=== PATIENT | female | born 1990 | race Caucasian/White ===

== ENCOUNTER 2025-01-19 20:06 | Emergency (ER) | payer MEDICAID, SELFPAY ==
[2025-01-19 20:09] VITALS: BP 128/70; PULSE 96; RESP 15; TEMP 36.9; O2SAT 99; BMI 31.2
== END 2025-01-19 20:20 | disposition left against medical advice (07) ==
LOC: ED 20:28
DX: Z53.21 Procedure and treatment not carried out due to patient leaving prior to being seen by health care provider (principal)

== ENCOUNTER 2025-08-10 07:03 | Inpatient (IN) | payer MEDICAID, SELFPAY ==
[2025-08-10] VITALS (68 sets, daily range): BP systolic 99–137; BP diastolic 53–80; PULSE 52–96; RESP 15–18; TEMP 36.1–36.6; O2SAT 81–100; BMI 37.4
--- OUTSIDE RECORDS SUMMARY | 2025-08-10 05:54 | XMS RPT_ITS | CCD ---
Author Organization [facility] Care Team Providers Care Director Security Risk Management Name Role Phone TALA MARTÍNEZHA Attending Unavailable Ramakrishna HANNA-Shannan VIEYRA Primary Care Provider SHANNAN DURBIN Attending Unavailable SHANNAN DURBIN B Primary Care Unavailable SHANNAN DURBIN Primary Care Unavailable Unavailable Primary Care Provider Unavailabl e Care Physician, No Primary Primary Care Unava ilable Zachery Lakesha Referring Unavailable Víctor [place] Attending Unavailable Zachery Lakesha Admitting Unavailable Shannan Durbin Primary Care Unavailable Provider, Ed Physician Attending Unavailab althea Durbin APRN-JARRELL, Shannan B Unavailable [phone] Ramakrishna HANNA-Luke VIEYRAla B Unavailable Generic Provider MD, No Assigned Pcp Primary Car e Provider Unavailable BINGHAM, LAKESHA Referring Unavailable ELVIS, HUE Referring Unavailable ZACHERY, LAKESHA Attending Unavailable HUE TREVINO Attending Unavailable BINGHAM, LAKESHA Referring Unavailable CLAUDETTE TREVINOFER Attending Unavailable GAYLE JOHNSON Attending Unavailable ZACHERY LAKESHA Attending Unavailable CONCEPCION YANES Attending Unavailable HUE TREVINO Attending Unavailable HUE TREVINO Attending Unavailable JESSICA VILLEGAS Referring Unavailable BINGHAM, LAKESHA Referring Unavailable ELVIS, HUE Attending Unavailable BINGHAM, LAKESHA Referring Unavailable ELVIS, HUE Attending Unavailable SELF Referring Unavailable ZACHERY, LAKESHA Attending Unavailable BINGHAM, LAKESHA Referring Unavailable ZACHERY, LAKESHA Attending Unavailable TREVA RUSSO Attending Unavailable GENERIC PROVIDER, NO ASSIGNED PCP Primary Care Unavailable SHANNAN DURBIN Primary Care Unavailable Medications Current Medications Medication Drug Class(es) Dates Sig (Normalized) Sig (Original) aspirin 81 mg delayed release oral tablet (20 sources) Platelet Aggregation Inhibitor, Nonsteroidal Anti-inflammatory Drug Start: 01-25-2025 take 1 tablet by mouth once daily aspirin, enteric coated (ECOTRIN LOW STRENGTH) 81 mg EC tablet Indications: with uncertain dates, antepartum (HCC) Take 1 tablet by mouth once daily. 90 tablet 3 01/25/2025 Active clindamycin 10 mg/ml topical solution (4 sources) Lincosamide Antibacterial Start: 03-31-2024 End: 04-30-2024 clindamycin (Cleocin T) 1 % external solution Indications: Folliculitis due to Pseudomonas aeruginosa Apply topically 2 times a day. apply to affected boils 60 mL 1 03/31/2024 04/30/2024 Active erythromycin 0.005 mg/mg ophthalmic ointment (3 sources) Macrolide, Macrolide Antimicrobial Start: 08-03-2025 0.5 cm, Left Eye, Every 6 hours scheduled, First dose (after last modification) on Sat08/03/25 at 0145 erythromycin (RO MYCIN) 5 mg/gram (0.5 %) ophthalmic ointment daily at bedtime. Active meloxicam 15 mg oral tablet (4 sources) Nonsteroidal Anti-inflammatory Drug Start: 03-31-2024 End: 03-31-2025 take 1 tablet by mouth once daily meloxicam (Mobic) 15 mg tablet Indications: Chronic low back pain without sciatica, unspecified back pain laterality , Neck pain Take 1 tablet (15 mg) by mouth once daily. 30 tablet 11 03/31/2024 03/31/2025 Active nystatin 307222 unt/ml topical cream (14 sources) Polyene Antifungal Start: 03-29-2025 nystatin (MYCOSTATIN) cream Apply to affected area two times a day. 30 g 03/29/2025 Active omeprazole 40 mg delayed release oral capsule (6 sources) Proton Pump Inhibitor Start: 09-24-2024 take 1 capsule by mouth once daily before mealtime omeprazole (PriLOSEC) [address] capsule Indications: Gastroesophageal reflux disease without esophagitis Take 1 capsule (40 mg) by mouth once daily in the morning. Take before meals. Do not crush, chew, or split. 30 capsule 09/24/2024 Active Start: 03-31-2024 End: 04-30-2024 take 1 capsule by mouth once daily before mealtime omeprazole (PriLOSEC) [address] capsule Indications: Gastroesophageal reflux disease without esophagitis Take 1 capsule (40 mg) by mouth once daily in the morning. Take before meals. Do not crush or chew. 30 capsule 03/31/2024 04/30/2024 Active End: 03-31-2024 omeprazole (PriLOSEC) [address] capsule Take 1 capsule (20 mg) by mouth. Do not crush or chew. 03/31/2024 Discontinued (Therapy completed) oxybutynin chloride 5 mg oral tablet (5 sources) Cholinergic Muscarinic Antagonist Start: 03-31-2024 End: 07-29-2024 take 1 tablet by mouth twice daily oxybutynin (Ditropan) 5 mg tablet Indications: Hyperhidrosis TAKE 1 TABLET BY MOUTH TWICE A DAY 60 tablet 3 07/22/2024 Active Urmmhkoz-Rg-Zzr-F e-FA tab (20 sources) Start: 03-02-2025 take 1 tablet by mouth once daily Rtmilgnm-Dj-Skh-Fe-F A tab Take 1 tablet by mouth once daily. With folic acid and DHA as covered by insurance 90 tablet 3 03/02/2025 Active Start: 01-25-2025 End: 03-02-2025 take 1 tablet by mouth once daily Qadutugi-Ps-Xrc-Fe-FA tab Take 1 tablet by mouth once daily. 30 tablet 11 01/25/2025 03/02/2025 Discontinued (Course of therapy completed) Start: 01-25-2025 take 1 tablet by irene once daily Umrbdjgi-Xl-Mhm-Fe-FA tab Take 1 tablet by mouth once daily. 30 tablet 11 01/25/2025 Active Completed/Discontinued Medications Medication Drug Class(es) Dates Sig (Normalized) Sig (Original) acetaminophen 325 mg oral tablet (1 source) Start: 08-03-2025 End: 08-03-2025 take 975 mg by mouth once as needed for pain 975 mg, oral, Once, On Sat08/03/25 at 0155, For 1 dose, If ordered PRN for pain, nurse is permitted to administer this medication for higher pain scores based on patient preference? Yes Etonogestrel (1 source) Progestin Start: 03-03-2015 End: 01-21-2025 ETONOGESTREL (NEXPLANON SDRM) by SUBDERMAL route continuous. 03/03/2015 01/21/2025 Discontinued (Discontinued by Patient) fluticasone propionate 0.05 mg/actuat metered dose nasal spray (10 sources) Corticosteroid Start: 01-20-2025 End: 03-02-2025 take 1 spray(s) nasal route in the morning as needed for cough fluticasone (FLONASE) 50 mcg/actuation nasal spray SPRAY 1 SPRAY INTO EACH NOSTRIL IN MORNING AND NIGHT NEEDED FOR CONGESTION,RUNNY NOSE,COUGH 01/20/2025 03/02/2025 Discontinued (Course of therapy completed) metroNIDAZOLE 500 mg oral tablet (5 sources) Nitroimidazole Antimicrobial Start: 05-25-2025 End: 06-01-2025 take 1 tablet by mouth twice daily metroNIDAZOLE (FLAGYL) 500 mg tablet Take 1 tablet by mouth two times a day for 7 days. 14 tablet 05/25/2025 06/01/2025 Start: 01-26-2025 End: 02-02-2025 take 1 tablet by mouth twice daily metroNIDAZOLE (FLAGYL) 500 mg tablet Take 1 tablet by mouth two times a day for 7 days. 14 tablet 01/26/2025 02/02/2025 Active 24 hr nicotine 0.583 mg/hr transdermal system (1 source) Cholinergic Nicotinic Agonist Start: 05-08-2017 End: 01-21-2025 apply 1 dose transdermal route every twenty-four hours nicotine (NICODERM) 14 mg/24 hr Indications: Tobacco use disorder Apply 1 Patch as directed every 24 hours. 30 Patch 1 05/08/2017 01/21/2025 Discontinued (Discontinued by Patient) ondansetron 4 mg disintegrating oral tablet (20 sources) Serotonin-3 Receptor Antagonist Start: 01-25-2025 End: 07-19-2025 take 1 tablet by mouth every eight hours as needed ondansetron orally disintegrating (ZOFRAN ODT) 4 mg disintegrating tablet Take 1 tablet by mouth every 8 hours as needed for nausea/vomiting. 30 tablet 2 04/20/2025 07/19/2025 PNV no.103/folic/om3s/f adrianna oil ( WITH DHA-FOLIC ACID ORAL) (10 sources) Start: 01-13-2025 End: 03-02-2025 PNV no.103/folic/om3s/f adrianna oil ( WITH DHA-FOLIC ACID ORAL) 01/13/2025 03/02/2025 Discontinued (Course of therapy completed) Start: 01-13-2025 PNV no.103/fol ic/om3s/fish oil ( WITH DHA-FOLIC ACID ORAL) 01/13/2025 Active tetracaine hydrochloride 5 mg/ml ophthalmic solution (2 sources) Lizzy Local Anesthetic Start: 08-03-2025 End: 08-03-2025 take 1 drop(s) into the eye(s) once 1 drop, Left Eye, Once, On Sat08/03/25 at 0120, For 1 dose, Nursing to leave at bedside for physician to administer Start: 08-03-2025 End: 08-03-2025 Starting on Sat08/03/25 at 01 17, For 1 dose, Created by cabinet override Problems Active Problems Problem Classification Problem Date Documented Date Episodic/Chronic Bacterial infection; unspecified site (2 sources) Pseudomonas (aeruginosa) (mallei) (pseudomallei) as the cause of diseases classified elsewhere; Translations: [Pseudomonas (aeruginosa) (mallei) (pseudomallei) as the cause of diseases classified elsewhere] Onset: 03-31-2024 Episodic Blindness and vision defects (2 sources) Photophobia; Translations: [Visual discomfort, left eye] Onset: 08-03-2025 08-03-2025 Episodic Esophageal disorders (5 sources) Gastroesophageal reflux disease without esophagitis; Translations: [Gastro-esophageal reflux disease without esophagitis] Onset: 03-31-2024 03-31-2024 Chronic Immunizations and screening for infectious disease (8 sources) Patient encounter status; Translations: [Encounter for screening for human papillomavirus (HPV)] Onset: 05-21-2025 01-25-2025 Episodic Inflammatory diseases of female pelvic organs (1 source) Bacterial vaginosis; Translations: [Acute vaginitis] 05-25-2025 Episodic Influenza (2 sources) Influenza; Translations: [Flu Symptoms] Onset: 01-19-2025 Other complications of (20 sources) Obesity; Translations: [Obesity complicating , unspecified trimester] Onset: 01-25-2025 01-25-2025 Chronic Other complications of (1 source) Maternal obesity complicating , childbirth and the puerperium, antepartum; Translations: [Obesity complicating , second trimester] 03-29-2025 Chronic Other complications of (1 source) Obesity complicating , unspecified trimester; Translations: [Obesity in (HCC)] Onset: 01-25-2025 Chronic Other complications of (20 sources) High risk ; Translations: [Supervision of high risk , unspecified, unspecified trimester] Onset: 07-23-2014 Resolved: 03-07-2015 03-07-2015 Episodic Other complications of (3 sources) Uterine size for dates discrepancy; Translations: [Uterine size-date discrepancy, third trimester] 06-04-2025 Episodic Other complications of (1 source) Uterine size-date discrepancy, third trimester; Translations: [Uterine size-date discrepancy, third trimester (HCC)] Onset: 06-04-2025 Episodic Other complications of (1 source) Supervision of high risk , unspecified, second trimester; Translations: [Supervision of high risk in second trimester (HCC)] Onset: 06-03-2025 Episodic Other connective tissue disease (2 sources) Pain of left hand; Translations: [Pain in left hand] 03-31-2024 Episodic Other connective tissue disease (2 sources) Pain in left hand; Translations: [Pain in left hand] Onset: 03-31-2024 Episodic Other eye disorders (1 source) Pain of left eye; Translations: [Ocular pain, left eye] 08-03-2025 Episodic Other eye disorders (1 source) Ocular pain, left eye; Translations: [Pain in left eye] Onset: 08-03-2025 Episodic Other female genital disorders (1 source) Cervical intraepithelial neoplasia grade 1; Translations: [Mild cervical dysplasia] 03-29-2025 Episodic Other female genital disorders (1 source) Vaginal discharge; Translations: [Other specified noninflammatory disorders of vagina] 05-21-2025 Episodic Other female genital disorders (1 source) Vaginal odor; Translations: [Other specified noninflammatory disorders of vagina] 05-21-2025 Episodic Other female genital disorders (2 sources) Other specified noninflammatory disorders of vagina; Translations: [Vaginal discharge] Onset: 05-21-2025 Episodic Other nervous system disorders (2 sources) Other chronic pain; Translations: [Other chronic pain] Onset: 03-31-2024 Chronic Other screening for suspected conditions (not mental disorders or infectious disease) (4 sources) Cancer cervix screening status; Translations: [Encounter for screening for malignant neoplasm of cervix] Onset: 01-26-2025 01-25-2025 Episodic Other skin disorders (1 source) Hyperhidrosis; Translations: [Generalized hyperhidrosis] 03-31-2024 Episodic Other skin disorders (1 source) Pseudomonas aeruginosa folliculitis; Translations: [Follicular disorder, unspecified] 03-31-2024 Episodic Other skin disorders (4 sources) Generalized hyperhidrosis; Translations: [Generalized hyperhidrosis] Onset: 03-31-2024 Episodic Other skin disorders (2 sources) Follicular disorder, unspecified; Translations: [Follicular disorder, unspecified] Onset: 03-31-2024 Episodic Residual codes; unclassified (2 sources) Gestation period, 11 weeks; Translations: [11 weeks gestation of ] 01-26-2025 Episodic Residual codes; unclassified (1 source) Gestation period, 13 weeks; Translations: [13 weeks gestation of ] 02-09-2025 Episodic Residual codes; unclassified (1 source) Gestation period, 16 weeks; Translations: [16 weeks gestation of ] 03-02-2025 Episodic Residual codes; unclassified (2 sources) Gestation period, 20 weeks; Translations: [20 weeks gestation of ] 03-29-2025 Episodic Residual codes; unclassified (1 source) Gestation period, 28 weeks; Translations: [28 weeks gestation of ] 05-21-2025 Episodic Residual codes; unclassified (2 sources) Gestation period, 30 weeks; Translations: [30 weeks gestation of ] 06-04-2025 Episodic Residual codes; unclassified (2 sources) Gestation period, 32 weeks; Translations: [32 weeks gestation of ] 06-21-2025 Episodic Residual codes; unclassified (1 source) Gestation period, 36 weeks; Translations: [36 weeks gestation of ] 07-20-2025 Episodic Residual codes; unclassified (2 sources) Gestation period, 38 weeks; Translations: [38 weeks gestation of ] 07-29-2025 Episodic Residual codes; unclassified (1 source) 38 weeks gestation of ; Translations: [38 weeks gestation of (HCC)] Onset: 07-29-2025 Episodic Residual codes; unclassified (1 source) 36 weeks gestation of ; Translations: [36 weeks gestation of (HCC)] Onset: 07-20-2025 Episodic Residual codes; unclassified (1 source) 32 weeks gestation of ; Translations: [32 weeks gestation of (HCC)] Onset: 06-21-2025 Episodic Residual codes; unclassified (1 source) 30 weeks gestation of ; Translations: [30 weeks gestation of (HCC)] Onset: 06-04-2025 Episodic Residual codes; unclassified (1 source) 28 weeks gestation of ; Translations: [28 weeks gestation of (HCC)] Onset: 06-03-2025 Episodic Substance-related disorders (20 sources) Cannabis abuse; Translations: [Cannabis abuse, uncomplicated] Onset: 11-11-2014 Resolved: 02-01-2025 11-20-2021 Chronic Superficial injury; contusion (5 sources) Abrasion of left cornea; Translations: [Injury of conjunctiva and corneal abrasion without foreign body, left eye, initial encounter] Onset: 08-03-2025 08-03-2025 Episodic Unclassified (1 source) Low back pain, unspecified; Translations: [Low back pain, unspecified] Onset: 03-31-2024 Unclassified (20 sources) [facility] Education - COMMON Onset: 01-25-2025 01-25-2025 Unclassified (20 sources) Education - [place] Onset: 01-25-2025 01-25-2025 Past or Other Problems Problem Classification Problem Date Documented Date Episodic/Chronic Cardiac and circulatory congenital anomalies (20 sources) Single umbilical artery; Translations: [Congenital absence and hypoplasia of umbilical artery] Onset: 06-28-2014 Resolved: 02-09-2015 11-20-2021 Chronic Hemorrhage during ; abruptio placenta; placenta previa (20 sources) Threatened miscarriage; Translations: [Threatened ] Onset: 03-21-2011 Resolved: 07-09-2011 07-09-2011 Episodic Menstrual disorders (20 sources) Irregular periods; Translations: [Irregular menstruation, unspecified] Onset: 03-12-2011 Resolved: 02-01-2025 03-12-2011 Chronic Mycoses (2 sources) Candidiasis of skin; Translations: [Candidiasis of skin and nail] Onset: 03-29-2025 03-29-2025 Episodic Other complications of (20 sources) Supervision of other high risk pregnancies, unspecified trimester; Translations: [Supervision of other high-risk ] Onset: 03-12-2011 Resolved: 11-23-2011 11-23-2011 Episodic Other complications of (20 sources) Maternal tobacco use in ; Translations: [Smoking (tobacco) complicating , unspecified trimester] Onset: 03-26-2014 Resolved: 03-07-2015 11-20-2021 Episodic Other complications of (20 sources) Vomiting of , unspecified; Translations: [Unspecified vomiting of , unspecified as to episode of care or not applicable] Onset: 03-26-2014 Resolved: 02-09-2015 11-20-2021 Episodic Other complications of (20 sources) Back pain complicating ; Translations: [Back pain complicating ] Onset: 07-29-2014 Resolved: 02-09-2015 11-20-2021 Episodic Other complications of (20 sources) Maternal tobacco use; Translations: [Smoking (tobacco) complicating , unspecified trimester] Onset: 01-25-2025 01-25-2025 Episodic Other complications of (1 source) Smoking (tobacco) complicating , unspecified trimester; Translations: [Tobacco use during , antepartum (HCC)] Onset: 01-25-2025 Episodic Other female genital disorders (20 sources) Cervical intraepithelial neoplasia grade 2; Translations: [Moderate cervical dysplasia] Onset: 06-08-2014 11-20-2021 Episodic Other female genital disorders (1 source) Mild cervical dysplasia; Translations: [ADRIANA I (cervical intraepithelial neoplasia I)] Onset: 03-29-2025 Episodic Other inflammatory condition of skin (20 sources) Pruritus of skin; Translations: [Pruritus, unspecified] Onset: 03-21-2011 Resolved: 02-09-2015 02-09-2015 Episodic Other and delivery including normal (20 sources) Normal ; Translations: [Encounter for supervision of other normal , unspecified trimester] Onset: 06-25-2014 Resolved: 07-23-2014 11-20-2021 Episodic Residual codes; unclassified (20 sources) FH: Congenital anomaly; Translations: [Family history of other congenital malformations, deformations and chromosomal abnormalities] Onset: 03-26-2014 Resolved: 02-09-2015 11-20-2021 Episodic Residual codes; unclassified (1 source) Procedure and treatment not carried out due to patient leaving prior to being seen by health care provider; Translations: [Procedure and treatment not carried out due to patient leaving prior to being seen by health care provider] Onset: 02-02-2025 Episodic Residual codes; unclassified (1 source) 20 weeks gestation of ; Translations: [20 weeks gestation of (HCC)] Onset: 03-29-2025 Episodic Residual codes; unclassified (1 source) 11 weeks gestation of ; Translations: [11 weeks gestation of ] Onset: 01-26-2025 Episodic Sexually transmitted infections (not HIV or hepatitis) (20 sources) Human papillomavirus deoxyribonucleic acid test positive, high risk on cervical specimen; Translations: [Cervical high risk human papillomavirus (HPV) DNA test positive] Onset: 02-01-2025 02-01-2025 Episodic Spondylosis; intervertebral disc disorders; other back problems (20 sources) Chronic low back pain; Translations: [Chronic low back pain without sciatica, unspecified back pain laterality] Onset: 08-09-2014 Resolved: 02-01-2025 03-31-2024 Episodic Substance-related disorders (20 sources) Marijuana user; Translations: [Drug use complicating , unspecified trimester] Onset: 01-25-2025 01-25-2025 Episodic Unclassified (1 source) Low back pain, unspecified; Translations: [Low back pain, unspecified] Onset: 03-31-2024 Viral infection (20 sources) Genital warts; Translations: [Anogenital (venereal) warts] Onset: 03-31-2013 03-31-2013 Episodic NEGATED: Highlighted row has been ruled out!Unclassified (1 source) No known active problems 03-31-2024 Results Test Name Value Interpretation Reference Range Facil ity URINE OB DIP B/Oon Glucose Ql (U) Negative Neg mg/dL [facility] Interpretation and review of laboratory results Normal [facility] Protein.monoclonal (U) [Mass/Vol] Negative Neg mg/dL [facility] URINE OB DIP B/Oon Glucose Ql (U) Negative Neg mg/dL [facility] Interpretation and review of laboratory results Normal [facility] Protein.monoclonal (U) [Mass/Vol] Negative Neg mg/dL [facility] CNPNon 07-21-2025 CNPN Telephone ([id number]) YASHIRALASHANDAN ([id number]) 1990 F Date Time Provider Department 07/21/25 HUE FLOWERS [id number] During your visit today, we recorded the following information about you: Hue Flowers RN 07/21/2025 8:36 AM Signed 3rd risk assessment form submitted 07/21/2025. 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 - Ofqwaqmn-Ak-Ecl-Fe-FA tab Take 1 tablet by mouth once daily. With folic acid and DHA as covered by insurance - aspirin, enteric coated (ECOTRIN LOW STRENGTH) 81 mg EC tablet Take 1 tablet by mouth once daily. Problem List As Of Date 07/21/2025 Noted Resolved Supervision of other high-risk [O09.8*03/12/2011 11/23/2011 Irregular menstrual cycle [N92.6] 03/12/2011 02/01/2025 Threatened , antepartum [O20.0] 03/21/2011 07/09/2011 Unspecified pruritic disorder [L29.9] 03/21/2011 02/09/2015 Genital warts [A63.0] 03/31/2013 Tobacco use in [O99.330] 03/26/2014 03/07/2015 Nausea and vomiting in [O21.9] 03/26/2014 02/09/2015 Family history of defects [Z82.79] 03/26/2014 02/09/2015 Cervical warts [A63.0] 06/03/2014 ADRIANA II (cervical intraepithelial neoplasia II) *06/08/2014 Supervision of other normal [Z34.80] 06/25/2014 07/23/2014 Single umbilical artery [Q27.0] 06/28/2014 02/09/2015 High-risk [O09.90] 07/23/2014 03/07/2015 Back pain complicating [O99.891, M54.*07/29/2014 02/09/2015 Low back pain [M54.50] 08/09/2014 02/01/2025 Marijuana abuse [F12.10] 11/11/2014 Tobacco use disorder [F17.200] 05/08/2017 02/01/2025 Tobacco use during , antepartum [O99.3*01/25/2025 Marijuana use during [O99.320, F12.90]01/25/2025 Supervision of other high risk pregnancies, uns*01/25/2025 Obesity in [O99.210] 01/25/2025 Cervical high risk HPV (human papillomavirus) t*02/01/2025 Encounter Status:Closed by HUE FLOWERS on 07/21/25 Normal [facility] ROUTINE, GROUP B ST REPTOCOCCUS BY PCRon 07-20-2025 ROUTINE, GROUP B STREPTOCOCCUS BY PCR Detected Abnormal [facility] Comment on above: Performed By: #### G BPCR ####[facility] LABCLIA [id number] [place] [address] [place] URINE OB DIP B/Oon Glucose Ql (U) Negative Neg mg/dL [facility] Interpretation and review of laboratory results Normal [facility] Protein.monoclonal (U) [Mass/Vol] Negative Neg mg/dL [facility] Examination level ultrasound on 06-21-2025 [facility] Radiology Study observation (narrative) [facility] URINE OB DIP B/Oon Glucose Ql (U) Negative Neg mg/dL [facility] Interpretation and review of laboratory results Normal [facility] Protein.monoclonal (U) [Mass/Vol] Negative Neg mg/dL [facility] CBC W Auto Differential pane l (Bld)on 06-03-2025 Basophils (Bld) [#/Vol] 0.08 10*3/uL Normal <0.11 [facility] Comment on above: Order Comment: Speci men Type: BLOOD SPECIMENOrdering Facility: [facility] Address: [address] [place] [address] Performed By: #### 5 7021-8 ####[facility] MILLTOWNCLIA [id number] [place] [address] [place] Basophils/100 WBC (Bld) 0.6 % Normal [facility] Comment on above: Order Comment: Speci men Type: BLOOD SPECIMENOrdering Facility: [facility] Address: [address] [place] [address] Performed By: #### 5 7021-8 ####[facility] [id number] [place] [address] [place] Differential cell count method Nom (Bld) Auto Normal [facility] Comment on above: Order Comment: Speci men Type: BLOOD SPECIMENOrdering Facility: [facility] Address: [address] [place] [address] Performed By: #### 5 7021-8 ####[facility]OWNCLIA [id number] [place] [address] [place] Eosinophils (Bld) [#/Vol] 0.29 10*3/uL Normal <0.46 [facility] Comment on above: Order Comment: Speci men Type: BLOOD SPECIMENOrdering Facility: [facility] Address: [address] [place] [address] Performed By: #### 5 7021-8 ####[facility] MILLTOWNCLIA [id number] [place] [address] [place] Eosinophils/100 WBC (Bld) 2.3 % Normal [facility] Comment on above: Order Comment: Speci men Type: BLOOD SPECIMENOrdering Facility: [facility] Address: [address] [place] [address] Performed By: #### 5 7021-8 ####[facility] DOMINGACLAWSONJOYNOREEN [id number] [place] [address] [place] Erythrocyte distribution width (RBC) [Ratio] 12.7 % Normal 11.5-15.0 [facility] Comment on above: Order Comment: Speci men Type: BLOOD SPECIMENOrdering Facility: [facility] Address: [address] [place] [address] Performed By: #### 5 7021-8 ####[facility] [id number] [place] [address] [place] Hematocrit (Bld) [Volume fraction] 31.4 % Low 36.0-46.0 [facility] Comment on above: Order Comment: Speci men Type: BLOOD SPECIMENOrdering Facility: [facility] Address: [address] [place] [address] Performed By: #### 5 7021-8 ####[facility] INSTITUTEJOYNOREEN [id number] [place] [address] [place] Hemoglobin (Bld) [Mass/Vol] 11.2 g/dL Low 11.5-15.5 [facility] Comment on above: Order Comment: Speci men Type: BLOOD SPECIMENOrdering Facility: [facility] Address: [address] [place] [address] Performed By: #### 5 7021-8 ####[facility] IN[facility]UTENCLIA [id number] [place] [address] [place] Immature granulocytes (Bld) [#/Vol] 0.06 10*3/uL Normal <0.10 [facility] Comment on above: Order Comment: Speci men Type: BLOOD SPECIMENOrdering Facility: [facility] Address: [address] [place] [address] Performed By: #### 5 7021-8 ####[facility] [id number] [place] [address] [place] Immature granulocytes/100 WBC (Bld) 0.5 % Normal [facility] Comment on above: Order Comment: Speci men Type: BLOOD SPECIMENOrdering Facility: [facility] Address: [address] [place] [address] Performed By: #### 5 7021-8 ####[facility] [id number] [place] [address] [place] Lymphocytes (Bld) [#/Vol] 2.55 10*3/uL Normal 1.00-4.00 [facility] Comment on above: Order Comment: Speci men Type: BLOOD SPECIMENOrdering Facility: [facility] Address: [address] [place] [address] Performed By: #### 5 7021-8 ####[facility] [id number] [place] [address] [place] Lymphocytes/100 WBC (Bld) 20.0 % Normal [facility] Comment on above: Order Comment: Speci men Type: BLOOD SPECIMENOrdering Facility: [facility] Address: [address] [place] [address] Performed By: #### 5 7021-8 ####[facility] [id number] [place] [address] [place] MCH (RBC) [Entitic mass] 31.5 pg Normal 26.0-34.0 [facility] Comment on above: Order Comment: Speci men Type: BLOOD SPECIMENOrdering Facility: [facility] Address: [address] [place] [address] Performed By: #### 5 7021-8 ####[facility]STITUTENCL[facility] [id number] [place] [address] [place] MCHC (RBC) [Mass/Vol] 35.7 g/dL Normal 30.5-36.0 [facility] Comment on above: Order Comment: Speci men Type: BLOOD SPECIMENOrdering Facility: [facility] Address: [address] [place] [address] Performed By: #### 5 7021-8 ####[facility] [id number] [place] [address] [place] MCV (RBC) [Entitic vol] 88.2 fL Normal 80.0-100.0 [facility] Comment on above: Order Comment: Speci men Type: BLOOD SPECIMENOrdering Facility: [facility] Address: [address] [place] [address] Performed By: #### 5 7021-8 ####[facility] [id number] [place] [address] [place] Monocytes (Bld) [#/Vol] 0.64 10*3/uL Normal <0.87 [facility] Comment on above: Order Comment: Speci men Type: BLOOD SPECIMENOrdering Facility: [facility] Address: [address] [place] [address] Performed By: #### 5 7021-8 ####[facility]IT[facility] [id number] [place] [address] [place] Monocytes/100 WBC (Bld) 5.0 % Normal [facility] Comment on above: Order Comment: Speci men Type: BLOOD SPECIMENOrdering Facility: [facility] Address: [address] [place] [address] Performed By: #### 5 7021-8 ####[facility] [id number] [place] [address] [place] Neutrophils (Bld) [#/Vol] 9.15 10*3/uL High 1.45-7.50 [facility] Comment on above: Order Comment: Speci men Type: BLOOD SPECIMENOrdering Facility: [facility] Address: [address] [place] [address] Performed By: #### 5 7021-8 ####[facility] [id number] [place] [address] [place] Neutrophils/100 WBC (Bld) 71.6 % Normal [facility] Comment on above: Order Comment: Speci men Type: BLOOD SPECIMENOrdering Facility: [facility] Address: [address] [place] [address] Performed By: #### 5 7021-8 ####[facility] INSTITUTESOSA [id number] [place] [address] [place] Nucleated RBC (Bld) [#/Vol] 10*3/uL Normal <0.01 [facility] Comment on above: Order Comment: Speci men Type: BLOOD SPECIMENOrdering Facility: [facility] Address: [address] [place] [address] Performed By: #### 5 7021-8 ####[facility]ES[facility] [id number] [place] [address] [place] Nucleated RBC/100 WBC (Bld) [Ratio] 0.0 /100 WBC Normal [facility] Comment on above: Order Comment: Speci men Type: BLOOD SPECIMENOrdering Facility: [facility] Address: [address] [place] [address] Performed By: #### 5 7021-8 ####[facility] INSTITUTENCLI [id number] [place] [address] [place] Platelet mean volume (Bld) [Entitic vol] 8.9 fL Low 9.0-12.7 [facility] Comment on above: Order Comment: Speci men Type: BLOOD SPECIMENOrdering Facility: [facility] Address: [address] [place] [address] Performed By: #### 5 7021-8 ####[facility] INSTITUTENCTOSHIAA [id number] [place] [address] [place] Platelets (Bld) [#/Vol] 331 10*3/uL Normal 150-400 [facility] Comment on above: Order Comment: Speci men Type: BLOOD SPECIMENOrdering Facility: [facility] Address: [address] [place] [address] Performed By: #### 5 7021-8 ####[facility]STITUTENCLIA [id number] [place] [address] [place] RBC (Bld) [#/Vol] 3.56 10*6/uL Low 3.90-5.20 [facility] Comment on above: Order Comment: Speci men Type: BLOOD SPECIMENOrdering Facility: [facility] Address: [address] [place] [address] Performed By: #### 5 7021-8 ####[facility]ENCL[facility] [id number] [place] [address] [place] WBC (Bld) [#/Vol] 12.77 10*3/uL High 3.70-11.00 [facility] Comment on above: Order Comment: Speci men Type: BLOOD SPECIMENOrdering Facility: [facility] Address: [address] [place] [address] Performed By: #### 5 7021-8 ####[facility]UT[facility]CL[facility] [id number] [place] [address] [place] GESTATIONAL GLUCOSE SCREEN, 1-HOUR, 50 GRAM, NON-FASTINGon 06-03-2025 Glucose [Mass/Vol] 92 mg/dL Normal 74-134 [facility] Comment on above: Order Comment: Ramona lopez Type: BLOOD SPECIMENOrdering Facility: [facility] Address: [address] [place] [address] Result Comment: [facility] Congress of Obstetricians and Gynecologists (Arminda/Madeline) guidelines state a gestational diabetes mellitus positive screen is made, in women not previously diagnosed with overt diabetes, when the 1 hr plasma glucose level is equal to or above 140 mg/dL. [facility] [employer] [facility] [place] recommends a 135 mg/dL cutoff. Performed By: #### G LTGST ####[facility] [id number] [place] [address] [place] Reagin and Treponema pallidu m IgG and IgM [Interp]on 06-03-2025 T. pallidum IgG+IgM IA Ql (S) Non-Reactive Normal Nonreactive [facility] Comment on above: Order Comment: Ramona lopez Type: BLOOD SPECIMENOrdering Facility: [facility] Address: [address] [place] [address] Performed By: #### 7 3752-8 ####[facility] [id number] [place] [address] [place] Reagin+T pallidum IgG+IgM Se rPl-Impon 06-03-2025 Reagin and Treponema pallidum IgG and IgM [Interp] Cannot exclude recent Treponemal infection if specimen collected within 7-10 days after appearance of suspect lesions or 2-3 weeks after an exposure. Clinical correlation is required. Normal [facility] Comment on above: Order Comment: Ramona lopez Type: BLOOD SPECIMENOrdering Facility: [facility] Address: [address] [place] [address] Performed By: #### 7 3752-8 ####[facility] LABIA [id number] [place] [id number] [place] CNPDee 05-24-2025 CNPN Telephone ([id number]) ELAINE AC ([id number]) 1990 F IPA Date Time Provider Department 05/24/25 HUE FLOWERS [id number] During your visit today, we recorded the following information about you: Hue Flowers RN 05/24/2025 9:48 AM Signed 2nd risk assessment form submitted 05/24/2025. 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 - nystatin (MYCOSTATIN) cream Apply to affected area two times a day. - Xfprluat-Qb-Chx-Fe-FA tab Take 1 tablet by mouth once daily. With folic acid and DHA as covered by insurance - aspirin, enteric coated (ECOTRIN LOW STRENGTH) 81 mg EC tablet Take 1 tablet by mouth once daily. Problem List As Of Date 05/24/2025 Noted Resolved Supervision of other high-risk [O09.8*03/12/2011 11/23/2011 Irregular menstrual cycle [N92.6] 03/12/2011 02/01/2025 Threatened , antepartum [O20.0] 03/21/2011 07/09/2011 Unspecified pruritic disorder [L29.9] 03/21/2011 02/09/2015 Genital warts [A63.0] 03/31/2013 Tobacco use in [O99.330] 03/26/2014 03/07/2015 Nausea and vomiting in [O21.9] 03/26/2014 02/09/2015 Family history of defects [Z82.79] 03/26/2014 02/09/2015 Cervical warts [A63.0] 06/03/2014 ADRIANA II (cervical intraepithelial neoplasia II) *06/08/2014 Supervision of other normal [Z34.80] 06/25/2014 07/23/2014 Single umbilical artery [Q27.0] 06/28/2014 02/09/2015 High-risk [O09.90] 07/23/2014 03/07/2015 Back pain complicating [O99.891, M54.*07/29/2014 02/09/2015 Low back pain [M54.50] 08/09/2014 02/01/2025 Marijuana abuse [F12.10] 11/11/2014 Tobacco use disorder [F17.200] 05/08/2017 02/01/2025 Tobacco use during , antepartum [O99.3*01/25/2025 Marijuana use during [O99.320, F12.90]01/25/2025 Supervision of other high risk pregnancies, uns*01/25/2025 Obesity in [O99.210] 01/25/2025 Cervical high risk HPV (human papillomavirus) t*02/01/2025 Encounter Status:Closed by HUE FLOWERS on 05/24/25 Normal [facility] BACTERIAL VAGINOSIS NAATon 0 05-21-2025 Lactobacillus crispatus+gasseri+je nsenii + Gardnerella vaginalis + Atopobium vaginae rRNA MITUL+probe Ql (Vag fld) Detected Abnormal Not detected [facility] Comment on above: Order Comment: Speci men Type: SWABOrdering Facility: [facility] Address: [address] [place] [address] Performed By: #### C VTV, BVAMP ####[facility] LABCLIA [id number] [address] [place] ASHLEY/TRICHOMONAS NAATon 0 05-21-2025 C. glabrata RNA MITUL+probe Ql (Vag fld) Not detected Normal Not detected [facility] Comment on above: Order Comment: Speci men Type: SWABOrdering Facility: [facility] Address: [address], [place] [address] Performed By: #### C VTV, BVAMP ####[facility] LABCLIA [id number] [address] [place] Ashley sp DNA MITUL+probe Ql (Vag fld) Not detected Normal Not detected [facility] Comment on above: Order Comment: Speci men Type: SWABOrdering Facility: [facility] Address: [address] [place] [address] Result Comment: The Ashley species group target includes C. albicans, C. tropicalis, C. parapsilosis, and C. dubliniensis. Performed By: #### C VTV, BVAMP ####[facility] LABCLIA [id number] [address] T. vaginalis DNA MITUL+probe Ql (Unsp spec) Not detected Normal Not detected [facility] Comment on above: Order Comment: Speci men Type: SWABOrdering Facility: [facility] Address: [address] [place] [address] Performed By: #### C VTV, BVAMP ####[facility] LABCLIA [id number] [address] [place] Familia 03-30-2025 [facility][id number][facility] ELAINE AC ([id number]) 1990 F Date Time Provider Department 03/30/25 HUE FLOWERS [id number] During your visit today, we recorded the following information about you: Hue Flowers RN 03/30/2025 9:46 AM Addendum Opened in error Allergies As of Date: 03/30/2025 (No Known Allergies) Date Reviewed: 03/29/2025 Reviewed by: Hue Trevino MD - Fully Assessed 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 - Imsgmtkf-Qt-Pgf-Fe-FA tab Take 1 tablet by mouth once daily. With folic acid and DHA as covered by insurance - aspirin, enteric coated (ECOTRIN LOW STRENGTH) 81 mg EC tablet Take 1 tablet by mouth once daily. - ondansetron orally disintegrating (ZOFRAN ODT) 4 mg disintegrating tablet Take 1 tablet by mouth every 8 hours as needed for nausea/vomiting. Problem List As Of Date 03/30/2025 Noted Resolved Supervision of other high-risk [O09.8*03/12/2011 11/23/2011 Irregular menstrual cycle [N92.6] 03/12/2011 02/01/2025 Threatened , antepartum [O20.0] 03/21/2011 07/09/2011 Unspecified pruritic disorder [L29.9] 03/21/2011 02/09/2015 Genital warts [A63.0] 03/31/2013 Tobacco use in [O99.330] 03/26/2014 03/07/2015 Nausea and vomiting in [O21.9] 03/26/2014 02/09/2015 Family history of defects [Z82.79] 03/26/2014 02/09/2015 Cervical warts [A63.0] 06/03/2014 ADRIANA II (cervical intraepithelial neoplasia II) *06/08/2014 Supervision of other normal [Z34.80] 06/25/2014 07/23/2014 Single umbilical artery [Q27.0] 06/28/2014 02/09/2015 High-risk [O09.90] 07/23/2014 03/07/2015 Back pain complicating [O99.891, M54.*07/29/2014 02/09/2015 Low back pain [M54.50] 08/09/2014 02/01/2025 Marijuana abuse [F12.10] 11/11/2014 Tobacco use disorder [F17.200] 05/08/2017 02/01/2025 Tobacco use during , antepartum [O99.3*01/25/2025 Marijuana use during [O99.320, F12.90]01/25/2025 Supervision of other high risk pregnancies, uns*01/25/2025 Obesity in [O99.210] 01/25/2025 Cervical high risk HPV (human papillomavirus) t*02/01/2025 Encounter Status:Closed by HUE FLOWERS on 03/30/25 Normal [facility] Examination level ultrasound on 03-29-2025 Indication Detailed anatomic survey Maternal obesity, BMI >30 Impression The patient is referred for a detailed anatomic survey. - Single, live, intrauterine . - biometry is consistent with the established gestational age. - No malformations were visualized on a complete detailed anatomic survey. - The amniotic fluid volume is normal amount. - The placenta is anterior, fundal. - The Transabdominal cervical length measures 37.8 mm with no evidence of funneling or other dynamic changes. - Not all structural malformations can be detected by ultrasound examination. Recommendations Additional follow-up as clinically indicated. Maternal Assessment Height 163 cm Height (ft) 5 ft Height (in) 4 in Physical Exam Initial weight (lb) 182 lb Initial BMI 31.23 kg/m Maternal assessment other: 3 Para 2 REMOTE READ Method Transabdominal ultrasound examination. View: Suboptimal view: limited by position Rose . Number of fetuses: 1 Dating GA by prior assessment 20 w + 4 d LUCIA by prior assessment: 08/12/2025 Ultrasound examination on: 03/29/2025 GA by U/S based upon: AC, BPD, Femur, HC GA by U/S 20 w + 5 d LUCIA by U/S: 08/11/2025 Assigned: based on stated LUCIA, selected on 03/29/2025 Assigned GA 20 w + 4 d Assigned LUCIA: 08/12/2025 General Evaluation Cardiac activity present. FHR 143 bpm. movements: present. Presentation: transverse head right Placenta: Placental site: anterior, fundal Umbilical cord: Cord vessels: 3 vessel cord Amniotic fluid: Amount of AF: normal amount. MVP 5.6 cm Growth Overview Exam date GA BPD (mm) HC (mm) AC (mm) FL (mm) HL (mm) EFW (g) 03/29/2025 20w 4d 46.9 33% 181.4 49% 163 70% 34 68% 34.6 88% 390 66% Biometry Standard BPD 46.9 mm 20w 1d 33% Hadlock OFD 65.5 mm 20w 5d 81% Nicolaides HC 181.4 mm 20w 4d 49% Ambreen Cerebellum tr 21.0 mm 20w 0d 46% Hill Nuchal fold 5.2 mm AC 163.0 mm 21w 3d 70% Hadlock Femur 34.0 mm 20w 6d 68% Ambreen Humerus 34.6 mm 21w 6d 88% Ambreen EFW 390 g 20w 6d 66% Hadlock EFW (lb) 0 lb EFW (oz) 14 oz EFW by: Hadlock (HC-AC-FL) [employer] Manager 7.0 mm CM 5.5 mm 63% Nicolaides Extremities / Bony Struc FL / HC 0.19 52% Hadlock Other Structures FHR 143 bpm Anatomy Cranium: normal Lateral ventricles: normal Choroid plexus: normal Midline falx: normal Cavum septi pellucidi: normal Cerebellum: normal Cisterna magna: normal Head / Neck Vermis: normal Neck: normal Nuchal fold: normal Lips: normal Profile: normal Nose: normal Face Maxilla: normal Mandible: normal Orbits: normal Lens: normal 4-chamber view: normal RVOT view: normal LVOT view: normal 3-vessel view: normal 4-lqdoqc-jskmjpi view: normal Heart / Thorax Situs: situs solitus (normal) Aortic arch view: normal SVC: normal IVC: normal Cardiac axis: normal Rt lung: normal Lt lung: normal Diaphragm: normal Cord insertion: normal Stomach: normal Kidneys: normal Bladder: normal Genitals: normal Abdomen Abdom. wall: normal Cervical spine: normal Thoracic spine: normal Lumbar spine: normal Sacral spine: normal Arms: normal Legs: normal Rt upper arm: normal Rt forearm: normal Rt hand: normal Rt fingers: normal Lt upper arm: normal Lt forearm: normal Lt hand: normal Lt fingers: normal Rt upper leg: normal Rt lower leg: normal Rt foot: normal Lt upper leg: normal Lt lower leg: normal Lt foot: normal sex: female Wants to know sex: yes Maternal Structures Uterus / Cervix Uterus: Visualized Cervix: Visualized Approach: Transabdominal Cervical length 37.8 mm Other: Patient declined transvaginal ultrasound for cervical length. Ovaries / Tubes / Adnexa Rt ovary: Visualized Lt ovary: Visualized Performed By: Luz Watson RDMS, RVT Read By: Nina Conte M.D. MATERNAL MEDICINE [facility] Radiology Study observation (narrative) [facility] Familia 03-25-2025 CNPN Telephone (OBGYWM) ELAINE AC ([id number]) 1990 F IPA Date Time Provider Department 03/25/25 LAKESHA BINGHAM During your visit today, we recorded the following information about you: Digna Villalobos RN 03/25/2025 8:57 AM Signed Written order received from [employer] for breast pump. Placed in ALFONSO inbox for signature. DONNA Jluio Lindsey, RN 04/09/2025 2:19 PM Signed Order signed and faxed. Luz Chun RN Allergies As of Date: 03/25/2025 (No Known Allergies) Date Reviewed: 02/09/2025 Reviewed by: Hue Trevino MD - Fully Assessed Reason for Visit: Breast pump [Other] Prescriptions as of 04/09/2025 - nystatin (MYCOSTATIN) cream Apply to affected area two times a day. - Lqsozble-Ke-Uea-Fe-FA tab Take 1 tablet by mouth once daily. With folic acid and DHA as covered by insurance - aspirin, enteric coated (ECOTRIN LOW STRENGTH) 81 mg EC tablet Take 1 tablet by mouth once daily. - ondansetron orally disintegrating (ZOFRAN ODT) 4 mg disintegrating tablet Take 1 tablet by mouth every 8 hours as needed for nausea/vomiting. Problem List As Of Date 03/25/2025 Noted Resolved Supervision of other high-risk [O09.8*03/12/2011 11/23/2011 Irregular menstrual cycle [N92.6] 03/12/2011 02/01/2025 Threatened , antepartum [O20.0] 03/21/2011 07/09/2011 Unspecified pruritic disorder [L29.9] 03/21/2011 02/09/2015 Genital warts [A63.0] 03/31/2013 Tobacco use in [O99.330] 03/26/2014 03/07/2015 Nausea and vomiting in [O21.9] 03/26/2014 02/09/2015 Family history of defects [Z82.79] 03/26/2014 02/09/2015 Cervical warts [A63.0] 06/03/2014 ADRIANA II (cervical intraepithelial neoplasia II) *06/08/2014 Supervision of other normal [Z34.80] 06/25/2014 07/23/2014 Single umbilical artery [Q27.0] 06/28/2014 02/09/2015 High-risk [O09.90] 07/23/2014 03/07/2015 Back pain complicating [O99.891, M54.*07/29/2014 02/09/2015 Low back pain [M54.50] 08/09/2014 02/01/2025 Marijuana abuse [F12.10] 11/11/2014 Tobacco use disorder [F17.200] 05/08/2017 02/01/2025 Tobacco use during , antepartum [O99.3*01/25/2025 Marijuana use during [O99.320, F12.90]01/25/2025 Supervision of other high risk pregnancies, uns*01/25/2025 Obesity in [O99.210] 01/25/2025 Cervical high risk HPV (human papillomavirus) t*02/01/2025 Encounter Status:Closed by LUZ CHUN on 04/09/25 [facility] CNOVon 02-09-2025 CNOV Office Visit (OBGYWM ) ELAINE AC ([id number]) 1990 F Date Time Provider Department 02/09/25 1:40 PM HUE TREVINO During your visit today, we recorded the following information about you: Blood pressure Weight 110/60 83.9 kg Hue Trevino MD 02/09/2025 2:46 PM Signed Heeler offered: Patient declinesLeonardo Henry is a 34 year old who presents today for a colposcopy. The patient's last pap smear was Positive HPV from January 2025. Patient has a history of abnormal pap: Yes. The patient has had prior treatment: none. test: 13 weeks FHR 145 UNIVERSAL PROTOCOL / SAFETY CHECKLIST Procedure to be Performed: Colposcopy with possible biopsies Sign In: A Moment of CARE was completed. Appropriate PPE (Personal Protective Equipment) worn by all providers involved with the procedure. Special equipment not required. Patient/Surrogate Stated/Verified: Patient name, Date of , Relevant allergies, and The intended procedure Time Out: Relevant labs, photos, and/or imaging studies have been reviewed. Intended patient and procedure match the source document(s) (e.g. consent, HANDP, associated studies [imaging, pathology]) match the intended patient and procedure. Consent obtained and matches the intended procedure. Yes. Correct side/site is not applicable. Medications required for this procedure are not applicable. Fire risk assessed and is not applicable. Implants: are not applicable. Sign Out: Specimens are all correctly labeled and sent. All instruments, equipment, possible retained foreign bodies are accounted for. Yes. The post-procedure plan of care has been communicated to the patient or surrogate. PROCEDURE: EXTERNAL GENITALIA: Normal in appearance without lesions VAGINA: Normal in appearance without lesions CERVIX: Speculum placed in vagina and excellent visualization of cervix achieved. Cervix swabbed x 3 with 3% acetic acid solution. Cervix grossly normal. Squamocolumnar junction visualized. acetowhite changes noted 10 o'clock. BIOPSY: Done at 10:00 ECC: not done HEMOSTASIS: Obtained with silver nitrate Procedure Summary: Patient tolerated procedure well and colposcopy was adequate. ASSESSMENT: moderate dysplasia PLAN: Specimens labeled and sent to Pathology. Will notify patient of results in 1-2 weeks. Post-procedure instructions reviewed and written material given to the patient. MD Clarence Banda Reanna, MA 02/09/2025 2:11 PM Signed YOUR RECOVERY It may take a few weeks for your cervix to heal. While your cervix heals, you may have: - Vaginal bleeding (less than a normal menstrual period) - Mild cramping - A brown-black vaginal discharge (similar to coffee grounds) which is a result of the paste used to help stop bleeding from the procedure Do NOT put anything in the vagina for 1 week after your colposcopy if your doctor does a biopsy of your cervix. This includes sex, tampons, and douches. If you have any discomfort, you may take an over the counter pain medication (motrin, advil, ibuprofen, tylenol, etc). If this does not relieve your discomfort, contact your doctor's office for a prescription strength pain medication. It is okay to wear a sanitary pad until the discharge and spotting stops. RISKS Although problems seldom occur with colposcopy, there can be some complications. You may feel faint during and shortly after the procedure as well as have some bleeding and vaginal discharge after the procedure. There is also a risk of infection after the procedure. These complications are rare and can be easily treated. You should contact you doctor is you have any of the following: - Heavy bleeding (more than your normal period) - Bleeding with clots - Severe abdominal pain - Fever (more than 100.4F) - Foul smelling vaginal discharge RESULTS If a biopsy was taken, we will have the results of your biopsy in 1-2 weeks. If you do not hear the results of your biopsy after 2 weeks, please contact your physicians office for the results. Depending on the biopsy results, your doctor will determine your follow up plan which may include further testing or treatments. STAYING HEALTHY After the procedure, you will need to see your doctor for follow up visits during the year. At these visits your doctor will check the health of your cervix with a pap smear. After three normal pap smears, your doctor will allow you to return to having exams once a year. If you have another abnormal pap smear, you may need closer follow up for longer or you may need additional treatment. By making a few lifestyle changes after the procedure, you can help protect the health of your cervix: - Have regular pelvic exams and pap smears as ordered by your doctor. - Stop smoking as smoking increases your risk of developing a cancer (more content not included)... Normal [facility] Pathology biopsy report Brodie (Tiss)on 02-09-2025 AP DISCLAIMER Normal [facility] Comment on above: Order Comment: Speci men Type: TISSUE SPECIMENOrdering Facility: [facility] Address: [address] [place] [address] Result Comment: Lilly boateng Developed Test (LDT) Disclaimer: Performance characteristics of immunohistochemical, immunofluorescent, and chromogenic in-situ hybridization tests have been determined by the performing laboratory within [facility] Pathology and Laboratory Medicine Department ([facility], [facility], [facility], [facility], [facility], [facility], or [facility]) in a manner consistent with CLIA requirements. One or more of these tests may not have been cleared or approved by the FDA. RT-PLM is regulated under CLIA as qualified to perform high-complexity testing. These tests are used for clinical purposes. These should not be regarded as investigational or for research. Positive and negative controls stain appropriately. Performed By: #### 6 6121-5 ####[facility] LABCLIA [id number] [place] [address] [place] CASE REPORT Normal [facility] Comment on above: Order Comment: Speci men Type: TISSUE SPECIMENOrdering Facility: [facility] Address: [address] [place] [address] Result Comment: Surg [facility] Pathology Report Case: [id number] Authorizing Provider: Hue Trevino MD Collected: 02/09/2025 03:01 PM Ordering Location: OB/Gynecology Received: 02/09/2025 04:26 PM Pathologist: Jeanine Azevedo MD Specimen: Cervix, Biopsy, 10 Performed By: #### 6 6121-5 ####[facility] LABCLIA [id number] [place] [address] [place] CLINICAL HISTORY Positive Normal [facility] Comment on above: Order Comment: Speci men Type: TISSUE SPECIMENOrdering Facility: [facility] Address: [address] [place] [address] Performed By: #### 6 6121-5 ####[facility] LABCLIA [id number] [address] STATES [facility] FINAL DIAGNOSIS Normal [facility] Comment on above: Order Comment: Speci men Type: TISSUE SPECIMENOrdering Facility: [facility] Address: [address] [place] [address] Result Comment: Cerv ix, 10:00, biopsy: Focal low-grade squamous intraepithelial lesion (ADRIANA-1). at 1632 EDT Performed By: #### 6 6121-5 ####[facility] LABCLIA [id number] [address] STATES OF [facility] FINAL PERFORMING LAB Normal [facility] Comment on above: Order Comment: Speci men Type: TISSUE SPECIMENOrdering Facility: [facility] Address: [address] [place] [address] Result Comment: Diag nostic interpretation performed at: [facility], [address] [place] [address] CLIA# [id number] [employer] Drawer In: Navneet Beltran MD Performed By: #### 6 6121-5 ####[facility] LABCLIA [id number] [address] [place] GROSS DESCRIPTION Normal [facility] Comment on above: Order Comment: Speci men Type: TISSUE SPECIMENOrdering Facility: [facility] Address: [address] [place] [address] Result Comment: A. C ervix, Biopsy Received in formalin is one piece of gloria-white, soft tissue measuring 0.5 x 0.3 x 0.3 cm. Totally submitted in one cassette. Gross examination performed at [facility], [address] [place] [address] FFS 02/09/2025 11:18 PM Performed By: #### 6 6121-5 ####[facility] LABCLIA [id number] [place] [address] [place] CBC W Auto Differential pane l (Bld)on 01-26-2025 Basophils (Bld) [#/Vol] 10*3/uL Normal <0.11 [facility] Comment on above: Order Comment: Speci men Type: BLOOD SPECIMENOrdering Facility: [facility] Address: [address] [place] [address] Performed By: #### 5 7021-8 ####[facility] [id number] [place] [address] [place] Basophils/100 WBC (Bld) 0.2 % Normal [facility] Comment on above: Order Comment: Speci men Type: BLOOD SPECIMENOrdering Facility: [facility] Address: [address] [place] [address] Performed By: #### 5 7021-8 ####[facility] [id number] [place] [address] [place] Differential cell count method Nom (Bld) Auto Normal [facility] Comment on above: Order Comment: Speci men Type: BLOOD SPECIMENOrdering Facility: [facility] Address: [address] [place] [address] Performed By: #### 5 7021-8 ####[facility] [id number] [place] [address] [place] Eosinophils (Bld) [#/Vol] 0.23 10*3/uL Normal <0.46 [facility] Comment on above: Order Comment: Speci men Type: BLOOD SPECIMENOrdering Facility: [facility] Address: [address] [place] [address] Performed By: #### 5 7021-8 ####[facility] [id number] [place] [address] [place] Eosinophils/100 WBC (Bld) 2.4 % Normal [facility] Comment on above: Order Comment: Speci men Type: BLOOD SPECIMENOrdering Facility: [facility] Address: [address] [place] [address] Performed By: #### 5 7021-8 ####[facility] DOMINGATulioNCTOSHIAA [id number] [place] [address] [place] Erythrocyte distribution width (RBC) [Ratio] 12.0 % Normal 11.5-15.0 [facility] Comment on above: Order Comment: Speci men Type: BLOOD SPECIMENOrdering Facility: [facility] Address: [address] [place] [address] Performed By: #### 5 7021-8 ####[facility]STITUTEJOYA [id number] [place] [address] [place] Hematocrit (Bld) [Volume fraction] 36.9 % Normal 36.0-46.0 [facility] Comment on above: Order Comment: Speci men Type: BLOOD SPECIMENOrdering Facility: [facility] Address: [address] [place] [address] Performed By: #### 5 7021-8 ####[facility] [id number] [place] [address] [place] Hemoglobin (Bld) [Mass/Vol] 13.2 g/dL Normal 11.5-15.5 [facility] Comment on above: Order Comment: Speci men Type: BLOOD SPECIMENOrdering Facility: [facility] Address: [address] [place] [address] Performed By: #### 5 7021-8 ####[facility] DOMINGACLAWSONNCLIA [id number] [place] [address] [place] Immature granulocytes (Bld) [#/Vol] 10*3/uL Normal <0.10 [facility] Comment on above: Order Comment: Speci men Type: BLOOD SPECIMENOrdering Facility: [facility] Address: [address] [place] [address] Performed By: #### 5 7021-8 ####[facility] [id number] [place] [address] [place] Immature granulocytes/100 WBC (Bld) 0.2 % Normal [facility] Comment on above: Order Comment: Speci men Type: BLOOD SPECIMENOrdering Facility: [facility] Address: [address] [place] [address] Performed By: #### 5 7021-8 ####[facility] INSTITUTEJOYMart [id number] [place] [address] [place] Lymphocytes (Bld) [#/Vol] 3.30 10*3/uL Normal 1.00-4.00 [facility] Comment on above: Order Comment: Speci men Type: BLOOD SPECIMENOrdering Facility: [facility] Address: [address] [place] [address] Performed By: #### 5 7021-8 ####[facility] [id number] [place] [address] [place] Lymphocytes/100 WBC (Bld) 34.1 % Normal [facility] Comment on above: Order Comment: Speci men Type: BLOOD SPECIMENOrdering Facility: [facility] Address: [address] [place] [address] Performed By: #### 5 7021-8 ####[facility]OSPITALNOREEN [id number] [place] [address] [place] MCH (RBC) [Entitic mass] 30.2 pg Normal 26.0-34.0 [facility] Comment on above: Order Comment: Speci men Type: BLOOD SPECIMENOrdering Facility: [facility] Address: [address] [place] [address] Performed By: #### 5 7021-8 ####[facility] INSTITUTENCLIA [id number] [place] [address] [place] MCHC (RBC) [Mass/Vol] 35.8 g/dL Normal 30.5-36.0 [facility] Comment on above: Order Comment: Speci men Type: BLOOD SPECIMENOrdering Facility: [facility] Address: [address] [place] [address] Performed By: #### 5 7021-8 ####[facility]UTENCINTERM[facility] [id number] [place] [address] [place] MCV (RBC) [Entitic vol] 84.4 fL Normal 80.0-100.0 [facility] Comment on above: Order Comment: Speci men Type: BLOOD SPECIMENOrdering Facility: [facility] Address: [address] [place] [address] Performed By: #### 5 7021-8 ####[facility]UTENCINTERM[facility] [id number] [place] [address] [place] Monocytes (Bld) [#/Vol] 0.42 10*3/uL Normal <0.87 [facility] Comment on above: Order Comment: Speci men Type: BLOOD SPECIMENOrdering Facility: [facility] Address: [address] [place] [address] Performed By: #### 5 7021-8 ####[facility] INSTITUTENCA [id number] [place] [address] [place] Monocytes/100 WBC (Bld) 4.3 % Normal [facility] Comment on above: Order Comment: Speci men Type: BLOOD SPECIMENOrdering Facility: [facility] Address: [address] [place] [address] Performed By: #### 5 7021-8 ####[facility]ENC[facility] [id number] [place] [address] [place] Neutrophils (Bld) [#/Vol] 5.70 10*3/uL Normal 1.45-7.50 [facility] Comment on above: Order Comment: Speci men Type: BLOOD SPECIMENOrdering Facility: [facility] Address: [address] [place] [address] Performed By: #### 5 7021-8 ####[facility] DOMINGAWJOYLIA [id number] [address] STATES [facility] Neutrophils/100 WBC (Bld) 58.8 % Normal [facility] Comment on above: Order Comment: Speci men Type: BLOOD SPECIMENOrdering Facility: [facility] Address: [address] [place] [address] Performed By: #### 5 7021-8 ####[facility] INSTITUTENCLIA [id number] [place] [address] [place] Nucleated RBC (Bld) [#/Vol] 10*3/uL Normal <0.01 [facility] Comment on above: Order Comment: Speci men Type: BLOOD SPECIMENOrdering Facility: [facility] Address: [address] [place] [address] Performed By: #### 5 7021-8 ####[facility] INSTITUTENCLIA [id number] [place] [address] [place] Nucleated RBC/100 WBC (Bld) [Ratio] 0.0 /100 WBC Normal [facility] Comment on above: Order Comment: Speci men Type: BLOOD SPECIMENOrdering Facility: [facility] Address: [address] [place] [address] Performed By: #### 5 7021-8 ####[facility] [id number] [place] [address] [place] Platelet mean volume (Bld) [Entitic vol] 9.1 fL Normal 9.0-12.7 [facility] Comment on above: Order Comment: Speci men Type: BLOOD SPECIMENOrdering Facility: [facility] Address: [address] [place] [address] Performed By: #### 5 7021-8 ####[facility] [id number] [place] [address] [place] Platelets (Bld) [#/Vol] 280 10*3/uL Normal 150-400 [facility] Comment on above: Order Comment: Speci men Type: BLOOD SPECIMENOrdering Facility: [facility] Address: [address] [place] [address] Performed By: #### 5 7021-8 ####[facility] INSTITUTENCLIA [id number] [place] [address] [place] RBC (Bld) [#/Vol] 4.37 10*6/uL Normal 3.90-5.20 [facility] Comment on above: Order Comment: Speci men Type: BLOOD SPECIMENOrdering Facility: [facility] Address: [address] [place] [address] Performed By: #### 5 7021-8 ####[facility]STITUTENCA [id number] [place] [address] [place] WBC (Bld) [#/Vol] 9.69 10*3/uL Normal 3.70-11.00 [facility] Comment on above: Order Comment: Speci men Type: BLOOD SPECIMENOrdering Facility: [facility] Address: [address] [place] [address] Performed By: #### 5 7021-8 ####[facility] INSTITUTENCLIA [id number] [place] [address] [place] Familia 01-26-2025 CNPN Telephone ([facility] ELAINE AC ([id number]) 1990 F Date Time Provider Department 01/26/25 LAKESHA BINGHAM [facility] During your visit today, we recorded the following information about you: Adama Hearn RN 01/26/2025 10:25 AM Signed 1st risk assessment form submitted 01/26/25 Adama Hearn RN Allergies As of Date: 01/26/2025 (No Known Allergies) Date Reviewed: 01/25/2025 Reviewed by: Jerardo Nettles MA - Fully Assessed Reason for Visit: PRAF [4193] Prescriptions as of 01/26/2025 - fluticasone (FLONASE) 50 mcg/actuation nasal spray SPRAY 1 SPRAY INTO EACH NOSTRIL IN MORNING AND NIGHT NEEDED FOR CONGESTION,RUNNY NOSE,COUGH - PNV no.103/folic/om3s/fis h oil ( WITH DHA-FOLIC ACID ORAL) - aspirin, enteric coated (ECOTRIN LOW STRENGTH) 81 mg EC tablet Take 1 tablet by mouth once daily. - ondansetron orally disintegrating (ZOFRAN ODT) 4 mg disintegrating tablet Take 1 tablet by mouth every 8 hours as needed for nausea/vomiting. - Ghwerkeu-Lk-Ezc-Fe-FA tab Take 1 tablet by mouth once daily. Problem List As Of Date 01/26/2025 Noted Resolved Supervision of other high-risk [O09.8*03/12/2011 11/23/2011 Irregular menstrual cycle [N92.6] 03/12/2011 Threatened , antepartum [O20.0] 03/21/2011 07/09/2011 Unspecified pruritic disorder [L29.9] 03/21/2011 02/09/2015 Genital warts [A63.0] 03/31/2013 Tobacco use in [O99.330] 03/26/2014 03/07/2015 Nausea and vomiting in [O21.9] 03/26/2014 02/09/2015 Family history of defects [Z82.79] 03/26/2014 02/09/2015 Cervical warts [A63.0] 06/03/2014 ADRIANA II (cervical intraepithelial neoplasia II) *06/08/2014 Supervision of other normal [Z34.80] 06/25/2014 07/23/2014 Single umbilical artery [Q27.0] 06/28/2014 02/09/2015 High-risk [O09.90] 07/23/2014 03/07/2015 Back pain complicating [O99.891, M54.*07/29/2014 02/09/2015 Low back pain [M54.50] 08/09/2014 Marijuana abuse [F12.10] 11/11/2014 Tobacco use disorder [F17.200] 05/08/2017 Tobacco use during , antepartum [O99.3*01/25/2025 Marijuana use during [O99.320, F12.90]01/25/2025 Supervision of other high risk pregnancies, uns*01/25/2025 Obesity in [O99.210] 01/25/2025 Encounter Status:Closed by ADAMA HEARN on 01/26/25 Normal [facility] Examination level ultrasound on 01-26-2025 Indication First trimester anatomic survey. Nicotine use Impression The patient is referred for a first trimester anatomy scan including nuchal translucency measurement as clinically indicated. - Single, live, intrauterine . - [place] rump length measurement is consistent with the established gestational age. - No malformations visualized on incomplete first trimester anatomic assessment. - The nuchal translucency measurement is 1.1 mm. - Not all structural malformations can be detected by ultrasound examination. Recommendations - A standard anatomic survey at 16 weeks can be offered and a detailed exam at 20 weeks is recommended for increased risk. Maternal Assessment Height 163 cm Height (ft) 5 ft Height (in) 4 in Physical Exam Initial weight (lb) 182 lb Initial BMI 31.23 kg/m Method Transabdominal ultrasound examination, 3D ultrasound examination. View: Suboptimal view: limited by early gestational age. Suboptimal view: limited by maternal body habitus. Suboptimal view: limited by position Rose . Number of fetuses: 1 Dating GA by prior assessment 11 w + 2 d LUCIA by prior assessment: 08/15/2025 Ultrasound examination on: 01/26/2025 GA by U/S based upon: CRL GA by U/S 11 w + 5 d LUCIA by U/S: 08/12/2025 Assigned: based on ultrasound (CRL), selected on 01/26/2025 Assigned GA 11 w + 5 d Assigned LUCIA: 08/12/2025 General Evaluation Cardiac activity present Placenta: anterior Cord vessels: 3 vessel cord, suboptimal Amniotic fluid: normal amount Biometry Standard FHR 157 bpm CRL 50.4 mm 11w 5d 33% Hadlock NT 1.10 mm First Trimester Anatomy Calvarium: normal Falx cerebri: normal Choroid plexus: normal Profile: normal Nasal bone: normal Retronasal triangle: normal Maxilla: suboptimal Mandible: suboptimal Nuchal translucency: Unremarkable Situs: normal Cardiac position: suboptimal Cardiac axis: suboptimal 4-chamber view: suboptimal 4-chamber view with color: suboptimal 5-kzkjkm-dckvpyg view: suboptimal Abdominal cord insertion: normal Stomach: normal Kidneys: suboptimal Bladder: normal Color doppler of perivesical umbilical arteries: suboptimal Vertebral alignment: suboptimal, normal Arms: normal Hands: normal Legs: normal Feet: normal Maternal Structures Uterus / Cervix Uterus: Visualized Uterus length 120 mm Uterus width 81 mm Uterus height 75 mm Uterus Vol 383.4 cm Ovaries / Tubes / Adnexa Rt ovary: Not visualized Lt ovary: Not visualized Performed By: Brielle Burnett RDMS Read By: Nina Conte M.D. MATERNAL MEDICINE [facility] Radiology Study observation (narrative) [facility] HBV surface Ag Ser Qlon - HBV surface Ag Ql (S) Negative Normal Negative [facility] Comment on above: Order Comment: Speci men Type: BLOOD SPECIMENOrdering Facility: [facility] Address: [address] [place] [address] Performed By: #### 5 195-3, 65825-6, 23694-6 ####[facility] LABIA [id number] [address] OF [facility] HCV Ab Ser Qlon 01-26-2025 HCV Ab Ql (S) Negative Normal Negative [facility] Comment on above: Order Comment: Speci men Type: BLOOD SPECIMENOrdering Facility: [facility] Address: [address] [place] [address] Result Comment: The result suggests no evidence of active infection with Hepatitis C virus. Should recent infection be suspected, repeat testing may be considered 4-6 weeks after this draw. Performed By: #### 1 6128-1 ####[facility] LABCLIA [id number] [address] [place] HIV 1+2 Ab IA Qlon 5 HIV 1 and 2 Ab IA.rapid Nom (S/P/Bld) Normal [facility] Comment on above: Order Comment: Speci men Type: BLOOD SPECIMENOrdering Facility: [facility] Address: [address] [place] [address] Result Comment: Test not indicated. Performed By: #### 5 195-3, 60580-0, 78641-4 ####[facility] LABCLIA [id number] [address] OF [facility] HIV 1+2 Ab+HIV1 p24 Ag IA Ql Non-Reactive Normal Nonreactive [facility] Comment on above: Order Comment: Speci men Type: BLOOD SPECIMENOrdering Facility: [facility] Address: [address] [place] [address] Performed By: #### 5 195-3, 86899-3, 61412-3 ####[facility] [id number] [address] [place] HIV immunoassay testing algorithm interpretation (S/P/Bld) [Interp] Normal [facility] Comment on above: Order Comment: Speci men Type: BLOOD SPECIMENOrdering Facility: [facility] Address: [address] [place] [address] Result Comment: No e vidence of HIV-1 or HIV-2 infection. Should recent infection be suspected, repeat testing may be considered 2-3 weeks after this draw. [place] Rev. Code 3701.243(E): This information has been disclosed to you from confidential records protected from disclosure by state law. ???You shall make no further disclosure of this information without the specific, written, and informed release of the individual to whom it pertains or as otherwise permitted by state law. A general authorization for the release of medical or other information is not sufficient for the purpose of the release of HIV test results or diagnoses. Performed By: #### 5 195-3, 83473-4, 14515-5 ####[facility] LABCLIA [id number] [place] [address] [place] HbA1c (Bld)on 01-26-2025 Average glucose Estimated from glycated hemoglobin (Bld) [Mass/Vol] 91 mg/dL Normal [facility] Comment on above: Order Comment: Ramona lopez Type: BLOOD SPECIMENOrdering Facility: [facility] Address: [address] [place] [address] Result Comment: eAG: (Estimated average glucose) is a calculated value from HgbA1c and is customer contact representative of the average blood glucose level in the last 2-3 month period. Performed By: #### 5 5454-3 ####[facility] LABCLIA [id number] [address] [place] HbA1c (Bld) [Mass fraction] 4.8 % Normal 4.3-5.6 [facility] Comment on above: Order Comment: Ramona lopez Type: BLOOD SPECIMENOrdering Facility: [facility] Address: [address] [place] [address] Result Comment: Amer ican Diabetes Association guidelines indicate that patients with HgbA1c in the range 5.7-6.4% are at increased risk for development of diabetes, and intervention by lifestyle modification may be beneficial. HgbA1c greater or equal to 6.5% is considered diagnostic of diabetes. Performed By: #### 5 5454-3 ####[facility] LABCLIA [id number] [place] [address] [place] [id number] PLUSon 01-26-2025 Cell-free DNA./Cell-free DNA.total Dosage of chromosome-specific cfDNA (cfDNA) [Molar fraction] 15% Normal [facility] Comment on above: Order Comment: Speci men Type: BLOOD SPECIMENOrdering Facility: [facility] Address: [address] [place] [address] Performed By: #### M AT21 ####[facility] LABCLIA [id number] [place] [address] Chr 13+18+21+X+Y aneuploidy Dosage of chromosome-specific cfDNA Ql (cfDNA) Negative Normal [facility] Comment on above: Order Comment: Speci men Type: BLOOD SPECIMENOrdering Facility: [facility] Address: [address] [place] [address] Performed By: #### M AT21 ####[facility] LABCLIA [id number] [place] [address] Chr 21 trisomy Dosage of chromosome-specific cfDNA Ql (cfDNA) Negative Normal [facility] Comment on above: Order Comment: Speci men Type: BLOOD SPECIMENOrdering Facility: [facility] Address: [address] [place] [address] Performed By: #### M AT21 ####[facility]We [facility] LABCLIA [id number] [place] [address] Chr X and Y aneuploidy risk Sequencing Ql (cfDNA) [Interp] Not detected Normal [facility] Comment on above: Order Comment: Speci men Type: BLOOD SPECIMENOrdering Facility: [facility] Address: [address] [place] [address] Result Comment: Not Detected Not Detected Performed By: #### M AT21 ####[facility] LABCLIA [id number] [place] [address] Citation Brodie (Reference lab test) Comment Normal [facility] Comment on above: Order Comment: Speci men Type: BLOOD SPECIMENOrdering Facility: [facility] Address: [address] [place] [address] Result Comment: 1. P nighat HERNANDEZ, et al. Joyce Med. 2012;14(3):296-305. 2. Nikki LOVE et al. Prenat Diag. 2013;33(6):591-597. 3. Dewayne C, et al. Clin Chem. 2015 Apr;61(4):608-616. 4. Lawrence HERNANDEZ, et al. Joyce Med. 2011;13(11):913-920. 5. ACOG/SMFM Practice Bulletin No. 226, Aug 2020. Performed By: #### M AT21 ####[facility] LABCLIA [id number] [place] [address] Gestational age Estimated from conception date Rose Normal [facility] Comment on above: Order Comment: Speci men Type: BLOOD SPECIMENOrdering Facility: [facility] Address: [address] [place] [address] Performed By: #### M AT21 ####[employer] LABCLIA [id number] [place] [address] GESTATIONALAGE AGE > OR = 9W Yes Normal [facility] Comment on above: Order Comment: Speci men Type: BLOOD SPECIMENOrdering Facility: [facility] Address: [address] [place] [address] Performed By: #### M AT21 ####[facility] LABCLIA [id number] [place] [address] Laboratory comment Brodie (Report) Comment Normal [facility] Comment on above: Order Comment: Speci men Type: BLOOD SPECIMENOrdering Facility: [facility] Address: [address] [place] [address] Result Comment: The MaterniT(R) 21 PLUS laboratory-developed test (LDT) analyzes circulating cell-free DNA from a maternal blood sample. This test is used for screening purposes and not diagnostic. Clinical correlation is recommended. Validation data on twin pregnancies is limited and the ability of this test to detect aneuploidy in higher multiple gestations has not yet been validated. Performed By: #### M AT21 ####[facility] LABCLIA [id number] [place] [address] chief executive or managing director name Nom (Provider) Comment Normal [facility] Comment on above: Order Comment: Speci men Type: BLOOD SPECIMENOrdering Facility: [facility] Address: [address] [place] [address] Result Comment: This specimen showed an expected representation of chromosome 21, 18 and 13 material. Clinical correlation is suggested. Comment Tate Monet MD, PhD, Director, [employer] Performed By: #### M AT21 ####[facility] LABCLIA [id number] [place] [address] LIMITATIONS OF THE TEST Comment Normal [facility] Comment on above: Order Comment: Speci men Type: BLOOD SPECIMENOrdering Facility: [facility] Address: [address], [place] [address] Result Comment: Alexys alfonso the results of these tests are highly reliable, discordant results, including inaccurate sex prediction, may occur due to placental, maternal, or mosaicism or neoplasm; vanishing twin; prior maternal organ transplant; or other causes. These tests are screening tests and not diagnostic; they do not replace the accuracy and precision of diagnosis with CVS or amniocentesis. A patient with a positive test result should be referred for genetic counseling and offered invasive diagnosis for confirmation of test results.[5] The results of this testing, including the benefits and limitations, should be discussed with a qualified healthcare provider. management decisions, including termination of the , should not be based on the results of these tests alone. The healthcare provider is responsible for the use of this information in the management of their patient. Sex chromosomal aneuploidies are not reportable for known multiple gestations. A negative result does not ensure an unaffected nor does it exclude the possibility of other chromosomal abnormalities or defects which are not a part of these tests. An uninformative result may be reported, the causes of which may include, but are not limited to, insufficient sequencing coverage, noise or artifacts in the region, amplification or sequencing bias, or insufficient fraction. These tests are not intended to identify pregnancies at risk for neural tube defects or ventral wall defects. Testing for whole chromosome abnormalities (including sex chromosomes) and for subchromosomal abnormalities could lead to the potential discovery of both and maternal genomic abnormalities that could have major, minor, or no, clinical significance. Evaluating the significance of a positive or a non-reportable result may involve both invasive testing and additional studies on the mother. Such investigations may lead to a diagnosis of maternal chromosomal or subchromosomal abnormalities, which on occasion may be associated with benign or malignant maternal neoplasms. These tests may not accurately identify triploidy, balanced rearrangements, or the precise location of subchromosomal duplications or deletions; these may be detected by diagnosis with CVS or amniocentesis. The ability to report results may be impacted by maternal BMI, maternal weight, maternal systemic lupus erythematosus (SLE) and/or by certain pharmaceutical agents such as low molecular weight heparin (for example: Lovenox(R), Xaparin(R), Clexane(R) and Fragmin(R)). Performed By: #### M AT21 ####[employer] LABCLIA [id number] [place] [address] Monosomy X risk Dosage of chromosome-specific cfDNA Ql (Plasma cell-free+WBC DNA) [Interp] Not detected Normal [facility] Comment on above: Order Comment: Speci jessica Type: BLOOD SPECIMENOrdering Facility: [facility] Address: [address] [place] [address] Performed By: #### M AT21 ####[email or web address] LABCLIA [id number] [place] [address] NEGATIVE PREDICTIVE VALUE Note Normal [facility] Comment on above: Order Comment: Ramona jessica Type: BLOOD SPECIMENOrdering Facility: [facility] Address: [address] [place] [address] Result Comment: The Negative Predictive Value (NPV) for trisomy 21, 18, and 13 is greater than 99%. The NPV for SCA and ESS cannot be calculated as SCA and ESS are only reported when an abnormality is detected. Performed By: #### M AT21 ####[employer] LABCLIA [id number] [place] [address] PERFORMANCE CHARACTERISTICS Note Normal [facility] Comment on above: Order Comment: Ramona lopez Type: BLOOD SPECIMENOrdering Facility: [facility] Address: [address] [place] [address] Result Comment: ! Sex ! Accuracy: 99.4% ! ! ! ! Region (associated syndrome) ! Est. Sens# ! Est. Spec ! ! ! ! Trisomy 21 (Down Syndrome) ! 99.1% ! 99.9% ! ! ! ! Trisomy 18 (Helm Syndrome) ! >99.9% ! 99.6% ! ! ! ! Trisomy 13 (Patau Syndrome) ! 91.7% ! 99.7% ! ! ! ! Sex Chromosome Aneuploidies## ! 96.2% ! 99.7% ! ! ! * As reported in ISCA database nstd37 [https://www.ncbi.nlm.nih.gov/dbvar/studies/nstd37/ ] # Estimated Sensitivity. Sensitivity estimated across the observed size distribution of each syndrome [per ISCA database nstd37] and across the range of fractions observed in routine clinical NIPT. Actual sensitivity can also be influenced by other factors such as the size of the event, total sequence counts, amplification bias, or sequence bias. ## Rose gestation only. Performed By: #### M AT21 ####[facility] [id number] [place] [address] POSITIVE PREDICTIVE VALUE N/A Normal [facility] Comment on above: Order Comment: Speci men Type: BLOOD SPECIMENOrdering Facility: [facility] Address: [address] [place] [address] Performed By: #### M AT21 ####[facility] LABCLIA [id number] [place] [id number] Reference Lab Test Method Comment Normal [facility] Comment on above: Order Comment: Speci men Type: BLOOD SPECIMENOrdering Facility: [facility] Address: [address] [place] [address] Result Comment: See Notes Circulating cell-free DNA was purified from the plasma component of maternal blood. The extracted DNA was then converted into a genomic DNA library for aneuploidy analysis of chromosomes 21, 18, and 13 via next generation sequencing.[1] Optional findings based on the test order include sex chromosome aneuploidy (SCA)[2], and enhanced sequencing series (ESS)[3], which will only be reported on as an additional finding when an abnormality is detected. SCA testing includes information on X and Y representation, while ESS testing includes deletions in selected regions (22q, 15q, 11q, 8q, 5p, 4p, 1p) and trisomy of chromosomes 16 and 22. Performed By: #### M AT21 ####[facility] LABCLIA [id number] [place] [id number] Service comment (Unsp spec) [Interp] Comment Normal [facility] Comment on above: Order Comment: Speci men Type: BLOOD SPECIMENOrdering Facility: [facility] Address: [address] [place] [address] Result Comment: See Notes [employer]. is a subsidiary of [employer], using the brand [employer]. This test was developed and its performance characteristics determined by [employer]. It has not been cleared or approved by the Food and Drug Administration. This laboratory is certified under the Clinical Laboratory Improvement Amendments (CLIA) as qualified to perform high complexity clinical laboratory testing and accredited by the [employer] (CAP). If there is future clinical need for adding MaterniT GENOME testing, this specimen will be available until term. [facility] samples will not be retained beyond 60 days. [facility] patients will have to send a new sample for re-sequencing ([facility] Test Code: 706811). Performed By: #### M AT21 ####[facility] LABCLIA [id number] [place] [address] Sex Dosage of chromosome-specific cfDNA Nom (cfDNA) Comment Normal [facility] Comment on above: Order Comment: Speci men Type: BLOOD SPECIMENOrdering Facility: [facility] Address: [address] [place] [address] Result Comment: Cons istent with Female Performed By: #### M AT21 ####[facility] LABCLIA [id number] [place] [address] Test performance information Brodie (Unsp spec) Comment Normal [facility] Comment on above: Order Comment: Speci men Type: BLOOD SPECIMENOrdering Facility: [facility] Address: [address] [place] [address] Result Comment: The performance characteristics of the MaterniT(R) 21 PLUS laboratory-developed test (LDT) have been determined in a clinical validation study with women at increased risk for chromosomal aneuploidy.[1-4] Performed By: #### M AT21 ####[facility] LABCLIA [id number] [place] [address] Trisomy 13 risk Dosage of chromosome-specific cfDNA Ql (cfDNA) [Interp] Negative Normal [facility] Comment on above: Order Comment: Speci men Type: BLOOD SPECIMENOrdering Facility: [facility] Address: [address] [place] [address] Performed By: #### M AT21 ####[facility] LABCLIA [id number] [place] [address] Trisomy 18 risk Dosage of chromosome-specific cfDNA Ql (Plasma cell-free+WBC DNA) [Interp] Negative Normal [facility] Comment on above: Order Comment: Speci men Type: BLOOD SPECIMENOrdering Facility: [facility] Address: [address] [place] [address] Performed By: #### M AT21 ####[facility] LABCLIA [id number] [place] [address] RUBELLA IGG ANTIBODYon 01-26 RUBELLA IGG AB, QUAL Positive Normal Positive [facility] Comment on above: Order Comment: Speci men Type: BLOOD SPECIMENOrdering Facility: [facility] Address: [address] [place] [address] Result Comment: The result suggests recent or past exposure to Rubella virus or history of Rubella vaccination. Positive result may also be seen due to presence of passively-transferred antibodies. Please correlate with patient's history. Performed By: #### R UBIGG ####[facility] LABCLIA [id number] [place] [address] [place] Reagin and Treponema pallidu m IgG and IgM [Interp]on 01-26-2025 T. pallidum IgG+IgM IA Ql (S) Non-Reactive Normal Nonreactive [facility] Comment on above: Order Comment: Speci [facility] Type: BLOOD SPECIMENOrdering Facility: [facility] Address: [address] [place] [address] Performed By: #### 5 195-3, 06339-7, 39664-2 ####[facility] LABCLIA [id number] [place] [address] [place] Reagin+T pallidum IgG+IgM Se rPl-Impon 01-26-2025 Reagin and Treponema pallidum IgG and IgM [Interp] Cannot exclude recent Treponemal infection if specimen collected within 7-10 days after appearance of suspect lesions or 2-3 weeks after an exposure. Clinical correlation is required. Normal [facility] Comment on above: Order Comment: Speci [facility] Type: BLOOD SPECIMENOrdering Facility: [facility] Address: [address] [place] [address] Performed By: #### 5 195-3, 13400-1, 27251-5 ####[facility] LABCLIA [id number] [place] [id number] [place] TYPE + SCREEN PRENATALon ABO O Normal [facility] Comment on above: Order Comment: Speci men Type: BLOOD SPECIMENOrdering Facility: [facility] Address: [address] [place] [address] Performed By: #### T SPN ####[facility] B[facility] BANKCLIA [id number] [place] [address] [place] Rh Nom (Bld) Positive Normal [facility] Comment on above: Order Comment: Speci men Type: BLOOD SPECIMENOrdering Facility: [facility] Address: [address] [place] [address] Performed By: #### T SPN ####[facility] BLOOD BANKIA [id number] [address] STATES OF [facility] TYPE AND SCREEN EXPIRATION 01/29/2025 23:59 Normal [facility] Comment on above: Order Comment: Speci men Type: BLOOD SPECIMENOrdering Facility: [facility] Address: [address] [place] [address] Performed By: #### T SPN ####[facility] BLOOD BANKCLIA [id number] [place] [address] [place] BACTERIAL VAGINOSIS NAATon 0 01-25-2025 Lactobacillus crispatus+gasseri+je nsenii + Gardnerella vaginalis + Atopobium vaginae rRNA MITUL+probe Ql (Vag fld) Detected Abnormal Not detected [facility] Comment on above: Order Comment: Speci men Type: SWABOrdering Facility: [facility] Address: [address] [place] [address] Performed By: #### B VAMP, CVTV ####[facility] LABCLIA [id number] [place] [address] [place] Bacteria Ur Culton 5 Bacteria identified Cx Nom (U) ORGANISM ID: 1 <10,000 CFU/ml Normal urogenital kajal Normal [facility] Comment on above: Performed By: #### 6 30-4 ####[facility] LABIA [id number] [place] [address] [place] C. trachomatis+N. gonorrhoea e DNA MITUL+probe Ql (Unsp spec)on 01-25-2025 C. trachomatis rRNA MITUL+probe Ql (Unsp spec) Not detected Normal Not detected [facility] Comment on above: Order Comment: Speci men Type: SWABOrdering Facility: [facility] Address: [address] [place] [address] Performed By: #### 3 6902-5 ####[facility] LABIA [id number] [address] N. gonorrhoeae rRNA MITUL+probe Ql (Unsp spec) Not detected Normal Not detected [facility] Comment on above: Order Comment: Speci men Type: SWABOrdering Facility: [facility] Address: [address] [place] [address] Performed By: #### 3 6902-5 ####[facility] [id number] [place] [address] [place] ASHLYE/TRICHOMONAS NAATon 0 01-25-2025 C. glabrata RNA MITUL+probe Ql (Vag fld) Not detected Normal Not detected [facility] Comment on above: Order Comment: Speci men Type: SWABOrdering Facility: [facility] Address: [address] [place] [address] Performed By: #### B VAMP, CVTV ####[facility] [id number] [address] [place] Ashley sp DNA MITUL+probe Ql (Vag fld) Not detected Normal Not detected [facility] Comment on above: Order Comment: Speci men Type: SWABOrdering Facility: [facility] Address: [address] [place] [address] Result Comment: The Ashley species group target includes C. albicans, C. tropicalis, C. parapsilosis, and C. dubliniensis. Performed By: #### B VAMP, CVTV ####[facility] LABCLIA [id number] [place] [address] [place] T. vaginalis DNA MITUL+probe Ql (Unsp spec) Not detected Normal Not detected [facility] Comment on above: Order Comment: Speci men Type: SWABOrdering Facility: [facility] Address: [address] [place] [address] Performed By: #### B VAMP, CVTV ####[facility] LABCLIA [id number] [place] [address] [place] HIGH RISK HUMAN PAPILLOMA GENET (HPV), PCR FOR DETECTION AND GENOTYPINGon 01-25-2025 HPV 16 Ag Ql (Unsp spec) Not detected Normal Not detected [facility] Comment on above: Order Comment: Speci men Type: FLUID SPECIMENOrdering Facility: [facility] Address: [address] [place] [address] Performed By: #### H PVHRT ####[facility] LABIA [id number] [place] [address] [place] HPV 18 Ag Ql (Unsp spec) Not detected Normal Not detected [facility] Comment on above: Order Comment: Speci men Type: FLUID SPECIMENOrdering Facility: [facility] Address: [address] [place] [address] Performed By: #### H PVHRT ####[facility] LABIA [id number] [place] [address] [place] HPV 31+33+35+39+45+51+52 +56+58+59+66+68 DNA MITUL+probe Ql (Cvx) Detected Abnormal Not detected [facility] Comment on above: Order Comment: Speci men Type: FLUID SPECIMENOrdering Facility: [facility] Address: [address] [place] [address] Result Comment: High Risk HPV Other Type includes HPV types 31, 33, 35, 39, 45, 51, 52, 56, 58, 59, 66 and 68. Performed By: #### H PVHRT ####[facility] LABCLIA [id number] [address] [place] [address] [place] PAP TESTon 01-25-2025 ADEQUACY Normal [facility] Comment on above: Order Comment: Speci men Type: FLUID SPECIMENOrdering Facility: [facility] Address: [address] [place] [address] Result Comment: Sati sfactory for interpretation. Transformation zone present Performed By: #### L [id number] ####[facility] LABCLIA [id number] [place] [address] [place] CASE REPORT Normal [facility] Comment on above: Order Comment: Speci men Type: FLUID SPECIMENOrdering Facility: [facility] Address: [address] [place] [address] Result Comment: Gyne cologic Cytology Report Case: [id number] Authorizing Provider: Lakesha Bingham APRN.CNM Collected: 01/25/2025 11:42 AM Ordering Location: OB/Gynecology Received: 01/25/2025 04:52 PM First Screen: Lakesha Rush, CT, ASCP Rescreen: Gayle Pathak CT, ASCP Specimen: Pap Test, ThinPrep, Cervix Performed By: #### L [id number] ####[facility] LABCLIA [id number] [address] [place] [address] [place] CLINICAL HISTORY, CYTOLOGY, RUBBER TURNER Routine Exam Normal [facility] Comment on above: Order Comment: Speci men Type: FLUID SPECIMENOrdering Facility: [facility] Address: [address] [place] [address] Result Comment: Preg nant (Indicate Weeks) 11 weeks Performed By: #### L [id number] ####[facility] LABCLIA [id number] [address] [place] [address] [place] CYTOLOGY PAP OTHER INTERPRETATION Predominance of coccobacilli consistent with shift in vaginal kajal. Normal [facility] Comment on above: Order Comment: Speci men Type: FLUID SPECIMENOrdering Facility: [facility] Address: [address] [place], [place] [id number] Performed By: #### L [id number] ####[facility] LABCLIA [id number] [facility] [address] [place] [address] [place] FINAL PERFORMING LAB Normal [facility] Comment on above: Order Comment: Speci men Type: FLUID SPECIMENOrdering Facility: [facility] Address: [address] [place], [place] [id number] Result Comment: Tech nical component, fractionation plant supervisor screening performed at [facility], [address] [place] [address] [place] [address] CLIA# [id number] Diagnostic interpretation performed at [facility], [address] [place] [address] [place] [address] CLIA# [id number] [employer] Drawer In: Navneet Beltran M.D. Performed By: #### L [id number] ####[facility] LABCLIA [id number] [address] [place] [address] [place] INTERPRETATION, CYTOLOGY, RUBBER TURNER Normal [facility] Comment on above: Order Comment: Speci men Type: FLUID SPECIMENOrdering Facility: [facility] Address: [address] [place], [place] [id number] Result Comment: Nega tive for intraepithelial lesion or malignancy. at 1353 EDT Performed By: #### L [id number] ####[facility] LABCLIA [id number] [address] [place] [address] [place] LMP 11/08/2024 Normal [facility] Comment on above: Order Comment: Speci men Type: FLUID SPECIMENOrdering Facility: [facility] Address: [address] [place] [address] Performed By: #### L [id number] ####[facility] LABCLIA [id number] [facility]USSal[facility] [address] [place] [address] [facility] PAP DISCLAIMER COMMENT The Pap Smear is a screening test for cervical cancer. False negative results occur with all screening tests, emphasizing the need for rescreening at recommended intervals, and clinical correlation. Normal [facility] Comment on above: Order Comment: Speci men Type: FLUID SPECIMENOrdering Facility: [facility] Address: [address] [facility] [place] [address] Performed By: #### L [id number] ####[facility] LABCLIA [id number] [place] [id number] [facility] CNPNon 01-20-2025 CNPN Telephone (OBGYWM) ELAINE AC ([id number]) 1990 F Date Time Provider Department 01/20/25 LAKESHA BINGHAM During your visit today, we recorded the following information about you: Angeline Her, RN 01/20/2025 1:10 PM Signed I called patient due to nurse intake questions for new OB visit scheduled January 21. Patient states that she was seen in urgent care today for flulike symptoms of cough and congestion. States she was told that it was probably too early to test for the flu but it was probable that she had it. I did reschedule patient for February 02. She states that she has been seen at the care center and was given a due date of August 11. That would make her 11 weeks now. She is worried about the baby because of her illness. I offered her a sooner appointment with another provider and she declined. She did want to see Lakesha Bingham. Patient wondering if you would order an ultrasound for her prior to her new OB appointment or if you wanted any thing else done. Please advise Lakesha Bingham APRN.CNM 01/20/2025 1:34 PM Signed I am happy to see her for an appointment in office for viability and can see her next week. Lakesha Bingham APRN.CNM Digna Villalobos RN 01/21/2025 10:40 AM Signed Appt rescheduled to 01/25/25 per ALFONSO and Pt advised to arrive at 11am and to wear a mask. States she tested positive on 01/20/25. Digna Villalobos RN Allergies As of Date: 01/20/2025 (No Known Allergies) Date Reviewed: 05/12/2017 Reviewed by: Toño Richards CNP - Fully Assessed Reason for Visit: Care [86] Problem List As Of Date 01/20/2025 Noted Resolved Supervision of other high-risk [O09.8*03/12/2011 11/23/2011 Irregular menstrual cycle [N92.6] 03/12/2011 Threatened , antepartum [O20.0] 03/21/2011 07/09/2011 Unspecified pruritic disorder [L29.9] 03/21/2011 02/09/2015 Genital warts [A63.0] 03/31/2013 Tobacco use in [O99.330] 03/26/2014 03/07/2015 Nausea and vomiting in [O21.9] 03/26/2014 02/09/2015 Family history of defects [Z82.79] 03/26/2014 02/09/2015 Cervical warts [A63.0] 06/03/2014 ADRIANA II (cervical intraepithelial neoplasia II) *06/08/2014 Supervision of other normal [Z34.80] 06/25/2014 07/23/2014 Single umbilical artery [Q27.0] 06/28/2014 02/09/2015 High-risk [O09.90] 07/23/2014 03/07/2015 Back pain complicating [O99.891, M54.*07/29/2014 02/09/2015 Low back pain [M54.50] 08/09/2014 Marijuana abuse [F12.10] 11/11/2014 Tobacco use disorder [F17.200] 05/08/2017 Medications Discontinued During This Encounter Prescriptions - ETONOGESTREL (NEXPLANON SDRM) (Discontinued) by SUBDERMAL route continuous. - nicotine (NICODERM) 14 mg/24 hr (Discontinued) Apply 1 Patch as directed every 24 hours. Encounter Status:Closed by DIGNA VILLALOBOS on 01/21/25 Normal [facility] Influenza virus A and B and SARS-CoV-2 (COVID-19) identified MITUL+probe Nom (Resp)on 01-19-2025 FLUAV RNA MITUL+probe Ql (Resp) Not detected Normal Not Detected [facility] Comment on above: Order Comment: This assay is an FDA-cleared, in vitro diagnostic nucleic acid amplification test for the qualitative detection and differentiation of SARS CoV-2/ Influenza A/B from nasopharyngeal specimens collected from individuals with signs and symptoms of respiratory tract infections, and has been validated for use at [facility]. Negative results do not preclude COVID-19/ Influenza A/B infections and should not be used as the sole basis for diagnosis, treatment, or other management decisions. Testing for SARS CoV-2 is recommended only for patients who meet current clinical and/or epidemiological criteria defined by federal, state, or local public health directives. Performed By: #### 9 5423-0 #### HARDIK DAVE ([id number]) [facility] ([facility]) [address] [place] [address] FLUBV RNA MITUL+probe Ql (Resp) Not detected Normal Not Detected [facility] Comment on above: Order Comment: This assay is an FDA-cleared, in vitro diagnostic nucleic acid amplification test for the qualitative detection and differentiation of SARS CoV-2/ Influenza A/B from nasopharyngeal specimens collected from individuals with signs and symptoms of respiratory tract infections, and has been validated for use at [facility]. Negative results do not preclude COVID-19/ Influenza A/B infections and should not be used as the sole basis for diagnosis, treatment, or other management decisions. Testing for SARS CoV-2 is recommended only for patients who meet current clinical and/or epidemiological criteria defined by federal, state, or local public health directives. Performed By: #### 9 5423-0 #### HARDIK DAVE ([id number]) [facility] ([facility]) [address] [place] [address] SARS-CoV-2 (COVID-19) RNA MITUL+probe Ql (Resp) Not detected Normal Not Detected [facility] Comment on above: Order Comment: This assay is an FDA-cleared, in vitro diagnostic nucleic acid amplification test for the qualitative detection and differentiation of SARS CoV-2/ Influenza A/B from nasopharyngeal specimens collected from individuals with signs and symptoms of respiratory tract infections, and has been validated for use at [facility]. Negative results do not preclude COVID-19/ Influenza A/B infections and should not be used as the sole basis for diagnosis, treatment, or other management decisions. Testing for SARS CoV-2 is recommended only for patients who meet current clinical and/or epidemiological criteria defined by federal, state, or local public health directives. Performed By: #### 9 5423-0 #### HARDIK DAVE ([id number]) [facility] ([facility]) [address] [place] [address] Respiratory syncytial virus RNAon 01-19-2025 RSV RNA MITUL+probe Ql (Resp) Not detected Normal Not Detected [facility] Comment on above: Order Comment: This assay is an FDA-cleared, in vitro diagnostic nucleic acid amplification test for the detection of RSV from nasopharyngeal specimens, and has been validated for use at [facility]. Negative results do not preclude RSV infections, and should not be used as the sole basis for diagnosis, treatment, or other management decisions. If Influenza A/B and RSV PCR results are negative, testing for Parainfluenza virus, Adenovirus and Metapneumovirus is routinely performed for pediatric oncology and intensive care inpatients at [facility], and is available on other patients by placing an add-on request. Performed By: #### 9 2131-2 #### HARDIK DAVE ([id number]) [facility] ([facility]) [address] [place] [address] Urinalysis complete W Reflex Culture panel (U)on 01-19-2025 Appearance (U) Turbid Normal Clear [facility] Comment on above: Performed By: #### 5 8077-9 #### HARDIK DAVE ([id number]) [facility] ([facility]) [address] [place] [address] Bilirubin (U) [Mass/Vol] Negative Normal NEGATIVE [facility] Comment on above: Performed By: #### 5 8077-9 #### HARDIK DAVE ([id number]) [facility] ([facility]) [address] [place] [address] Color (U) Light-Yellow Normal Light-Yellow, Yellow, Dark-Yellow [facility] Comment on above: Performed By: #### 5 8077-9 #### HARDIK DAVE ([id number]) [facility] ([facility]) [address] [place] [address] 58696 Glucose Auto test strip (U) [Mass/Vol] Normal Normal Normal [facility] Comment on above: Performed By: #### 5 8077-9 #### HARDIK DAVE ([id number]) [facility] ([facility]) [address] [place], [place] [address] Ketones (U) [Mass/Vol] Negative Normal NEGATIVE [facility] Comment on above: Performed By: #### 5 8077-9 #### HARDIK DAVE ([id number]) [facility] ([facility]) [address] [place], [place] [address] Leukocyte esterase Auto test strip Ql (U) Negative Normal NEGATIVE [facility] Comment on above: Performed By: #### 5 8077-9 #### HARDIK DAVE ([id number]) [facility] ([facility]) [address] [place], [place] [address] Nitrite Auto test strip Ql (U) Negative Normal NEGATIVE [facility] Comment on above: Performed By: #### 5 8077-9 #### HARDIK DAVE ([id number]) [facility] ([facility]) [address] [place], [place] [address] pH (U) 6.5 [pH] Normal 5.0, 5.5, 6.0, 6.5, 7.0, 7.5, 8.0 [facility] Comment on above: Performed By: #### 5 8077-9 #### HARDIK DAVE ([id number]) [facility] ([facility]) [address] [place] [address] 57349 Protein (U) [Mass/Vol] Negative Normal NEGATIVE, 10 (TRACE), 20 (TRACE) [facility] Comment on above: Performed By: #### 5 8077-9 #### HARDIK DAVE ([id number]) [facility] ([facility]) [address] [place] [address] 84799 RBC (U) [#/Vol] Negative Normal NEGATIVE [facility] Comment on above: Performed By: #### 5 8077-9 #### HARDIK DAVE ([id number]) [facility] ([facility]) [address] [place] [address] 49962 Specific gravity (U) [Rel density] 1.021 Normal 1.005-1.035 [facility] Comment on above: Performed By: #### 5 8077-9 #### HARDIK DAVE ([id number]) [facility] ([facility]) [address] [place] [address] 11422 Urobilinogen (U) [Mass/Vol] Normal Normal Normal [facility] Comment on above: Performed By: #### 5 8077-9 #### HARDIK DAVE ([id number]) [facility] ([facility]) [address] [place], [place] [address] CBC W Auto Differential pane l (Bld)on 04-04-2024 Basophils (Bld) [#/Vol] 0.07 x10*3/uL Normal 0.00-0.10 [facility] Comment on above: Performed By: #### 5 7021-8 #### HARDIK DAVE ([id number]) [facility] ([facility]) [address] [place] [address] 59220 Basophils/100 WBC (Bld) 0.8 % Normal 0.0-2.0 [facility] Comment on above: Performed By: #### 5 7021-8 #### HARDIK DAVE ([id number]) [facility] ([facility]) [address] [place] [address]109 Eosinophils (Bld) [#/Vol] 0.28 x10*3/uL Normal 0.00-0.70 [facility] Comment on above: Performed By: #### 5 7021-8 #### HARDIK DAVE ([id number]) [facility] ([facility]) [address] [place] [address] 12823 Eosinophils/100 WBC (Bld) 3.3 % Normal 0.0-6.0 [facility] Comment on above: Performed By: #### 5 7021-8 #### HARDIK DAVE ([id number]) [facility] ([facility]) [address] [place] [address] 64503 Erythrocyte distribution width (RBC) [Ratio] 12.2 % Normal 11.5-14.5 [facility] Comment on above: Performed By: #### 5 7021-8 #### HARDIK DAVE ([id number]) [facility] ([facility]) [address] [place] [address] 74128 Hematocrit (Bld) [Volume fraction] 40.7 % Normal 36.0-46.0 [facility] Comment on above: Performed By: #### 5 7021-8 #### HARDIK DAVE ([id number]) [facility] ([facility]) [address] [place] [address] 98949 Hemoglobin (Bld) [Mass/Vol] 13.8 g/dL Normal 12.0-16.0 [facility] Comment on above: Performed By: #### 5 7021-8 #### HARDIK DAVE ([id number]) [facility] ([facility]) [address] [place] [address] 06203 Immature granulocytes (Bld) [#/Vol] 0.02 x10*3/uL Normal 0.00-0.70 [facility] Comment on above: Performed By: #### 5 7021-8 #### HARDIK DAVE ([id number]) [facility] ([facility]) [address] [place] [address] 79029 Immature granulocytes/100 WBC (Bld) 0.2 % Normal 0.0-0.9 [facility] Comment on above: Result Comment: Alice ture Granulocyte Count (IG) includes promyelocytes, myelocytes and metamyelocytes but does not include bands. Percent differential counts (%) should be interpreted in the context of the absolute cell counts (cells/UL). Performed By: #### 5 7021-8 #### HARDIK DAVE ([id number]) [facility] ([facility]) [address] [place] [address] 04671 Lymphocytes (Bld) [#/Vol] 2.35 x10*3/uL Normal 1.20-4.80 [facility] Comment on above: Performed By: #### 5 7021-8 #### HARDIK DAVE ([id number]) [facility] ([facility]) [address] [place] [address] 07613 Lymphocytes/100 WBC (Bld) 27.5 % Normal 13.0-44.0 [facility] Comment on above: Performed By: #### 5 7021-8 #### HARDIK DAVE ([id number]) [facility] ([facility]) [address] [place] [address] 10565 MCH (RBC) [Entitic mass] 30.1 pg Normal 26.0-34.0 [facility] Comment on above: Performed By: #### 5 7021-8 #### HARDIK DAVE ([id number]) [facility] ([facility]) [address] [place] [address] 37802 MCHC (RBC) [Mass/Vol] 33.9 g/dL Normal 32.0-36.0 [facility] Comment on above: Performed By: #### 5 7021-8 #### HARDIK DAVE ([id number]) [facility] ([facility]) [address] [place] [address] 42511 MCV (RBC) [Entitic vol] 89 fL Normal 80-100 [facility] Comment on above: Performed By: #### 5 7021-8 #### HARDIK DAVE ([id number]) [facility] ([facility]) [address] [place] [address] 23718 Monocytes (Bld) [#/Vol] 0.49 x10*3/uL Normal 0.10-1.00 [facility] Comment on above: Performed By: #### 5 7021-8 #### HARDIK DAVE ([id number]) [facility] ([facility]) [address] [place] [address] 04400 Monocytes/100 WBC (Bld) 5.7 % Normal 2.0-10.0 [facility] Comment on above: Performed By: #### 7021-8 #### HARDIK DAVE ([id number]) [facility] ([facility]) [address] [place] [address] 32354 Neutrophils (Bld) [#/Vol] 5.33 x10*3/uL Normal 1.20-7.70 [facility] Comment on above: Result Comment: Perc ent differential counts (%) should be interpreted in the context of the absolute cell counts (cells/uL). Performed By: #### 5 7021-8 #### HARDIK DAVE ([id number]) [facility] ([facility]) [address] [place] [address] 34916 Neutrophils/100 WBC (Bld) 62.5 % Normal 40.0-80.0 [facility] Comment on above: Performed By: #### 5 7021-8 #### HARDIK DAVE ([id number]) [facility] ([facility]) [address] [place] [address] 45339 Nucleated RBC/100 WBC (Bld) [Ratio] 0.0 /100 WBCs Normal 0.0-0.0 [facility] Comment on above: Performed By: #### 5 7021-8 #### HARDIK DAVE ([id number]) [facility] ([facility]) [address] [place] [address] 96989 Platelets (Bld) [#/Vol] 368 x10*3/uL Normal 150-450 [facility] Comment on above: Performed By: #### 5 7021-8 #### HARDIK DAVE ([id number]) [facility] ([facility]) [address] [place] [address] 83478 RBC (Bld) [#/Vol] 4.58 x10*6/uL Normal 4.00-5.20 [facility] Comment on above: Performed By: #### 5 7021-8 #### HARDIK DAVE ([id number]) [facility] ([facility]) [address] [place] [address] 12179 WBC (Bld) [#/Vol] 8.5 x10*3/uL Normal 4.4-11.3 [facility] Comment on above: Performed By: #### 5 7021-8 #### HARDIK DAVE ([id number]) [facility] ([facility]) [address] [place] [address] 28803 Comprehensive metabolic 2000 panelon 04-04-2024 Albumin BCP dye [Mass/Vol] 4.2 g/dL Normal 3.4-5.0 [facility] Comment on above: Performed By: #### 2 4323-8 #### HARDIK DAVE ([id number]) [facility] ([facility]) [address] [place] [address] 40360 ALP [Catalytic activity/Vol] 71 U/L Normal 33-110 [facility] Comment on above: Performed By: #### 2 4323-8 #### HARDIK DAVE ([id number]) [facility] ([facility]) [address] [place] [address] 19624 ALT With P-5'-P [Catalytic activity/Vol] 12 U/L Normal 7-45 [facility] Comment on above: Result Comment: Jeri ents treated with Sulfasalazine may generate falsely decreased results for ALT. Performed By: #### 2 4323-8 #### HARDIK DAVE ([id number]) [facility] ([facility]) [address] [place] [address] 63499 Anion gap [Moles/Vol] 10 mmol/L Normal 10-20 [facility] Comment on above: Performed By: #### 2 4323-8 #### HARDIK DAVE ([id number]) [facility] ([facility]) [address] [place] [address] 97939 AST With P-5'-P [Catalytic activity/Vol] 14 U/L Normal 9-39 [facility] Comment on above: Performed By: #### 2 4323-8 #### HARDIK DAVE ([id number]) [facility] ([facility]) [address] [place] [address] 92105 Bilirubin [Mass/Vol] 0.4 mg/dL Normal 0.0-1.2 [facility] Comment on above: Performed By: #### 2 4323-8 #### HARDIK DAVE (09110) [facility] ([facility]) [address] [place] [address] Calcium [Mass/Vol] 10.7 mg/dL High 8.6-10.3 [facility] Comment on above: Performed By: #### 2 4323-8 #### HARDIK DAVE ([id number]) [facility] ([facility]) [facility] [place] [address] Chloride [Moles/Vol] 108 mmol/L High 98-107 [facility] Comment on above: Performed By: #### 2 4323-8 #### HARDIK DAVE ([id number]) [facility] ([facility]) [address] [place] [address] 24299 CO2 [Moles/Vol] 23 mmol/L Normal 21-32 [facility] Comment on above: Performed By: #### 2 4323-8 #### HARDIK DAVE (09053) [facility] ([facility]) [address] [place] [address] 60510 Creatinine [Mass/Vol] 0.87 mg/dL Normal 0.50-1.05 [facility] Comment on above: Performed By: #### 2 4323-8 #### HARDIK DAVE ([id number]) [facility] ([facility]) [address] [place] [address] 27177 GFR/1.73 sq M.predicted MDRD (S/P/Bld) [Vol rate/Area] mL/min/{1.73_m2} Normal >60 [facility] Comment on above: Result Comment: Calc ulations of estimated GFR are performed using the 2020 CKD-EPI Study Refit equation without the race variable for the IDMS-Traceable creatinine methods. https://jasn.asnjournals.org/content//ASN.9359161 988 Performed By: #### 2 4323-8 #### HARDIK DAVE ([id number]) [facility] ([facility]) [address] [place] [address] 08866 Glucose [Mass/Vol] 95 mg/dL Normal 74-99 [facility] Comment on above: Performed By: #### 2 4323-8 #### HARDIK DAVE ([id number]) [facility] ([facility]) [address] [place] [address] Potassium [Moles/Vol] 4.6 mmol/L Normal 3.5-5.3 [facility] Comment on above: Performed By: #### 2 4323-8 #### HARDIK DAVE ([id number]) [facility] ([facility]) [address] [place] [address] 15333 Protein [Mass/Vol] 6.5 g/dL Normal 6.4-8.2 [facility] Comment on above: Performed By: #### 2 4323-8 #### HARDIK DAVE ([id number]) [facility] ([facility]) [address] [place] [address] 65459 Sodium [Moles/Vol] 136 mmol/L Normal 136-145 [facility] Comment on above: Performed By: #### 2 4323-8 #### HARDIK DAVE ([id number]) [facility] ([facility]) [facility] [place] [address] Urea nitrogen [Mass/Vol] 12 mg/dL Normal 6-23 [facility] Comment on above: Performed By: #### 2 4323-8 #### HARDIK DAVE ([id number]) [facility] ([facility]) [facility] [place] [address] Lipid 1996 panelon 4 Cholesterol [Mass/Vol] 168 mg/dL Normal 0-199 [facility] Comment on above: Result Comment: Age Desirable Borderline High High 0-19 Y 0 - 169 170 - 199 >/= 200 20-24 Y 0 - 189 190 - 224 >/= 225 >24 Y 0 - 199 200 - 239 >/= 240 All ranges are based on fasting samples. Specific therapeutic targets will vary based on patient-specific cardiac risk. Pediatric guidelines reference:Pediatrics 2011, 128(S5).Adult guidelines reference: NCEP ATPIII Guidelines,KEREN 2001, 258:2486-97 Venipuncture immediately after or during the administration of Metamizole may lead to falsely low results. Testing should be performed immediately prior to Metamizole dosing. Performed By: #### 2 4331-1 #### HARDIK DAVE ([id number]) [facility] ([facility]) [address] [place] [address] 05203 Cholesterol in HDL [Mass/Vol] 50.0 mg/dL Normal [facility] Comment on above: Result Comment: Age Very Low Low Normal High 0-19 Y < 35 < 40 40-45 ---- 20-24 Y ---- < 40 >45 ---- >24 Y ---- < 40 40-60 >60 Performed By: #### 2 4331-1 #### HARDIK DAVE ([id number]) [facility] ([facility]) [address] [place] [address] 88702 Cholesterol in LDL [Mass/Vol] 103 mg/dL High <=99 [facility] Comment on above: Result Comment: Near Borderline AGE Desirable Optimal High High Very High 0-19 Y 0 - 109 --- 110-129 >/= 130 ---- 20-24 Y 0 - 119 --- 120-159 >/= 160 ---- >24 Y 0 - 99 100-129 130-159 160-189 >/=190 Performed By: #### 2 4331-1 #### HARDIK DAVE ([id number]) [facility] ([facility]) [address] [place] [address]64 Cholesterol in VLDL [Mass/Vol] 15 mg/dL Normal 0-40 [facility] Comment on above: Performed By: #### 2 4331-1 #### HARDIK DAVE ([id number]) [facility] ([facility]) [address] [place] [address] 16853 CHOLESTEROL/HDL RATIO 3.4 Normal [facility] Comment on above: Result Comment: Ref Values Desirable < 3.4 High Risk > 5.0 Performed By: #### 2 4331-1 #### HARDIK DAVE ([id number]) [facility] ([facility]) [address] [place] [address] 08716 NON HDL CHOLESTEROL 118 mg/dL Normal 0-149 [facility] Comment on above: Result Comment: Age Desirable Borderline High High Very High 0-19 Y 0 - 119 120 - 144 >/= 145 >/= 160 20-24 Y 0 - 149 150 - 189 >/= 190 ---- >24 Y 30 mg/dL above LDL Cholesterol goal Performed By: #### 2 4331-1 #### HARDIK DAVE ([id number]) [facility] ([facility]) [address] [place] [address] 66371 Triglyceride [Mass/Vol] 74 mg/dL Normal 0-149 [facility] Comment on above: Result Comment: Age Desirable Borderline High High Very High 0 D-90 D 19 - 174 ---- ---- ---- 91 D- 9 Y 0 - 74 75 - 99 >/= 100 ---- 10-19 Y 0 - 89 90 - 129 >/= 130 ---- 20-24 Y 0 - 114 115 - 149 >/= 150 ---- >24 Y 0 - 149 150 - 199 200- 499 >/= 500 Venipuncture immediately after or during the administration of Metamizole may lead to falsely low results. Testing should be performed immediately prior to Metamizole dosing. Performed By: #### 2 4331-1 #### HARDIK DAVE ([id number]) [facility] ([facility]) [address] [place], [place] [id number] TSH WITH REFLEX TO FREE T4 I F ABNORMALon 04-04-2024 TSH Qn 1.58 m[IU]/L Normal 0.44-3.98 [facility] Comment on above: Order Comment: TSH t esting is performed using different testing methodology at [facility] than at other [facility]. Direct result comparisons should only be made within the same method. Performed By: #### T HYDS #### HARDIK DAVE ([id number]) [facility] ([facility]) [address] [place] [address] 81149 BLOOD CELL PROFILE CBCS+on 0 12-04-2019 Hematocrit (Bld) [Volume fraction] 38.3 % Normal 36.0-46.0 [facility] Comment on above: Performed By: #### C WO #### [facility] [address] [place] [address] Hemoglobin (Bld) [Mass/Vol] 13.4 g/dL Normal 12.0-16.0 [facility] Comment on above: Performed By: #### C WO #### [facility] [address] [place] [address] MCH (RBC) [Entitic mass] 34.9 GM/DL Normal 31.0-37.0 [facility] Comment on above: Performed By: #### C WO #### [facility] [address] [place] [address]1406 MCV (RBC) [Entitic vol] 88.9 fL Normal 80.0-100.0 [facility] Comment on above: Performed By: #### C WO #### [address] [address] MEAN CELL HEMOGLOBIN 31.0 PG Normal 26.0-34.0 [facility] Comment on above: Performed By: #### C WO #### [address] [address] Platelet mean volume (Bld) [Entitic vol] 7.4 UM3 Normal 7.4-10.4 [facility] Comment on above: Performed By: #### C WO #### [address] [address] Platelets (Bld) [#/Vol] 329 TH/MM3 Normal 140-440 [facility] Comment on above: Performed By: #### C WO #### [address] [address] RBC (Bld) [#/Vol] 4.31 MIL/MM3 Normal 4.00-5.20 [facility] Comment on above: Performed By: #### C WO #### [facility] [address] [place] [address] RED CELL DISTRIBUTION WID 13.0 UNITS Normal 11.5-14.5 [facility] Comment on above: Performed By: #### C WO #### [address] [address] WBC (Bld) [#/Vol] 10.1 TH/MM3 Normal 4.5-11.0 [facility] Comment on above: Performed By: #### C WO #### [facility] [address] [place] [address] COMPREHENSIVE METABOLIC PANE Kirk 12-04-2019 Albumin [Mass/Vol] 4.4 g/dL Normal 3.2-4.8 [facility] Comment on above: Performed By: #### B 12, MOP #### [facility] [address] [place] [address] Albumin/Globulin [Mass ratio] 2.0 {ratio} Normal 0.9-2.0 [facility] Comment on above: Performed By: #### B 12, MOP #### [facility] [address] [place] [address] ALP [Catalytic activity/Vol] 81 U/L Normal 40-121 [facility] Comment on above: Performed By: #### B 12, MOP #### [facility] [address] [place] [address] ALT/SGPT 18 IU/L Normal 9-48 [facility] Comment on above: Performed By: #### B 12, MOP #### [facility] [address] [place] [address] Anion gap [Moles/Vol] 9.4 mmol/L Normal 8-22 [facility] Comment on above: Performed By: #### B 12, MOP #### [facility] [address] [place] [address] AST/SGOT 18 IU/L Normal < 37 [facility] Comment on above: Performed By: #### B 12, MOP #### [facility] [address] [place] [address]63 Bilirubin [Mass/Vol] 0.3 mg/dL Normal 0.2-1.2 [facility] Comment on above: Performed By: #### B 12, MOP #### [facility] [address] [place] [address]90 Calcium [Mass/Vol] 10.0 mg/dL Normal 8.7-10.4 [facility] Comment on above: Performed By: #### B 12, MOP #### [facility] [address] [place] [address] Chloride [Moles/Vol] 107 mmol/L Normal 99-109 [facility] Comment on above: Performed By: #### B 12, MOP #### [facility] [address] [place] [address] CO2 [Moles/Vol] 27 mmol/L Normal 20-31 [facility] Comment on above: Performed By: #### B 12, MOP #### [facility] [address] [place] [address] Creatinine [Mass/Vol] 0.9 mg/dL Normal 0.5-1.1 [facility] Comment on above: Performed By: #### B 12, MOP #### [facility] [address] [place] [address] GFR/1.73 sq M predicted among non-blacks MDRD (S/P/Bld) [Vol rate/Area] mL/min/{1.73_m2} Normal [facility] Comment on above: Result Comment: TO ESTIMATE GFR FOR AMERICANS MULTIPLY THE RESULT BY 1.21. GFR LESS THAN 60 mL/min/1.73m2: SUGGESTIVE OF CHRONIC KIDNEY DISEASE. GFR LESS THAN 15 mL/min/1.73m2: SUGGESTIVE OF END STAGE RENAL DISEASE. Performed By: #### B 12, MOP #### [facility] [address] [place] [address] Globulin (S) [Mass/Vol] 2.2 G/dL Normal [facility] Comment on above: Performed By: #### B 12, MOP #### [facility] [address] [place] [address] Glucose [Mass/Vol] 83 mg/dL Normal 74-106 [facility] Comment on above: Result Comment: NOTE IF THIS IS A FASTING SPECIMEN THE FOLLOWING RANGES APPLY: NORMAL 70 TO 99 mg/dL PREDIABETIC 100 TO 125 mg/dL DIABETIC >= 126 mg/dL Performed By: #### B 12, MOP #### [address] [address] Osmolality [Osmolality] 278 mOSM/kg Normal 275-305 [facility] Comment on above: Performed By: #### B 12, MOP #### [address] [address] Potassium [Moles/Vol] 4.2 mmol/L Normal 3.6-5.1 [facility] Comment on above: Performed By: #### B 12, MOP #### [address] [address] Protein [Mass/Vol] 6.6 g/dL Normal 5.7-8.2 [facility] Comment on above: Performed By: #### B 12, MOP #### [address] [address] SGOT/SGPT RATIO 1.0 Normal 0-2 [facility] Comment on above: Performed By: #### B 12, MOP #### [address] [address] Sodium [Moles/Vol] 140 mmol/L Normal 132-146 [facility] Comment on above: Performed By: #### B 12, MOP #### [address] [address] Urea nitrogen [Mass/Vol] 10 mg/dL Normal 9-23 [facility] Comment on above: Performed By: #### B 12, MOP #### [address] [address] Urea nitrogen/Creatinine [Mass ratio] 11.1 mg/mg Normal 6-20 [facility] Comment on above: Performed By: #### B 12, MOP #### [address] [address] THYROID STIMULATING HORMOon 12-04-2019 TSH Qn 3.3 uIU/mL Normal 0.4-5.4 [facility] Comment on above: Performed By: #### T #### [facility] [address] [place] [address] VITAMIN B12on 12-04-2019 Cobalamin (Vitamin B12) [Mass/Vol] 597.0 pg/mL Normal >300 [facility] Comment on above: Result Comment: >300 pg/mL = NORMAL RESULT DEFICIENCY UNLIKELY 200-300 pg/mL = BORDERLINE RESULT DEFICIENCY IS POSSIBLE <200 pg/mL = LOW CONSISTENT WITH DEFICIENCY Performed By: #### B 12, MOP #### [facility] [address] [place] [address] XRAY Cervical Spine 2-3Views [id number] 12-04-2019 XRAY Cervical Spine 2-3Views [id number] EXAM: XRAY Cervical Spine 2-3Views [id number] [facility] Department of Radiology ELAINE AC VISIT: [id number] : 1990 SEX: F DEPT NO: [id number] PATIENT LOCATION: RAD EXAM: XRAY Cervical Spine 2-3Views [id number] 12/04/2019 15:44:00 SIGNS AND SYMPTOMS: PERTINENT SYMPTOMS: NECK PAIN Requesting Provider: SE MORENO - COMPARISON: None available in PACS. FINDINGS: FRACTURE: None. ALIGNMENT: Reversal of cervical lordosis centered at C5.. DISC: Minimal multilevel degenerative endplate spurring. Disc spaces appear preserved.. POSTERIOR ELEMENTS: Unremarkable. SOFT TISSUES: Unremarkable. IMPRESSION: 1. Reversal cervical lordosis and levoscoliosis centered at C5 may be positional or secondary to muscle spasm. 2. Minimal multilevel degenerative endplate spurring. 3. No acute skeletal abnormality. Performed By: Calos Campo 12/04/2019 15:44:00 Signed By: DEJAN DALTON MD 12/04/2019 15:47:00 Normal [facility] Vital Signs Date Time Vital Sign Value Performing Clinician Facility 08-03-2025 13:39-0400 Body mass index (BMI) [Ratio] 37.42 kg/m2 Hue Trevino MD Work Phone: [facility] 08-03-2025 13:39-0400 Body weight 98.88 kg Hue Trevino MD Work Phone: [facility] 08-03-2025 13:39-0400 Diastolic blood pressure 68 mm[Hg] Hue Trevino MD Work Phone: [facility] 08-03-2025 13:39-0400 Systolic blood pressure 116 mm[Hg] Hue Trevino MD Work Phone: [facility] 08-03-2025 01:57-0400 Diastolic blood pressure 80 mm[Hg] Treva Russo MD Work Phone: [facility] 08-03-2025 01:57-0400 Heart rate 70 /min Treva Russo MD Work Phone: [facility] 08-03-2025 01:57-0400 Respiratory rate 18 /min Treva Russo MD Work Phone: [facility] 08-03-2025 01:57-0400 SaO2% (BldA) [Mass fraction] 98 % Treva Russo MD Work Phone: [facility] 08-03-2025 01:57-0400 Systolic blood pressure 129 mm[Hg] Treva Russo MD Work Phone: [facility] 08-03-2025 01:10-0400 Body height 162.6 cm Treva Russo MD Work Phone: [facility] 08-03-2025 01:10-0400 Body mass index (BMI) [Ratio] 37.25 kg/m2 Treva Russo MD Work Phone: [facility] 08-03-2025 01:10-0400 Body temperature 97.39 [degF] Treva Russo MD Work Phone: [facility] 08-03-2025 01:10-0400 Body weight 98.43 kg Treva Russo MD Work Phone: [facility] 07-29-2025 11:07-0400 Body mass index (BMI) [Ratio] 37.25 kg/m2 Gayle Johnson PLANER OPERATOR / GRADER.DIRECTOR INTERNAL COMMUNICATIONS Work Phone: [facility] 07-29-2025 11:07-0400 Body weight 98.43 kg Gayle Haglen PLANER OPERATOR / GRADER.DIRECTOR INTERNAL COMMUNICATIONS Work Phone: [facility] 07-29-2025 11:07-0400 Diastolic blood pressure 78 mm[Hg] Gayle Haury PLANER OPERATOR / GRADER.DIRECTOR INTERNAL COMMUNICATIONS Work Phone: [facility] 07-29-2025 11:07-0400 Systolic blood pressure 120 mm[Hg] Gayle Haury PLANER OPERATOR / GRADER.DIRECTOR INTERNAL COMMUNICATIONS Work Phone: [facility] 07-20-2025 15:00-0400 Body mass index (BMI) [Ratio] 36.25 kg/m2 Hue Trevino MD Work Phone: [facility] 07-20-2025 15:00-0400 Body weight 95.8 kg Hue Trevino MD Work Phone: [facility] 07-20-2025 15:00-0400 Diastolic blood pressure 64 mm[Hg] Hue Trevino MD Work Phone: [facility] 07-20-2025 15:00-0400 Systolic blood pressure 110 mm[Hg] Hue Trevino MD Work Phone: [facility] 06-21-2025 11:16-0400 Body mass index (BMI) [Ratio] 35.87 kg/m2 Hue Trevino MD Work Phone: [facility] 06-21-2025 11:16-0400 Body weight 94.8 kg Hue Trevino MD Work Phone: [facility] 06-21-2025 11:16-0400 Diastolic blood pressure 62 mm[Hg] Hue Trevino MD Work Phone: [facility] 06-21-2025 11:16-0400 Systolic blood pressure 100 mm[Hg] Hue Trevino MD Work Phone: [facility] 06-04-2025 10:55-0400 Body mass index (BMI) [Ratio] 35.12 kg/m2 Lakesha Bingham PLANER OPERATOR / GRADER.CNM Work Phone: [facility] 06-04-2025 10:55-0400 Body weight 92.81 kg Lakesha Bingham PLANER OPERATOR / GRADER.CNM Work Phone: [facility] 06-04-2025 10:55-0400 Diastolic blood pressure 78 mm[Hg] Lakesha Bingham PLANER OPERATOR / GRADER.CNM Work Phone: [facility] 06-04-2025 10:55-0400 Systolic blood pressure 116 mm[Hg] Lakesha Bingham PLANER OPERATOR / GRADER.CNM Work Phone: [facility] 05-21-2025 10:38-0400 Body mass index (BMI) [Ratio] 34.6 kg/m2 Hue Trevino MD Work Phone: [facility] 05-21-2025 10:38-0400 Body weight 91.44 kg Hue Trevino MD Work Phone: [facility] 05-21-2025 10:38-0400 Diastolic blood pressure 76 mm[Hg] Hue Trevino MD Work Phone: [facility] 05-21-2025 10:38-0400 Systolic blood pressure 110 mm[Hg] Hue Trevino MD Work Phone: [facility] 03-29-2025 11:39-0400 Body mass index (BMI) [Ratio] 32.27 kg/m2 Hue Trevino MD Work Phone: [facility] 03-29-2025 11:39-0400 Body weight 85.28 kg Hue Trevino MD Work Phone: [facility] 03-29-2025 11:39-0400 Diastolic blood pressure 68 mm[Hg] Hue Trevino MD Work Phone: [facility] 03-29-2025 11:39-0400 Systolic blood pressure 114 mm[Hg] Hue Trevino MD Work Phone: [facility] 03-02-2025 10:33-0400 Body mass index (BMI) [Ratio] 32.61 kg/m2 Lakesha Bingham PLANER OPERATOR / GRADER.CNM Work Phone: [facility] 03-02-2025 10:33-0400 Body weight 86.18 kg Lakesha Bingham PLANER OPERATOR / GRADER.CNM Work Phone: [facility] 03-02-2025 10:33-0400 Diastolic blood pressure 62 mm[Hg] Lakesha Bingham PLANER OPERATOR / GRADER.CNM Work Phone: [facility] 03-02-2025 10:33-0400 Systolic blood pressure 110 mm[Hg] Lakesha Bingham PLANER OPERATOR / GRADER.CNM Work Phone: [facility] 02-09-2025 14:13-0400 Body mass index (BMI) [Ratio] 31.76 kg/m2 Hue Trevino MD Work Phone: [facility] 02-09-2025 14:13-0400 Body weight 83.92 kg Hue Trevino MD Work Phone: [facility] 02-09-2025 14:13-0400 Diastolic blood pressure 60 mm[Hg] Hue Trevino MD Work Phone: [facility] 02-09-2025 14:13-0400 Systolic blood pressure 110 mm[Hg] Hue Trevino MD Work Phone: [facility] 01-26-2025 15:26-0500 Body mass index (BMI) [Ratio] 30.9 kg/m2 Lakesha Bingham PLANER OPERATOR / GRADER.CNM Work Phone: [facility] 01-26-2025 15:26-0500 Body weight 81.65 kg Lakesha Bingham PLANER OPERATOR / GRADER.CNM Work Phone: [facility] 01-26-2025 15:26-0500 Diastolic blood pressure 62 mm[Hg] Lakesha Bingham PLANER OPERATOR / GRADER.CNM Work Phone: [facility] 01-26-2025 15:26-0500 Systolic blood pressure 110 mm[Hg] Lakesha Bingham PLANER OPERATOR / GRADER.CNM Work Phone: [facility] 01-25-2025 11:01-0500 Body height 162.6 cm Lakesha Bingham PLANER OPERATOR / GRADER.CNM Work Phone: [facility] 01-25-2025 11:01-0500 Body mass index (BMI) [Ratio] 31.24 kg/m2 Lakesha Bingham PLANER OPERATOR / GRADER.CNM Work Phone: [facility] 01-25-2025 11:01-0500 Body weight 82.56 kg Lakesha Bingham PLANER OPERATOR / GRADER.CNM Work Phone: [facility] 01-25-2025 11:01-0500 Diastolic blood pressure 64 mm[Hg] Lakesha Bingham PLANER OPERATOR / GRADER.CNM Work Phone: [facility] 01-25-2025 11:01-0500 Systolic blood pressure 116 mm[Hg] Lakesha Bingham PLANER OPERATOR / GRADER.CNM Work Phone: [facility] 03-31-2024 09:50-0400 Body height 161.5 cm Shannan Ramakrishna PLANER OPERATOR / GRADER-DIRECTOR INTERNAL COMMUNICATIONS Work Phone: [facility] 03-31-2024 09:50-0400 Body mass index (BMI) [Ratio] 32.45 kg/m2 Shannan Durbin PLANER OPERATOR / GRADER-DIRECTOR INTERNAL COMMUNICATIONS Work Phone: [facility] 03-31-2024 09:50-0400 Body weight 84.64 kg Shannan Durbin PLANER OPERATOR / GRADER-DIRECTOR INTERNAL COMMUNICATIONS Work Phone: [facility] 03-31-2024 09:50-0400 Diastolic blood pressure 77 mm[Hg] Shannan Durbin PLANER OPERATOR / GRADER-DIRECTOR INTERNAL COMMUNICATIONS Work Phone: [facility] 03-31-2024 09:50-0400 Heart rate 67 /min Shannan Durbin PLANER OPERATOR / GRADER-DIRECTOR INTERNAL COMMUNICATIONS Work Phone: [facility] 03-31-2024 09:50-0400 Systolic blood pressure 120 mm[Hg] Shannan Durbin PLANER OPERATOR / GRADER-DIRECTOR INTERNAL COMMUNICATIONS Work Phone: [facility] Encounters Encounter Date Encounter Type Care Provider Facility Start: 08-12-2025 ambulatory No Primary Car e Physician Facility:[facility] Start: 08-03-2025 End: 08-03-2025 Office outpatient visit 15 minutes Hue Trevino MD Work Phone: OB/Gynecology Comment on above: Supervision of other high risk pregnancies, unspecified trimester (HCC) (Primary Dx); 38 weeks gestation of (HCC); Obesity in (HCC) Start: 08-03-2025 End: 08-03-2025 ambulatory HUE TREVINO Facility:[facility] Start: 08-03-2025 End: 08-03-2025 Patient encounter procedure Concepcion Yanes OD Work Phone: Ophthalmology Comment on above: Abrasion of left cor nusrat, initial encounter (Primary Dx); Pain in left eye; Photophobia, left eye Start: 08-03-2025 End: 08-03-2025 ambulatory CONCEPCION YANES Facility:[facility] Start: 08-03-2025 End: 08-03-2025 Emergency department patient visit Treva Russo MD Work Phone: [facility] Comment on above: Left corneal abrasio n, initial encounter (Primary Dx) Start: 07-29-2025 End: 07-29-2025 ambulatory GAYLE JOHNSON Facility:[facility] Start: 07-29-2025 End: 07-29-2025 Patient encounter procedure Gayle Johnson PLANER OPERATOR / GRADER.DIRECTOR INTERNAL COMMUNICATIONS Work Phone: OB/Gynecology Comment on above: Supervision of other high risk pregnancies, unspecified trimester (HCC) (Primary Dx); 38 weeks gestation of (HCC); Obesity in (HCC) Start: 07-21-2025 End: 07-21-2025 Telephone encounter Hue Flowers RN [facility] Comment on above: Gear Keeper - O ther (PRAF) Start: 07-20-2025 End: 07-20-2025 ambulatory HUE TREVINO Facility:[facility] Start: 07-20-2025 End: 07-20-2025 Office outpatient visit 15 minutes Hue Trevino MD Work Phone: OB/Gynecology Comment on above: 36 weeks gestation o f (HCC) (Primary Dx); Obesity in (HCC) Start: 06-21-2025 End: 06-21-2025 Patient encounter procedure Whi Tech 1 [employer] [facility] Maternal Medicine Comment on above: Encounter for ultras ound to check growth (HCC) (Primary Dx); Uterine size-date discrepancy, third trimester (HCC); 32 weeks gestation of (HCC) Start: 06-21-2025 End: 06-21-2025 Office outpatient visit 15 minutes Hue Trevino MD Work Phone: OB/Gynecology Comment on above: 32 weeks gestation o f (HCC) (Primary Dx); Supervision of other high risk pregnancies, unspecified trimester (HCC); Obesity in (HCC); Tobacco use during , antepartum (HCC) Start: 06-21-2025 End: 06-21-2025 ambulatory LAKESHA BINGHAM Facility:[facility] Start: 06-04-2025 End: 06-04-2025 Patient encounter procedure Lakesha Bingham PLANER OPERATOR / GRADER.CNM Work Phone: OB/Gynecology Comment on above: Supervision of other high risk pregnancies, unspecified trimester (HCC) (Primary Dx); 30 weeks gestation of (HCC); Obesity in (HCC); Tobacco use during , antepartum (HCC); Marijuana use during (HCC); Uterine size-date discrepancy, third trimester (HCC) Start: 06-04-2025 End: 06-04-2025 ambulatory LAKESHA BINGHAM Facility:[facility] Start: 06-03-2025 End: 06-03-2025 ambulatory HUE TREVINO Facility:[facility] Start: 05-25-2025 End: 07-25-2025 Follow-up encounter Hue Trevino MD Work Phone: OB/Gynecology Start: 05-24-2025 End: 05-24-2025 Telephone encounter Hue Flowers RN Maternal [facility] ine Comment on above: Gear Keeper - O ther (PRAF) Start: 05-21-2025 End: 05-21-2025 ambulatory HUE TREVINO Facility:[facility] Start: 05-21-2025 End: 05-21-2025 Office outpatient visit 15 minutes Hue Trevino MD Work Phone: OB/Gynecology Comment on above: 28 weeks gestation o f (HCC) (Primary Dx); Supervision of high risk in second trimester (HCC); Obesity in (HCC); Tobacco use during , antepartum (HCC); Marijuana use during (HCC); Screening for diabetes mellitus; Need for vaccination; Vaginal discharge; Vaginal odor Start: 04-18-2025 End: 04-20-2025 Refill Lakesha Bingham APRN.CNM Work Phone: OB/Gynecology Comment on above: Refill Request Start: 03-30-2025 End: 03-30-2025 Telephone encounter Hue Flowers RN [facility]aternal [facility] Comment on above: Gear Keeper - O ther (error) Start: 03-29-2025 End: 03-29-2025 Office outpatient visit 15 minutes Hue Trevino MD Work Phone: OB/Gynecology Comment on above: Supervision of high risk in second trimester (HCC) (Primary Dx); Obesity in (HCC); Tobacco use during , antepartum (HCC); Marijuana use during (HCC); 20 weeks gestation of (HCC); ADRIANA I (cervical intraepithelial neoplasia I); Yeast dermatitis Start: 03-29-2025 End: 03-29-2025 Patient encounter procedure Whi Tech 1 [employer] [facility]aternal Medicine Comment on above: Encounter for anatomic survey (HCC) (Primary Dx); Obesity affecting in second trimester, unspecified obesity type (HCC); 20 weeks gestation of (HCC) Start: 03-29-2025 End: 03-29-2025 ambulatory HUE TREVINO Facility:[facility] Start: 03-25-2025 End: 04-09-2025 Telephone encounter Lakesha Bingham APRN.CNM Work Phone: OB/Gynecology Comment on above: Breast pump Start: 03-02-2025 End: 03-02-2025 ambulatory LAKESHA BINGHAM Facility:[facility] Start: 03-02-2025 End: 03-02-2025 Patient encounter procedure Lakesha Bingham APRN.CNM Work Phone: OB/Gynecology Comment on above: Supervision of high risk in second trimester (HCC) (Primary Dx); 16 weeks gestation of (HCC); Obesity in (HCC); Marijuana use during (HCC); Tobacco use during , antepartum (HCC); ADRIANA II (cervical intraepithelial neoplasia II) Start: 02-16-2025 End: 02-16-2025 Refill Lakesha Bingham APRN.CNM Work Phone: OB/Gynecology Comment on above: Refill Request Start: 02-11-2025 End: 04-13-2025 Follow-up encounter Jessica Villegas MD Work Phone: OB/Gynecology Start: 02-09-2025 End: 02-09-2025 E-mail encounter from caregiver Hue Trevino MD Work Phone: OB/Gynecology Start: 02-09-2025 End: 02-09-2025 ambulatory Hue Trevino MD Work Phone: OB/Gynecology Comment on above: HPV Start: 02-09-2025 End: 02-09-2025 Patient encounter procedure Hue Trevino MD Work Phone: OB/Gynecology Comment on above: Cervical high risk h uman papillomavirus (HPV) DNA test positive (Primary Dx); Supervision of other high risk pregnancies, unspecified trimester; 13 weeks gestation of Start: 01-27-2025 End: 01-27-2025 ambulatory Lakesha Bingham APRN.CNM Work Phone: OB/Gynecology Comment on above: [id number] test Start: 01-26-2025 End: 01-26-2025 ambulatory LAKESHA ZACHERY Facility:[facility] Start: 01-26-2025 End: 01-26-2025 Patient encounter procedure Whi Tech 2 [employer] [facility] [facility]aternal [facility] Comment on above: Encounter for antena gloria screening for malformation using ultrasound (Primary Dx); 11 weeks gestation of ; Encounter for (NT) nuchal translucency scan with uncer tain dates, antepartum (Primary Dx); Supervision of other high risk pregnancies, unspecified trimester; 11 weeks gestation of ; Marijuana use during ; Tobacco use during , antepartum; Obesity in Start: 01-26-2025 End: 01-26-2025 [facility] L[facility]HA [facility] Facility:[facility] Start: 01-26-2025 End: 01-27-2025 Follow-up encounter Lakesha Bingham APRN.CNM Work Phone: OB/Gynecology Start: 01-26-2025 End: 01-26-2025 Telephone encounter Lakesha Bingham APRN.CNM Work Phone: Obstetrics/Gynecology Comment on above: PRAF Start: 01-25-2025 End: 01-25-2025 Patient encounter procedure Lakesha Bingham APRN.CNM Work Phone: OB/Gynecology Comment on above: with uncer tain dates, antepartum (Primary Dx); Screening for cervical cancer; Screening for human papillomavirus (HPV); Tobacco use during , antepartum; Marijuana use during ; Supervision of other high risk pregnancies, unspecified trimester; ADRIANA II (cervical intraepithelial neoplasia II); Obesity in Start: 01-25-2025 End: 01-25-2025 ambulatory LAKESHA ZACHERY Facility:[facility] Start: 01-20-2025 End: 01-21-2025 Telephone encounter Lakesha Bingham WILLIAM Work Phone: OB/Gynecology Comment on above: Care Start: 01-19-2025 End: 01-19-2025 Emergency department patient visit Shannan Durbin Facility:[facility] Start: 01-19-2025 End: 01-19-2025 Emergency department patient visit [facility] Start: 04-04-2024 End: 04-05-2024 ambulatory [facility] Start: 04-04-2024 End: 04-04-2024 Subsequent hospital visit by physician Gurmeet X-Ray 1 [facility] Comment on above: Neck pain Chronic low back pau n without sciatica, unspecified back pain laterality Hand pain, left Start: 03-31-2024 End: 03-31-2024 ambulatory [facility] Start: 03-31-2024 End: 03-31-2024 Office outpatient new 60 minutes Shannan Rodriguezman PLANER OPERATOR / GRADER-DIRECTOR INTERNAL COMMUNICATIONS Work Phone: [facility] Comment on above: Chronic low back pau n without sciatica, unspecified back pain laterality (Primary Dx); Neck pain; Hyperhidrosis; Folliculitis due to Pseudomonas aeruginosa; Gastroesophageal reflux disease without esophagitis; Hand pain, left Start: 09-19-2021 ambulatory [facility] Ambulatory Procedures Date Procedure Procedure Detail Performing Clinician Start: 08-03-2025 Urnls dip stick/tabl et rgnt non-auto w/o micrscp Hue Trevino MD Work Phone: Start: 07-29-2025 Urnls dip stick/tabl et rgnt non-auto w/o micrscp Debbie Gomez MD Work Phone: Start: 07-20-2025 Urnls dip stick/tabl et rgnt non-auto w/o micrscp Hue Trevino MD Work Phone: Start: 06-21-2025 Us preg uterus after 1st trimest 1/1st gestation Lakesha Bingham APRN.CNM Work Phone: Start: 06-04-2025 Urnls dip stick/tabl et rgnt non-auto w/o micrscp Lakesha Bingham APRN.CNM Work Phone: Start: 03-29-2025 Us preg uterus after 1st trimest /1st gestation Lakesha Bingham APRN.CNM Work Phone: Start: 01-26-2025 Antibody screen LAKESHA BINGHAM Comment on above: Order Comment: Speci men Type: BLOOD SPECIMENOrdering Facility: [facility] Address: [address] [place] [address] Performed By: #### T SPN ####CC MAIN BLOOD BANKCLIA [id number] [address] OF [facility] Start: 01-26-2025 Us preg uterus after 1st trimest / gestation Lakesha Bingham APRN.CNM Work Phone: Start: 01-25-2025 Microscopic observat ion [Identifier] in Cervix by Cyto stain Treva Russo MD Work Phone: Start: 04-04-2024 CBC W Auto Different ial panel - Blood SHANNAN DURBIN Start: 04-04-2024 Comprehensive metabo lic 2000 panel - Serum or Plasma SHANNAN DURBIN Start: 04-04-2024 Lipid panel SHANNAN LAMA Start: 04-04-2024 TSH WITH REFLEX TO F REE T4 IF ABNORMAL SHANNAN DURBIN Start: 04-04-2024 Lipid 1996 panel - S eldon or Plasma Gurmeet 1 Plan of Treatment Date Care Activity Detail Author Start: 2066 RSV Vaccine (1 - 1-dose 75+ series) RSV Vaccine (1 - 1-dose 75+ series) [facility] Start: 2041 Zoster Vaccines (1 of 2) Zoster Vaccines (1 of 2) [facility] Start: 05-21-2035 DTaP/Tdap/Td Vaccines (9 - Td or Tdap) DTaP/Tdap/Td Vaccines (9 - Td or Tdap) [facility] Start: 05-21-2035 Urine microalbumin profile DTaP,Tdap,Td Vaccine (9 - Td or Tdap) [facility] Start: 04-04-2029 Lipid panel Lipid Panel [facility] Start: 01-26-2028 Screening for malignant neoplasm of cervix [facility] Start: 01-25-2026 Screening for malignant neoplasm of cervix Cervical Cancer Screening [facility] Start: 08-11-2025 End: 08-11-2025 Patient encounter procedure 08/11/2025 2:20 PM EDT Routine Office Visit OB/Gynecology [address] [place] [address] Carolyn Olivera MD [address] [place] [address] Ob OB/Gynecology Comment on above: Ob Start: 08-10-2025 End: 08-10-2025 Patient encounter procedure 08/10/2025 9:30 AM EDT Office Visit [facility] [address] [place] [address] Concepcion Yanes, OD [address] [place] [address] [facility] [address] [address] [facility] Comment on above: [facility] Start: 08-03-2025 End: 08-03-2025 Patient encounter procedure 08/03/2025 1:40 PM EDT Routine Office Visit OB/Gynecology [address] [place] [address] Hue Trevino MD [address] [place] [address] OB OB/Gynecology Comment on above: OB Start: 07-29-2025 End: 07-29-2025 Patient encounter procedure 07/29/2025 11:30 AM EDT Routine Office Visit OB/Gynecology [address] [place] [address] Debbie Gomez MD [address] [place] [address] OB OB/Gynecology Comment on above: OB Start: 07-26-2025 COVID-19 Vaccine ( season) COVID-19 Vaccine () [facility] Start: 07-26-2025 Influenza vaccination [facility] Start: 07-05-2025 End: 07-05-2025 Patient encounter procedure 07/05/2025 1:30 PM EDT Routine Office Visit OB/Gynecology [address] [place] [address] Hue Trevino MD [address] [place] [address] OB OB/Gynecology Comment on above: OB Start: 06-21-2025 End: 06-21-2025 Patient encounter procedure OB/Gynecology Comment on above: Growth/OB Growth Start: 06-04-2025 End: 06-04-2025 Patient encounter procedure 06/04/2025 11:00 AM EDT Routine Office Visit OB/Gynecology [address] [place] [address] Lakesha Bingham APRN.CN [address] [place] [address] OB OB/Gynecology Comment on above: OB Start: 05-25-2025 End: 05-25-2025 ambulatory 05/25/2025 11:30 AM EDT Results Only [facility] [address] [place] [address] [facility] Start: 05-21-2025 End: 08-20-2025 ANEMIA REFLEX PANEL ANEMIA REFLEX PANEL Lab Routine 28 weeks gestation of (HCC) Supervision of high risk in second trimester (HCC) Obesity in (HCC) Expected: 05/21/2025, Expires: 08/20/2025 [facility] Comment on above: Expected: 05/21/2025, Expires: Start: 05-21-2025 End: 05-21-2026 GESTATIONAL GLUCOSE SCREEN, 1-HOUR, 50 GRAM, NON-FASTING GESTATIONAL GLUCOSE SCREEN, 1-HOUR, 50 GRAM, NON-FASTING Lab Routine 28 weeks gestation of (HCC) Supervision of high risk in second trimester (HCC) Obesity in ([facility]) Screening for diabetes mellitus Expected: 05/21/2025, Expires: 05/21/2026 [facility] Work Phone: Comment on above: Expected: 05/21/2025, Expires: Start: 05-21-2025 End: 05-21-2026 SYPHILIS TREPONEMAL W/REFLEX SYPHILIS TREPONEMAL W/REFLEX Lab Routine 28 weeks gestation of ([facility]) Supervision of high risk in second trimester (HCC) Obesity in ([facility]) Expected: 05/21/2025, Expires: 05/21/2026 [facility] Comment on above: Expected: 05/21/2025, Expires: Start: 04-26-2025 End: 04-26-2025 Patient encounter procedure 04/26/2025 9:00 AM EDT Routine Office Visit OB/Gynecology [address] [place] [address] Debbie Gomez MD [address] [place] [address] OB OB/Gynecology Comment on above: OB Start: 03-29-2025 End: 03-29-2025 Patient encounter procedure [facility] Comment on above: Anatomy Anatomy/OB Start: 03-02-2025 End: 03-02-2025 Patient encounter procedure 03/02/2025 10:30 AM EDT Routine Office Visit OB/Gynecology [address] [place] [address] Lakesha Bingham APRN.CN [address] [place] [address] 1st OB - LMP Unknown (around October) OB/Gynecology Comment on above: 1st OB - LMP Unknown (around October) Start: 01-26-2025 End: 01-26-2025 Patient encounter procedure 01/26/2025 2:30 PM EST Routine Office Visit [facility] [address] [place] [address] [facility] Comment on above: Nuchal Start: 01-26-2025 End: 04-27-2025 Chromosome 21 trisomy [Presence] in Blood or Tissue by Cytogenetics [facility] Work Phone: Comment on above: Expected: 01/26/2025, Expires: Start: 01-26-2025 End: 01-26-2025 Patient encounter procedure 01/26/2025 11:15 AM EST Routine Office Visit OB/Gynecology [address], [place] [id number] Lakesha Bingham APRN.CN [address] [place] [place] [address] Nuchal @ 2:30, urvashi Bingham, coming in at 2:30 OB/Gynecology Comment on above: Nuchal @ 2:30, urvashi Bingham, coming in a t 2:30 Start: 01-25-2025 End: 04-26-2025 ANEMIA REFLEX PANEL ANEMIA REFLEX PANEL Lab Routine with uncertain dates, antepartum Expected: 01/25/2025, Expires: 04/26/2025 [facility] Comment on above: Expected: 01/25/2025, Expires: Start: 01-25-2025 End: 04-26-2025 Hemoglobin A1c in Blood HEMOGLOBIN A1C Lab Routine with uncertain dates, antepartum Expected: 01/25/2025, Expires: 04/26/2025 [facility] Comment on above: Expected: 01/25/2025, Expires: Start: 01-25-2025 End: 04-26-2025 Hepatitis B virus surface Ag [Presence] in Serum HEPATITIS B SURFACE ANTIGEN Lab Routine with uncertain dates, antepartum Expected: 01/25/2025, Expires: 04/26/2025 [facility] Comment on above: Expected: 01/25/2025, Expires: Start: 01-25-2025 End: 04-26-2025 Hepatitis C virus Ab [Presence] in Serum HEPATITIS C ANTIBODY IA WITH CONFIRMATION Lab Routine with uncertain dates, antepartum Expected: 01/25/2025, Expires: 04/26/2025 [facility] Comment on above: Expected: 01/25/2025, Expires: Start: 01-25-2025 End: 04-26-2025 HIV 1+2 Ab [Presence] in Serum or Plasma by Immunoassay HIV 1/2 COMBO WITH REFLEX TO DIFFERENTIATION Lab Routine with uncertain dates, antepartum Expected: 01/25/2025, Expires: 04/26/2025 [facility] Comment on above: Expected: 01/25/2025, Expires: Start: 01-25-2025 End: 01-25-2026 OBSTETRIC ULTRASOUND WHI OBSTETRIC ULTRASOUND WHI Anc Imaging Routine with uncertain dates, antepartum Expected: 01/25/2025, Expires: 01/25/2026 [facility] Comment on above: Expected: 01/25/2025, Expires: Start: 01-25-2025 End: 04-26-2025 RUBELLA IGG ANTIBODY RUBELLA IGG ANTIBODY Lab Routine with uncertain dates, antepartum Expected: 01/25/2025, Expires: 04/26/2025 [facility] Comment on above: Expected: 01/25/2025, Expires: Start: 01-25-2025 End: 04-26-2025 SYPHILIS TREPONEMAL W/REFLEX SYPHILIS TREPONEMAL W/REFLEX Lab Routine with uncertain dates, antepartum Expected: 01/25/2025, Expires: 04/26/2025 [facility] Comment on above: Expected: 01/25/2025, Expires: Start: 01-25-2025 End: 04-26-2025 TYPE + SCREEN TYPE + SCREEN Blood Bank Routine with uncertain dates, antepartum Expected: 01/25/2025, Expires: 04/26/2025 [facility] Comment on above: Expected: 01/25/2025, Expires: Start: 01-25-2025 End: 01-25-2025 Patient encounter procedure 01/25/2025 1:15 PM EST Initial Office Visit OB/Gynecology [address] [place] [address] Lakesha Bingham APRN.CNM [address] [place] [address] 1st OB - LMP Unknown (around October) OB/Gynecology Comment on above: 1st OB - LMP Unknown (around October) Start: 08-20-2024 Urine microalbumin profile DTaP,Tdap,Td Vaccine (8 - Td or Tdap) [facility] Start: 07-26-2024 Covid-19 Vaccine ( season) Covid-19 Vaccine ( season) [facility] Start: 07-26-2024 Influenza vaccination [facility] Start: 07-01-2024 End: 07-01-2024 Patient encounter procedure 07/01/2024 10:30 AM EDT Office Visit [facility] [address] [place] [id number] Shannan Durbin, PLANER OPERATOR / GRADER-DIRECTOR INTERNAL COMMUNICATIONS [address] [facility] [place] [address] [facility] Start: 04-15-2024 End: 04-15-2024 ambulatory 04/15/2024 11:15 AM EDT Evaluation [facility] [address] [place] [address] Antoine Calvo, PT [address] [facility] [place] [address] [facility] Start: 03-31-2024 End: 03-31-2025 CBC W Auto Differential panel - Blood CBC and Auto Differential Lab Routine Hyperhidrosis Gastroesophageal reflux disease without esophagitis Expected: 03/31/2024 (Approximate), Expires: 03/31/2025 [facility] Work Phone: Comment on above: Expected: 03/31/2024 (Approximate), Expi res: 03/31/2025 Start: 03-31-2024 End: 03-31-2025 Comprehensive metabolic 2000 panel - Serum or Plasma Comprehensive Metabolic Panel Lab Routine Gastroesophageal reflux disease without esophagitis Expected: 03/31/2024 (Approximate), Expires: 03/31/2025 [facility] Work Phone: Comment on above: Expected: 03/31/2024 (Approximate), Expi res: 03/31/2025 Start: 03-31-2024 End: 03-31-2025 Lipid 1996 panel - Serum or Plasma Lipid Panel Lab Routine Hyperhidrosis Expected: 03/31/2024 (Approximate), Expires: 03/31/2025 [facility] Work Phone: Comment on above: Expected: 03/31/2024 (Approximate), Expi res: 03/31/2025 Start: 03-31-2024 End: 03-31-2025 TSH with reflex to Free T4 if abnormal TSH with reflex to Free T4 if abnormal Lab Routine Hyperhidrosis Gastroesophageal reflux disease without esophagitis Expected: 03/31/2024 (Approximate), Expires: 03/31/2025 [facility] Work Phone: Comment on above: Expected: 03/31/2024 (Approximate), Expi res: 03/31/2025 Start: 03-31-2024 End: 03-31-2025 XR Cervical spine 2 or 3 Views XR cervical spine 2-3 views Imaging Routine Neck pain Expected: 03/31/2024, Expires: 03/31/2025 [facility] Work Phone: Comment on above: Expected: 03/31/2024, Expires: Start: 03-31-2024 End: 03-31-2025 XR Hand Views XR hand left 1-2 views Imaging Routine Hand pain, left Expected: 03/31/2024, Expires: 03/31/2025 [facility] Work Phone: Comment on above: Expected: 03/31/2024, Expires: 5 Start: 03-31-2024 End: 03-31-2025 XR Lumbar spine 2 or 3 Views XR lumbar spine 2-3 views Imaging Routine Chronic low back pain without sciatica, unspecified back pain laterality Expected: 03/31/2024, Expires: 03/31/2025 [facility] Service Area Work Phone: Comment on above: Expected: 03/31/2024, Expires: 5 Start: 07-26-2023 COVID-19 Vaccine () COVID-19 Vaccine ( season) [facility] Start: 02-23-2020 Screening for malignant neoplasm of cervix Cervical Cancer Screening [facility] Start: 02-22-2018 Screening for malignant neoplasm of cervix Cervical Cancer Screening [facility] Start: 2013 DTaP/Tdap/Td Vaccines (1 - Tdap) DTaP/Tdap/Td Vaccines (1 - Tdap) [facility] Start: 2012 Screening for malignant neoplasm of cervix [facility] Start: 2010 Hepatitis B Vaccine (1 of 3 - 19+ 3-dose series) Hepatitis B Vaccine (1 of 3 - 19+ 3-dose series) [facility] Start: 2010 Hepatitis B Vaccines (1 of 3 - 19+ 3-dose series) Hepatitis B Vaccines (1 of 3 - 19+ 3-dose series) [facility] Start: 2010 Pneumococcal vaccination Pneumococcal Vaccine (1 of 2 - PCV) [facility] Start: 2010 Pneumococcal Vaccine: Pediatrics and At-Risk Adult Patients (1 of 2 - PCV) Pneumococcal Vaccine: Pediatrics and At-Risk Adult Patients (1 of 2 - PCV) [facility] Start: 2009 Anxiety Screening Anxiety Screening [facility] Start: 2009 Depression Screening Depression Screening [facility] Start: 2009 Hepatitis C screening Hepatitis C Screening [facility] Start: 09-09-2009 HPV Vaccine (2 - Risk 3-dose series) HPV Vaccine (2 - Risk 3-dose series) [facility] Start: 09-09-2009 HPV Vaccines (2 - 3-dose series) HPV Vaccines (2 - 3-dose series) [facility] Start: 2004 Varicella vaccination Varicella Vaccines (1 of 2 - 13+ 2-dose series) [facility] Start: 1997 Pneumococcal Vaccine: Pediatrics (0 to 5 Years) and At-Risk Patients (6 to 64 Years) (1 of 2 - PCV) Pneumococcal Vaccine: Pediatrics (0 to 5 Years) and At-Risk Patients (6 to 64 Years) (1 of 2 - PCV) [facility] Start: 1992 MMR Vaccines (1 of 1 - Standard series) MMR Vaccines (1 of 1 - Standard series) [facility] Start: 1991 HIV screening HIV Screening [facility] Start: 1991 Lipid panel Lipid Panel [facility] Start: 1991 Yearly Adult Physical Yearly Adult Physical [facility] Bacteria identified in Urine by Culture BACTERIAL CULTURE, URINE Microbiology Routine with uncertain dates, antepartum 01/25/2025 11:42 AM EST [facility] BACTERIAL VAGINOSIS NAAT BACTERIAL VAGINOSIS NAAT Lab Routine with uncertain dates, antepartum 01/25/2025 11:42 AM EST [facility] BACTERIAL VAGINOSIS NAAT BACTERIAL VAGINOSIS NAAT Lab Routine Vaginal discharge Vaginal odor 05/21/2025 11:14 AM EDT [facility] ASHLEY/TRICHOMONAS NAAT ASHLEY/TRICHOMONAS NAAT Lab Routine with uncertain dates, antepartum 01/25/2025 11:42 AM EST [facility] ASHLEY/TRICHOMONAS NAAT ASHLEY/TRICHOMONAS NAAT Lab Routine Vaginal discharge Vaginal odor 05/21/2025 11:14 AM EDT [facility] Chlamydia trachomatis+Neisseria gonorrhoeae DNA [Presence] in Unspecified specimen by MITUL with probe detection GONORRHEA/CHLAMYDIA NAAT Lab Routine with uncertain dates, antepartum 01/25/2025 11:42 AM EST [facility] COLPOSCOPY COLPOSCOPY Proce dures Routine Cervical high risk human papillomavirus (HPV) DNA test positive Ordered: 02/09/2025 [facility] Work Phone: Comment on above: Ordered: 02/09/2025 End: 05-19-2026 OBSTETRIC ULTRASOUND WHI OBSTETRIC ULTRASOUND WHI Anc Imaging Routine Supervision of other high risk pregnancies, unspecified trimester (HCC) 30 weeks gestation of (HCC) Uterine size-date discrepancy, third trimester (HCC) Once per month for 3 Occurrences starting 06/04/2025 until 05/19/2026 [facility] Work Phone: Comment on above: Once per month for 3 Occurrences startin g 06/04/2025 until 05/19/2026 PAP TEST PAP TEST Lab Rou eleuterio with uncertain dates, antepartum Screening for cervical cancer Screening for human papillomavirus (HPV) 01/25/2025 11:42 AM EST [facility] POC STEEL POST INSTALLER 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 POC STEEL POST INSTALLER SUPERVISOR ULTRASO UND Anc Imaging Routine with uncertain dates, antepartum Ordered: 01/25/2025 [facility] Work Phone: Comment on above: Ordered: 01/25/2025 ROUTINE, GROUP B STREPTOCOCCUS BY PCR ROUTINE, GROUP B STREPTOCOCCUS BY PCR Microbiology Routine 36 weeks gestation of (HCC) 07/20/2025 3:22 PM EDT [facility] Work Phone: Tissue Pathology biopsy report SURGICAL PATHOLOGY Lab Routine Cervical high risk human papillomavirus (HPV) DNA test positive 02/09/2025 3:01 PM EDT [facility] URINE OB DIP B/O URINE OB DIP B/ O Lab Routine 32 weeks gestation of ([facility]) Supervision of other high risk pregnancies, unspecified trimester (HCC) Obesity in (HCC) Tobacco use during , antepartum ([facility]) Ordered: 06/21/2025 [facility] Work Phone: Comment on above: Ordered: 06/21/2025 End: 04-04-2024 XR Cervical spine 2 or 3 Views [facility] Service Area Work Phone: Comment on above: Once for 1 Occurrences starting 04/04/20 until 04/04/2024 End: 04-04-2024 XR Hand Views [facility] Service Area Work Phone: Comment on above: Once for 1 Occurrences starting 04/04/20 until 04/04/2024 End: 04-04-2024 XR Lumbar spine 2 or 3 Views [facility] Service Area Work Phone: Comment on above: Once for 1 Occurrences starting 04/04/20 24 until 04/04/2024 Immunizations Immunization Date Immunization Notes Care Provider Arielle conte 05-21-2025 tetanus toxoid, redu gabriela diphtheria toxoid, and acellular pertussis vaccine, adsorbed Hue Trevino MD Work Phone: [facility] 11-23-2014 influenza, seasonal, injectable, preservative free [facility] 11-23-2014 influenza virus vacc ine, unspecified formulation Lakesha Bingham PLANER OPERATOR / GRADER.CNM Work Phone: [facility] 08-20-2014 tetanus toxoid, redu gabriela diphtheria toxoid, and acellular pertussis vaccine, adsorbed Lakesha Bingham PLANER OPERATOR / GRADER.CNM Work Phone: [facility] 09-12-2011 influenza virus vacc ine, unspecified formulation Lakesha Bingham PLANER OPERATOR / GRADER.CNM Work Phone: [facility] 08-12-2009 human papilloma viru s vaccine, quadrivalent [facility] 08-12-2009 meningococcal polysaccharide (groups A, C, Y and W-135) diphtheria toxoid conjugate vaccine (MCV4P) [facility] 08-12-2009 tetanus toxoid, redu gabriela diphtheria toxoid, and acellular pertussis vaccine, adsorbed [facility] 08-12-2009 HPV, unspecified formulation Treva Russo MD Work Phone: [facility] Work Phone: 08-03-1997 measles, mumps and rubella virus vaccine [facility] 07-28-1997 diphtheria, tetanus toxoids and acellular pertussis vaccine Lakesha Zachery HANNA.CNM Work Phone: [facility] 07-28-1997 trivalent poliovirus vaccine, live, oral Lakesha Bingham APRN.CNM Work Phone: [facility] 07-29-1995 diphtheria, tetanus toxoids and acellular pertussis vaccine Lakeshaheather Bingham APRN.CNM Work Phone: [facility] 10-08-1993 trivalent poliovirus vaccine, live, oral Lakesha Bingham PLANER OPERATOR / GRADER.CNM Work Phone: [facility] 09-28-1993 haemophilus influenz ae type b vaccine, HbOC conjugate Lakesha Bingham PLANER OPERATOR / GRADER.CNM Work Phone: [facility] 09-28-1993 measles, mumps and rubella virus vaccine Lakesha Bingham PLANER OPERATOR / GRADER.CNM Work Phone: [facility] 09-28-1993 tuberculin skin test ; purified protein derivative solution, intradermal Lakesha Zachery PINTON.CNM Work Phone: [facility] 05-04-1993 diphtheria and tetan us toxoids, adsorbed for pediatric use Lakesha Zachery PLANER OPERATOR / GRADER.CNM Work Phone: [facility] 06-24-1992 diphtheria, tetanus toxoids and pertussis vaccine Lakesha Bingham PLANER OPERATOR / GRADER.CNM Work Phone: [facility] 06-24-1992 haemophilus influenz ae type b vaccine, HbOC conjugate Lakesha Bingham PLANER OPERATOR / GRADER.CNM Work Phone: [facility] 06-24-1992 trivalent poliovirus vaccine, live, oral Lakesha Bingham PLANER OPERATOR / GRADER.CNM Work Phone: [facility] 03-29-1992 diphtheria, tetanus toxoids and pertussis vaccine Lakesha Bingham PLANER OPERATOR / GRADER.CNM Work Phone: [facility] Work Phone: 03-29-1992 haemophilus influenz ae type b vaccine, HbOC conjugate Lakesha Bingham PLANER OPERATOR / GRADER.CNM Work Phone: [facility] 03-29-1992 trivalent poliovirus vaccine, live, oral Lakesha Bingham PLANER OPERATOR / GRADER.CNM Work Phone: [facility] Payers Date Payer Category Payer Self-pay 2022 Medicaid [employer] [id number] 2020 Medicaid [id number] 2020 Medicaid (Managed Care) [employer] [id number] 2020 Unknown [facility] [id number] 2020-Present [address] [place] [address] [id number] 2020 Unknown [id number] 1991 Unknown [id number] 1991 Unknown [id number] 1991 Unknown [id number] 1991 Unknown [id number] 1991 Unknown [id number] Unknown [id number] Unknown [id number] Social History Date Type Detail Facility Start: 03-31-2024 End: 01-25-2025 Tobacco smoking status NHIS Smokes tobacco daily [facility] Work Phone: Start: 11-25-2007 History of tobacco use Cigarette Smo ker [facility] Work Phone: Start: 03-31-2024 End: 01-25-2025 Cigarettes smoked current (pack per day) - Reported 1 [facility] Work Phone: Start: 03-31-2024 End: 01-25-2025 Tobacco use and exposure Smokeless tobacco non-user [facility] Work Phone: Start: 03-31-2024 Alcoholic beverage intake Current drinker of alcohol (finding) [facility] Work Phone: Start: 1990 Sex assigned at Not on file [facility] Work Phone: Start: 03-31-2024 End: 01-25-2025 Gender identity Not on file [facility] Start: 03-21-2024 End: 04-04-2024 Exposure to SARS-CoV-2 (event) Not sure [facility] Start: 01-20-2025 Alcoholic beverage intake Current non-drinker of alcohol (finding) [facility] Start: 01-25-2025 End: 08-03-2025 Alcoholic beverage intake Ex-drinker (finding) [facility] The thought of jimena dorsey myself has occurred to me Never [facility] Start: 10-26-2012 End: 03-25-2024 National Score (1-100), lower number is lower risk 95 [facility] Start: 01-25-2025 [facility] Start: 11-18-2024 [facility] Medical Equipment Procedure Code Equipment Code Equipment Origin al Text Equipment Identifier Dates Start: 08-03-2025 End: 08-03-2025 Goals Date Patient Goal Desired Activity /State Personal health goal Functional Status Date Assessment Result Facility 08-03-2025 [place] - suicide severity rating scale screener - recent [C-SSRS] [facility] Work Phone: 07-01-2015 Are you deaf, or do you have serious difficulty hearing No 07/01/2015 2:31 PM EDT [place] No [facility] 07-01-2015 Are you blind, or do you have serious difficulty seeing, even when wearing glasses No 07/01/2015 2:31 PM EDT [facility] 07-01-2015 Do you have serious difficulty walking or climbing stairs No 07/01/2015 2:31 PM EDT [facility] 07-01-2015 Do you have difficul ty dressing or bathing No 07/01/2015 2:31 PM EDT [facility] 07-01-2015 Because of a physica l, mental, or emotional condition, do you have difficulty doing errands alone such as visiting a physician's office or shopping No 07/01/2015 2:31 PM EDT [facility] Mental Status Date Assessment Result Facility 07-01-2015 Because of a physica l, mental, or emotional condition, do you have serious difficulty concentrating, remembering, or making decisions No 07/01/2015 2:31 PM EDT [facility] Clinical Notes 03-31-2024 to 08-03-2025 Quick Notes - Hue Trevino MD - 08/03/2025 2:08 PM EDTPrenatal Quick Notes - Hue Trevino MD - 08/03/2025 2:08 PM EDTPatient Concepcion Gates OD - 08/03/2025 10:06 AM EDT Note Date & Type Note Facility 08-03-2025 Progress note Formatting of t his note might be different from the original. S: Elaine Ac is a 34 year old female who presents at 08/12/2025, by Ultrasound for a routine visit. Denies headache, visual changes, chest pain, shortness of breath, vaginal bleeding, leakage of fluid, or dysuria. Feeling well, no complaints. Good movement, No contractions O: See flow sheet Gen: No apparent distress Abd: Gravid, nontender Corneal abrasion from cat last night. ASSESSMENT/PLAN: 1. Supervision of other high risk pregnancies, unspecified trimester (HCC) - ICD9: V23.89, ICD10: O09.899 (primary diagnosis) - URINE OB DIP B/O 2. 38 weeks gestation of (HCC) - ICD9: V22.2, ICD10: Z3A.38 - URINE OB DIP B/O 3. Obesity in (HCC) - ICD9: 649.10, ICD10: O99.210 - URINE OB DIP B/O Hue Trevino MD [facility] 08-03-2025 Miscellaneous Notes S: Elaine Ac is a 34 year old female who presents at 08/12/2025, by Ultrasound for a routine visit. Denies headache, visual changes, chest pain, shortness of breath, vaginal bleeding, leakage of fluid, or dysuria. Feeling well, no complaints. Good movement, No contractions O: See flow sheet Gen: No apparent distress Abd: Gravid, nontender Corneal abrasion from cat last night. ASSESSMENT/PLAN: 1. Supervision of other high risk pregnancies, unspecified trimester (HCC) - ICD9: V23.89, ICD10: O09.899 (primary diagnosis) - URINE OB DIP B/O 2. 38 weeks gestation of (HCC) - ICD9: V22.2, ICD10: Z3A.38 - URINE OB DIP B/O 3. Obesity in ([facility]) - ICD9: 649.10, ICD10: O99.210 - URINE OB DIP B/O Hue Trevino MD documented in this encounter [facility] 08-03-2025 Instructions Nazario Dong LPN - 08/03/2025 1:33 PM EDT SEQUENTIAL SCREENINGS The [facility] offers sequential screenings for women who are interested in screenings for chromosomal abnormalities and certain defects during a . The sequential screen combines ultrasound and blood tests to determine the risk of chromosomal abnormalities, including Down's Syndrome (Trisomy 21) and Trisomy 18, as well as open neural tube defects including spina bifida. Ultrasound examination is performed between 11 weeks and 13 weeks gestational age. Blood tests are drawn after the ultrasound and again later in the between 15 and 21 weeks gestational age. Please let your physician know if you are interested in this testing. It will require an appointment with our pyrotechnician. This is not an ultrasound performed by a physician in our office during a routine visit. SIGNS AND SYMPTOMS OF LABOR 1. Contractions every 10 minutes or more often 2. Clear, pink, or brownish fluid (water) leaking from vagina 3. Feeling that baby is pushing down, pressure 4. Low, dull backache 5. Cramps that feel like a period 6. Cramps with or without diarrhea If you notice any of the above symptoms, contact our office at [phone] and ask to speak with a nurse. After hours, you can call doctors registry at [phone] OR call [facility] at [phone] and ask to have the doctor nurse's companion paged. If you consider this an emergency, dial -1-3 or go to your nearest emergency department. NEED HELP? Are you dealing with a violent or abusive relationship? Are you a victim of rape or sexual assult? Call [facility] ([place]) 24 hour Crisis Hotline: 350.176.9263 or 798-989-1191. MANUAL Your Guide to a Healthy manual is now on-line. Visit [email or web address] to download your free copy documented in this encounter [facility] 08-03-2025 Note HNO ID: [id number] Author: CONCEPCION YANES OD Service: ? Author Type: Multimedia Programmer Type: Progress Notes Filed: 08/03/2025 10:09 Note Text: ASSESSMENT/PLAN: 1. Abrasion of left cornea, initial encounter - ICD9: 918.1, ICD10: S05.02XA (primary diagnosis) 2. Pain in left eye - ICD9: 379.91, ICD10: H57.12 3. Photophobia, left eye - ICD9: 368.13, ICD10: H53.142 Continue with Erythromycin ointment 3-4 times per day in left eye x 1 week. Over the counter Tylenol as needed for pain management. Recommend over the counter artificial tears 2-3x a day, or more as needed for dry/ tired eyes. Good brands of tears are Systane, Refresh, Soothe, Blink, or Thereatears. Avoid drops for red eyes. Preservative free tears are best when using more than four times per day. Recommend taking breaks from computer/phone every 20-30 minutes, and to remember to blink when using electronics. Recommend pressure patching 1-2 days for comfort. Recommend dark environment 1-2 days for comfort. Return to clinic with changes to vision, otherwise follow up 1 week with red eye check. Concepcion Yanes, LIS August 03, 2025 10:07 AM [facility] 08-03-2025 History of Presen t illness Narrative ASSESSMENT/PLAN: 1. Abrasion of left cornea, initial encounter - ICD9: 918.1, ICD10: S05.02XA (primary diagnosis) 2. Pain in left eye - ICD9: 379.91, ICD10: H57.12 3. Photophobia, left eye - ICD9: 368.13, ICD10: H53.142 Continue with Erythromycin ointment 3-4 times per day in left eye x 1 week. Over the counter Tylenol as needed for pain management. Recommend over the counter artificial tears 2-3x a day, or more as needed for dry/ tired eyes. Good brands of tears are Systane, Refresh, Soothe, Blink, or Thereatears. Avoid drops for red eyes. Preservative free tears are best when using more than four times per day. Recommend taking breaks from computer/phone every 20-30 minutes, and to remember to blink when using electronics. Recommend pressure patching 1-2 days for comfort. Recommend dark environment 1-2 days for comfort. Return to clinic with changes to vision, otherwise follow up 1 week with red eye check. Concepcion Yanes OD August 03, 2025 10:07 AM documented in this encounter [facility] 08-03-2025 Instructions Concepcion Yanes, OD - 08/03/2025 9:50 AM EDT Continue with Erythromycin ointment 3-4 times per day in left eye. Over the counter Tylenol/ Ibuprofen as needed for pain management. Recommend over the counter artificial tears 2-3x a day, or more as needed for dry/ tired eyes. Good brands of tears are Systane, Refresh, Soothe, Blink, or Thereatears. Avoid drops for red eyes. Preservative free tears are best when using more than four times per day. Recommend taking breaks from computer/phone every 20-30 minutes, and to remember to blink when using electronics. Recommend pressure patching 1-2 days for comfort. Recommend dark environment 1-2 days for comfort. documented in this encounter [facility] 08-03-2025 Hospital Discharg e instructions Treva Russo MD - 08/03/2025 1:51 AM EDT Recommend following up with ophthalmology at 8:30 in the morning. You have been given contact information for Dr. Mchugh. 1/2 cm erythromycin ointment application to the left eye 4 times per day. Tylenol as needed for pain. The following attachments cannot be sent through Care Everywhere.Corneal Abrasion ED (German)documented in this encounter [facility] Work Phone: 08-03-2025 Physician Emergency department Note Images from the original note were not included. 34-year-old female presents with a chief complaint of left eye pain following being scratched in the left eye by her kitten. Occurred just prior to arrival. Has severe pain in the left eye with photophobia. Review of Systems Physical Exam Vitals and nursing note reviewed. Constitutional: Appearance: She is not ill-appearing or toxic-appearing. HENT: Head: Normocephalic and atraumatic. Right Ear: Tympanic membrane normal. Left Ear: Tympanic membrane normal. Nose: Nose normal. Mouth/Throat: Mouth: Mucous membranes are moist. Pharynx: No oropharyngeal exudate or posterior oropharyngeal erythema. Eyes: Extraocular Movements: Extraocular movements intact. Conjunctiva/sclera: Conjunctivae normal. Pupils: Pupils are equal, round, and reactive to light. Comments: Fairly large left linear corneal abrasion. Cardiovascular: Rate and Rhythm: Normal rate and regular rhythm. Pulmonary: Effort: Pulmonary effort is normal. No respiratory distress. Breath sounds: Normal breath sounds. No wheezing, rhonchi or rales. Abdominal: General: There is no distension. Palpations: Abdomen is soft. There is no mass. Tenderness: There is no abdominal tenderness. There is no guarding. Musculoskeletal: General: No deformity. Normal range of motion. Cervical back: Neck supple. No tenderness. Skin: General: Skin is warm and dry. Neurological: General: No focal deficit present. Mental Status: She is alert and oriented to person, place, and time. Psychiatric: Mood and Affect: Mood normal. Labs Reviewed - No data to display No orders to display Procedures Medical Decision Making 34-year-old female presents with a chief complaint of left eye pain following being scratched in the left eye by her kitten. Occurred just prior to arrival. Has severe pain in the left eye with photophobia. Eye was evaluated following tetracaine application and fluorescein stain. Large linear just off to the center right of the left eye demonstrates significant fluorescein uptake. I have ordered ordered 0.5 cm erythromycin ophthalmologic ointment 4 times per day. Will recommend following up with ophthalmology Dr. Mchugh tomorrow morning. Diagnoses as of 08/03/25150 Left corneal abrasion, initial encounter Treva Russo MD 08/03/25150 [facility] Work Phone: 08-03-2025 Emergency department Note Images from the original note were not included. 34-year-old female presents with a chief complaint of left eye pain following being scratched in the left eye by her kitten. Occurred just prior to arrival. Has severe pain in the left eye with photophobia. Review of Systems Physical Exam Vitals and nursing note reviewed. Constitutional: Appearance: She is not ill-appearing or toxic-appearing. HENT: Head: Normocephalic and atraumatic. Right Ear: Tympanic membrane normal. Left Ear: Tympanic membrane normal. Nose: Nose normal. Mouth/Throat: Mouth: Mucous membranes are moist. Pharynx: No oropharyngeal exudate or posterior oropharyngeal erythema. Eyes: Extraocular Movements: Extraocular movements intact. Conjunctiva/sclera: Conjunctivae normal. Pupils: Pupils are equal, round, and reactive to light. Comments: Fairly large left linear corneal abrasion. Cardiovascular: Rate and Rhythm: Normal rate and regular rhythm. Pulmonary: Effort: Pulmonary effort is normal. No respiratory distress. Breath sounds: Normal breath sounds. No wheezing, rhonchi or rales. Abdominal: General: There is no distension. Palpations: Abdomen is soft. There is no mass. Tenderness: There is no abdominal tenderness. There is no guarding. Musculoskeletal: General: No deformity. Normal range of motion. Cervical back: Neck supple. No tenderness. Skin: General: Skin is warm and dry. Neurological: General: No focal deficit present. Mental Status: She is alert and oriented to person, place, and time. Psychiatric: Mood and Affect: Mood normal. Labs Reviewed - No data to display No orders to display Procedures Medical Decision Making 34-year-old female presents with a chief complaint of left eye pain following being scratched in the left eye by her kitten. Occurred just prior to arrival. Has severe pain in the left eye with photophobia. Eye was evaluated following tetracaine application and fluorescein stain. Large linear just off to the center right of the left eye demonstrates significant fluorescein uptake. I have ordered ordered 0.5 cm erythromycin ophthalmologic ointment 4 times per day. Will recommend following up with ophthalmology Dr. Mchugh tomorrow morning. Diagnoses as of 08/03/25150 Left corneal abrasion, initial encounter Treva Russo MD 08/03/25150 documented in this encounter [facility] Work Phone: 07-29-2025 Progress note Formatting of t his note might be different from the original. EH - S: Elaine is a 34 year old female who presents at 38w0d for a routine visit. Feeling movement. Denies headache, visual changes, chest pain, shortness of breath, vaginal bleeding, leakage of fluid, or dysuria. some back pain and vaginal pressure. No regular ctxs. O: See flow sheet Gen: No apparent distress Abd: Gravid, nontender, S=D ext- 1+ edema ASSESSMENT/PLAN: 1. Supervision of other high risk pregnancies, unspecified trimester ([facility]) - ICD9: V23.89, ICD10: O09.899 (primary diagnosis) - URINE OB DIP B/O 2. 38 weeks gestation of ([facility]) - ICD9: V22.2, ICD10: Z3A.38 - URINE OB DIP B/O 3. Obesity in ([facility]) - ICD9: 649.10, ICD10: O99.210 - URINE OB DIP B/O d/w her labor precautions f/u in 1 week or prn kick counts Jessica Villegas MD T [facility] 07-29-2025 Miscellaneous Notes EH - S: Elaine is a 34 year old female who presents at 38w0d for a routine visit. Feeling movement. Denies headache, visual changes, chest pain, shortness of breath, vaginal bleeding, leakage of fluid, or dysuria. some back pain and vaginal pressure. No regular ctxs. O: See flow sheet Gen: No apparent distress Abd: Gravid, nontender, S=D ext- 1+ edema ASSESSMENT/PLAN: 1. Supervision of other high risk pregnancies, unspecified trimester ([facility]) - ICD9: V23.89, ICD10: O09.899 (primary diagnosis) - URINE OB DIP B/O 2. 38 weeks gestation of ([facility]) - ICD9: V22.2, ICD10: Z3A.38 - URINE OB DIP B/O 3. Obesity in ([facility]) - ICD9: 649.10, ICD10: O99.210 - URINE OB DIP B/O d/w her labor precautions f/u in 1 week or prn kick counts Jessica Villegas MD documented in this encounter [facility] 07-29-2025 Instructions Arabella Benedict MA - 07/29/2025 11:02 AM EDT SEQUENTIAL SCREENINGS The [facility] offers sequential screenings for women who are interested in screenings for chromosomal abnormalities and certain defects during a . The sequential screen combines ultrasound and blood tests to determine the risk of chromosomal abnormalities, including Down's Syndrome (Trisomy 21) and Trisomy 18, as well as open neural tube defects including spina bifida. Ultrasound examination is performed between 11 weeks and 13 weeks gestational age. Blood tests are drawn after the ultrasound and again later in the between 15 and 21 weeks gestational age. Please let your physician know if you are interested in this testing. It will require an appointment with our pyrotechnician. This is not an ultrasound performed by a physician in our office during a routine visit. SIGNS AND SYMPTOMS OF LABOR 1. Contractions every 10 minutes or more often 2. Clear, pink, or brownish fluid (water) leaking from vagina 3. Feeling that baby is pushing down, pressure 4. Low, dull backache 5. Cramps that feel like a period 6. Cramps with or without diarrhea If you notice any of the above symptoms, contact our office at [phone] and ask to speak with a nurse. After hours, you can call doctors registry at [phone] OR call [facility] at [phone] and ask to have the doctor nurse's companion paged. If you consider this an emergency, dial 9--1 or go to your nearest emergency department. NEED HELP? Are you dealing with a violent or abusive relationship? Are you a victim of rape or sexual assult? Call [facility] ([place]) 24 hour Crisis Hotline: 775.807.3198 or 413-621-4738. MANUAL Your Guide to a Healthy manual is now on-line. Visit [email or web address] to download your free copy documented in this encounter [facility] 07-21-2025 Telephone encounter Note 3rd risk assessment form submitted 07/21/2025. Hue Flowers RN [facility] 07-21-2025 Miscellaneous Notes 3rd risk assessment form submitted 07/21/2025. Hue Flowers RN documented in this encounter [facility] 07-20-2025 Progress note Formatting of t his note might be different from the original. S: Elaine Ac is a 34 year old female who presents at 08/12/2025, by Ultrasound for a routine visit. Denies headache, visual changes, chest pain, shortness of breath, vaginal bleeding, leakage of fluid, or dysuria. Feeling well, no complaints. Good movement, No contractions O: See flow sheet Gen: No apparent distress Abd: Gravid, nontender VTX on US GBS collected plan reviewed ASSESSMENT/PLAN: 1. 36 weeks gestation of ([facility]) - ICD9: V22.2, ICD10: Z3A.36 (primary diagnosis) - URINE OB DIP B/O - ROUTINE, GROUP B STREPTOCOCCUS BY PCR 2. Obesity in ([facility]) - ICD9: 649.10, ICD10: O99.210 Prepregnancy BMI 31 - URINE OB DIP B/O Hue Trevino MD [facility] 07-20-2025 Miscellaneous Notes S: Elaine Ac is a 34 year old female who presents at 08/12/2025, by Ultrasound for a routine visit. Denies headache, visual changes, chest pain, shortness of breath, vaginal bleeding, leakage of fluid, or dysuria. Feeling well, no complaints. Good movement, No contractions O: See flow sheet Gen: No apparent distress Abd: Gravid, nontender VTX on US GBS collected plan reviewed ASSESSMENT/PLAN: 1. 36 weeks gestation of ([facility]) - ICD9: V22.2, ICD10: Z3A.36 (primary diagnosis) - URINE OB DIP B/O - ROUTINE, GROUP B STREPTOCOCCUS BY PCR 2. Obesity in ([facility]) - ICD9: 649.10, ICD10: O99.210 Prepregnancy BMI 31 - URINE OB DIP B/O Hue Trevino MD documented in this encounter [facility] 07-20-2025 Instructions Aminata Zamarripa LPN - 07/20/2025 2:53 PM EDT SEQUENTIAL SCREENINGS The [facility] offers sequential screenings for women who are interested in screenings for chromosomal abnormalities and certain defects during a . The sequential screen combines ultrasound and blood tests to determine the risk of chromosomal abnormalities, including Down's Syndrome (Trisomy 21) and Trisomy 18, as well as open neural tube defects including spina bifida. Ultrasound examination is performed between 11 weeks and 13 weeks gestational age. Blood tests are drawn after the ultrasound and again later in the between 15 and 21 weeks gestational age. Please let your physician know if you are interested in this testing. It will require an appointment with our pyrotechnician. This is not an ultrasound performed by a physician in our office during a routine visit. SIGNS AND SYMPTOMS OF LABOR 1. Contractions every 10 minutes or more often 2. Clear, pink, or brownish fluid (water) leaking from vagina 3. Feeling that baby is pushing down, pressure 4. Low, dull backache 5. Cramps that feel like a period 6. Cramps with or without diarrhea If you notice any of the above symptoms, contact our office at [phone] and ask to speak with a nurse. After hours, you can call doctors registry at [phone] OR call [facility] at [phone] and ask to have the doctor nurse's companion paged. If you consider this an emergency, dial [phone]- or go to your nearest emergency department. NEED HELP? Are you dealing with a violent or abusive relationship? Are you a victim of rape or sexual assult? Call [facility] ([place]) 24 hour Crisis Hotline: 298.630.3843 or 163-563-2317. MANUAL Your Guide to a Healthy manual is now on-line. Visit [email or web address] to download your free copy documented in this encounter [facility] 06-21-2025 Note Indication Evaluation of growth Maternal obesity, BMI >30, Discrepancy between uterine size and clinical dates Impression - Single, live, intrauterine . - presentation is cephalic. - The biometry is consistent with the assigned gestational dating. - The EFW is 2246 g, at the 74%. AC is at the 89%. - The amniotic fluid volume is normal amount with an MVP of 6.4 cm and an CHALINO of 14.5 cm. - The placenta is anterior, fundal. - No malformations visualized on a limited survey as detailed below. Recommendations Additional follow-up as clinically indicated. Maternal Assessment Height 163 cm Height (ft) 5 ft Height (in) 4 in Physical Exam Initial weight (lb) 182 lb Initial BMI 31.23 kg/m Maternal assessment other: 3 Para 2 REMOTE READ Method Transabdominal ultrasound examination. View: Suboptimal view: limited by position Rose . Number of fetuses: 1 Dating GA by prior assessment 32 w + 4 d LUCIA by prior assessment: 08/12/2025 Ultrasound examination on: 06/21/2025 GA by U/S based upon: AC, BPD, Femur, HC GA by U/S 32 w + 4 d LUCIA by U/S: 08/12/2025 Assigned: based on stated LUCIA, selected on 06/21/2025 Assigned GA 32 w + 4 d Assigned LUCIA: 08/12/2025 General Evaluation Cardiac activity present. FHR 125 bpm. movements: present. Presentation: cephalic Placenta: Placental site: anterior, fundal Umbilical cord: Cord vessels: 3 vessel cord Amniotic fluid: Amount of AF: normal amount. MVP 6.4 cm. CHALINO 14.5 cm. Q1 6.4 cm, Q2 4.5 cm, Q3 1.4 cm, Q4 2.2 cm Growth Overview Exam date GA BPD (mm) HC (mm) AC (mm) FL (mm) HL (mm) EFW (g) 03/29/2025 20w 4d 46.9 33% 181.4 49% 163 70% 34 68% 34.6 88% 390 66% 06/21/2025 32w 4d 77.6 9% 298.2 41% 302 89% 64.4 82% 2246 74% Biometry Standard BPD 77.6 mm 31w 1d 9% Hadlock OFD 108.6 mm 32w 4d 58% Nicolaides HC 298.2 mm 32w 1d 41% Ambreen AC 302.0 mm 34w 1d 89% Hadlock Femur 64.4 mm 33w 0d 82% Ambreen EFW 2,246 g 33w 3d 74% Hadlock EFW (lb) 4 lb EFW (oz) 15 oz EFW by: Hadlock (HC-AC-FL) [employer] Manager 7.4 mm Extremities / Bony Struc FL / HC 0.22 Other Structures FHR 125 bpm Anatomy Lateral ventricles: normal Cavum septi pellucidi: normal Cerebellum: suboptimally visualized Cisterna magna: suboptimally visualized 4-chamber view: suboptimally visualized RVOT view: normal LVOT view: suboptimally visualized 3-vessel view: normal Heart / Thorax Situs: situs solitus (normal) Diaphragm: normal Stomach: normal Kidneys: normal Bladder: normal sex: female Wants to know sex: yes Performed By: Luz Watson RDMS, RVT Read By: Nina Conte M.D. [facility] 06-21-2025 Progress note Formatting of t his note might be different from the original. S: Elaine Ac is a 34 year old female who presents at 08/12/2025, by Ultrasound for a routine visit. Denies headache, visual changes, chest pain, shortness of breath, vaginal bleeding, leakage of fluid, or dysuria. Feeling well, no complaints. Good movement, No contractions O: See flow sheet Gen: No apparent distress Abd: Gravid, nontender Growth US after appointment today ASSESSMENT/PLAN: 1. 32 weeks gestation of (HCC) - ICD9: V22.2, ICD10: Z3A.32 (primary diagnosis) - URINE OB DIP B/O 2. Supervision of other high risk pregnancies, unspecified trimester (HCC) - ICD9: V23.89, ICD10: O09.899 - URINE OB DIP B/O 3. Obesity in (HCC) - ICD9: 649.10, ICD10: O99.210 Prepregnancy BMI 31 - URINE OB DIP B/O 4. Tobacco use during , antepartum (HCC) - ICD9: 649.03, ICD10: O99.330 Cessation recommended - URINE OB DIP B/O Hue Trevino MD [facility] 06-21-2025 Miscellaneous Notes S: Elaine Ac is a 34 year old female who presents at 08/12/2025, by Ultrasound for a routine visit. Denies headache, visual changes, chest pain, shortness of breath, vaginal bleeding, leakage of fluid, or dysuria. Feeling well, no complaints. Good movement, No contractions O: See flow sheet Gen: No apparent distress Abd: Gravid, nontender Growth US after appointment today ASSESSMENT/PLAN: 1. 32 weeks gestation of (HCC) - ICD9: V22.2, ICD10: Z3A.32 (primary diagnosis) - URINE OB DIP B/O 2. Supervision of other high risk pregnancies, unspecified trimester ([facility]) - ICD9: V23.89, ICD10: O09.899 - URINE OB DIP B/O 3. Obesity in (HCC) - ICD9: 649.10, ICD10: O99.210 Prepregnancy BMI 31 - URINE OB DIP B/O 4. Tobacco use during , antepartum (HCC) - ICD9: 649.03, ICD10: O99.330 Cessation recommended - URINE OB DIP B/O Hue Trevino MD documented in this encounter [facility] 06-21-2025 Instructions Arabella Benedict MA - 06/21/2025 11:16 AM EDT SEQUENTIAL SCREENINGS The [facility] offers sequential screenings for women who are interested in screenings for chromosomal abnormalities and certain defects during a . The sequential screen combines ultrasound and blood tests to determine the risk of chromosomal abnormalities, including Down's Syndrome (Trisomy 21) and Trisomy 18, as well as open neural tube defects including spina bifida. Ultrasound examination is performed between 11 weeks and 13 weeks gestational age. Blood tests are drawn after the ultrasound and again later in the between 15 and 21 weeks gestational age. Please let your physician know if you are interested in this testing. It will require an appointment with our pyrotechnician. This is not an ultrasound performed by a physician in our office during a routine visit. SIGNS AND SYMPTOMS OF LABOR 1. Contractions every 10 minutes or more often 2. Clear, pink, or brownish fluid (water) leaking from vagina 3. Feeling that baby is pushing down, pressure 4. Low, dull backache 5. Cramps that feel like a period 6. Cramps with or without diarrhea If you notice any of the above symptoms, contact our office at [phone] and ask to speak with a nurse. After hours, you can call doctors registry at [phone] OR call [facility] at [phone] and ask to have the doctor nurse's companion paged. If you consider this an emergency, dial 8-2-0 or go to your nearest emergency department. NEED HELP? Are you dealing with a violent or abusive relationship? Are you a victim of rape or sexual assult? Call [facility] ([place]) 24 hour Crisis Hotline: 521.859.9983 or 403-408-0726. MANUAL Your Guide to a Healthy manual is now on-line. Visit [email or web address] to download your free copy documented in this encounter [facility] 06-04-2025 Progress note Formatting of t his note might be different from the original. ALFONSO-S: Elaine Ac is a 34 year old female who presents at 30w1d with LUCIA:08/12/2025, by Ultrasound for a routine visit. Denies headache, visual changes, chest pain, shortness of breath, vaginal bleeding, leakage of fluid, or dysuria. Feeling well, no complaints. O: See flow sheet Gen: No apparent distress Abd: Gravid, nontender ASSESSMENT/PLAN: 1. Supervision of other high risk pregnancies, unspecified trimester -Continue PNV and ASA 2. 30 weeks gestation of 3. Obesity in -Pregravid BMI 31 4. Tobacco use during , antepartum -Reviewed risks and advised cessation 5. Marijuana use during -Reviewed risks and advised cessation 6. Size date discrepancy -S>D, growth US ordered PTL precautions reviewed and when to call RTO in 2 weeks Lakesha Bingham APRN.CNM [facility] 06-04-2025 Miscellaneous Notes ALFONSO-S: Elaine Ac is a 34 year old female who presents at 30w1d with LUCIA:08/12/2025, by Ultrasound for a routine visit. Denies headache, visual changes, chest pain, shortness of breath, vaginal bleeding, leakage of fluid, or dysuria. Feeling well, no complaints. O: See flow sheet Gen: No apparent distress Abd: Gravid, nontender ASSESSMENT/PLAN: 1. Supervision of other high risk pregnancies, unspecified trimester -Continue PNV and ASA 2. 30 weeks gestation of 3. Obesity in -Pregravid BMI 31 4. Tobacco use during , antepartum -Reviewed risks and advised cessation 5. Marijuana use during -Reviewed risks and advised cessation 6. Size date discrepancy -S>D, growth US ordered PTL precautions reviewed and when to call RTO in 2 weeks Lakesha Bingham APRN.CNM documented in this encounter [facility] 06-04-2025 Instructions Aminata Zamarripa LPN - 06/04/2025 10:51 AM EDT SEQUENTIAL SCREENINGS The [facility] offers sequential screenings for women who are interested in screenings for chromosomal abnormalities and certain defects during a . The sequential screen combines ultrasound and blood tests to determine the risk of chromosomal abnormalities, including Down's Syndrome (Trisomy 21) and Trisomy 18, as well as open neural tube defects including spina bifida. Ultrasound examination is performed between 11 weeks and 13 weeks gestational age. Blood tests are drawn after the ultrasound and again later in the between 15 and 21 weeks gestational age. Please let your physician know if you are interested in this testing. It will require an appointment with our pyrotechnician. This is not an ultrasound performed by a physician in our office during a routine visit. SIGNS AND SYMPTOMS OF LABOR 1. Contractions every 10 minutes or more often 2. Clear, pink, or brownish fluid (water) leaking from vagina 3. Feeling that baby is pushing down, pressure 4. Low, dull backache 5. Cramps that feel like a period 6. Cramps with or without diarrhea If you notice any of the above symptoms, contact our office at [phone] and ask to speak with a nurse. After hours, you can call [facility] at [phone] OR call [facility] at [phone] and ask to have the doctor nurse's companion paged. If you consider this an emergency, dial 2-9-6 or go to your nearest emergency department. NEED HELP? Are you dealing with a violent or abusive relationship? Are you a victim of rape or sexual assult? Call [facility] ([place]) 24 hour Crisis Hotline: 278.617.6018 or 900-743-6031. MANUAL Your Guide to a Healthy manual is now on-line. Visit [email or web address] to download your free copy documented in this encounter [facility] 05-24-2025 Telephone encounter Note 2nd risk assessment form submitted 05/24/2025. Hue Flowers RN [facility] 05-24-2025 Miscellaneous Notes 2nd risk assessment form submitted 05/24/2025. Hue Flowers RN documented in this encounter [facility] 05-21-2025 Progress note Formatting of t his note might be different from the original. S: Elaine Ac is a 34 year old female who presents at 08/12/2025, by Ultrasound for a routine visit. Denies headache, visual changes, chest pain, shortness of breath, vaginal bleeding, leakage of fluid, or dysuria. Feeling well, no complaints. Good movement, No contractions O: See flow sheet Gen: No apparent distress Abd: Gravid, nontender Orders placed for 28 weeks labs. Encouraged to do ALLA Vaginal discharge some odor no itching. Round ligament pain. Not helped by belt. Encouraged to try KT tape Declined LARC want tubal signed title 19 TDAP today Considering water . Encouraged to meet with CNM to discuss ASSESSMENT/PLAN: 1. 28 weeks gestation of ([facility]) - ICD9: V22.2, ICD10: Z3A.28 (primary diagnosis) - GESTATIONAL GLUCOSE SCREEN, 1-HOUR, 50 GRAM, NON-FASTING - SYPHILIS TREPONEMAL W/REFLEX - ANEMIA REFLEX PANEL 2. Supervision of high risk in second trimester ([facility]) - ICD9: V23.9, ICD10: O09.92 - GESTATIONAL GLUCOSE SCREEN, 1-HOUR, 50 GRAM, NON-FASTING - SYPHILIS TREPONEMAL W/REFLEX - ANEMIA REFLEX PANEL 3. Obesity in ([facility]) - ICD9: 649.10, ICD10: O99.210 Pre 31 - GESTATIONAL GLUCOSE SCREEN, 1-HOUR, 50 GRAM, NON-FASTING - SYPHILIS TREPONEMAL W/REFLEX - ANEMIA REFLEX PANEL 4. Tobacco use during , antepartum ([facility]) - ICD9: 649.03, ICD10: O99.330 5. Marijuana use during ([facility]) - ICD9: 648.40, 305.20, ICD10: O99.320, F12.90 6. Screening for diabetes mellitus - ICD9: V77.1, ICD10: Z13.1 - GESTATIONAL GLUCOSE SCREEN, 1-HOUR, 50 GRAM, NON-FASTING 7. Need for vaccination - ICD9: V05.9, ICD10: Z23 TDAP today 8. Vaginal discharge - ICD9: 623.5, ICD10: N89.8 - BACTERIAL VAGINOSIS NAAT - ASHLEY/TRICHOMONAS NAAT 9. Vaginal odor - ICD9: 625.8, ICD10: N89.8 - BACTERIAL VAGINOSIS NAAT - ASHLEY/TRICHOMONAS NAAT Hue Trevino MD [facility] 05-21-2025 Miscellaneous Notes S: Elaine Ac is a 34 year old female who presents at 08/12/2025, by Ultrasound for a routine visit. Denies headache, visual changes, chest pain, shortness of breath, vaginal bleeding, leakage of fluid, or dysuria. Feeling well, no complaints. Good movement, No contractions O: See flow sheet Gen: No apparent distress Abd: Gravid, nontender Orders placed for 28 weeks labs. Encouraged to do ALLA Vaginal discharge some odor no itching. Round ligament pain. Not helped by belt. Encouraged to try KT tape Declined LARC want tubal signed title 19 TDAP today Considering water . Encouraged to meet with CNM to discuss ASSESSMENT/PLAN: 1. 28 weeks gestation of ([facility]) - ICD9: V22.2, ICD10: Z3A.28 (primary diagnosis) - GESTATIONAL GLUCOSE SCREEN, 1-HOUR, 50 GRAM, NON-FASTING - SYPHILIS TREPONEMAL W/REFLEX - ANEMIA REFLEX PANEL 2. Supervision of high risk in second trimester ([facility]) - ICD9: V23.9, ICD10: O09.92 - GESTATIONAL GLUCOSE SCREEN, 1-HOUR, 50 GRAM, NON-FASTING - SYPHILIS TREPONEMAL W/REFLEX - ANEMIA REFLEX PANEL 3. Obesity in ([facility]) - ICD9: 649.10, ICD10: O99.210 Pre 31 - GESTATIONAL GLUCOSE SCREEN, 1-HOUR, 50 GRAM, NON-FASTING - SYPHILIS TREPONEMAL W/REFLEX - ANEMIA REFLEX PANEL 4. Tobacco use during , antepartum ([facility]) - ICD9: 649.03, ICD10: O99.330 5. Marijuana use during ([facility]) - ICD9: 648.40, 305.20, ICD10: O99.320, F12.90 6. Screening for diabetes mellitus - ICD9: V77.1, ICD10: Z13.1 - GESTATIONAL GLUCOSE SCREEN, 1-HOUR, 50 GRAM, NON-FASTING 7. Need for vaccination - ICD9: V05.9, ICD10: Z23 TDAP today 8. Vaginal discharge - ICD9: 623.5, ICD10: N89.8 - BACTERIAL VAGINOSIS NAAT - ASHLEY/TRICHOMONAS NAAT 9. Vaginal odor - ICD9: 625.8, ICD10: N89.8 - BACTERIAL VAGINOSIS NAAT - ASHLEY/TRICHOMONAS NAAT Hue Trevino MD documented in this encounter [facility] 05-21-2025 Note HNO ID: [id number] Author: ARABELLA BENEDICT MA Service: ? Author Type: Qm Consultant Type: Progress Notes Filed: 05/21/2025 11:40 Note Text: Patient identified by name and date of . Elaine Ac presents today for a vaccination of Tdap. Patient denies an allergy to latex: yes Patient denies a severe (life-threatening) allergy to a previous dose of Tdap, DTP, DTaP, DT or Td vaccine. Yes Patient denies history of epilepsy or neurological problems: Yes Patient is afebrile and denies being moderately or severely ill: Yes Patient denies history of Guillain-Stafford Syndrome (a severe paralytic illness): Yes Tdap Adacel injection was given without incident. See immunizations for details of immunizations administered today. VIS sheet provided: Yes Provider Hue Trevino MD was present in office at time of injection. Arabella Benedict MA [facility] 05-21-2025 History of Presen t illness Narrative Patient identified by name and date of . Elaine Ac presents today for a vaccination of Tdap. Patient denies an allergy to latex: yes Patient denies a severe (life-threatening) allergy to a previous dose of Tdap, DTP, DTaP, DT or Td vaccine. Yes Patient denies history of epilepsy or neurological problems: Yes Patient is afebrile and denies being moderately or severely ill: Yes Patient denies history of Guillain-Stafford Syndrome (a severe paralytic illness): Yes Tdap Adacel injection was given without incident. See immunizations for details of immunizations administered today. VIS sheet provided: Yes Provider Hue Trevino MD was present in office at time of injection. Arabella Benedict MA documented in this encounter [facility] 05-21-2025 Instructions Arabella Benedict MA - 05/21/2025 10:37 AM EDT SEQUENTIAL SCREENINGS The [facility] offers sequential screenings for women who are interested in screenings for chromosomal abnormalities and certain defects during a . The sequential screen combines ultrasound and blood tests to determine the risk of chromosomal abnormalities, including Down's Syndrome (Trisomy 21) and Trisomy 18, as well as open neural tube defects including spina bifida. Ultrasound examination is performed between 11 weeks and 13 weeks gestational age. Blood tests are drawn after the ultrasound and again later in the between 15 and 21 weeks gestational age. Please let your physician know if you are interested in this testing. It will require an appointment with our pyrotechnician. This is not an ultrasound performed by a physician in our office during a routine visit. SIGNS AND SYMPTOMS OF LABOR 1. Contractions every 10 minutes or more often 2. Clear, pink, or brownish fluid (water) leaking from vagina 3. Feeling that baby is pushing down, pressure 4. Low, dull backache 5. Cramps that feel like a period 6. Cramps with or without diarrhea If you notice any of the above symptoms, contact our office at [phone] and ask to speak with a nurse. After hours, you can call doctors registry at [phone] OR call [facility] at [phone] and ask to have the doctor nurse's companion paged. If you consider this an emergency, dial 9--1 or go to your nearest emergency department. NEED HELP? Are you dealing with a violent or abusive relationship? Are you a victim of rape or sexual assult? Call [facility] ([place]) 24 hour Crisis Hotline: 865.569.8758 or 618-950-6800. MANUAL Your Guide to a Healthy manual is now on-line. Visit [email or web address] [email or web address] to download your free copy documented in this encounter [facility] 04-20-2025 Telephone encounter Note 23w5d Patient sent refill request via [employer]. Requested Prescriptions Pending Prescriptions Disp Refills ondansetron orally disintegrating (ZOFRAN ODT) 4 mg disintegrating tablet 30 tablet 2 Sig: Take 1 tablet by mouth every 8 hours as needed for nausea/vomiting. Recent Office Visits - This Specialty 02/09/2025 Cervical high risk human papillomavirus (HPV) DNA test positive OB/Gynecology Hue Trevino MD Next visit in this department: 04/26/2025 Hue Yousif RN [facility] 04-20-2025 Miscellaneous Notes 23w5d Patient sent refill request via [employer]. Requested Prescriptions Pending Prescriptions Disp Refills ondansetron orally disintegrating (ZOFRAN ODT) 4 mg disintegrating tablet 30 tablet 2 Sig: Take 1 tablet by mouth every 8 hours as needed for nausea/vomiting. Recent Office Visits - This Specialty 02/09/2025 Cervical high risk human papillomavirus (HPV) DNA test positive OB/Gynecology Hue Trevino MD Next visit in this department: 04/26/2025 Hue Yousif RN documented in this encounter [facility] 04-09-2025 Telephone encounter Note Order signed and faxed. Luz Chun RN [facility] 04-09-2025 Miscellaneous Notes Order signed and faxed. Luz Chun RN Written order received from [employer] for breast pump. Placed in ALFONSO inbox for signature. Digna Villalobos RN documented in this encounter [facility] 03-30-2025 Telephone encounter Note Opened in error [facility] 03-30-2025 Miscellaneous Notes Opened in error documented in this encounter [facility] 03-29-2025 Progress note Formatting of t his note might be different from the original. S: Elaine Ac is a 34 year old female who presents at 08/12/2025, by Ultrasound for a routine visit. Denies headache, visual changes, chest pain, shortness of breath, vaginal bleeding, leakage of fluid, or dysuria. Feeling well, no complaints. O: See flow sheet Gen: No apparent distress Anatomy completed today. Rash on her lower back. Not painful but itchy. Consistent with yeast ASSESSMENT/PLAN: 1. Supervision of high risk in second trimester ([facility]) - ICD9: V23.9, ICD10: O09.92 (primary diagnosis) 2. Obesity in ([facility]) - ICD9: 649.10, ICD10: O99.210 No testing needed. Pre BMI 31 3. Tobacco use during , antepartum ([facility]) - ICD9: 649.03, ICD10: O99.330 4. Marijuana use during ([facility]) - ICD9: 648.40, 305.20, ICD10: O99.320, F12.90 Encouraged cessation 5. 20 weeks gestation of ([facility]) - ICD9: V22.2, ICD10: Z3A.20 6. ADRIANA I (cervical intraepithelial neoplasia I) - ICD9: 622.11, ICD10: N87.0 7. Yeast dermatitis - ICD9: 112.3, ICD10: B37.2 Nystatin cream Hue Trevino MD [facility] 03-29-2025 Miscellaneous Notes S: Elaine Ac is a 34 year old female who presents at 08/12/2025, by Ultrasound for a routine visit. Denies headache, visual changes, chest pain, shortness of breath, vaginal bleeding, leakage of fluid, or dysuria. Feeling well, no complaints. O: See flow sheet Gen: No apparent distress Anatomy completed today. Rash on her lower back. Not painful but itchy. Consistent with yeast ASSESSMENT/PLAN: 1. Supervision of high risk in second trimester ([facility]) - ICD9: V23.9, ICD10: O09.92 (primary diagnosis) 2. Obesity in ([facility]) - ICD9: 649.10, ICD10: O99.210 No testing needed. Pre BMI 31 3. Tobacco use during , antepartum ([facility]) - ICD9: 649.03, ICD10: O99.330 4. Marijuana use during ([facility]) - ICD9: 648.40, 305.20, ICD10: O99.320, F12.90 Encouraged cessation 5. 20 weeks gestation of ([facility]) - ICD9: V22.2, ICD10: Z3A.20 6. ADRIANA I (cervical intraepithelial neoplasia I) - ICD9: 622.11, ICD10: N87.0 7. Yeast dermatitis - ICD9: 112.3, ICD10: B37.2 Nystatin cream Hue Trevino MD documented in this encounter [facility] 03-29-2025 Instructions Matilde Arguello MA - 03/29/2025 11:20 AM EDT SEQUENTIAL SCREENINGS The [facility] offers sequential screenings for women who are interested in screenings for chromosomal abnormalities and certain defects during a . The sequential screen combines ultrasound and blood tests to determine the risk of chromosomal abnormalities, including Down's Syndrome (Trisomy 21) and Trisomy 18, as well as open neural tube defects including spina bifida. Ultrasound examination is performed between 11 weeks and 13 weeks gestational age. Blood tests are drawn after the ultrasound and again later in the between 15 and 21 weeks gestational age. Please let your physician know if you are interested in this testing. It will require an appointment with our pyrotechnician. This is not an ultrasound performed by a physician in our office during a routine visit. SIGNS AND SYMPTOMS OF LABOR 1. Contractions every 10 minutes or more often 2. Clear, pink, or brownish fluid (water) leaking from vagina 3. Feeling that baby is pushing down, pressure 4. Low, dull backache 5. Cramps that feel like a period 6. Cramps with or without diarrhea If you notice any of the above symptoms, contact our office at [phone] and ask to speak with a nurse. After hours, you can call doctors registry at [phone] OR call [facility] at [phone] and ask to have the doctor nurse's companion paged. If you consider this an emergency, dial 4-3-8 or go to your nearest emergency department. NEED HELP? Are you dealing with a violent or abusive relationship? Are you a victim of rape or sexual assult? Call [facility] ([place]) 24 hour Crisis Hotline: 613.518.8737 or 427-927-7668. MANUAL Your Guide to a Healthy manual is now on-line. Visit [email or web address] to download your free copy documented in this encounter [facility] 03-25-2025 Telephone encounter Note Written order received from [employer] for breast pump. Placed in ALFONSO inbox for signature. Digna Villalobos RN [facility] 03-02-2025 Note HNO ID: [id number] Author: LAKESHA BINGHAM APRN.CNM Service: ? Author Type: Bottoming Room Supervisor Type: Progress Notes Filed: 03/02/2025 11:01 Note Text: ALFONSO-S: Elaine Ac is a 34 year old female who presents at 16w5d with LUCIA:08/12/2025, by Ultrasound for a routine visit. Denies headache, visual changes, chest pain, shortness of breath, vaginal bleeding, leakage of fluid, or dysuria. Continues to smoking 1 PPD. Smoking marijuana a couple times a day. O: See flow sheet Gen: No apparent distress Abd: Gravid, nontender ASSESSMENT/PLAN: 1. Supervision of high risk in second trimester -Not taking PNV reviewed importance, will send new prescription. Stated pharmacy will not cover as is OTC. Discussed care center as well for free PNV. -Reviewed labs, NIPT negative 2. 16 weeks gestation of 3. Obesity in -Pregravide BMI 31, no testing 4. Marijuana use during -Advised cessation and reviewed risk to baby 5. Tobacco use during , antepartum -Advised cessation and reviewed risk to baby 6. ADRIANA II (cervical intraepithelial neoplasia II) -Colposcopy completed on 02/09, ADRIANA 1, repeat pap smear in one year PTL precautions reviewed and when to call RTO in 4 weeks Lakesha Bingham APRN.[facility] 03-02-2025 History of Presen t illness Narrative ALFONSO-S: Elaine Ac is a 34 year old female who presents at 16w5d with LUCIA:08/12/2025, by Ultrasound for a routine visit. Denies headache, visual changes, chest pain, shortness of breath, vaginal bleeding, leakage of fluid, or dysuria. Continues to smoking 1 PPD. Smoking marijuana a couple times a day. O: See flow sheet Gen: No apparent distress Abd: Gravid, nontender ASSESSMENT/PLAN: 1. Supervision of high risk in second trimester -Not taking PNV reviewed importance, will send new prescription. Stated pharmacy will not cover as is OTC. Discussed care center as well for free PNV. -Reviewed labs, NIPT negative 2. 16 weeks gestation of 3. Obesity in -Pregravide BMI 31, no testing 4. Marijuana use during -Advised cessation and reviewed risk to baby 5. Tobacco use during , antepartum -Advised cessation and reviewed risk to baby 6. ADRAINA II (cervical intraepithelial neoplasia II) -Colposcopy completed on 02/09, ADRIANA 1, repeat pap smear in one year PTL precautions reviewed and when to call RTO in 4 weeks Lakesha Bingham APRN.CNM documented in this encounter [facility] 02-09-2025 Instructions Coby Lima MA - 02/09/2025 2:11 PM EDT YOUR RECOVERY It may take a few weeks for your cervix to heal. While your cervix heals, you may have: - Vaginal bleeding (less than a normal menstrual period) - Mild cramping - A brown-black vaginal discharge (similar to coffee grounds) which is a result of the paste used to help stop bleeding from the procedure Do NOT put anything in the vagina for 1 week after your colposcopy if your doctor does a biopsy of your cervix. This includes sex, tampons, and douches. If you have any discomfort, you may take an over the counter pain medication (motrin, advil, ibuprofen, tylenol, etc). If this does not relieve your discomfort, contact your doctor's office for a prescription strength pain medication. It is okay to wear a sanitary pad until the discharge and spotting stops. RISKS Although problems seldom occur with colposcopy, there can be some complications. You may feel faint during and shortly after the procedure as well as have some bleeding and vaginal discharge after the procedure. There is also a risk of infection after the procedure. These complications are rare and can be easily treated. You should contact you doctor is you have any of the following: - Heavy bleeding (more than your normal period) - Bleeding with clots - Severe abdominal pain - Fever (more than 100.4F) - Foul smelling vaginal discharge RESULTS If a biopsy was taken, we will have the results of your biopsy in 1-2 weeks. If you do not hear the results of your biopsy after 2 weeks, please contact your physicians office for the results. Depending on the biopsy results, your doctor will determine your follow up plan which may include further testing or treatments. STAYING HEALTHY After the procedure, you will need to see your doctor for follow up visits during the year. At these visits your doctor will check the health of your cervix with a pap smear. After three normal pap smears, your doctor will allow you to return to having exams once a year. If you have another abnormal pap smear, you may need closer follow up for longer or you may need additional treatment. By making a few lifestyle changes after the procedure, you can help protect the health of your cervix: - Have regular pelvic exams and pap smears as ordered by your doctor. - Stop smoking as smoking increases your risk of developing a cancer of the cervix - If you have more than one sexual partner, limit your number of partners and use condoms to reduce your risks of STDs. If you have any additional questions, please contact your doctor's office. documented in this encounter [facility] 02-09-2025 Note HNO ID: [id number] Author: HUE TREVINO MD Service: ? Author Type: Physician Type: Progress Notes Filed: 02/09/2025 14:46 Note Text: Heeler offered: Patient declines. Elaine is a 34 year old who presents today for a colposcopy. The patient's last pap smear was Positive HPV from January 2025. Patient has a history of abnormal pap: Yes. The patient has had prior treatment: none. test: 13 weeks R 145 UNIVERSAL PROTOCOL / SAFETY CHECKLIST Procedure to be Performed: Colposcopy with possible biopsies Sign In: A Moment of CARE was completed. Appropriate PPE (Personal Protective Equipment) worn by all providers involved with the procedure. Special equipment not required. Patient/Surrogate Stated/Verified: Patient name, Date of , Relevant allergies, and The intended procedure Time Out: Relevant labs, photos, and/or imaging studies have been reviewed. Intended patient and procedure match the source document(s) (e.g. consent, HANDP, associated studies [imaging, pathology]) match the intended patient and procedure. Consent obtained and matches the intended procedure. Yes. Correct side/site is not applicable. Medications required for this procedure are not applicable. Fire risk assessed and is not applicable. Implants: are not applicable. Sign Out: Specimens are all correctly labeled and sent. All instruments, equipment, possible retained foreign bodies are accounted for. Yes. The post-procedure plan of care has been communicated to the patient or surrogate. PROCEDURE: EXTERNAL GENITALIA: Normal in appearance without lesions VAGINA: Normal in appearance without lesions CERVIX: Speculum placed in vagina and excellent visualization of cervix achieved. Cervix swabbed x 3 with 3% acetic acid solution. Cervix grossly normal. Squamocolumnar junction visualized. acetowhite changes noted 10 o'clock. BIOPSY: Done at 10:00 ECC: not done HEMOSTASIS: Obtained with silver nitrate Procedure Summary: Patient tolerated procedure well and colposcopy was adequate. ASSESSMENT: moderate dysplasia PLAN: Specimens labeled and sent to Pathology. Will notify patient of results in 1-2 weeks. Post-procedure instructions reviewed and written material given to the patient. Hue Trevino MD [facility] 02-09-2025 History of Presen t illness Narrative Heeler offered: Patient declines. Elaine is a 34 year old who presents today for a colposcopy. The patient's last pap smear was Positive HPV from January 2025. Patient has a history of abnormal pap: Yes. The patient has had prior treatment: none. test: 13 weeks FHR 145 UNIVERSAL PROTOCOL / SAFETY CHECKLIST Procedure to be Performed: Colposcopy with possible biopsies Sign In: A Moment of CARE was completed. Appropriate PPE (Personal Protective Equipment) worn by all providers involved with the procedure. Special equipment not required. Patient/Surrogate Stated/Verified: Patient name, Date of , Relevant allergies, and The intended procedure Time Out: Relevant labs, photos, and/or imaging studies have been reviewed. Intended patient and procedure match the source document(s) (e.g. consent, H&P, associated studies [imaging, pathology]) match the intended patient and procedure. Consent obtained and matches the intended procedure. Yes. Correct side/site is not applicable. Medications required for this procedure are not applicable. Fire risk assessed and is not applicable. Implants: are not applicable. Sign Out: Specimens are all correctly labeled and sent. All instruments, equipment, possible retained foreign bodies are accounted for. Yes. The post-procedure plan of care has been communicated to the patient or surrogate. PROCEDURE: EXTERNAL GENITALIA: Normal in appearance without lesions VAGINA: Normal in appearance without lesions CERVIX: Speculum placed in vagina and excellent visualization of cervix achieved. Cervix swabbed x 3 with 3% acetic acid solution. Cervix grossly normal. Squamocolumnar junction visualized. acetowhite changes noted 10 o'clock. BIOPSY: Done at 10:00 ECC: not done HEMOSTASIS: Obtained with silver nitrate Procedure Summary: Patient tolerated procedure well and colposcopy was adequate. ASSESSMENT: moderate dysplasia PLAN: Specimens labeled and sent to Pathology. Will notify patient of results in 1-2 weeks. Post-procedure instructions reviewed and written material given to the patient. Hue Trevino MD documented in this encounter [facility] 02-09-2025 Telephone encounter Note 13w5d Pt calling stating when we called her to scheduled colposcopy she was half asleep and she does not quite understand what this appt is for. Explained HRHPV+ and Colposcopy. [employer] message sent to Pt. Digna Villalobos RN [facility] 02-09-2025 Miscellaneous Notes 13w5d Pt calling stating when we called her to scheduled colposcopy she was half asleep and she does not quite understand what this appt is for. Explained HRHPV+ and Colposcopy. Mychart message sent to Pt. Digna Villalobos RN documented in this encounter [facility] 01-26-2025 Progress note Formatting of t his note might be different from the original. ALFONSO-Today seen for first trimester anatomy. LUCIA: 08/12/25, dating updated. Labs today, desires NIPT. Lakesha Bingham APRN.CNM [facility] 01-26-2025 Miscellaneous Notes ALFONSO-Today seen for first trimester anatomy. LUCIA: 08/12/25, dating updated. Labs today, desires NIPT. Lakesha Bingham APRN.CNM documented in this encounter [facility] 01-26-2025 Instructions Jerardo Nettles MA - 01/26/2025 3:23 PM EST SEQUENTIAL SCREENINGS The [facility] offers sequential screenings for women who are interested in screenings for chromosomal abnormalities and certain defects during a . The sequential screen combines ultrasound and blood tests to determine the risk of chromosomal abnormalities, including Down's Syndrome (Trisomy 21) and Trisomy 18, as well as open neural tube defects including spina bifida. Ultrasound examination is performed between 11 weeks and 13 weeks gestational age. Blood tests are drawn after the ultrasound and again later in the between 15 and 21 weeks gestational age. Please let your physician know if you are interested in this testing. It will require an appointment with our pyrotechnician. This is not an ultrasound performed by a physician in our office during a routine visit. SIGNS AND SYMPTOMS OF LABOR 1. Contractions every 10 minutes or more often 2. Clear, pink, or brownish fluid (water) leaking from vagina 3. Feeling that baby is pushing down, pressure 4. Low, dull backache 5. Cramps that feel like a period 6. Cramps with or without diarrhea If you notice any of the above symptoms, contact our office at [phone] and ask to speak with a nurse. After hours, you can call doctors registry at [phone] OR call [facility] at [phone] and ask to have the doctor nurse's companion paged. If you consider this an emergency, dial 4-1-7 or go to your nearest emergency department. NEED HELP? Are you dealing with a violent or abusive relationship? Are you a victim of rape or sexual assult? Call [facility] ([place]) 24 hour Crisis Hotline: 868.360.7760 or 544-952-5780. MANUAL Your Guide to a Healthy manual is now on-line. Visit [email or web address] [email or web address] to download your free copy documented in this encounter [facility] 01-26-2025 Miscellaneous Notes 1st risk assessment form submitted 01/26/25 Adama Hearn RN documented in this encounter [facility] 01-26-2025 Telephone encounter Note 1st risk assessment form submitted 01/26/25 Adama Hearn RN [facility] 01-25-2025 Progress note Formatting of t his note might be different from the original. ALFONSO-ANUPAMB, see progress note. PN labs ordered. Desires NIPT and carrier screening, will get drawn at next visit, handouts given. To start ASA at 12 wk. 1st trimester US ordered. Lakesha Bingham APRN.CNM [facility] 01-25-2025 Miscellaneous Notes ALFONSO-ANUPAMB, see progress note. PN labs ordered. Desires NIPT and carrier screening, will get drawn at next visit, handouts given. To start ASA at 12 wk. 1st trimester US ordered. Lakesha Bingham APRN.CNM documented in this encounter [facility] 01-25-2025 Instructions Lakesha Bingham APRN.CNM - 01/25/2025 10:29 AM EST Please select the following link to access the [facility] Your Guide to a Healthy . [email or web address] de Ondansetron (Zofran ) June 25, 2020 This sheet talks about exposure to ondansetron in a and while . This information should not take the place of medical care and advice from your healthcare provider. What is ondansetron? Ondansetron is a medication used to treat nausea and vomiting that may be caused by surgery, chemotherapy, or radiation therapy. Ondansetron has also been prescribed during to help with symptoms of nausea and vomiting in (NVP). NVP is also referred to as morning sickness . Ondansetron is taken by mouth, infused into a vein (by IV) or given by injection into a muscle (IM). Ondansetron is sold under the brand name Zofran . What can I do to help control my nausea and vomiting? [employer] has a helpful fact sheet on nausea in with recommendations. You can review it here: https://[employer]api.org/fact-s heets/jkohyv-llpybyzw-bbrvohglf -nvp/pdf/. Also, eating small meals often, drinking plenty of clear fluids, and avoiding triggers (such as odors, heat, and spicy or high fat foods) can help. Talk to your healthcare provider about which NVP treatments are right for you. I take ondansetron. Can it make it harder for me to become ? There are no studies that have looked to see if ondansetron could make it harder for a person to get . Studies in animals did not find that ondansetron would affect the ability to get . Does taking ondansetron increase the chance for miscarriage? Miscarriage can occur in any . One study did not find that miscarriage happened more often for those who reported that they used ondansetron in the first trimester of . Does taking ondansetron increase the chance of defects? Every starts out with a 3-5% chance of having a defect. This is called the background risk. Most studies have found no increased chance for defects among thousands of people who used ondansetron in the first trimester of . A few studies reported a very small (less than 1%) increase in the chance for a cleft palate (an opening in the roof of the mouth that may be repaired with surgery) or a heart defect. Because of other factors that could affect the pregnancies exposed to ondansetron, it is not known if ondansetron actually increases the chance of defects. Could taking ondansetron cause other complications? Studies did not find a higher chance of loss, delivery (delivery before 37 weeks of ), or low weight when ondansetron was used during . At higher doses, there have been reports that ondansetron use might cause a heart rhythm problem (called QT interval prolongation) in the person taking ondansetron. In severe cases, this could become an abnormal heart rhythm known as Torsades de Pointes. If you are taking ondansetron, you can talk to your healthcare provider about how to watch for changes in your heart rhythm. Does taking ondansetron in cause long-term problems in behavior or learning for the baby? One study looked at 78 infants who were exposed to ondansetron at any time during . The infants were looked at between 7 days to 2 months of age and did not show any signs of unusual behaviors. A single follow-up survey for about 25 of these children was sent in by the parents. The children were between 1 to 5 years old. The survey asked about behavior. The surveys did not report behavior differences in these children compared to children who were not exposed ondansetron during . There are no other studies looking at the use of ondansetron in and long-term effects for the baby. Can I breastfeed while taking ondansetron? There have been no studies in humans looking at the use of ondansetron during . Studies in animals suggest that ondansetron enters breast milk, but the effects of ondansetron on a infant are not known. If ondansetron use is necessary, it is not usually a reason to stop . A different drug may be considered, especially while a or . Be sure to talk to your healthcare provider about all your questions. I take ondansetron. Can it make it harder for me to get my partner or increase the chance of defects? There are no human studies looking at male use of ondansetron. Animal studies have not shown any effect on male fertility. In general, exposures that fathers and sperm donor have are unlikely to increase risks to a . For more information, please see the [employer] fact sheet Paternal Exposures at https://mothertobaby.org/fact-s heets/xzjqoodk-gmuifajfw-kwlbnw ncy/pdf/. documented in this encounter [facility] 01-25-2025 Note HNO ID: [id number] Author: JERARDO NETTLES MA Service: ? Author Type: [employer] Type: Progress Notes Filed: 01/25/2025 13:29 Note Text: OB point of care ultrasound was performed. See imaging tab for details. Jerardo Nettles MA [facility] 01-25-2025 History of Presen t illness Narrative OB point of care ultrasound was performed. See imaging tab for details. Jerardo Nettles MA Images from the original note were not included. *Patient was seen at care center in [place] about 2 to 3 weeks ago and was told she was around 9 weeks . Patient smokes 1 pack/day. States she is trying to quit. Discussed risks of smoking during . *Patient states she is using marijuana during . Lately not as much because of the nausea that she is experiencing. *Patient considering genetic carrier screening and aneuploidy screening. Contact information for integrated genetics and. Labs given to patient to check on insurance coverage. INITIAL OB ASSESSMENT HPI: Elaine is a 34 year old White here to establish Obstetrical Care. Patient's last menstrual period was 11/08/2024 (approximate). from OB Dating Form. was unplanned but accepted-very excited # 1 - Date: 10/13/11, Sex: Female, Weight: 2.58 kg (5 lb 11 oz), GA: 39w0d, Type: VAGINAL , Apgar1: 9, Apgar5: 9, Living: Living, Comments: Spontaneous labor, augmented with Pitocin # 2 - Date: 11/21/14, Sex: Male, Weight: 2.863 kg (6 lb 5 oz), GA: 40w5d, Type: Vaginal, Spontaneous, Apgar1: 8, Apgar5: 9, Living: Living, Comments: Spontaneous labor, 1st degree vaginal laceration, EBL 250cc # 3 - Date: None, Sex: None, Weight: None, GA: None, Type: None, Apgar1: None, Apgar5: None, Living: None, Comments: None Complaints: (!) Rash or viral illness; Severe nausea/vomiting (diagnosed with influenza 01/20/2025-) Uncertain LMP but regular cycles every month. Unplanned but not using anything for control. Was trying for over 5 years to get and did not think she could get . This father is different than her other two children. Last baby was 10 years ago. Increased nausea, emesis only times one. Difficulty eating or drinking. Keeping down PNV. Previous history: Prior : No History of 4th degree laceration: No History of shoulder dystocia: No History of Hypertensive disorders including pre-eclampsia or gestational hypertension: No History of gestational diabetes: No Patient's Risk Screening for delivery: Have you had a prior rose between 20w and 36w6d? No How many pregnancies have you had before? 2 Did you have a previous baby with a GBS Infection? No Please select all that apply for any prior : N/A MEDICAL/PSYCHOSOCIAL HISTORY: History of hemorrhage or bleeding concerns: No Thyroid Disease: No History of chronic hypertension: No History of pre-existing diabetes: No ABO/RH(D) Date Value Ref Range Status 03/26/2014 O POS Final BMI 31.24 kg/(m^2) Last Pap: 03/11/2015 History of abnormal pap: No Prior treatment for cervical dysplasia: none. Last HPV: 05/17/2014 History of STDs:genital warts Partner History of STDs: None Did you have a partner with Herpes? No Tobacco use: Yes E-Cigarette/Vaping Use: No Caffeine use: No Drug use: No Alcohol use: No Multivitamin with Folic acid: Yes Would refuse blood transfusion if medically necessary: No Social Needs: How often does this describe you? I don't have enough money to pay my bills: Sometimes Within the past 12 months, have you worried that your food would run out before you had money to buy more? Sometimes In the past 12 months, has lack of reliable transportation kept you from going to medical appointments or work, or from getting things needed for daily living? Never In the past 12 months, have you had any concerns about having a place to live, or about the condition or quality of your housing? Never Would you like more information on any of the following (please check all that apply)? Bottoming Room Supervisor care Social History: Do you have any history of depression, anxiety, PTSD, or other mood problems? No Do you have a history of abuse or trauma that may impact your experience? No Are you currently employed? No Depression/Anxiety Screening: denies symptoms of depression. OB Depression and Anxiety Screening- This Encounter (since 01/24/2025) Over the past 2 weeks have you felt down, depressed, or hopeless? Negative Over the past two weeks, have you felt little interest or pleasure in doing things? Positive - Further Testing Indicated believes due to nausea I have been able to laugh and see the funny side of things. As much as I always could I have looked forward with enjoyment to things. Rather less than I used to I have blamed myself unnecessarily when things went wrong. No, never I have been anxious or worried for no good reason. No, not at all I have felt scared or panicky for no good reason. No, not at all Things have been getting on top of me. No, most of the time I have coped quite well I have been so unhappy that I have had difficulty sleeping. Not at all I have felt sad or miserable. No, not at all I have been so unhappy that I have been crying. No, never The thought of harming myself has occurred to me. Never [place] Depression Scale Total 2 Feeling nervous, anxious or on edge 0-Not at all Not being able to stop or control worrying 0-Not al all Anxiety Pre-Screening Total (If >/= 3 additional questions will be reviewed) 0 Genetic Screening: Partner present: Yes Patient verbalized knowledge of partner family health history: Yes Do you or your partner have any personal or family history of defects not previously discussed: No Do you have history of a complicated by anomaly, genetic condition, or demise: No Preeclampsia Risk Screening: Screening for prevention of preeclampsia: High risk factors: None Moderate risk ractors: Obesity (body mass index greater than 30) OB Risk Screening: Completed, no positive findings documented. Marital Status:engaged Partner: Name: Shaheen Zhu Age: 39 Occupation: [employer] Gender: Male PAST MEDICAL HISTORY Diagnosis Date Tobacco use disorder 05/08/2017 PAST SURGICAL HISTORY Procedure Laterality Date NEXPLANON INSERTION 03/03/2015 removed Current Outpatient Medications Medication Sig Dispense Refill fluticasone (FLONASE) 50 mcg/actuation nasal spray SPRAY 1 SPRAY INTO EACH NOSTRIL IN MORNING AND NIGHT NEEDED FOR CONGESTION,RUNNY NOSE,COUGH PNV no.103/folic/om3s/fish oil ( WITH DHA-FOLIC ACID ORAL) No current facility-administered medications for this visit. Allergies As of Date: 01/25/2025 (No Known Allergies) Fully Assessed 01/25/2025 Does patient have penicillin allergy: No REVIEW OF SYSTEMS: GENERAL: Negative for: Fever or Chills HEENT: Negative for: Headache, Impaired Vision, Ringing in Ears, Nosebleeds NECK: Negative for: Swelling, Pain, Stiffness RESPIRATORY: Negative for: Cough, Shortness of breath, Wheezing GASTROINTESTINAL: Negative for: Heartburn, Constipation, Diarrhea, Blood in stool, Vomiting MUSCULOSKELETAL: Negative for: Muscle or joint pain, stiffness, Joint swelling NEUROLOGIC/PSYCHIATRIC: Negative for: Weakness, Paralysis, Numbness, Tingling, Tremor, Anxiety, Depression, Memory loss SKIN: Negative for: Rash, Itching GENITOURINARY: Negative for: vaginal itching, vaginal discharge, hematuria or dysuria SENSITIVE EXAM: The sensitive examination was discussed with the Patient or Patient's Authorized Manager Commercial. As applicable, any other physician, advance practice provider, medical student, or other health professional student that will be observing or involved in the sensitive examination for educational or training purposes was discussed with the Patient or Authorized Manager Commercial. The Patient or Authorized Manager Commercial has agreed to proceed with the sensitive examination. (Sensitive examination includes inspection and/or palpation of the breasts, pelvis, prostate and anorectal regions). PHYSICAL EXAM: BP 116/64 Ht 5' 4 (1.63m) Wt 182 lb (82.6kg) LMP 11/08/2024 BMI 31.22 kg/(m^2). GENERAL: pleasant in no apparent distress DERMATOLOGY: Normal, without lesions, non-icteric, and non-hirsute NECK: Supple, full range of motion, no adenopathy, and thyroid normal CHEST: Normal inspiratory effort BREAST: soft, non-tender, symmetric, no dominant mass, normal nipple-areolar complex, no lymphadenopathy, and no nipple discharge ABDOMEN: soft, non-tender, and no masses NEURO: alert and oriented x3,exam grossly non-focal PELVIS: External genitalia normal without lesions. Perineal body intact. No vaginal or cervical lesions. Cervix closed. Uterus 12 week size. No adnexal masses or tenderness. Clinical Pelvimetry: Pelvimetry clinically assessed as adequate Limited OB ultrasound exam: single intrauterine . Unable to assess CRL due to size. SBIRT Elaine Ac was given the 4P's screening tool. Elaine answered as follows: OB Opioid Screening - Last Recorded (since 04/30/2024) Did any of your parents have a problem with alcohol or other drug use? Yes mother-drug use Does your partner have a problem with alcohol or other drug use? Yes recovering ETOH In the past, have you had difficulties in your life because of alcohol or other drugs, including prescription medications? No In the past month have you drunk any alcohol or used other drugs? No Are you taking medication for pain during the either prescribed or not? Yes marijuana Based on the screen and further questions, she is considered at moderate risk due to: Continued low level of use. Patient offered brief intervention and motivational interviewing. In discussing this issue my medical advice was that Elaine Ac abstain. Her readiness to change(0 lowest - 10 highest) was 5. We discussed her motivation to change based upon this response. Patient agreed that she would: abstain. In total, 5 minutes of personal time was spent administering and interpreting the screen, plus performing a brief intervention. Lakesha Bingham APRN.MACK ASSESSMENT: 34 year old at 11w1d wks gestational age PLAN: 1) Patient oriented to practice. Patient given new OB orientation folder. Discussed nutrition, folic acid supplementation, dietary guidelines, exercise, smoking, alcohol, caffeine, and drug use. Discussed gestational weight gain guidelines. Discussed routine OB labs including STD/HIV. Discussed how to access Your guide to a health and the Lithographic Camera Operator. Discussed hemoglobin electrophoresis. Patient: Accepts 2) Screening: Hemoglobin A1C: ordered Baby Aspirin: The patient has been counseled about the potential benefits of low dose aspirin in and our recommendation that this be offered to all patients, regardless of whether they meet the high risk criteria specified above. She Accepts Aneuploidy Screening: Discussed aneuploidy screening, nuchal translucency/first trimester early anatomy ultrasound and NIPT. The risks/benefits and limitations of NIPT/aneuploidy screening were reviewed including the potential for false negative and false positive results. The availability of genetic counseling was reviewed. Information on aneuploidy screening was provided. The patient chooses to proceed with First trimester early anatomy ultrasound (12-13w6d) and NIPT (10 weeks) Myriad Carrier Screening: Discussed myriad carrier screening. We discussed the availability of professional-society guided carrier screening and reviewed the conditions screened and limitations of screening. The availability of genetic counseling was reviewed. Information on carrier screening was provided. The patient Accepts 3) Patient offered option of Virtual Visits. Patient prefers in person visits. 4) Obesity (BMI >30), will order early glucose screen or Hemoglobin A1C. Follow up in 4 weeks or sooner prstevan Bingham APRN.CNM documented in this encounter [facility] 01-25-2025 Note HNO ID: [id number] Author: LAKESHA BINGHAM APRN.CNM Service: ? Author Type: Bottoming Room Supervisor Type: Progress Notes Filed: 01/25/2025 13:29 Note Text: *Patient was seen at care center in [place] about 2 to 3 weeks ago and was told she was around 9 weeks . Patient smokes 1 pack/day. States she is trying to quit. Discussed risks of smoking during . *Patient states she is using marijuana during . Lately not as much because of the nausea that she is experiencing. *Patient considering genetic carrier screening and aneuploidy screening. Contact information for integrated genetics and. Labs given to patient to check on insurance coverage. INITIAL OB ASSESSMENT HPI: Elaine is a 34 year old White here to establish Obstetrical Care. Patient's last menstrual period was 11/08/2024 (approximate). from OB Dating Form. was unplanned but accepted-very excited # 1 - Date: 10/13/11, Sex: Female, Weight: 2.58 kg (5 lb 11 oz), GA: 39w0d, Type: VAGINAL , Apgar1: 9, Apgar5: 9, Living: Living, Comments: Spontaneous labor, augmented with Pitocin # 2 - Date: 11/21/14, Sex: Male, Weight: 2.863 kg (6 lb 5 oz), GA: 40w5d, Type: Vaginal, Spontaneous, Apgar1: 8, Apgar5: 9, Living: Living, Comments: Spontaneous labor, 1st degree vaginal laceration, EBL 250cc # 3 - Date: None, Sex: None, Weight: None, GA: None, Type: None, Apgar1: None, Apgar5: None, Living: None, Comments: None Complaints: (!) Rash or viral illness; Severe nausea/vomiting (diagnosed with influenza 01/20/2025-) Uncertain LMP but regular cycles every month. Unplanned but not using anything for control. Was trying for over 5 years to get and did not think she could get . This father is different than her other two children. Last baby was 10 years ago. Increased nausea, emesis only times one. Difficulty eating or drinking. Keeping down PNV. Previous history: Prior : No History of 4th degree laceration: No History of shoulder dystocia: No History of Hypertensive disorders including pre-eclampsia or gestational hypertension: No History of gestational diabetes: No Patient's Risk Screening for delivery: Have you had a prior rose between 20w and 36w6d? No How many pregnancies have you had before? 2 Did you have a previous baby with a GBS Infection? No Please select all that apply for any prior : N/A MEDICAL/PSYCHOSOCIAL HISTORY: History of hemorrhage or bleeding concerns: No Thyroid Disease: No History of chronic hypertension: No History of pre-existing diabetes: No ABO/RH(D) Date Value Ref Range Status 03/26/2014 O POS Final BMI 31.24 kg/(m2) Last Pap: 03/11/2015 History of abnormal pap: No Prior treatment for cervical dysplasia: none. Last HPV: 05/17/2014 History of STDs:genital warts Partner History of STDs: None Did you have a partner with Herpes? No Tobacco use: Yes E-Cigarette/Vaping Use: No Caffeine use: No Drug use: No Alcohol use: No Multivitamin with Folic acid: Yes Would refuse blood transfusion if medically necessary: No Social Needs: How often does this describe you? I don't have enough money to pay my bills: Sometimes Within the past 12 months, have you worried that your food would run out before you had money to buy more? Sometimes In the past 12 months, has lack of reliable transportation kept you from going to medical appointments or work, or from getting things needed for daily living? Never In the past 12 months, have you had any concerns about having a place to live, or about the condition or quality of your housing? Never Would you like more information on any of the following (please check all that apply)? Bottoming Room Supervisor care Social History: Do you have any history of depression, anxiety, PTSD, or other mood problems? No Do you have a history of abuse or trauma that may impact your experience? No Are you currently employed? No Depression/Anxiety Screening: denies symptoms of depression. OB Depression and Anxiety Screening- This Encounter (since 01/24/2025) Over the past 2 weeks have you felt down, depressed, or hopeless? Negative Over the past two weeks, have you felt little interest or pleasure in doing things?? Positive - Further Testing Indicated believes due to nausea I have been able to laugh and see the funny side of things. As much as I always could I have looked forward with enjoyment to things. Rather less than I used to I have blamed myself unnecessarily when things went wrong. No, never I have been anxious or worried for no good reason. No, not at all I have felt scared or panicky for no good reason. No, not at all Things have been getting on top of me. No, most of the time I have coped quite well I have been so unhappy that I have had difficulty sleeping. Not at all I have felt sad or miserabl (more content not included)... [facility] 01-21-2025 Telephone encounter Note Appt rescheduled to 01/25/25 per ALFONSO and Pt advised to arrive at 11am and to wear a mask. States she tested positive on 01/20/25. Digna Villalobos, RN [facility] 01-21-2025 Miscellaneous Notes Appt rescheduled to 01/25/25 per ALFONSO and Pt advised to arrive at 11am and to wear a mask. States she tested positive on 01/20/25. Digna Villalobos, RN I am happy to see her for an appointment in office for viability and can see her next week. Lakesha Bingham APRN.CNM I called patient due to nurse intake questions for new OB visit scheduled January 21. Patient states that she was seen in urgent care today for flulike symptoms of cough and congestion. States she was told that it was probably too early to test for the flu but it was probable that she had it. I did reschedule patient for February 02. She states that she has been seen at the care center and was given a due date of August 11. That would make her 11 weeks now. She is worried about the baby because of her illness. I offered her a sooner appointment with another provider and she declined. She did want to see Lakesha Bingham. Patient wondering if you would order an ultrasound for her prior to her new OB appointment or if you wanted any thing else done. Please advise documented in this encounter [facility] 01-20-2025 Telephone encounter Note I am happy to see her for an appointment in office for viability and can see her next week. Lakesha Bingham APRN.CNM [facility] Work Phone: 01-20-2025 Telephone encounter Note I called patient due to nurse intake questions for new OB visit scheduled January 21. Patient states that she was seen in urgent care today for flulike symptoms of cough and congestion. States she was told that it was probably too early to test for the flu but it was probable that she had it. I did reschedule patient for February 02. She states that she has been seen at the care center and was given a due date of August 11. That would make her 11 weeks now. She is worried about the baby because of her illness. I offered her a sooner appointment with another provider and she declined. She did want to see Lakesha Bingham. Patient wondering if you would order an ultrasound for her prior to her new OB appointment or if you wanted any thing else done. Please advise [facility] 03-31-2024 History of Presen t illness Narrative Subjective Patient ID: Elaine Ac is a 33 y.o. female who presents for Establish Care, Hand Pain, Back Pain, boils (Located in the vaginal area), and Neck Pain (Causes migraines). HPI Here to establish care, she has not been to a doctor in about 5 years. Hasn't seen OB since she had her kids but that was the last doctor she saw. Reports regular periods, no contraceptive use at the moment Back/neck pain. Back pain is lower in nature, denies n/t in lower extremities, denies losing her bowels or bladder. The back pain is localized and does not radiate. Full ROM of the neck, she reports the pain comes and goes and when it does it usually accompanies a headache. Denies any injury. Nothing makes it better, she is a stomach sleeper and that causes worsening neck pain. Overuse makes her back hurt, has tried pain medication but its been a few years. Has tried chiropractor in the past. -discussed physical therapy for the back and neck pain, as well as baseline xrays and trying an anti-inflammatory medication Left hand pain, sharp pain that goes up into the hand towards the wrist. Xrays, mobic for inflammation. GERD: had an episode of acid reflux where she felt like something was stuck in her throat. Taking OTC prilosec and the symptoms improved. Recommend trying 40mg omeprazole daily on an empty stomach, if no improvement consider EGD and GI referral. Folliculitis: patient with persistent folliculitis, especially on thighs and groin area. Noticing it is worse with excessive sweating. Cleocin gel ordered. Hyperhydrosis: noticing excessive sweating daily, it is extremely bothersome to her. Oxybutynin 5m,g ordered. She will need to be seen in 3 months for follow up as she is beginning new medications. Review of Systems Constitutional: Negative for chills, fatigue and fever. HENT: Negative for congestion, sinus pressure, sinus pain and sore throat. Eyes: Negative for pain, redness and itching. Respiratory: Negative for cough and shortness of breath. Cardiovascular: Negative for chest pain, palpitations and leg swelling. Gastrointestinal: Negative for abdominal pain, constipation, diarrhea, nausea and vomiting. Endocrine: Negative for cold intolerance and heat intolerance. Genitourinary: Negative for difficulty urinating, flank pain and hematuria. Musculoskeletal: Positive for back pain, neck pain and neck stiffness. Negative for gait problem. Skin: Negative for color change. Neurological: Negative for dizziness, weakness, numbness and headaches. Psychiatric/Behavioral: Negative for hallucinations and suicidal ideas. Objective BP 120/77 (Patient Position: Sitting) Pulse 67 Ht 1.615 m (5' 3.58) Wt 84.6 kg (186 lb 9.6 oz) BMI 32.45 kg/m Physical Exam Vitals and nursing note reviewed. Constitutional: Appearance: Normal appearance. HENT: Right Ear: Tympanic membrane normal. Nose: Nose normal. Eyes: Extraocular Movements: Extraocular movements intact. Pupils: Pupils are equal, round, and reactive to light. Cardiovascular: Rate and Rhythm: Normal rate and regular rhythm. Pulmonary: Effort: Pulmonary effort is normal. Breath sounds: Normal breath sounds. Abdominal: General: Abdomen is flat. Bowel sounds are normal. Palpations: Abdomen is soft. Musculoskeletal: Cervical back: Normal range of motion. Muscular tenderness present. Lumbar back: Scoliosis present. Skin: General: Skin is warm and dry. Capillary Refill: Capillary refill takes less than 2 seconds. Neurological: Mental Status: She is alert and oriented to person, place, and time. Psychiatric: Mood and Affect: Mood normal. Behavior: Behavior normal. Assessment/Plan Problem List Items Addressed This Visit None Visit Diagnoses Codes Chronic low back pain without sciatica, unspecified back pain laterality - Primary M54.50, G89.29 Xrays, mobic, PT referral Relevant Medications meloxicam (Mobic) 15 mg tablet Other Relevant Orders XR lumbar spine 2-3 views Referral to Physical Therapy Neck pain M54.2 Xray, mobic, PT referral Relevant Medications meloxicam (Mobic) 15 mg tablet Other Relevant Orders XR cervical spine 2-3 views Referral to Physical Therapy Hyperhidrosis R61 Lab work ordered, oxybutynin 5mg started Relevant Medications oxybutynin (Ditropan) 5 mg tablet Other Relevant Orders Lipid Panel TSH with reflex to Free T4 if abnormal CBC and Auto Differential Folliculitis due to Pseudomonas aeruginosa L73.9, B96.5 encouraged frequent cleansning with soap and water, cleocin for persistent abscesses Relevant Medications clindamycin (Cleocin T) 1 % external solution Gastroesophageal reflux disease without esophagitis K21.9 2 weeks of omeprazole, pt to call the office after two weeks for an update Relevant Medications omeprazole (PriLOSEC) [address] capsule Other Relevant Orders Comprehensive Metabolic Panel TSH with reflex to Free T4 if abnormal CBC and Auto Differential Hand pain, left M79.642 xray Relevant Orders XR hand left 1-2 views documented in this encounter [facility] Work Phone: 03-31-[address] - 03/31/2024 9:50 AM EDT -take omeprazole 40 mg once a day in the AM by itself, no food or drink with it. Eat and drink 30-60 min after you take the medication. Do this for 2 weeks then let the office know how your acid reflux is. -Take Mobic for pain once a day every day -Bio Oil order on amaz[employer] apply twice a day to burn area for 1-2 months -Cleocin gel twice a day only apply to boils, do not apply close to genitals documented in this encounter [facility] Work Phone: Evaluation note Diagnosis Chronic low back pain without sciatica, unspecified back pain laterality- Primary Neck pain Cervicalgia Hyperhidrosis Generalized hyperhidrosis Folliculitis due to Pseudomonas aeruginosa Gastroesophageal reflux disease without esophagitis Esophageal reflux Hand pain, left Pain in soft tissues of limb documented in this encounter [facility] Work Phone: Evaluation note* Diagnosis Neck pain Cervicalgia documented in this encounter [facility] Work Phone: Evaluation note* Diagnosis Chronic low back pain without sciatica, unspecified back pain laterality documented in this encounter [facility] Work Phone: Eveuhation note* Diagnosis Hand pain, left Pain in soft tissues of limb documented in this encounter [facility] Work Phone: Evlraation note* Diagnosis with uncertain dates, antepartum- Primary state, incidental Screening for cervical cancer Screening for malignant neoplasm of the cervix Screening for human papillomavirus (HPV) Special screening examination for human papillomavirus (HPV) Tobacco use during , antepartum Marijuana use during Supervision of other high risk pregnancies, unspecified trimester ADRIANA II (cervical intraepithelial neoplasia II) Moderate dysplasia of cervix Obesity in Obesity complicating , childbirth, or the puerperium, unspecified as to episode of care or not applicable documented in this encounter [facility] note* Diagnosis Encounter for screening for malformation using ultrasound- Primary 11 weeks gestation of state, incidental Encounter for (NT) nuchal translucency scan Other specified screening [facility] Diagnosis with uncertain dates, antepartum- Primary state, incidental Supervision of other high risk pregnancies, unspecified trimester 11 weeks gestation of state, incidental Marijuana use during Tobacco use during , antepartum Obesity in Obesity complicating , childbirth, or the puerperium, unspecified as to episode of care or not applicable documented in this encounter [facility] note* Diagnosis Cervical high risk human papillomavirus (HPV) DNA test positive- Primary Supervision of other high risk pregnancies, unspecified trimester 13 weeks gestation of state, incidental [facility] Diagnosis Supervision of high risk in second trimester (HCC)- Primary Unspecified high-risk 16 weeks gestation of (HCC) state, incidental Obesity in (HCC) Obesity complicating , childbirth, or the puerperium, unspecified as to episode of care or not applicable Marijuana use during (HCC) Tobacco use during , antepartum (HCC) ADRIANA II (cervical intraepithelial neoplasia II) Moderate dysplasia of cervix documented in this encounter [facility] note* Diagnosis Encounter for anatomic survey (HCC)- Primary Encounter for anatomic survey Obesity affecting in second trimester, unspecified obesity type ([facility]) 20 weeks gestation of ([facility]) state, incidental [facility] Diagnosis Supervision of high risk in second trimester ([facility])- Primary Unspecified high-risk Obesity in ([facility]) Obesity complicating , childbirth, or the puerperium, unspecified as to episode of care or not applicable Tobacco use during , antepartum ([facility]) Marijuana use during ([facility]) 20 weeks gestation of ([facility]) state, incidental ADRIANA I (cervical intraepithelial neoplasia I) Mild dysplasia of cervix Yeast dermatitis Candidiasis of skin and nails [facility] Diagnosis ADRIANA II (cervical intraepithelial neoplasia II)- Primary Moderate dysplasia of cervix [facility] Diagnosis 28 weeks gestation of ([facility])- Primary state, incidental Supervision of high risk in second trimester ([facility]) Unspecified high-risk Obesity in ([facility]) Obesity complicating , childbirth, or the puerperium, unspecified as to episode of care or not applicable Tobacco use during , antepartum ([facility]) Marijuana use during ([facility]) Screening for diabetes mellitus Need for vaccination Need for prophylactic vaccination and inoculation against unspecified single disease Vaginal discharge Leukorrhea, not specified as infective Vaginal odor Unspecified symptom associated with female genital organs documented in this encounter [facility] note* Diagnosis Supervision of other high risk pregnancies, unspecified trimester ([facility])- Primary 30 weeks gestation of ([facility]) state, incidental Obesity in ([facility]) Obesity complicating , childbirth, or the puerperium, unspecified as to episode of care or not applicable Tobacco use during , antepartum ([facility]) Marijuana use during ([facility]) Uterine size-date discrepancy, third trimester ([facility]) [facility] Diagnosis 32 weeks gestation of ([facility])- Primary state, incidental Supervision of other high risk pregnancies, unspecified trimester ([facility]) Obesity in ([facility]) Obesity complicating , childbirth, or the puerperium, unspecified as to episode of care or not applicable Tobacco use during , antepartum ([facility]) documented in this encounter [facility] note* Diagnosis Encounter for ultrasound to check growth ([facility])- Primary Encounter for routine screening for malformation using ultrasonics Uterine size-date discrepancy, third trimester (HCC) 32 weeks gestation of (HCC) state, incidental [facility] Diagnosis 36 weeks gestation of (HCC)- Primary state, incidental Obesity in (HCC) Obesity complicating , childbirth, or the puerperium, unspecified as to episode of care or not applicable documented in this encounter [facility] note* Diagnosis BV (bacterial vaginosis)- Primary Vaginitis and vulvovaginitis, unspecified documented in this encounter [facility] note* Diagnosis Supervision of other high risk pregnancies, unspecified trimester (HCC)- Primary 38 weeks gestation of (HCC) state, incidental Obesity in ([facility]) Obesity complicating , childbirth, or the puerperium, unspecified as to episode of care or not applicable documented in this encounter [facility] note* Diagnosis Left corneal abrasion, initial encounter- Primary documented in this encounter [facility] Work Phone: Evaluation note* Diagnosis Abrasion of left cornea, initial encounter- Primary Pain in left eye Pain in or around eye Photophobia, left eye Visual discomfort documented in this encounter [facility] note* Diagnosis Supervision of other high risk pregnancies, unspecified trimester (HCC)- Primary 38 weeks gestation of ([facility]) state, incidental Obesity in (HCC) Obesity complicating , childbirth, or the puerperium, unspecified as to episode of care or not applicable documented in this encounter [facility] for referral (narrative)* Consultation (Routine) - Authorized Specialty Diagnoses / Procedures Referred By Elisabet blair Referred To Contact Primary Care Procedures Follow Up In Primary Care - Established Shannan Durbin, [address] [facility] [place] [address] Referral ID Status Reason Start Date Expiration Date V isits Requested Visits Authorized [id number] Authorized 03/31/2024 03/31/2025 1 1 * Consultation (Routine) - Pending Review Specialty Diagnoses / Procedures Referred By Contac t Referred To Contact Physical Therapy Diagnoses Chronic low back pain without sciatica, unspecified back pain laterality Neck pain Shannan Durbin APRN-DIRECTOR INTERNAL COMMUNICATIONS [address] [facility] [place] [address] Referral ID Status Reason Start Date Expiration Date Visits Requested Visits Authorized [id number] Pending Review Specialty Services Required 03/31/2024 03/31/2025 1 1 * Imaging (Routine) - Authorized Specialty Diagnoses / Procedures Referred By Contac t Referred To Contact Radiology Diagnoses Hand pain, left Procedures XR hand left 1-2 views Shannan Durbin APRN-DIRECTOR INTERNAL COMMUNICATIONS [address] [facility] [place] [address] Referral ID Status Reason Start Date Expiration Date Visits Requested Visits Authorized [id number] Authorized Perform Procedure 03/31/2024 03/31/2025 1 1 * Imaging (Routine) - Authorized Specialty Diagnoses / Procedures Referred By Contac t Referred To Contact Radiology Diagnoses Neck pain Procedures XR cervical spine 2-3 views Shannan Durbin APRN-JARRELL [address] [place] [address] Referral ID Status Reason Start Date Expiration Date Visits Requested Visits Authorized [id number] Authorized Perform Procedure 03/31/2024 03/31/2025 1 1 Electronically signed by Shannan Durbin PLANER OPERATOR / GRADER-DIRECTOR INTERNAL COMMUNICATIONS at 03/31/2024 10:27 AM EDT * Imaging (Routine) - Authorized Specialty Diagnoses / Procedures Referred By Contac t Referred To Contact Radiology Diagnoses Chronic low back pain without sciatica, unspecified back pain laterality Procedures XR lumbar spine 2-3 views Shannan Durbin PLANER OPERATOR / GRADER-DIRECTOR INTERNAL COMMUNICATIONS [address] [place] [address] Referral ID Status Reason Start Date Expiration Date Visits Requested Visits Authorized [id number] Authorized Perform Procedure 03/31/2024 03/31/2025 1 1 [facility] Work Phone: Summary Purpose Family History No Family History Records FoundNo Family History Records FoundNo Family History Records FoundNo Family History Records FoundNo Family History Records FoundNo Family History Records FoundNo Family History Records Found Advance Directives No Advanced Directives Records FoundNo Advanced Directives Records FoundNo Advanced Directives Records FoundNo Advanced Directives Records FoundNo Advanced Directives Records FoundNo Advanced Directives Records FoundNo Advanced Directives Records Found Reason for Referral Specialty Diagnoses / Procedures Referred By Contac t Referred To Contact Radiology Diagnoses Neck pain Procedures XR cervical spine 2-3 views Shannan Durbin APRN-DIRECTOR INTERNAL COMMUNICATIONS [address] [facility] Physician [place] [id number] Referral ID Status Reason Start Date Expiration Date Visits Requested Visits Authorized [id number] Authorized Perform Procedure 03/31/2024 03/31/2025 1 1 Specialty Diagnoses / Procedures Referred By Contac t Referred To Contact Radiology Diagnoses Chronic low back pain without sciatica, unspecified back pain laterality Procedures XR lumbar spine 2-3 views Shannan Durbin APRNDIRECTOR INTERNAL COMMUNICATIONS [address] [facility] [place] [address] Referral ID Status Reason Start Date Expiration Date Visits Requested Visits Authorized [id number] Authorized Perform Procedure 03/31/2024 03/31/2025 1 1 Specialty Diagnoses / Procedures Referred By Contac t Referred To Contact Radiology Diagnoses Hand pain, left Procedures XR hand left 1-2 views [facility] [address] [facility] [place] [address] Referral ID Status Reason Start Date Expiration Date Visits Requested Visits Authorized [id number] Authorized Perform Procedure 03/31/2024 03/31/2025 1 1 Additional Source Comments INFORMATION SOURCE (unrecogn ized section and content) DATE CREATED AUTHOR 12/17/2019 [facility] DATE CREATED AUTHOR AUTHOR'S ORGANIZ ATION 09/20/2021 [facility] DATE CREATED AUTHOR AUTHOR'S ORGANIZ ATION 04/01/2024 [facility] DATE CREATED AUTHOR AUTHOR'S ORGANIZ ATION 04/10/2024 [facility] DATE CREATED AUTHOR AUTHOR'S ORGANIZ ATION 07/11/2025 [facility] DATE CREATED AUTHOR AUTHOR'S ORGANIZ ATION 08/05/2025 [facility] DATE CREATED AUTHOR AUTHOR'S ORGANIZ ATION 08/09/2025 [facility] Reason for Visit (unrecogniz ed section and content) Reason Comments Establish Care Hand Pain Back Pain boils Located in the vagin al area Neck Pain Causes migraines Specialty Diagnoses / Procedures Referred By Contac t Referred To Contact Radiology Diagnoses Neck pain Procedures XR cervical spine 2-3 views Shannan Durbin PLANER OPERATOR / GRADER-DIRECTOR INTERNAL COMMUNICATIONS [address] [facility] [place] [address] Referral ID Status Reason Start Date Expiration Date Visits Requested Visits Authorized [id number] Authorized Perform Procedure 03/31/2024 03/31/2025 1 1 Specialty Diagnoses / Procedures Referred By Contac t Referred To Contact Radiology Diagnoses Chronic low back pain without sciatica, unspecified back pain laterality Procedures XR lumbar spine 2-3 views Shannan Durbin PLANER OPERATOR / GRADER-DIRECTOR INTERNAL COMMUNICATIONS [address] [facility] [place] [address] Referral ID Status Reason Start Date Expiration Date Visits Requested Visits Authorized [id number] Authorized Perform Procedure 03/31/2024 03/31/2025 1 1 Specialty Diagnoses / Procedures Referred By Contac t Referred To Contact Radiology Diagnoses Hand pain, left Procedures XR hand left 1-2 views Shannan Durbin PLANER OPERATOR / GRADER-DIRECTOR INTERNAL COMMUNICATIONS [address] [facility] [place] [address] Referral ID Status Reason Start Date Expiration Date Visits Requested Visits Authorized [id number] Authorized Perform Procedure 03/31/2024 03/31/2025 1 1 Reason Comments Care Reason Comments Initial OB Visit Reason Comments PRAF Reason Comments US Specialty Diagnoses / Procedures Referred By Contac t Referred To Contact [facility] Diagnoses with uncertain dates, antepartum Procedures OBSTETRIC ULTRASOUND WHI US PREG UTERUS AFTER 1ST TRIMEST 1/ GESTATION Lakesha Bingham APRN.CNMariella [address] [place] [address] Phone: tel: fax:[phone] [address] Referral ID Status Reason Start Date Expiration Date V isits Requested Visits Authorized [id number] Closed Auto-Generate d Referral 01/25/2025 01/25/2026 1 1 Reason Onset Date Comments Care 01/26/2025 Reason Comments Colposcopy Specialty Diagnoses / Procedures Referred By Contac t Referred To Contact [facility] Diagnoses Cervical high risk HPV (human papillomavirus) test positive Procedures COLPOSCOPY COLPOSCOPY CERVIX BX CERVIX & ENDOCRV CURRLOBITOGE Jessica Villegas MD [address] [place] [address] Phone: tel: fax:[phone] [address] Referral ID Status Reason Start Date Expiration Date V isits Requested Visits Authorized [id number] Closed Auto-Generate d Referral 02/01/2025 02/01/2026 1 1 Reason Onset Date Comments Refill Request 02/16/2025 Specialty Diagnoses / Procedures Referred By Contac t Referred To Contact [facility] Diagnoses with uncertain dates, antepartum (HCC) Procedures OBSTETRIC ULTRASOUND WHI US PREG UTERUS AFTER 1ST TRIMEST / GESTATION Lakesha Bingham APRN.MACK [address] [place] [address] Phone: tel: fax:[phone] [address] Referral ID Status Reason Start Date Expiration Date V isits Requested Visits Authorized [id number] Closed Auto-Generate d Referral 01/25/2025 01/25/2026 1 1 Reason Onset Date Comments Care 03/29/2025 Reason Comments Gear Keeper - Other error Reason Comments Breast pump Reason Onset Date Comments Refill Request 04/18/2025 Reason Onset Date Comments Care 05/21/2025 Reason Comments Gear Keeper - Other PRAF Reason Onset Date Comments Care 06/04/2025 Reason Onset Date Comments Care 06/21/2025 Specialty Diagnoses / Procedures Referred By Contac t Referred To Contact [facility] Diagnoses Supervision of other high risk pregnancies, unspecified trimester (HCC) 30 weeks gestation of (HCC) Uterine size-date discrepancy, third trimester (HCC) Procedures OBSTETRIC ULTRASOUND WHI US PREG UTERUS AFTER 1ST TRIMEST GESTATION Lakesha Bingham APRN.MACK [address] [place] [address] Phone: tel: fax: [facility] [address] [place] [phone] Referral ID Status Reason Start Date Expiration Date V isits Requested Visits Authorized [id number] Closed Auto-Generate d Referral 06/04/2025 06/04/2026 3 1 Reason Onset Date Comments Care 07/20/2025 Reason Onset Date Comments Care 07/29/2025 Reason Comments Eye Problem 0 she says her ki tten came up to her face and swatted at her eye lashes striking her in the eye. Says she can not open her left eye to assess for injury. Kitten not up to date on immunizations. Pt is 38 wks. Reason Comments Corneal Abrasion Evaluation Left Eye Reason Onset Date Comments Care 08/03/2025 Care Teams (unrecognized sec tion and content) Director Security Risk Management Relationship Specialty Start Date End Date Shannan Durbin APRN-DIRECTOR INTERNAL COMMUNICATIONS [address] [facility] [place] [address] PCP - General Family Medicine 03/31/24 Director Security Risk Management Relationship Specialty Start Date End Date Shannan Durbin PLANER OPERATOR / GRADER-DIRECTOR INTERNAL COMMUNICATIONS [address] [facility] [place] [address] PCP - General Family Medicine 03/31/24 Director Security Risk Management Relationship Specialty Start Date End Date Shannan Durbin APRN-CNP [address] [facility] [address] [place] [address] PCP - [facility] PCP 12/26/24 Shannan Durbin APRN-CNP [address] [facility] [address] [place] [address] PCP - [facility] Medicaid PCP 05/25/25 Generic Provider, No [place] [address] PCP - General Cardiovascular Technician 08/03/25 Source Comments (unrecognize d section and content) In the event this informatio n is protected by the Federal Confidentiality of Alcohol and Drug Abuse Patient Records regulations: The Federal rules restrict any use of the information to criminally investigate or prosecute any alcohol or drug abuse patient.[facility] the event this information is protected by the Federal Confidentiality of Alcohol and Drug Abuse Patient Records regulations: The Federal rules restrict any use of the information to criminally investigate or prosecute any alcohol or drug abuse patient.[facility] the event this information is protected by the Federal Confidentiality of Alcohol and Drug Abuse Patient Records regulations: The Federal rules restrict any use of the information to criminally investigate or prosecute any alcohol or drug abuse patient.[facility] the event this information is protected by the Federal Confidentiality of Alcohol and Drug Abuse Patient Records regulations: The Federal rules restrict any use of the information to criminally investigate or prosecute any alcohol or drug abuse patient.[facility] HospitalIn the event this information is protected by the Federal Confidentiality of Alcohol and Drug Abuse Patient Records regulations: The Federal rules restrict any use of the information to criminally investigate or prosecute any alcohol or drug abuse patient.[facility]In the event this information is protected by the Federal Confidentiality of Alcohol and Drug Abuse Patient Records regulations: The Federal rules restrict any use of the information to criminally investigate or prosecute any alcohol or drug abuse patient.[facility]In the event this information is protected by the Federal Confidentiality of Alcohol and Drug Abuse Patient Records regulations: The Federal rules restrict any use of the information to criminally investigate or prosecute any alcohol or drug abuse patient.[facility]In the event this information is protected by the Federal Confidentiality of Alcohol and Drug Abuse Patient Records regulations: The Federal rules restrict any use of the information to criminally investigate or prosecute any alcohol or drug abuse patient.[facility]In the event this information is protected by the Federal Confidentiality of Alcohol and Drug Abuse Patient Records regulations: The Federal rules restrict any use of the information to criminally investigate or prosecute any alcohol or drug abuse patient.[facility]In the event this information is protected by the Federal Confidentiality of Alcohol and Drug Abuse Patient Records regulations: The Federal rules restrict any use of the information to criminally investigate or prosecute any alcohol or drug abuse patient.[facility] HospitalIn the event this information is protected by the Federal Confidentiality of Alcohol and Drug Abuse Patient Records regulations: The Federal rules restrict any use of the information to criminally investigate or prosecute any alcohol or drug abuse patient.[facility] HospitalIn the event this information is protected by the Federal Confidentiality of Alcohol and Drug Abuse Patient Records regulations: The Federal rules restrict any use of the information to criminally investigate or prosecute any alcohol or drug abuse patient.[facility] HospitalIn the event this information is protected by the Federal Confidentiality of Alcohol and Drug Abuse Patient Records regulations: The Federal rules restrict any use of the information to criminally investigate or prosecute any alcohol or drug abuse patient.[facility]In the event this information is protected by the Federal Confidentiality of Alcohol and Drug Abuse Patient Records regulations: The Federal rules restrict any use of the information to criminally investigate or prosecute any alcohol or drug abuse patient.[facility] HospitalIn the event this information is protected by the Federal Confidentiality of Alcohol and Drug Abuse Patient Records regulations: The Federal rules restrict any use of the information to criminally investigate or prosecute any alcohol or drug abuse patient.[facility] HospitalIn the event this information is protected by the Federal Confidentiality of Alcohol and Drug Abuse Patient Records regulations: The Federal rules restrict any use of the information to criminally investigate or prosecute any alcohol or drug abuse patient.[facility] HospitalIn the event this information is protected by the Federal Confidentiality of Alcohol and Drug Abuse Patient Records regulations: The Federal rules restrict any use of the information to criminally investigate or prosecute any alcohol or drug abuse patient.[facility] HospitalIn the event this information is protected by the Federal Confidentiality of Alcohol and Drug Abuse Patient Records regulations: The Federal rules restrict any use of the information to criminally investigate or prosecute any alcohol or drug abuse patient.[facility] HospitalIn the event this information is protected by the Federal Confidentiality of Alcohol and Drug Abuse Patient Records regulations: The Federal rules restrict any use of the information to criminally investigate or prosecute any alcohol or drug abuse patient.[facility] HospitalIn the event this information is protected by the Federal Confidentiality of Alcohol and Drug Abuse Patient Records regulations: The Federal rules restrict any use of the information to criminally investigate or prosecute any alcohol or drug abuse patient.[facility] HospitalIn the event this information is protected by the Federal Confidentiality of Alcohol and Drug Abuse Patient Records regulations: The Federal rules restrict any use of the information to criminally investigate or prosecute any alcohol or drug abuse patient.[facility] HospitalIn the event this information is protected by the Federal Confidentiality of Alcohol and Drug Abuse Patient Records regulations: The Federal rules restrict any use of the information to criminally investigate or prosecute any alcohol or drug abuse patient.[facility] HospitalIn the event this information is protected by the Federal Confidentiality of Alcohol and Drug Abuse Patient Records regulations: The Federal rules restrict any use of the information to criminally investigate or prosecute any alcohol or drug abuse patient.[facility] HospitalIn the event this information is protected by the Federal Confidentiality of Alcohol and Drug Abuse Patient Records regulations: The Federal rules restrict any use of the information to criminally investigate or prosecute any alcohol or drug abuse patient.[facility] HospitalIn the event this information is protected by the Federal Confidentiality of Alcohol and Drug Abuse Patient Records regulations: The Federal rules restrict any use of the information to criminally investigate or prosecute any alcohol or drug abuse patient.[facility] HospitalIn the event this information is protected by the Federal Confidentiality of Alcohol and Drug Abuse Patient Records regulations: The Federal rules restrict any use of the information to criminally investigate or prosecute any alcohol or drug abuse patient.[facility] HospitalIn the event this information is protected by the Federal Confidentiality of Alcohol and Drug Abuse Patient Records regulations: The Federal rules restrict any use of the information to criminally investigate or prosecute any alcohol or drug abuse patient.[facility] Scheduled Active and Recently Administ ered Medications (unrecognized section and content) Medication Order 08/01/2025 08/02/2025 08/03/2025 acetaminophen (Tylenol) tablet 975 mg (COMPLETED) 975 mg, oral, Once, On Sat08/03/25 at 0155, For 1 dose, If ordered PRN for pain, nurse is permitted to administer this medication for higher pain scores based on patient preference? Yes 0158 (Given - Provid er: Lyndsay Johnson RN) erythromycin (Romycin) 5 mg/gram (0.5 %) ophthalmic ointment 0.5 cm 0.5 cm, Left Eye, Every 6 hours scheduled, First dose (after last modification) on Sat08/03/25 at 0145 0158 (Given - Provid er: Lyndsay Johnson RN)0600 (Due)1200 (Due)1800 (Due) fluorescein 1 mg ophthalmic strip 1 strip (COMPLETED) 1 strip, Left Eye, Once, On Sat08/03/25 at 0120, For 1 dose 0122 (Given - Provid er: Lyndsay Johnson RN - Comment: administered by Dr Russo) tetracaine (PF) 0.5 % ophthalmic solution 1 drop (COMPLETED) 1 drop, Left Eye, Once, On Sat08/03/25 at 0120, For 1 dose, Nursing to leave at bedside for physician to administer 0123 (Given - Provid er: Lyndsay Johnson RN - Comment: Administered by Dr Russo) FOR RECORDS PERTAINING TO PATIENTS WHO ARE OR HAVE BEEN ENROLLED IN A CHEMICAL DEPENDENCY/SUBSTANCEABUSE PROGRAM, SOME INFORMATION MAY BE OMITTED. This clinical summary was aggregated from multiple sources. Caution should be exercised in using it in the provision of clinical care. This summary normalizes information from multiple sources, and as a consequence, information in this document may materially change the coding, format and clinical context of patient data. In addition, data may be omitted in some cases. CLINICAL DECISIONS SHOULD BE BASED ON THE PRIMARY CLINICAL RECORDS. [employer] provides no warranty or guarantee of the accuracy or completeness of information in this document.
[2025-08-10 06:48] LABS: ROM Internal Control Test YES-OK TO RESULT pt. (Internal QC)
[2025-08-10 06:49] LABS: ROM Patient Test POSITIVE (Negative); Record Kit Lot#, ROM+ K3358
--- OUTSIDE RECORDS SUMMARY | 2025-08-10 07:21 | XMS RPT_ITS | CCD ---
Author Organization [facility] Care Team Providers Care Weighter Name Role Phone TALA MARTÍNEZHA Attending Unavailable [...] Unavailab althea Durbin APRN-JARRELL, Shannan B Unavailable [phone] Ramakrishna HANNA-Luke VIEYRAla B Unavailable Generic Provider [...] 30 tablet 11 03/31/2024 03/31/2025 Active nystatin 266478 unt/ml topical cream (14 sources) Polyene Antifungal [...] A DAY 60 tablet 3 07/22/2024 Active Ydqovazf-Yw-Hnc-F e-FA tab (20 sources) Start: 03-02-2025 take 1 tablet by mouth once daily Pqxwzzij-Tn-Emw-Fe-F A tab Take 1 tablet by mouth once daily. With folic acid and DHA as covered by insurance 90 tablet 3 03/02/2025 Active Start: 01-25-2025 End: 03-02-2025 take 1 tablet by mouth once daily Hilkbgrp-Gc-Eqp-Fe-FA tab Take 1 tablet by mouth once daily. 30 tablet 11 01/25/2025 03/02/2025 Discontinued (Course of therapy completed) Start: 01-25-2025 take 1 tablet by irene once daily Ivvdvfnp-Ph-Cid-Fe-FA tab Take 1 tablet by mouth once [...] B/Oon Glucose Ql (U) Negative Neg mg/dL [facility] Interpretation and review of laboratory results Normal [facility] Protein.monoclonal (U) [Mass/Vol] Negative Neg mg/dL [facility] URINE OB DIP B/Oon Glucose Ql (U) Negative Neg mg/dL [facility] Interpretation and review of laboratory results Normal [facility] Protein.monoclonal (U) [Mass/Vol] Negative Neg mg/dL [facility] CNPNon 07-21-2025 CNPN Telephone ([id number]) YASHIRALASHANDAN ([id number]) 1990 F Date Time Provider Department 07/21/25 HUE FLOWERS [id number] During your visit today, we recorded the following information about you: Hue Flowers RN 07/21/2025 8:36 AM Signed 3rd risk assessment form submitted 07/21/2025. 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 - Mqpvyjsb-Ul-Tpw-Fe-FA tab Take 1 tablet by mouth once [...] Status:Closed by HUE FLOWERS on 07/21/25 Normal [facility] ROUTINE, GROUP B ST REPTOCOCCUS BY PCRon 07-20-2025 ROUTINE, GROUP B STREPTOCOCCUS BY PCR Detected Abnormal [facility] Comment on above: Performed By: #### G BPCR ####[facility] LABCLIA [id number] [place] [address] [place] URINE OB DIP B/Oon Glucose Ql (U) Negative Neg mg/dL [facility] Interpretation and review of laboratory results Normal [facility] Protein.monoclonal (U) [Mass/Vol] Negative Neg mg/dL [facility] Examination level ultrasound on 06-21-2025 [facility] Radiology Study observation (narrative) [facility] URINE OB DIP B/Oon Glucose Ql (U) Negative Neg mg/dL [facility] Interpretation and review of laboratory results Normal [facility] Protein.monoclonal (U) [Mass/Vol] Negative Neg mg/dL [facility] CBC W Auto Differential pane l (Bld)on 06-03-2025 Basophils (Bld) [#/Vol] 0.08 10*3/uL Normal <0.11 [facility] Comment on above: Order Comment: Speci men Type: BLOOD SPECIMENOrdering Facility: [facility] Address: [address] [place] [address] Performed By: #### 5 7021-8 ####[facility] MILLTOWNCLIA [id number] [place] [address] [place] Basophils/100 WBC (Bld) 0.6 % Normal [facility] Comment on above: Order Comment: Speci men Type: BLOOD SPECIMENOrdering Facility: [facility] Address: [address] [place] [address] Performed By: #### 5 7021-8 ####[facility] PARKWAYWNCLIA [id number] [place] [address] [place] Differential cell count method Nom (Bld) Auto Normal [facility] Comment on above: Order Comment: Speci men Type: BLOOD SPECIMENOrdering Facility: [facility] Address: [address] [place] [address] Performed By: #### 5 7021-8 ####[facility] MILLTOWNCLIA [id number] [place] [address] [place] Eosinophils (Bld) [#/Vol] 0.29 10*3/uL Normal <0.46 [facility] Comment on above: Order Comment: Speci men Type: BLOOD SPECIMENOrdering Facility: [facility] Address: [address] [place] [address] Performed By: #### 5 7021-8 ####[facility] MILLTOWNCLIA [id number] [place] [address] [place] Eosinophils/100 WBC (Bld) 2.3 % Normal [facility] Comment on above: Order Comment: Speci men Type: BLOOD SPECIMENOrdering Facility: [facility] Address: [address] [place] [address] Performed By: #### 5 7021-8 ####[facility] DOMINGAMINBURNJOYNOREEN [id number] [place] [address] [place] Erythrocyte distribution width (RBC) [Ratio] 12.7 % Normal 11.5-15.0 [facility] Comment on above: Order Comment: Speci men Type: BLOOD SPECIMENOrdering Facility: [facility] Address: [address] [place] [address] Performed By: #### 5 7021-8 ####[facility] HOSPITALJOYMart [id number] [place] [address] [place] Hematocrit (Bld) [Volume fraction] 31.4 % Low 36.0-46.0 [facility] Comment on above: Order Comment: Speci men Type: BLOOD SPECIMENOrdering Facility: [facility] Address: [address] [place] [address] Performed By: #### 5 7021-8 ####[facility] HOSPITALJOYNOREEN [id number] [place] [address] [place] Hemoglobin (Bld) [Mass/Vol] 11.2 g/dL Low 11.5-15.5 [facility] Comment on above: Order Comment: Speci men Type: BLOOD SPECIMENOrdering Facility: [facility] Address: [address] [place] [address] Performed By: #### 5 7021-8 ####[facility] H[facility]PITALNCLIA [id number] [place] [address] [place] Immature granulocytes (Bld) [#/Vol] 0.06 10*3/uL Normal <0.10 [facility] Comment on above: Order Comment: Speci men Type: BLOOD SPECIMENOrdering Facility: [facility] Address: [address] [place] [address] Performed By: #### 5 7021-8 ####[facility] [id number] [place] [address] [place] Immature granulocytes/100 WBC (Bld) 0.5 % Normal [facility] Comment on above: Order Comment: Speci men Type: BLOOD SPECIMENOrdering Facility: [facility] Address: [address] [place] [address] Performed By: #### 5 7021-8 ####[facility] [id number] [place] [address] [place] Lymphocytes (Bld) [#/Vol] 2.55 10*3/uL Normal 1.00-4.00 [facility] Comment on above: Order Comment: Speci men Type: BLOOD SPECIMENOrdering Facility: [facility] Address: [address] [place] [address] Performed By: #### 5 7021-8 ####[facility] [id number] [place] [address] [place] Lymphocytes/100 WBC (Bld) 20.0 % Normal [facility] Comment on above: Order Comment: Speci men Type: BLOOD SPECIMENOrdering Facility: [facility] Address: [address] [place] [address] Performed By: #### 5 7021-8 ####[facility] [id number] [place] [address] [place] MCH (RBC) [Entitic mass] 31.5 pg Normal 26.0-34.0 [facility] Comment on above: Order Comment: Speci men Type: BLOOD SPECIMENOrdering Facility: [facility] Address: [address] [place] [address] Performed By: #### 5 7021-8 ####[facility]ITALNCLIA [id number] [place] [address] [place] MCHC (RBC) [Mass/Vol] 35.7 g/dL Normal 30.5-36.0 [facility] Comment on above: Order Comment: Speci men Type: BLOOD SPECIMENOrdering Facility: [facility] Address: [address] [place] [address] Performed By: #### 5 7021-8 ####[facility] [id number] [place] [address] [place] MCV (RBC) [Entitic vol] 88.2 fL Normal 80.0-100.0 [facility] Comment on above: Order Comment: Speci men Type: BLOOD SPECIMENOrdering Facility: [facility] Address: [address] [place] [address] Performed By: #### 5 7021-8 ####[facility] [id number] [place] [address] [place] Monocytes (Bld) [#/Vol] 0.64 10*3/uL Normal <0.87 [facility] Comment on above: Order Comment: Speci men Type: BLOOD SPECIMENOrdering Facility: [facility] Address: [address] [place] [address] Performed By: #### 5 7021-8 ####[facility]OSPITALLIA [id number] [place] [address] [place] Monocytes/100 WBC (Bld) 5.0 % Normal [facility] Comment on above: Order Comment: Speci men Type: BLOOD SPECIMENOrdering Facility: [facility] Address: [address] [place] [address] Performed By: #### 5 7021-8 ####[facility]ITALA [id number] [place] [address] [place] Neutrophils (Bld) [#/Vol] 9.15 10*3/uL High 1.45-7.50 [facility] Comment on above: Order Comment: Speci men Type: BLOOD SPECIMENOrdering Facility: [facility] Address: [address] [place] [address] Performed By: #### 5 7021-8 ####[facility]ITALLIA [id number] [place] [address] [place] Neutrophils/100 WBC (Bld) 71.6 % Normal [facility] Comment on above: Order Comment: Speci men Type: BLOOD SPECIMENOrdering Facility: [facility] Address: [address] [place] [address] Performed By: #### 5 7021-8 ####[facility]PITALSOSA [id number] [place] [address] [place] Nucleated RBC (Bld) [#/Vol] 10*3/uL Normal <0.01 [facility] Comment on above: Order Comment: Speci men Type: BLOOD SPECIMENOrdering Facility: [facility] Address: [address] [place] [address] Performed By: #### 5 7021-8 ####[facility]ALSOSA [id number] [place] [address] [place] Nucleated RBC/100 WBC (Bld) [Ratio] 0.0 /100 WBC Normal [facility] Comment on above: Order Comment: Speci men Type: BLOOD SPECIMENOrdering Facility: [facility] Address: [address] [place] [address] Performed By: #### 5 7021-8 ####[facility] HOSPITALNCLI [id number] [place] [address] [place] Platelet mean volume (Bld) [Entitic vol] 8.9 fL Low 9.0-12.7 [facility] Comment on above: Order Comment: Speci men Type: BLOOD SPECIMENOrdering Facility: [facility] Address: [address] [place] [address] Performed By: #### 5 7021-8 ####[facility] HOSPITALNCTOSHIAA [id number] [place] [address] [place] Platelets (Bld) [#/Vol] 331 10*3/uL Normal 150-400 [facility] Comment on above: Order Comment: Speci men Type: BLOOD SPECIMENOrdering Facility: [facility] Address: [address] [place] [address] Performed By: #### 5 7021-8 ####[facility]ITALNCLIA [id number] [place] [address] [place] RBC (Bld) [#/Vol] 3.56 10*6/uL Low 3.90-5.20 [facility] Comment on above: Order Comment: Speci men Type: BLOOD SPECIMENOrdering Facility: [facility] Address: [address] [place] [address] Performed By: #### 5 7021-8 ####[facility]ITALNCLIA [id number] [place] [address] [place] WBC (Bld) [#/Vol] 12.77 10*3/uL High 3.70-11.00 [facility] Comment on above: Order Comment: Speci men Type: BLOOD SPECIMENOrdering Facility: [facility] Address: [address] [place] [address] Performed By: #### 5 7021-8 ####[facility]ITALNCLIA [id number] [place] [address] [place] GESTATIONAL GLUCOSE SCREEN, 1-HOUR, 50 GRAM, NON-FASTINGon 06-03-2025 Glucose [Mass/Vol] 92 mg/dL Normal 74-134 [facility] Comment on above: Order Comment: Ramona lopez Type: BLOOD SPECIMENOrdering Facility: [facility] Address: [address] [place] [address] Result Comment: [facility] Congress of Obstetricians and Gynecologists (Arminda/Madeline) guidelines state a gestational diabetes mellitus positive screen is made, in women not previously diagnosed with overt diabetes, when the 1 hr plasma glucose level is equal to or above 140 mg/dL. The [facility] [employer] [facility] [place] recommends a 135 mg/dL cutoff. Performed By: #### G LTGST ####[facility] [id number] [place] [address] [place] Reagin and Treponema pallidu m IgG and IgM [Interp]on 06-03-2025 T. pallidum IgG+IgM IA Ql (S) Non-Reactive Normal Nonreactive [facility] Comment on above: Order Comment: Ramona lopez Type: BLOOD SPECIMENOrdering Facility: [facility] Address: [address] [place] [address] Performed By: #### 7 3752-8 ####[facility]ITAL[facility] [id number] [place] [address] [place] Reagin+T pallidum IgG+IgM Se rPl-Impon 06-03-2025 Reagin and Treponema pallidum IgG and IgM [Interp] Cannot exclude recent Treponemal infection if specimen collected within 7-10 days after appearance of suspect lesions or 2-3 weeks after an exposure. Clinical correlation is required. Normal [facility] Comment on above: Order Comment: Ramona lopez Type: BLOOD SPECIMENOrdering Facility: [facility] Address: [address] [place] [address] Performed By: #### 7 3752-8 ####[facility] LABIA [id number] [place] [id number] [place] CNPDee 05-24-2025 CNPN Telephone ([id number]) ELAINE AC ([id number]) 1990 F IPA Date Time Provider Department 05/24/25 HUE FLOWERS [id number] During your visit today, we recorded the following information about you: Hue Flowers RN 05/24/2025 9:48 AM Signed 2nd risk assessment form submitted 05/24/2025. 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 - nystatin (MYCOSTATIN) cream Apply to affected area two times a day. - Fyvhvrmb-Ek-Oln-Fe-FA tab Take 1 tablet by mouth once [...] Status:Closed by HUE FLOWERS on 05/24/25 Normal [facility] BACTERIAL VAGINOSIS NAATon 0 05-21-2025 Lactobacillus crispatus+gasseri+je nsenii + Gardnerella vaginalis + Atopobium vaginae rRNA MITUL+probe Ql (Vag fld) Detected Abnormal Not detected [facility] Comment on above: Order Comment: Speci men Type: SWABOrdering Facility: [facility] Address: [address] [place] [address] Performed By: #### C VTV, BVAMP ####[facility] LABCLIA [id number] [address] [place] ASHLEY/TRICHOMONAS NAATon 0 05-21-2025 C. glabrata RNA MITUL+probe Ql (Vag fld) Not detected Normal Not detected [facility] Comment on above: Order Comment: Speci men Type: SWABOrdering Facility: [facility] Address: [address], [place] [address] Performed By: #### C VTV, BVAMP ####[facility] LABCLIA [id number] [address] [place] Ashley sp DNA MITUL+probe Ql (Vag fld) Not detected Normal Not detected [facility] Comment on above: Order Comment: Speci men Type: SWABOrdering Facility: [facility] Address: [address] [place] [address] Result Comment: The Ashley species group target includes C. albicans, C. tropicalis, C. parapsilosis, and C. dubliniensis. Performed By: #### C VTV, BVAMP ####[facility] LABCLIA [id number] [address] T. vaginalis DNA MITUL+probe Ql (Unsp spec) Not detected Normal Not detected [facility] Comment on above: Order Comment: Speci men Type: SWABOrdering Facility: [facility] Address: [address] [place] [address] Performed By: #### C VTV, BVAMP ####[facility] LABCLIA [id number] [address] [place] Familia 03-30-2025 [facility][id number][facility] ELAINE AC ([id number]) 1990 F Date Time Provider Department 03/30/25 HUE FLOWERS [id number] During your visit today, we recorded the following information about you: Hue Flowers RN 03/30/2025 9:46 AM Addendum Opened in error Allergies As of Date: 03/30/2025 (No Known Allergies) Date Reviewed: 03/29/2025 Reviewed by: Hue Trevino MD - Fully Assessed 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 - Hhaotjka-Ff-Rlz-Fe-FA tab Take 1 tablet by mouth once [...] Status:Closed by HUE FLOWERS on 03/30/25 Normal [facility] Examination level ultrasound on 03-29-2025 Indication Detailed [...] 14 oz EFW by: Hadlock (HC-AC-FL) [employer] 7.0 mm CM 5.5 mm 63% Nicolaides [...] normal LVOT view: normal 3-vessel view: normal 0-qyqwzk-topakcs view: normal Heart / Thorax Situs: situs [...] Read By: Nina Conte M.D. MATERNAL MEDICINE [facility] Radiology Study observation (narrative) [facility] Familia 03-25-2025 CNPN Telephone (OBGYWM) ELAINE AC ([id number]) 1990 F IPA Date Time Provider Department 03/25/25 LAKESHA BINGHAM During your visit today, we recorded the following information about you: Digna Villalobos RN 03/25/2025 8:57 AM Signed Written order received from [employer] for breast pump. Placed in ALFONSO inbox for signature. DONNA Julio Lindsey, RN 04/09/2025 2:19 PM Signed Order signed and faxed. Luz Chun RN Allergies As of Date: 03/25/2025 (No Known Allergies) Date Reviewed: 02/09/2025 Reviewed by: Hue Trevino MD - Fully Assessed Reason for Visit: Breast pump [Other] Prescriptions as of 04/09/2025 - nystatin (MYCOSTATIN) cream Apply to affected area two times a day. - Dhcbenuj-Oe-Kjs-Fe-FA tab Take 1 tablet by mouth once [...] Encounter Status:Closed by LUZ CHUN on 04/09/25 [facility] CNOVon 02-09-2025 CNOV Office Visit (OBGYWM ) ELAINE AC ([id number]) 1990 F Date Time Provider Department 02/09/25 1:40 PM HUE TREVINO During your visit today, we recorded the following information about you: Blood pressure Weight 110/60 83.9 kg Hue Trevino MD 02/09/2025 2:46 PM Signed Promotions Executive offered: Patient declinesLeonardo Henry is a 34 [...] a cancer (more content not included)... Normal [facility] Pathology biopsy report Brodie (Tiss)on 02-09-2025 AP DISCLAIMER Normal [facility] Comment on above: Order Comment: Speci men Type: TISSUE SPECIMENOrdering Facility: [facility] Address: [address] [place] [address] Result Comment: Lilly boateng Developed Test (LDT) Disclaimer: Performance characteristics of immunohistochemical, immunofluorescent, and chromogenic in-situ hybridization tests have been determined by the performing laboratory within [facility]'s [facility] Pathology and Laboratory Medicine Department ([facility], [facility], [facility], [facility], [facility], [facility], or [facility]) in a manner consistent with CLIA requirements. One or more of these tests may not have been cleared or approved by the FDA. [facility] is regulated under CLIA as qualified to perform high-complexity testing. These tests are used for clinical purposes. These should not be regarded as investigational or for research. Positive and negative controls stain appropriately. Performed By: #### 6 6121-5 ####[facility] LABCLIA [id number] [place] [address] [place] CASE REPORT Normal [facility] Comment on above: Order Comment: Speci men Type: TISSUE SPECIMENOrdering Facility: [facility] Address: [address] [place] [address] Result Comment: Surg [facility] Pathology Report Case: [id number] Authorizing Provider: Hue Trevino MD Collected: 02/09/2025 03:01 PM Ordering Location: OB/Gynecology Received: 02/09/2025 04:26 PM Pathologist: Jeanine Azevedo MD Specimen: Cervix, Biopsy, 10 Performed By: #### 6 6121-5 ####[facility] LABCLIA [id number] [place] [address] [place] CLINICAL HISTORY Positive Normal [facility] Comment on above: Order Comment: Speci men Type: TISSUE SPECIMENOrdering Facility: [facility] Address: [address] [place] [address] Performed By: #### 6 6121-5 ####[facility] LABCLIA [id number] [address] STATES [facility] FINAL DIAGNOSIS Normal [facility] Comment on above: Order Comment: Speci men Type: TISSUE SPECIMENOrdering Facility: [facility] Address: [address] [place] [address] Result Comment: Cerv ix, 10:00, biopsy: Focal low-grade squamous intraepithelial lesion (ADRIANA-1). at 1632 EDT Performed By: #### 6 6121-5 ####[facility] LABCLIA [id number] [address] STATES OF [facility] FINAL PERFORMING LAB Normal [facility] Comment on above: Order Comment: Speci men Type: TISSUE SPECIMENOrdering Facility: [facility] Address: [address] [place] [address] Result Comment: Diag nostic interpretation performed at: [facility], [address] [place] [address] CLIA# [id number] Imaging Administrator: Navneet Beltran MD Performed By: #### 6 6121-5 ####[facility] LABCLIA [id number] [address] [place] GROSS DESCRIPTION Normal [facility] Comment on above: Order Comment: Speci men Type: TISSUE SPECIMENOrdering Facility: [facility] Address: [address] [place] [address] Result Comment: A. C ervix, Biopsy Received in formalin is one piece of gloria-white, soft tissue measuring 0.5 x 0.3 x 0.3 cm. Totally submitted in one cassette. Gross examination performed at [facility], [address] [place] [address] FFS 02/09/2025 11:18 PM Performed By: #### 6 6121-5 ####[facility] LABCLIA [id number] [place] [address] [place] CBC W Auto Differential pane l (Bld)on 01-26-2025 Basophils (Bld) [#/Vol] 10*3/uL Normal <0.11 [facility] Comment on above: Order Comment: Speci men Type: BLOOD SPECIMENOrdering Facility: [facility] Address: [address] [place] [address] Performed By: #### 5 7021-8 ####[facility] [id number] [place] [address] [place] Basophils/100 WBC (Bld) 0.2 % Normal [facility] Comment on above: Order Comment: Speci men Type: BLOOD SPECIMENOrdering Facility: [facility] Address: [address] [place] [address] Performed By: #### 5 7021-8 ####[facility] [id number] [place] [address] [place] Differential cell count method Nom (Bld) Auto Normal [facility] Comment on above: Order Comment: Speci men Type: BLOOD SPECIMENOrdering Facility: [facility] Address: [address] [place] [address] Performed By: #### 5 7021-8 ####[facility] [id number] [place] [address] [place] Eosinophils (Bld) [#/Vol] 0.23 10*3/uL Normal <0.46 [facility] Comment on above: Order Comment: Speci men Type: BLOOD SPECIMENOrdering Facility: [facility] Address: [address] [place] [address] Performed By: #### 5 7021-8 ####[facility] [id number] [place] [address] [place] Eosinophils/100 WBC (Bld) 2.4 % Normal [facility] Comment on above: Order Comment: Speci men Type: BLOOD SPECIMENOrdering Facility: [facility] Address: [address] [place] [address] Performed By: #### 5 7021-8 ####[facility] DOMINGATulioNCTOSHIAA [id number] [place] [address] [place] Erythrocyte distribution width (RBC) [Ratio] 12.0 % Normal 11.5-15.0 [facility] Comment on above: Order Comment: Speci men Type: BLOOD SPECIMENOrdering Facility: [facility] Address: [address] [place] [address] Performed By: #### 5 7021-8 ####[facility]OSPITALJOYA [id number] [place] [address] [place] Hematocrit (Bld) [Volume fraction] 36.9 % Normal 36.0-46.0 [facility] Comment on above: Order Comment: Speci men Type: BLOOD SPECIMENOrdering Facility: [facility] Address: [address] [place] [address] Performed By: #### 5 7021-8 ####[facility] [id number] [place] [address] [place] Hemoglobin (Bld) [Mass/Vol] 13.2 g/dL Normal 11.5-15.5 [facility] Comment on above: Order Comment: Speci men Type: BLOOD SPECIMENOrdering Facility: [facility] Address: [address] [place] [address] Performed By: #### 5 7021-8 ####[facility] DOMINGAMINBURNNCLIA [id number] [place] [address] [place] Immature granulocytes (Bld) [#/Vol] 10*3/uL Normal <0.10 [facility] Comment on above: Order Comment: Speci men Type: BLOOD SPECIMENOrdering Facility: [facility] Address: [address] [place] [address] Performed By: #### 5 7021-8 ####[facility]PITALLIA [id number] [place] [address] [place] Immature granulocytes/100 WBC (Bld) 0.2 % Normal [facility] Comment on above: Order Comment: Speci men Type: BLOOD SPECIMENOrdering Facility: [facility] Address: [address] [place] [address] Performed By: #### 5 7021-8 ####[facility] HOSPITALJOYMart [id number] [place] [address] [place] Lymphocytes (Bld) [#/Vol] 3.30 10*3/uL Normal 1.00-4.00 [facility] Comment on above: Order Comment: Speci men Type: BLOOD SPECIMENOrdering Facility: [facility] Address: [address] [place] [address] Performed By: #### 5 7021-8 ####[facility] [id number] [place] [address] [place] Lymphocytes/100 WBC (Bld) 34.1 % Normal [facility] Comment on above: Order Comment: Speci men Type: BLOOD SPECIMENOrdering Facility: [facility] Address: [address] [place] [address] Performed By: #### 5 7021-8 ####[facility] HOSPITALNOREEN [id number] [place] [address] [place] MCH (RBC) [Entitic mass] 30.2 pg Normal 26.0-34.0 [facility] Comment on above: Order Comment: Speci men Type: BLOOD SPECIMENOrdering Facility: [facility] Address: [address] [place] [address] Performed By: #### 5 7021-8 ####[facility] HOSPITALNCLIA [id number] [place] [address] [place] MCHC (RBC) [Mass/Vol] 35.8 g/dL Normal 30.5-36.0 [facility] Comment on above: Order Comment: Speci men Type: BLOOD SPECIMENOrdering Facility: [facility] Address: [address] [place] [address] Performed By: #### 5 7021-8 ####[facility]ITALNC[facility] [id number] [place] [address] [place] MCV (RBC) [Entitic vol] 84.4 fL Normal 80.0-100.0 [facility] Comment on above: Order Comment: Speci men Type: BLOOD SPECIMENOrdering Facility: [facility] Address: [address] [place] [address] Performed By: #### 5 7021-8 ####[facility]ITALNC[facility] [id number] [place] [address] [place] Monocytes (Bld) [#/Vol] 0.42 10*3/uL Normal <0.87 [facility] Comment on above: Order Comment: Speci men Type: BLOOD SPECIMENOrdering Facility: [facility] Address: [address] [place] [address] Performed By: #### 5 7021-8 ####[facility] HOSPITALNCA [id number] [place] [address] [place] Monocytes/100 WBC (Bld) 4.3 % Normal [facility] Comment on above: Order Comment: Speci men Type: BLOOD SPECIMENOrdering Facility: [facility] Address: [address] [place] [address] Performed By: #### 5 7021-8 ####[facility]ITALNC[facility] [id number] [place] [address] [place] Neutrophils (Bld) [#/Vol] 5.70 10*3/uL Normal 1.45-7.50 [facility] Comment on above: Order Comment: Speci men Type: BLOOD SPECIMENOrdering Facility: [facility] Address: [address] [place] [address] Performed By: #### 5 7021-8 ####[facility] DOMINGAWJOYLIA [id number] [address] STATES [facility] Neutrophils/100 WBC (Bld) 58.8 % Normal [facility] Comment on above: Order Comment: Speci men Type: BLOOD SPECIMENOrdering Facility: [facility] Address: [address] [place] [address] Performed By: #### 5 7021-8 ####[facility] HOSPITALNCLIA [id number] [place] [address] [place] Nucleated RBC (Bld) [#/Vol] 10*3/uL Normal <0.01 [facility] Comment on above: Order Comment: Speci men Type: BLOOD SPECIMENOrdering Facility: [facility] Address: [address] [place] [address] Performed By: #### 5 7021-8 ####[facility]PITALNCLIA [id number] [place] [address] [place] Nucleated RBC/100 WBC (Bld) [Ratio] 0.0 /100 WBC Normal [facility] Comment on above: Order Comment: Speci men Type: BLOOD SPECIMENOrdering Facility: [facility] Address: [address] [place] [address] Performed By: #### 5 7021-8 ####[facility]PITALLIA [id number] [place] [address] [place] Platelet mean volume (Bld) [Entitic vol] 9.1 fL Normal 9.0-12.7 [facility] Comment on above: Order Comment: Speci men Type: BLOOD SPECIMENOrdering Facility: [facility] Address: [address] [place] [address] Performed By: #### 5 7021-8 ####[facility]PITALLIA [id number] [place] [address] [place] Platelets (Bld) [#/Vol] 280 10*3/uL Normal 150-400 [facility] Comment on above: Order Comment: Speci men Type: BLOOD SPECIMENOrdering Facility: [facility] Address: [address] [place] [address] Performed By: #### 5 7021-8 ####[facility]OSPITALNCLIA [id number] [place] [address] [place] RBC (Bld) [#/Vol] 4.37 10*6/uL Normal 3.90-5.20 [facility] Comment on above: Order Comment: Speci men Type: BLOOD SPECIMENOrdering Facility: [facility] Address: [address] [place] [address] Performed By: #### 5 7021-8 ####[facility] HOSPITALNCA [id number] [place] [address] [place] WBC (Bld) [#/Vol] 9.69 10*3/uL Normal 3.70-11.00 [facility] Comment on above: Order Comment: Speci men Type: BLOOD SPECIMENOrdering Facility: [facility] Address: [address] [place] [address] Performed By: #### 5 7021-8 ####[facility] HOSPITALNCLIA [id number] [place] [address] [place] Familia 01-26-2025 CNPN Telephone ([facility]) ELAINE AC ([id number]) 1990 F Date Time Provider Department 01/26/25 LAKESHA BINGHAM [facility] During your visit today, we recorded the [...] 8 hours as needed for nausea/vomiting. - Xznvqqum-Er-Sqs-Fe-FA tab Take 1 tablet by mouth once [...] Status:Closed by ADAMA HEARN on 01/26/25 Normal [facility] Examination level ultrasound on 01-26-2025 Indication First trimester anatomic survey. Nicotine use Impression The patient is referred for a first trimester anatomy scan including nuchal translucency measurement as clinically indicated. - Single, live, intrauterine . - Cyr rump length measurement is consistent with the [...] view: suboptimal 4-chamber view with color: suboptimal 2-zbtmru-ojwqtms view: suboptimal Abdominal cord insertion: normal Stomach: [...] Read By: Nina Conte M.D. MATERNAL MEDICINE [facility] Radiology Study observation (narrative) [facility] HBV surface Ag Ser Qlon - HBV surface Ag Ql (S) Negative Normal Negative [facility] Comment on above: Order Comment: Speci men Type: BLOOD SPECIMENOrdering Facility: [facility] Address: [address] [place] [address] Performed By: #### 5 195-3, 45375-6, 64169-5 ####[facility] LABIA [id number] [address] OF [facility] HCV Ab Ser Qlon 01-26-2025 HCV Ab Ql (S) Negative Normal Negative [facility] Comment on above: Order Comment: Speci men Type: BLOOD SPECIMENOrdering Facility: [facility] Address: [address] [place] [address] Result Comment: The result suggests no evidence of active infection with Hepatitis C virus. Should recent infection be suspected, repeat testing may be considered 4-6 weeks after this draw. Performed By: #### 1 6128-1 ####[facility] LABCLIA [id number] [address] [place] HIV 1+2 Ab IA Qlon 5 HIV 1 and 2 Ab IA.rapid Nom (S/P/Bld) Normal [facility] Comment on above: Order Comment: Speci men Type: BLOOD SPECIMENOrdering Facility: [facility] Address: [address] [place] [address] Result Comment: Test not indicated. Performed By: #### 5 195-3, 08081-4, 13954-4 ####[facility] LABCLIA [id number] [address] OF [facility] HIV 1+2 Ab+HIV1 p24 Ag IA Ql Non-Reactive Normal Nonreactive [facility] Comment on above: Order Comment: Speci men Type: BLOOD SPECIMENOrdering Facility: [facility] Address: [address] [place] [address] Performed By: #### 5 195-3, 21452-0, 57021-1 ####[facility] [id number] [address] [place] HIV immunoassay testing algorithm interpretation (S/P/Bld) [Interp] Normal [facility] Comment on above: Order Comment: Speci men Type: BLOOD SPECIMENOrdering Facility: [facility] Address: [address] [place] [address] Result Comment: No e vidence of HIV-1 or HIV-2 infection. Should recent infection be suspected, repeat testing may be considered 2-3 weeks after this draw. [place] Rev. Code 3701.243(E): This information has been [...] or diagnoses. Performed By: #### 5 195-3, 88540-0, 35222-1 ####[facility] LABCLIA [id number] [place] [address] [place] HbA1c (Bld)on 01-26-2025 Average glucose Estimated from glycated hemoglobin (Bld) [Mass/Vol] 91 mg/dL Normal [facility] Comment on above: Order Comment: Ramona lopez Type: BLOOD SPECIMENOrdering Facility: [facility] Address: [address] [place] [address] Result Comment: eAG: (Estimated average glucose) is a calculated value from HgbA1c and is compliance representative of the average blood glucose level in the last 2-3 month period. Performed By: #### 5 5454-3 ####[facility] LABCLIA [id number] [address] [place] HbA1c (Bld) [Mass fraction] 4.8 % Normal 4.3-5.6 [facility] Comment on above: Order Comment: Ramona lopez Type: BLOOD SPECIMENOrdering Facility: [facility] Address: [address] [place] [address] Result Comment: Amer ican Diabetes Association guidelines indicate that patients with HgbA1c in the range 5.7-6.4% are at increased risk for development of diabetes, and intervention by lifestyle modification may be beneficial. HgbA1c greater or equal to 6.5% is considered diagnostic of diabetes. Performed By: #### 5 5454-3 ####[facility] LABCLIA [id number] [place] [address] [place] ILROIBTR50 PLUSon 01-26-2025 Cell-free DNA./Cell-free DNA.total Dosage of chromosome-specific cfDNA (cfDNA) [Molar fraction] 15% Normal [facility] Comment on above: Order Comment: Speci men Type: BLOOD SPECIMENOrdering Facility: [facility] Address: [address] [place] [address] Performed By: #### M AT21 ####[facility] LABCLIA [id number] [facility] [address] Chr 13+18+21+X+Y aneuploidy Dosage of chromosome-specific cfDNA Ql (cfDNA) Negative Normal [facility] Comment on above: Order Comment: Speci men Type: BLOOD SPECIMENOrdering Facility: [facility] Address: [address] [place] [address] Performed By: #### M AT21 ####[facility] LABCLIA [id number] [place] [address] Chr 21 trisomy Dosage of chromosome-specific cfDNA Ql (cfDNA) Negative Normal [facility] Comment on above: Order Comment: Speci men Type: BLOOD SPECIMENOrdering Facility: [facility] Address: [address] [place] [address] Performed By: #### M AT21 ####[facility] LABCLIA [id number] [place] [address] Chr X and Y aneuploidy risk Sequencing Ql (cfDNA) [Interp] Not detected Normal [facility] Comment on above: Order Comment: Speci men Type: BLOOD SPECIMENOrdering Facility: [facility] Address: [address] [place] [address] Result Comment: Not Detected Not Detected Performed By: #### M AT21 ####[facility] LABCLIA [id number] [place] [address] Citation Brodie (Reference lab test) Comment Normal [facility] Comment on above: Order Comment: Speci men Type: BLOOD SPECIMENOrdering Facility: [facility] Address: [address] [place] [address] Result Comment: 1. P nighat HERNANDEZ, et al. Joyce Med. 2012;14(3):296-305. 2. Nikki LOVE et al. Prenat Diag. 2013;33(6):591-597. 3. Dewayne C, et al. Clin Chem. 2015 Apr;61(4):608-616. 4. Lawrence HERNANDEZ, et al. Joyce Med. 2011;13(11):913-920. 5. ACOG/SMFM Practice Bulletin No. 226, Aug 2020. Performed By: #### M AT21 ####[facility] LABCLIA [id number] [place] [address] Gestational age Estimated from conception date Rose Normal [facility] Comment on above: Order Comment: Speci men Type: BLOOD SPECIMENOrdering Facility: [facility] Address: [address] [place] [address] Performed By: #### M AT21 ####[facility] LABCLIA [id number] [place] [address] GESTATIONALAGE AGE > OR = 9W Yes Normal [facility] Comment on above: Order Comment: Speci men Type: BLOOD SPECIMENOrdering Facility: [facility] Address: [address] [place] [address] Performed By: #### M AT21 ####[facility] LABCLIA [id number] [place] [address] Laboratory comment Brodie (Report) Comment Normal [facility] Comment on above: Order Comment: Speci men Type: BLOOD SPECIMENOrdering Facility: [facility] Address: [address] [place] [address] Result Comment: The MaterniT(R) 21 PLUS laboratory-developed test (LDT) analyzes circulating cell-free DNA from a maternal blood sample. This test is used for screening purposes and not diagnostic. Clinical correlation is recommended. Validation data on twin pregnancies is limited and the ability of this test to detect aneuploidy in higher multiple gestations has not yet been validated. Performed By: #### M AT21 ####[facility] LABCLIA [id number] [place] [address] resident hall director name Nom (Provider) Comment Normal [facility] Comment on above: Order Comment: Speci men Type: BLOOD SPECIMENOrdering Facility: [facility] Address: [address] [place] [address] Result Comment: This specimen showed an expected representation of chromosome 21, 18 and 13 material. Clinical correlation is suggested. Comment Tate Monet MD, PhD, Director, [employer] Performed By: #### M AT21 ####[facility] LABCLIA [id number] [place] [address] LIMITATIONS OF THE TEST Comment Normal [facility] Comment on above: Order Comment: Speci men Type: BLOOD SPECIMENOrdering Facility: [facility] Address: [address], [place] [address] Result Comment: Alexys alfonso the results of [...] and Fragmin(R)). Performed By: #### M AT21 ####[facility] LABCLIA [id number] [place] [address] Monosomy X risk Dosage of chromosome-specific cfDNA Ql (Plasma cell-free+WBC DNA) [Interp] Not detected Normal [facility] Comment on above: Order Comment: Speci jessica Type: BLOOD SPECIMENOrdering Facility: [facility] Address: [address] [place] [address] Performed By: #### M AT21 ####[facility] LABCLIA [id number] [place] [address] NEGATIVE PREDICTIVE VALUE Note Normal [facility] Comment on above: Order Comment: Ramona jessica Type: BLOOD SPECIMENOrdering Facility: [facility] Address: [address] [place] [address] Result Comment: The Negative Predictive Value (NPV) for trisomy 21, 18, and 13 is greater than 99%. The NPV for SCA and ESS cannot be calculated as SCA and ESS are only reported when an abnormality is detected. Performed By: #### M AT21 ####[facility] LABCLIA [id number] [place] [address] PERFORMANCE CHARACTERISTICS Note Normal [facility] Comment on above: Order Comment: Ramona lopez Type: BLOOD SPECIMENOrdering Facility: [facility] Address: [address] [place] [address] Result Comment: ! Sex ! Accuracy: 99.4% [...] gestation only. Performed By: #### M AT21 ####[facility]BackchatPHYSIC[facility] [id number] [place] [address] POSITIVE PREDICTIVE VALUE N/A Normal [facility] Comment on above: Order Comment: Speci men Type: BLOOD SPECIMENOrdering Facility: [facility] Address: [address] [place] [address] Performed By: #### M AT21 ####[facility] LABCLIA [id number] [place] [id number] Reference Lab Test Method Comment Normal [facility] Comment on above: Order Comment: Speci men Type: BLOOD SPECIMENOrdering Facility: [facility] Address: [address] [place] [address] Result Comment: See Notes Circulating cell-free DNA [...] and 22. Performed By: #### M AT21 ####[facility] LABCLIA [id number] [place] [id number] Service comment (Unsp spec) [Interp] Comment Normal [facility] Comment on above: Order Comment: Speci men Type: BLOOD SPECIMENOrdering Facility: [facility] Address: [address] [place] [address] Result Comment: See Notes [employer] is a subsidiary of [employer], using the brand [employer]. This test was developed and its performance characteristics determined by [employer]. It has not been cleared or approved by the Food and Drug Administration. This laboratory is certified under the Clinical Laboratory Improvement Amendments (CLIA) as qualified to perform high complexity clinical laboratory testing and accredited by the [employer] [place] [employer] (CAP). If there is future clinical need for adding MaterniT GENOME testing, this specimen will be available until term. [facility] samples will not be retained beyond 60 days. [facility] patients will have to send a new sample for re-sequencing ([facility] Test Code: 244336). Performed By: #### M AT21 ####[facility] LABCLIA [id number] [place] [address] Sex Dosage of chromosome-specific cfDNA Nom (cfDNA) Comment Normal [facility] Comment on above: Order Comment: Speci men Type: BLOOD SPECIMENOrdering Facility: [facility] Address: [address] [place] [address] Result Comment: Cons istent with Female Performed By: #### M AT21 ####[facility] LABCLIA [id number] [place] [address] Test performance information Brodie (Unsp spec) Comment Normal [facility] Comment on above: Order Comment: Speci men Type: BLOOD SPECIMENOrdering Facility: [facility] Address: [address] [place] [address] Result Comment: The performance characteristics of the MaterniT(R) 21 PLUS laboratory-developed test (LDT) have been determined in a clinical validation study with women at increased risk for chromosomal aneuploidy.[1-4] Performed By: #### M AT21 ####[facility] LABCLIA [id number] [place] [address] Trisomy 13 risk Dosage of chromosome-specific cfDNA Ql (cfDNA) [Interp] Negative Normal [facility] Comment on above: Order Comment: Speci men Type: BLOOD SPECIMENOrdering Facility: [facility] Address: [address] [place] [address] Performed By: #### M AT21 ####[facility] LABCLIA [id number] [place] [address] Trisomy 18 risk Dosage of chromosome-specific cfDNA Ql (Plasma cell-free+WBC DNA) [Interp] Negative Normal [facility] Comment on above: Order Comment: Speci men Type: BLOOD SPECIMENOrdering Facility: [facility] Address: [address] [place] [address] Performed By: #### M AT21 ####[facility] LABCLIA [id number] [place] [address] RUBELLA IGG ANTIBODYon 01-26 RUBELLA IGG AB, QUAL Positive Normal Positive [facility] Comment on above: Order Comment: Speci men Type: BLOOD SPECIMENOrdering Facility: [facility] Address: [address] [place] [address] Result Comment: The result suggests recent or past exposure to Rubella virus or history of Rubella vaccination. Positive result may also be seen due to presence of passively-transferred antibodies. Please correlate with patient's history. Performed By: #### R UBIGG ####[facility] LABCLIA [id number] [place] [address] [place] Reagin and Treponema pallidu m IgG and IgM [Interp]on 01-26-2025 T. pallidum IgG+IgM IA Ql (S) Non-Reactive Normal Nonreactive [facility] Comment on above: Order Comment: Speci [facility] Type: BLOOD SPECIMENOrdering Facility: [facility] Address: [address] [place] [address] Performed By: #### 5 195-3, 95610-1, 44623-6 ####[facility] LABCLIA [id number] [place] [address] [place] Reagin+T pallidum IgG+IgM Se rPl-Impon 01-26-2025 Reagin and Treponema pallidum IgG and IgM [Interp] Cannot exclude recent Treponemal infection if specimen collected within 7-10 days after appearance of suspect lesions or 2-3 weeks after an exposure. Clinical correlation is required. Normal [facility] [facility] Comment on above: Order Comment: [facility] Type: BLOOD SPECIMENOrdering Facility: [facility] Address: [address] [place] [address] Performed By: #### 5 195-3, 47946-6, 67666-5 ####[facility] LABCLIA [id number] [place] [id number] [place] TYPE + SCREEN PRENATALon ABO O Normal [facility] Comment on above: Order Comment: Speci men Type: BLOOD SPECIMENOrdering Facility: [facility] Address: [address] [place] [address] Performed By: #### T SPN ####CC MAIN BLOOD BANKCLIA [id number] [place] [address] [place] Rh Nom (Bld) Positive Normal [facility] Comment on above: Order Comment: Speci men Type: BLOOD SPECIMENOrdering Facility: [facility] Address: [address] [place] [address] Performed By: #### T SPN ####CC [facility] BLOOD BANKIA [id number] [address] STATES OF [facility] TYPE AND SCREEN EXPIRATION 01/29/2025 23:59 Normal [facility] Comment on above: Order Comment: Speci men Type: BLOOD SPECIMENOrdering Facility: [facility] Address: [address] [place] [address] Performed By: #### T SPN ####CC [facility] BLOOD BANKCLIA [id number] [place] [address] [place] BACTERIAL VAGINOSIS NAATon 0 01-25-2025 Lactobacillus crispatus+gasseri+je nsenii + Gardnerella vaginalis + Atopobium vaginae rRNA MITUL+probe Ql (Vag fld) Detected Abnormal Not detected [facility] Comment on above: Order Comment: Speci men Type: SWABOrdering Facility: [facility] Address: [address] [place] [address] Performed By: #### B VAMP, CVTV ####[facility] LABCLIA [id number] [place] [address] [place] Bacteria Ur Culton 5 Bacteria identified Cx Nom (U) ORGANISM ID: 1 <10,000 CFU/ml Normal urogenital kajal Normal [facility] Comment on above: Performed By: #### 6 30-4 ####[facility] LABIA [id number] [place] [address] [place] C. trachomatis+N. gonorrhoea e DNA MITUL+probe Ql (Unsp spec)on 01-25-2025 C. trachomatis rRNA MITUL+probe Ql (Unsp spec) Not detected Normal Not detected [facility] Comment on above: Order Comment: Speci men Type: SWABOrdering Facility: [facility] Address: [address] [place] [address] Performed By: #### 3 6902-5 ####[facility] LABIA [id number] [address] N. gonorrhoeae rRNA MITUL+probe Ql (Unsp spec) Not detected Normal Not detected [facility] Comment on above: Order Comment: Speci men Type: SWABOrdering Facility: [facility] Address: [address] [place] [address] Performed By: #### 3 6902-5 ####[facility] [id number] [place] [address] [place] ASHLEY/TRICHOMONAS NAATon 0 01-25-2025 C. glabrata RNA MITUL+probe Ql (Vag fld) Not detected Normal Not detected [facility] Comment on above: Order Comment: Speci men Type: SWABOrdering Facility: [facility] Address: [address] [place] [address] Performed By: #### B VAMP, CVTV ####[facility] [id number] [address] [place] Ashley sp DNA MITUL+probe Ql (Vag fld) Not detected Normal Not detected [facility] Comment on above: Order Comment: Speci men Type: SWABOrdering Facility: [facility] Address: [address] [place] [address] Result Comment: The Ashley species group target includes C. albicans, C. tropicalis, C. parapsilosis, and C. dubliniensis. Performed By: #### B VAMP, CVTV ####[facility] LABCLIA [id number] [place] [address] [place] T. vaginalis DNA MITUL+probe Ql (Unsp spec) Not detected Normal Not detected [facility] Comment on above: Order Comment: Speci men Type: SWABOrdering Facility: [facility] Address: [address] [place] [address] Performed By: #### B VAMP, CVTV ####[facility] LABCLIA [id number] [place] [address] [place] HIGH RISK HUMAN PAPILLOMA GENET (HPV), PCR FOR DETECTION AND GENOTYPINGon 01-25-2025 HPV 16 Ag Ql (Unsp spec) Not detected Normal Not detected [facility] Comment on above: Order Comment: Speci men Type: FLUID SPECIMENOrdering Facility: [facility] Address: [address] [place] [address] Performed By: #### H PVHRT ####[facility] LABIA [id number] [place] [address] [place] HPV 18 Ag Ql (Unsp spec) Not detected Normal Not detected [facility] Comment on above: Order Comment: Speci men Type: FLUID SPECIMENOrdering Facility: [facility] Address: [address] [place] [address] Performed By: #### H PVHRT ####[facility] LABIA [id number] [place] [address] [place] HPV 31+33+35+39+45+51+52 +56+58+59+66+68 DNA MITUL+probe Ql (Cvx) Detected Abnormal Not detected [facility] Comment on above: Order Comment: Speci men Type: FLUID SPECIMENOrdering Facility: [facility] Address: [address] [place] [address] Result Comment: High Risk HPV Other Type includes HPV types 31, 33, 35, 39, 45, 51, 52, 56, 58, 59, 66 and 68. Performed By: #### H PVHRT ####[facility] LABCLIA [id number] [address] [place] [address] [place] PAP TESTon 01-25-2025 ADEQUACY Normal [facility] Comment on above: Order Comment: Speci men Type: FLUID SPECIMENOrdering Facility: [facility] Address: [address] [place] [address] Result Comment: Sati sfactory for interpretation. Transformation zone present Performed By: #### L [id number] ####[facility] LABCLIA [id number] [place] [address] [place] CASE REPORT Normal [facility] Comment on above: Order Comment: Speci men Type: FLUID SPECIMENOrdering Facility: [facility] Address: [address] [place] [address] Result Comment: Gyne cologic Cytology Report Case: [id number] Authorizing Provider: Lakesha Bingham APRN.CNM Collected: 01/25/2025 11:42 AM Ordering Location: OB/Gynecology Received: 01/25/2025 04:52 PM First Screen: Lakesha Rush, CT, ASCP Rescreen: Gayle Pathak CT, ASCP Specimen: Pap Test, ThinPrep, Cervix Performed By: #### L [id number] ####[facility] LABCLIA [id number] [address] [place] [address] [place] CLINICAL HISTORY, CYTOLOGY, FACILITY SUPERVISOR Routine Exam Normal [facility] Comment on above: Order Comment: Speci men Type: FLUID SPECIMENOrdering Facility: [facility] Address: [address] [place] [address] Result Comment: Preg nant (Indicate Weeks) 11 weeks Performed By: #### L [id number] ####[facility] LABCLIA [id number] [address] [place] [address] [place] CYTOLOGY PAP OTHER INTERPRETATION Predominance of coccobacilli consistent with shift in vaginal kajal. Normal [facility] Comment on above: Order Comment: Speci men Type: FLUID SPECIMENOrdering Facility: [facility] Address: [address] [place], [place] [address] Performed By: #### L [id number] ####[facility] LABCLIA [id number] [facility] [address] [place] [address] [place] FINAL PERFORMING LAB Normal [facility] Comment on above: Order Comment: Speci men Type: FLUID SPECIMENOrdering Facility: [facility] Address: [address] [place], [place] [address] Result Comment: Tech nical component, machine shop apprentice screening performed at [facility], [address] [place] [address] [place] [address] CLIA# [id number] Diagnostic interpretation performed at [facility], [address] [place] [address] [place] [address] CLIA# [id number] Imaging Administrator: Navneet Beltran M.D. Performed By: #### L [id number] ####[facility] LABCLIA [id number] [address] [place] [address] [place] INTERPRETATION, CYTOLOGY, FACILITY SUPERVISOR Normal [facility] Comment on above: Order Comment: Speci men Type: FLUID SPECIMENOrdering Facility: [facility] Address: [address] [place], [place] [address] Result Comment: Nega tive for intraepithelial lesion or malignancy. at 1353 EDT Performed By: #### L [id number] ####[facility] LABCLIA [id number] [address] [place] [address] [place] LMP 11/08/2024 Normal [facility] Comment on above: Order Comment: Speci men Type: FLUID SPECIMENOrdering Facility: [facility] Address: [address] [place] [address] Performed By: #### L [id number] ####[facility] LABCLIA [id number] [facility] [address] [place] [address] [facility] [place] PAP DISCLAIMER COMMENT The Pap Smear is a screening test for cervical cancer. False negative results occur with all screening tests, emphasizing the need for rescreening at recommended intervals, and clinical correlation. Normal [facility] Comment on above: Order Comment: Speci men Type: FLUID SPECIMENOrdering Facility: [facility] Address: [address] [facility] [facility] [place] [address] Performed By: #### L [id number] ####[facility] LABCLIA [id number] [place] [id number] [facility] [place] CNPNon 01-20-2025 CNPN Telephone (OBGYWM) ELAINE AC ([id number]) 1990 F Date Time Provider Department 01/20/25 [...] viability and can see her next week. Lakseha Bingham APRN.CNM Digna Villalobos RN 01/21/2025 10:40 [...] Status:Closed by DIGNA VILLALOBOS on 01/21/25 Normal [facility] Influenza virus A and B and SARS-CoV-2 (COVID-19) identified MITUL+probe Nom (Resp)on 01-19-2025 FLUAV RNA MITUL+probe Ql (Resp) Not detected Normal Not Detected [facility] Comment on above: Order Comment: This assay is an FDA-cleared, in vitro diagnostic nucleic acid amplification test for the qualitative detection and differentiation of SARS CoV-2/ Influenza A/B from nasopharyngeal specimens collected from individuals with signs and symptoms of respiratory tract infections, and has been validated for use at [facility]. Negative results do not preclude COVID-19/ Influenza A/B infections and should not be used as the sole basis for diagnosis, treatment, or other management decisions. Testing for SARS CoV-2 is recommended only for patients who meet current clinical and/or epidemiological criteria defined by federal, state, or local public health directives. Performed By: #### 9 5423-0 #### HARDIK DAVE ([id number]) [facility] ([facility]) [address] [place] [address] FLUBV RNA MITUL+probe Ql (Resp) Not detected Normal Not Detected [facility] Comment on above: Order Comment: This assay is an FDA-cleared, in vitro diagnostic nucleic acid amplification test for the qualitative detection and differentiation of SARS CoV-2/ Influenza A/B from nasopharyngeal specimens collected from individuals with signs and symptoms of respiratory tract infections, and has been validated for use at [facility]. Negative results do not preclude COVID-19/ Influenza A/B infections and should not be used as the sole basis for diagnosis, treatment, or other management decisions. Testing for SARS CoV-2 is recommended only for patients who meet current clinical and/or epidemiological criteria defined by federal, state, or local public health directives. Performed By: #### 9 5423-0 #### HARDIK DAVE ([id number]) [facility] ([facility]) [address] [place] [address] SARS-CoV-2 (COVID-19) RNA MITUL+probe Ql (Resp) Not detected Normal Not Detected [facility] Comment on above: Order Comment: This assay is an FDA-cleared, in vitro diagnostic nucleic acid amplification test for the qualitative detection and differentiation of SARS CoV-2/ Influenza A/B from nasopharyngeal specimens collected from individuals with signs and symptoms of respiratory tract infections, and has been validated for use at [facility]. Negative results do not preclude COVID-19/ Influenza A/B infections and should not be used as the sole basis for diagnosis, treatment, or other management decisions. Testing for SARS CoV-2 is recommended only for patients who meet current clinical and/or epidemiological criteria defined by federal, state, or local public health directives. Performed By: #### 9 5423-0 #### HARDIK DAVE (85838) [facility] ([facility]) [address] [place] [address] Respiratory syncytial virus RNAon 01-19-2025 RSV RNA MITUL+probe Ql (Resp) Not detected Normal Not Detected [facility] Comment on above: Order Comment: This assay is an FDA-cleared, in vitro diagnostic nucleic acid amplification test for the detection of RSV from nasopharyngeal specimens, and has been validated for use at [facility]. Negative results do not preclude RSV infections, and should not be used as the sole basis for diagnosis, treatment, or other management decisions. If Influenza A/B and RSV PCR results are negative, testing for Parainfluenza virus, Adenovirus and Metapneumovirus is routinely performed for pediatric oncology and intensive care inpatients at [facility], and is available on other patients by placing an add-on request. Performed By: #### 9 2131-2 #### HARDIK DAVE ([id number]) [facility] ([facility]) [address] [place] [address] Urinalysis complete W Reflex Culture panel (U)on 01-19-2025 Appearance (U) Turbid Normal Clear [facility] Comment on above: Performed By: #### 5 8077-9 #### HARDIK DAVE ([id number]) [facility] ([facility]) [address] [place] [address] Bilirubin (U) [Mass/Vol] Negative Normal NEGATIVE [facility] Comment on above: Performed By: #### 5 8077-9 #### HARDIK DAVE (30476) [facility] ([facility]) [address] [place] [address] Color (U) Light-Yellow Normal Light-Yellow, Yellow, Dark-Yellow [facility] Comment on above: Performed By: #### 5 8077-9 #### HARDIK DAVE (44383) [facility] ([facility]) [address] [place] [address] Glucose Auto test strip (U) [Mass/Vol] Normal Normal Normal [facility] Comment on above: Performed By: #### 5 8077-9 #### HARDIK DAVE ([id number]) [facility] ([facility]) [address] [place], [place] [address] Ketones (U) [Mass/Vol] Negative Normal NEGATIVE [facility] Comment on above: Performed By: #### 5 8077-9 #### HARDIK DAVE ([id number]) [facility] ([facility]) [address] [place], [place] [address] Leukocyte esterase Auto test strip Ql (U) Negative Normal NEGATIVE [facility] Comment on above: Performed By: #### 5 8077-9 #### HARDIK DAVE (40871) [facility] ([facility]) [address] [place], [place] [address] Nitrite Auto test strip Ql (U) Negative Normal NEGATIVE [facility] Comment on above: Performed By: #### 5 8077-9 #### HARDIK DAVE (29937) [facility] ([facility]) [address] [place], [place] [address] pH (U) 6.5 [pH] Normal 5.0, 5.5, 6.0, 6.5, 7.0, 7.5, 8.0 [facility] Comment on above: Performed By: #### 5 8077-9 #### HARDIK DAVE (09421) [facility] ([facility]) [address] [place] [address] Protein (U) [Mass/Vol] Negative Normal NEGATIVE, 10 (TRACE), 20 (TRACE) [facility] Comment on above: Performed By: #### 5 8077-9 #### HARDIK DAVE (70059) [facility] ([facility]) [address] [place] [address] 20658 RBC (U) [#/Vol] Negative Normal NEGATIVE [facility] Comment on above: Performed By: #### 5 8077-9 #### HARDIK DAVE (67083) [facility] ([facility]) [address] [place] [address] 75981 Specific gravity (U) [Rel density] 1.021 Normal 1.005-1.035 [facility] Comment on above: Performed By: #### 5 8077-9 #### HARDIK DAVE (64392) [facility] ([facility]) [address] [place] [address] Urobilinogen (U) [Mass/Vol] Normal Normal Normal [facility] Comment on above: Performed By: #### 5 8077-9 #### HARDIK DAVE (86658) [facility] ([facility]) [address] [place], [place] [address] CBC W Auto Differential pane l (Bld)on 04-04-2024 Basophils (Bld) [#/Vol] 0.07 x10*3/uL Normal 0.00-0.10 [facility] Comment on above: Performed By: #### 5 7021-8 #### HARDIK DAVE (43195) [facility] ([facility]) [address] [place] [address]9050 Basophils/100 WBC (Bld) 0.8 % Normal 0.0-2.0 [facility] Comment on above: Performed By: #### 5 7021-8 #### HARDIK DAVE (76592) [facility] ([facility]) [address] [place] [address] 90649 Eosinophils (Bld) [#/Vol] 0.28 x10*3/uL Normal 0.00-0.70 [facility] Comment on above: Performed By: #### 5 7021-8 #### HARDIK DAVE (71958) [facility] ([facility]) [address] [place] [address] 16485 Eosinophils/100 WBC (Bld) 3.3 % Normal 0.0-6.0 [facility] Comment on above: Performed By: #### 5 7021-8 #### HARDIK DAVE (21111) [facility] ([facility]) [address] [place] [address] 53173 Erythrocyte distribution width (RBC) [Ratio] 12.2 % Normal 11.5-14.5 [facility] Comment on above: Performed By: #### 5 7021-8 #### HARDIK DAVE (66083) [facility] ([facility]) [address] [place] [address] 83871 Hematocrit (Bld) [Volume fraction] 40.7 % Normal 36.0-46.0 [facility] Comment on above: Performed By: #### 5 7021-8 #### HARDIK DAVE (76938) [facility] ([facility]) [address] [place] [address] 27738 Hemoglobin (Bld) [Mass/Vol] 13.8 g/dL Normal 12.0-16.0 [facility] Comment on above: Performed By: #### 5 7021-8 #### HARDIK DAVE (15344) [facility] ([facility]) [address] [place] [address] 73485 Immature granulocytes (Bld) [#/Vol] 0.02 x10*3/uL Normal 0.00-0.70 [facility] Comment on above: Performed By: #### 5 7021-8 #### HARDIK DAVE (11573) [facility] ([facility]) [address] [place] [address] 61304 Immature granulocytes/100 WBC (Bld) 0.2 % Normal 0.0-0.9 [facility] Comment on above: Result Comment: Alice ture Granulocyte Count (IG) includes promyelocytes, myelocytes and metamyelocytes but does not include bands. Percent differential counts (%) should be interpreted in the context of the absolute cell counts (cells/UL). Performed By: #### 5 7021-8 #### HARDIK DAVE (88811) [facility] ([facility]) [address] [place] [address] 48131 Lymphocytes (Bld) [#/Vol] 2.35 x10*3/uL Normal 1.20-4.80 [facility] Comment on above: Performed By: #### 5 7021-8 #### HARDIK DAVE (03213) [facility] ([facility]) [address] [place] [address] 52174 Lymphocytes/100 WBC (Bld) 27.5 % Normal 13.0-44.0 [facility] Comment on above: Performed By: #### 5 7021-8 #### HARDIK DAVE (71861) [facility] ([facility]) [address] [place] [address] 21927 MCH (RBC) [Entitic mass] 30.1 pg Normal 26.0-34.0 [facility] Comment on above: Performed By: #### 5 7021-8 #### HARDIK DAVE (58575) [facility] ([facility]) [address] [place] [address] 42309 MCHC (RBC) [Mass/Vol] 33.9 g/dL Normal 32.0-36.0 [facility] Comment on above: Performed By: #### 5 7021-8 #### HARDIK DAVE (70883) [facility] ([facility]) [address] [place] [address] 49480 MCV (RBC) [Entitic vol] 89 fL Normal 80-100 [facility] Comment on above: Performed By: #### 5 7021-8 #### HARDIK DAVE (29231) [facility] ([facility]) [address] [place] [address] 44683 Monocytes (Bld) [#/Vol] 0.49 x10*3/uL Normal 0.10-1.00 [facility] Comment on above: Performed By: #### 5 7021-8 #### HARDIK DAVE (56770) [facility] ([facility]) [address] [place] [address] 43267 Monocytes/100 WBC (Bld) 5.7 % Normal 2.0-10.0 [facility] Comment on above: Performed By: #### 7021-8 #### HARDIK DAVE (65789) [facility] ([facility]) [address] [place] [address] 45939 Neutrophils (Bld) [#/Vol] 5.33 x10*3/uL Normal 1.20-7.70 [facility] Comment on above: Result Comment: Perc ent differential counts (%) should be interpreted in the context of the absolute cell counts (cells/uL). Performed By: #### 5 7021-8 #### HARDIK DAVE (28729) [facility] ([facility]) [address] [place] [address] 80376 Neutrophils/100 WBC (Bld) 62.5 % Normal 40.0-80.0 [facility] Comment on above: Performed By: #### 5 7021-8 #### HARDIK DAVE (20199) [facility] ([facility]) [address] [place] [address] 55830 Nucleated RBC/100 WBC (Bld) [Ratio] 0.0 /100 WBCs Normal 0.0-0.0 [facility] Comment on above: Performed By: #### 5 7021-8 #### HARDIK DAVE (52348) [facility] ([facility]) [address] [place] [address] 31195 Platelets (Bld) [#/Vol] 368 x10*3/uL Normal 150-450 [facility] Comment on above: Performed By: #### 5 7021-8 #### HARDIK DAVE (29944) [facility] ([facility]) [address] [place] [address] 44976 RBC (Bld) [#/Vol] 4.58 x10*6/uL Normal 4.00-5.20 [facility] Comment on above: Performed By: #### 5 7021-8 #### HARDIK DAVE (43140) [facility] ([facility]) [address] [place] [address] 15052 WBC (Bld) [#/Vol] 8.5 x10*3/uL Normal 4.4-11.3 [facility] Comment on above: Performed By: #### 5 7021-8 #### HARDIK DAVE (83327) [facility] ([facility]) [address] [place] [address] 26942 Comprehensive metabolic 2000 panelon 04-04-2024 Albumin BCP dye [Mass/Vol] 4.2 g/dL Normal 3.4-5.0 [facility] Comment on above: Performed By: #### 2 4323-8 #### HARDIK DAVE (59146) [facility] ([facility]) [address] [place] [address] 90704 ALP [Catalytic activity/Vol] 71 U/L Normal 33-110 [facility] Comment on above: Performed By: #### 2 4323-8 #### HARDIK DAVE (39588) [facility] ([facility]) [address] [place] [address] 60506 ALT With P-5'-P [Catalytic activity/Vol] 12 U/L Normal 7-45 [facility] Comment on above: Result Comment: Jeri ents treated with Sulfasalazine may generate falsely decreased results for ALT. Performed By: #### 2 4323-8 #### HARDIK DAVE (41791) [facility] ([facility]) [address] [place] [address] 90264 Anion gap [Moles/Vol] 10 mmol/L Normal 10-20 [facility] Comment on above: Performed By: #### 2 4323-8 #### HARDIK DAVE (42759) [facility] ([facility]) [address] [place] [address] 84082 AST With P-5'-P [Catalytic activity/Vol] 14 U/L Normal 9-39 [facility] Comment on above: Performed By: #### 2 4323-8 #### HARDIK DAVE (25348) [facility] [facility] ([facility]) [address] [place] [address]65 Bilirubin [Mass/Vol] 0.4 mg/dL Normal 0.0-1.2 [facility] Comment on above: Performed By: #### 2 4323-8 #### HARDIK DAVE ([id number]) [facility] ([facility]) [address] [place] [address] Calcium [Mass/Vol] 10.7 mg/dL High 8.6-10.3 [facility] Comment on above: Performed By: #### 2 4323-8 #### HARDIK DAVE ([id number]) [facility] ([facility]) [facility] [place] [address] Chloride [Moles/Vol] 108 mmol/L High 98-107 [facility] Comment on above: Performed By: #### 2 4323-8 #### HARDIK DAVE ([id number]) [facility] ([facility]) [address] [place] [address] 87474 CO2 [Moles/Vol] 23 mmol/L Normal 21-32 [facility] Comment on above: Performed By: #### 2 4323-8 #### HARDIK DAVE ([id number]) [facility] ([facility]) [address] [place] [address] 19329 Creatinine [Mass/Vol] 0.87 mg/dL Normal 0.50-1.05 [facility] Comment on above: Performed By: #### 2 4323-8 #### HARDIK DAVE ([id number]) [facility] ([facility]) [address] [place] [address] 10657 GFR/1.73 sq M.predicted MDRD (S/P/Bld) [Vol rate/Area] mL/min/{1.73_m2} Normal >60 [facility] Comment on above: Result Comment: Calc ulations of estimated GFR are performed using the 2020 CKD-EPI Study Refit equation without the race variable for the IDMS-Traceable creatinine methods. https://jasn.asnjournals.org/content//ASN.1959834 988 Performed By: #### 2 4323-8 #### HARDIK DAVE ([id number]) [facility] ([facility]) [address] [place] [address] 96282 Glucose [Mass/Vol] 95 mg/dL Normal 74-99 [facility] Comment on above: Performed By: #### 2 4323-8 #### HARDIK DAVE ([id number]) [facility] ([facility]) [address] [place] [address] Potassium [Moles/Vol] 4.6 mmol/L Normal 3.5-5.3 [facility] Comment on above: Performed By: #### 2 4323-8 #### HARDIK DAVE ([id number]) [facility] ([facility]) [address] [place] [address] 28006 Protein [Mass/Vol] 6.5 g/dL Normal 6.4-8.2 [facility] Comment on above: Performed By: #### 2 4323-8 #### HARDIK DAVE ([id number]) [facility] ([facility]) [address] [place] [address] 30723 Sodium [Moles/Vol] 136 mmol/L Normal 136-145 [facility] Comment on above: Performed By: #### 2 4323-8 #### HARDIK DAVE ([id number]) [facility] ([facility]) [facility] [place] [address] Urea nitrogen [Mass/Vol] 12 mg/dL Normal 6-23 [facility] Comment on above: Performed By: #### 2 4323-8 #### HARDIK DAVE ([id number]) [facility] ([facility]) [facility] [place] [address] Lipid 1996 panelon 4 Cholesterol [Mass/Vol] 168 mg/dL Normal 0-199 [facility] Comment on above: Result Comment: Age [...] By: #### 2 4331-1 #### HARDIK DAVE ([id number]) [facility] ([facility]) [address] [place] [address] 89223 Cholesterol in HDL [Mass/Vol] 50.0 mg/dL Normal [facility] Comment on above: Result Comment: Age Very Low Low Normal High 0-19 Y < 35 < 40 40-45 ---- 20-24 Y ---- < 40 >45 ---- >24 Y ---- < 40 40-60 >60 Performed By: #### 2 4331-1 #### HARDIK DAVE ([id number]) [facility] ([facility]) [address] [place] [address] 48312 Cholesterol in LDL [Mass/Vol] 103 mg/dL High <=99 [facility] Comment on above: Result Comment: Near Borderline AGE Desirable Optimal High High Very High 0-19 Y 0 - 109 --- 110-129 >/= 130 ---- 20-24 Y 0 - 119 --- 120-159 >/= 160 ---- >24 Y 0 - 99 100-129 130-159 160-189 >/=190 Performed By: #### 2 4331-1 #### HARDIK DAVE ([id number]) [facility] ([facility]) [address] [place] [address] 60628 Cholesterol in VLDL [Mass/Vol] 15 mg/dL Normal 0-40 [facility] Comment on above: Performed By: #### 2 4331-1 #### HARDIK DAVE ([id number]) [facility] ([facility]) [address] [place] [address] 92002 CHOLESTEROL/HDL RATIO 3.4 Normal [facility] Comment on above: Result Comment: Ref Values Desirable < 3.4 High Risk > 5.0 Performed By: #### 2 4331-1 #### HARDIK DAVE ([id number]) [facility] ([facility]) [address] [place] [address] 23877 NON HDL CHOLESTEROL 118 mg/dL Normal 0-149 [facility] Comment on above: Result Comment: Age Desirable Borderline High High Very High 0-19 Y 0 - 119 120 - 144 >/= 145 >/= 160 20-24 Y 0 - 149 150 - 189 >/= 190 ---- >24 Y 30 mg/dL above LDL Cholesterol goal Performed By: #### 2 4331-1 #### HARDIK DAVE ([id number]) [facility] ([facility]) [address] [place] [address] 35489 Triglyceride [Mass/Vol] 74 mg/dL Normal 0-149 [facility] Comment on above: Result Comment: Age [...] By: #### 2 4331-1 #### HARDIK DAVE ([id number]) [facility] ([facility]) [address] [place], [place] [id number] TSH WITH REFLEX TO FREE T4 I F ABNORMALon 04-04-2024 TSH Qn 1.58 m[IU]/L Normal 0.44-3.98 [facility] Comment on above: Order Comment: TSH t esting is performed using different testing methodology at [facility] than at other [facility]. Direct result comparisons should only be made within the same method. Performed By: #### T HYDS #### HARDIK DAVE ([id number]) [facility] ([facility]) [address] [place] [address] 51252 BLOOD CELL PROFILE CBCS+on 0 12-04-2019 Hematocrit (Bld) [Volume fraction] 38.3 % Normal 36.0-46.0 [facility] Comment on above: Performed By: #### C WO #### [facility] [address] [place] [address] Hemoglobin (Bld) [Mass/Vol] 13.4 g/dL Normal 12.0-16.0 [facility] Comment on above: Performed By: #### C WO #### [facility] [address] [place] [address] 87354 MCH (RBC) [Entitic mass] 34.9 GM/DL Normal 31.0-37.0 [facility] Comment on above: Performed By: #### C WO #### [facility] [address] [place] [address] 78655 MCV (RBC) [Entitic vol] 88.9 fL Normal 80.0-100.0 [facility] Comment on above: Performed By: #### C WO #### [address] [address] MEAN CELL HEMOGLOBIN 31.0 PG Normal 26.0-34.0 [facility] Comment on above: Performed By: #### C WO #### [address] [address] Platelet mean volume (Bld) [Entitic vol] 7.4 UM3 Normal 7.4-10.4 [facility] Comment on above: Performed By: #### C WO #### [address] [address] Platelets (Bld) [#/Vol] 329 TH/MM3 Normal 140-440 [facility] Comment on above: Performed By: #### C WO #### [address] [address] RBC (Bld) [#/Vol] 4.31 MIL/MM3 Normal 4.00-5.20 [facility] Comment on above: Performed By: #### C WO #### [facility] [address] [place] [address]252 RED CELL DISTRIBUTION WID 13.0 UNITS Normal 11.5-14.5 [facility] Comment on above: Performed By: #### C WO #### [address] [address] WBC (Bld) [#/Vol] 10.1 TH/MM3 Normal 4.5-11.0 [facility] Comment on above: Performed By: #### C WO #### [facility] [address] [place] [address] COMPREHENSIVE METABOLIC PANE Kirk 12-04-2019 Albumin [Mass/Vol] 4.4 g/dL Normal 3.2-4.8 [facility] Comment on above: Performed By: #### B 12, MOP #### [facility] [address] [place] [address] Albumin/Globulin [Mass ratio] 2.0 {ratio} Normal 0.9-2.0 [facility] Comment on above: Performed By: #### B 12, MOP #### [facility] [address] [place] [address] 52080 ALP [Catalytic activity/Vol] 81 U/L Normal 40-121 [facility] Comment on above: Performed By: #### B 12, MOP #### [facility] [address] [place] [address] 96887 ALT/SGPT 18 IU/L Normal 9-48 [facility] Comment on above: Performed By: #### B 12, MOP #### [facility] [address] [place] [address] 26002 Anion gap [Moles/Vol] 9.4 mmol/L Normal 8-22 [facility] Comment on above: Performed By: #### B 12, MOP #### [facility] [address] [place] [address] 82084 AST/SGOT 18 IU/L Normal < 37 [facility] Comment on above: Performed By: #### B 12, MOP #### [facility] [address] [place] [address] 12822 Bilirubin [Mass/Vol] 0.3 mg/dL Normal 0.2-1.2 [facility] Comment on above: Performed By: #### B 12, MOP #### [facility] [address] [place] [address] 91088 Calcium [Mass/Vol] 10.0 mg/dL Normal 8.7-10.4 [facility] Comment on above: Performed By: #### B 12, MOP #### [facility] [address] [place] [address] 66324 Chloride [Moles/Vol] 107 mmol/L Normal 99-109 [facility] Comment on above: Performed By: #### B 12, MOP #### [facility] [address] [place] [address] CO2 [Moles/Vol] 27 mmol/L Normal 20-31 [facility] Comment on above: Performed By: #### B 12, MOP #### [facility] [address] [place] [address] Creatinine [Mass/Vol] 0.9 mg/dL Normal 0.5-1.1 [facility] Comment on above: Performed By: #### B 12, MOP #### [facility] [address] [place] [address] GFR/1.73 sq M predicted among non-blacks MDRD (S/P/Bld) [Vol rate/Area] mL/min/{1.73_m2} Normal [facility] Comment on above: Result Comment: TO ESTIMATE GFR FOR AMERICANS MULTIPLY THE RESULT BY 1.21. GFR LESS THAN 60 mL/min/1.73m2: SUGGESTIVE OF CHRONIC KIDNEY DISEASE. GFR LESS THAN 15 mL/min/1.73m2: SUGGESTIVE OF END STAGE RENAL DISEASE. Performed By: #### B 12, MOP #### [facility] [address] [place] [address] Globulin (S) [Mass/Vol] 2.2 G/dL Normal [facility] Comment on above: Performed By: #### B 12, MOP #### [facility] [address] [place] [address] Glucose [Mass/Vol] 83 mg/dL Normal 74-106 [facility] Comment on above: Result Comment: NOTE IF THIS IS A FASTING SPECIMEN THE FOLLOWING RANGES APPLY: NORMAL 70 TO 99 mg/dL PREDIABETIC 100 TO 125 mg/dL DIABETIC >= 126 mg/dL Performed By: #### B 12, MOP #### [address] [address] Osmolality [Osmolality] 278 mOSM/kg Normal 275-305 [facility] Comment on above: Performed By: #### B 12, MOP #### [address] [address] Potassium [Moles/Vol] 4.2 mmol/L Normal 3.6-5.1 [facility] Comment on above: Performed By: #### B 12, MOP #### [address] [address] Protein [Mass/Vol] 6.6 g/dL Normal 5.7-8.2 [facility] Comment on above: Performed By: #### B 12, MOP #### [address] [address] SGOT/SGPT RATIO 1.0 Normal 0-2 [facility] Comment on above: Performed By: #### B 12, MOP #### [address] [address] Sodium [Moles/Vol] 140 mmol/L Normal 132-146 [facility] Comment on above: Performed By: #### B 12, MOP #### [address] [address] Urea nitrogen [Mass/Vol] 10 mg/dL Normal 9-23 [facility] Comment on above: Performed By: #### B 12, MOP #### [address] [address] Urea nitrogen/Creatinine [Mass ratio] 11.1 mg/mg Normal 6-20 [facility] Comment on above: Performed By: #### B 12, MOP #### [address] [address] THYROID STIMULATING HORMOon 12-04-2019 TSH Qn 3.3 uIU/mL Normal 0.4-5.4 [facility] Comment on above: Performed By: #### T #### [facility] [address] [place] [address] VITAMIN B12on 12-04-2019 Cobalamin (Vitamin B12) [Mass/Vol] 597.0 pg/mL Normal >300 [facility] Comment on above: Result Comment: >300 pg/mL = NORMAL RESULT DEFICIENCY UNLIKELY 200-300 pg/mL = BORDERLINE RESULT DEFICIENCY IS POSSIBLE <200 pg/mL = LOW CONSISTENT WITH DEFICIENCY Performed By: #### B 12, MOP #### [facility] [address] [place] [address] XRAY Cervical Spine 2-3Views 20402lb 12-04-2019 XRAY Cervical Spine 2-3Views 64890 EXAM: XRAY Cervical Spine 2-3Views 53763 [facility] Department of Radiology ELAINE AC VISIT: [id number] : 1990 SEX: F DEPT NO: [id number] PATIENT LOCATION: RAD EXAM: XRAY Cervical Spine 2-3Views 32410 12/04/2019 15:44:00 SIGNS AND SYMPTOMS: PERTINENT SYMPTOMS: [...] By: DEJAN DALTON MD 12/04/2019 15:47:00 Normal [facility] Vital Signs Date Time Vital Sign Value Performing Clinician Facility 08-03-2025 13:39-0400 Body mass index (BMI) [Ratio] 37.42 kg/m2 Hue Trevino MD Work Phone: [facility] 08-03-2025 13:39-0400 Body weight 98.88 kg Hue Trevino MD Work Phone: [facility] 08-03-2025 13:39-0400 Diastolic blood pressure 68 mm[Hg] Hue Trevino MD Work Phone: [facility] 08-03-2025 13:39-0400 Systolic blood pressure 116 mm[Hg] Hue Trevino MD Work Phone: [facility] 08-03-2025 01:57-0400 Diastolic blood pressure 80 mm[Hg] Treva Russo MD Work Phone: [facility] 08-03-2025 01:57-0400 Heart rate 70 /min Treva Russo MD Work Phone: [facility] 08-03-2025 01:57-0400 Respiratory rate 18 /min Treva Russo MD Work Phone: [facility] 08-03-2025 01:57-0400 SaO2% (BldA) [Mass fraction] 98 % Treva Russo MD Work Phone: [facility] 08-03-2025 01:57-0400 Systolic blood pressure 129 mm[Hg] Treva Russo MD Work Phone: [facility] 08-03-2025 01:10-0400 Body height 162.6 cm Treva Russo MD Work Phone: [facility] 08-03-2025 01:10-0400 Body mass index (BMI) [Ratio] 37.25 kg/m2 Treva Russo MD Work Phone: [facility] 08-03-2025 01:10-0400 Body temperature 97.39 [degF] Treva Russo MD Work Phone: [facility] 08-03-2025 01:10-0400 Body weight 98.43 kg Treva Russo MD Work Phone: [facility] 07-29-2025 11:07-0400 Body mass index (BMI) [Ratio] 37.25 kg/m2 Gayle Johnson PERSONAL SECRETARY.AUTOMOTIVE DESIGN DRAFTER Work Phone: [facility] 07-29-2025 11:07-0400 Body weight 98.43 kg Gayle Haglen PERSONAL SECRETARY.AUTOMOTIVE DESIGN DRAFTER Work Phone: [facility] 07-29-2025 11:07-0400 Diastolic blood pressure 78 mm[Hg] Gayle Haury PERSONAL SECRETARY.AUTOMOTIVE DESIGN DRAFTER Work Phone: [facility] 07-29-2025 11:07-0400 Systolic blood pressure 120 mm[Hg] Gayle Haury PERSONAL SECRETARY.AUTOMOTIVE DESIGN DRAFTER Work Phone: [facility] 07-20-2025 15:00-0400 Body mass index (BMI) [Ratio] 36.25 kg/m2 Hue Trevino MD Work Phone: [facility] 07-20-2025 15:00-0400 Body weight 95.8 kg Hue Trevino MD Work Phone: [facility] 07-20-2025 15:00-0400 Diastolic blood pressure 64 mm[Hg] Hue Trevino MD Work Phone: [facility] 07-20-2025 15:00-0400 Systolic blood pressure 110 mm[Hg] Hue Trevino MD Work Phone: [facility] 06-21-2025 11:16-0400 Body mass index (BMI) [Ratio] 35.87 kg/m2 Hue Trevino MD Work Phone: [facility] 06-21-2025 11:16-0400 Body weight 94.8 kg Hue Trevino MD Work Phone: [facility] 06-21-2025 11:16-0400 Diastolic blood pressure 62 mm[Hg] Hue Trevino MD Work Phone: [facility] 06-21-2025 11:16-0400 Systolic blood pressure 100 mm[Hg] Hue Trevino MD Work Phone: [facility] 06-04-2025 10:55-0400 Body mass index (BMI) [Ratio] 35.12 kg/m2 Lakesha Bingham PERSONAL SECRETARY.CNM Work Phone: [facility] 06-04-2025 10:55-0400 Body weight 92.81 kg Lakesha Bingham PERSONAL SECRETARY.CNM Work Phone: [facility] 06-04-2025 10:55-0400 Diastolic blood pressure 78 mm[Hg] Lakesha Bingham PERSONAL SECRETARY.CNM Work Phone: [facility] 06-04-2025 10:55-0400 Systolic blood pressure 116 mm[Hg] Lakesha Bingham PERSONAL SECRETARY.CNM Work Phone: [facility] 05-21-2025 10:38-0400 Body mass index (BMI) [Ratio] 34.6 kg/m2 Hue Trevino MD Work Phone: [facility] 05-21-2025 10:38-0400 Body weight 91.44 kg Hue Trevino MD Work Phone: [facility] 05-21-2025 10:38-0400 Diastolic blood pressure 76 mm[Hg] Hue Trevino MD Work Phone: [facility] 05-21-2025 10:38-0400 Systolic blood pressure 110 mm[Hg] Hue Trevino MD Work Phone: [facility] 03-29-2025 11:39-0400 Body mass index (BMI) [Ratio] 32.27 kg/m2 Hue Trevino MD Work Phone: [facility] 03-29-2025 11:39-0400 Body weight 85.28 kg Hue Trevino MD Work Phone: [facility] 03-29-2025 11:39-0400 Diastolic blood pressure 68 mm[Hg] Hue Trevino MD Work Phone: [facility] 03-29-2025 11:39-0400 Systolic blood pressure 114 mm[Hg] Hue Trevino MD Work Phone: [facility] 03-02-2025 10:33-0400 Body mass index (BMI) [Ratio] 32.61 kg/m2 Lakesha Bingham PERSONAL SECRETARY.CNM Work Phone: [facility] 03-02-2025 10:33-0400 Body weight 86.18 kg Lakesha Bingham PERSONAL SECRETARY.CNM Work Phone: [facility] 03-02-2025 10:33-0400 Diastolic blood pressure 62 mm[Hg] Lakesha Bingham PERSONAL SECRETARY.CNM Work Phone: [facility] 03-02-2025 10:33-0400 Systolic blood pressure 110 mm[Hg] Lakesha Bingham PERSONAL SECRETARY.CNM Work Phone: [facility] 02-09-2025 14:13-0400 Body mass index (BMI) [Ratio] 31.76 kg/m2 Hue Trevino MD Work Phone: [facility] 02-09-2025 14:13-0400 Body weight 83.92 kg Hue Trevino MD Work Phone: [facility] 02-09-2025 14:13-0400 Diastolic blood pressure 60 mm[Hg] Hue Trevino MD Work Phone: [facility] 02-09-2025 14:13-0400 Systolic blood pressure 110 mm[Hg] Hue Trevino MD Work Phone: [facility] 01-26-2025 15:26-0500 Body mass index (BMI) [Ratio] 30.9 kg/m2 Lakesha Bingham PERSONAL SECRETARY.CNM Work Phone: [facility] 01-26-2025 15:26-0500 Body weight 81.65 kg Lakesha Bingham PERSONAL SECRETARY.CNM Work Phone: [facility] 01-26-2025 15:26-0500 Diastolic blood pressure 62 mm[Hg] Lakesha Bingham PERSONAL SECRETARY.CNM Work Phone: [facility] 01-26-2025 15:26-0500 Systolic blood pressure 110 mm[Hg] Lakesha Bingham PERSONAL SECRETARY.CNM Work Phone: [facility] 01-25-2025 11:01-0500 Body height 162.6 cm Lakesha Bingham PERSONAL SECRETARY.CNM Work Phone: [facility] 01-25-2025 11:01-0500 Body mass index (BMI) [Ratio] 31.24 kg/m2 Lakesha Bingham PERSONAL SECRETARY.CNM Work Phone: [facility] 01-25-2025 11:01-0500 Body weight 82.56 kg Lakesha Bingham PERSONAL SECRETARY.CNM Work Phone: [facility] 01-25-2025 11:01-0500 Diastolic blood pressure 64 mm[Hg] Lakesha Bingham PERSONAL SECRETARY.CNM Work Phone: [facility] 01-25-2025 11:01-0500 Systolic blood pressure 116 mm[Hg] Lakesha Bingham PERSONAL SECRETARY.CNM Work Phone: [facility] 03-31-2024 09:50-0400 Body height 161.5 cm Shannan Ramakrishna PERSONAL SECRETARY-AUTOMOTIVE DESIGN DRAFTER Work Phone: [facility] 03-31-2024 09:50-0400 Body mass index (BMI) [Ratio] 32.45 kg/m2 Shannan Durbin PERSONAL SECRETARY-AUTOMOTIVE DESIGN DRAFTER Work Phone: [facility] 03-31-2024 09:50-0400 Body weight 84.64 kg Shannan Durbin PERSONAL SECRETARY-AUTOMOTIVE DESIGN DRAFTER Work Phone: [facility] 03-31-2024 09:50-0400 Diastolic blood pressure 77 mm[Hg] Shannan Durbin PERSONAL SECRETARY-AUTOMOTIVE DESIGN DRAFTER Work Phone: [facility] 03-31-2024 09:50-0400 Heart rate 67 /min Shannan Durbin PERSONAL SECRETARY-AUTOMOTIVE DESIGN DRAFTER Work Phone: [facility] 03-31-2024 09:50-0400 Systolic blood pressure 120 mm[Hg] Shannan Durbin PERSONAL SECRETARY-AUTOMOTIVE DESIGN DRAFTER Work Phone: [facility] Encounters Encounter Date Encounter Type Care Provider Facility Start: 08-12-2025 ambulatory No Primary Car e Physician Facility:[facility] Start: 08-03-2025 End: 08-03-2025 Office outpatient visit 15 minutes Hue Trevino MD Work Phone: OB/Gynecology Comment on above: Supervision of other high risk pregnancies, unspecified trimester (HCC) (Primary Dx); 38 weeks gestation of (HCC); Obesity in (HCC) Start: 08-03-2025 End: 08-03-2025 ambulatory HUE TREVINO Facility:[facility] Start: 08-03-2025 End: 08-03-2025 Patient encounter procedure Concepcion Yanes OD Work Phone: Ophthalmology Comment on above: Abrasion of left cor nusrat, initial encounter (Primary Dx); Pain in left eye; Photophobia, left eye Start: 08-03-2025 End: 08-03-2025 ambulatory CONCEPCION YANES Facility:[facility] Start: 08-03-2025 End: 08-03-2025 Emergency department patient visit Treva Russo MD Work Phone: [facility] Emergency Medicine Comment on above: Left corneal abrasio n, initial encounter (Primary Dx) Start: 07-29-2025 End: 07-29-2025 ambulatory GAYLE JOHNSON Facility:[facility] Start: 07-29-2025 End: 07-29-2025 Patient encounter procedure Gayle Johnson PERSONAL SECRETARY.AUTOMOTIVE DESIGN DRAFTER Work Phone: OB/Gynecology Comment on above: Supervision of other high risk pregnancies, unspecified trimester (HCC) (Primary Dx); 38 weeks gestation of (HCC); Obesity in (HCC) Start: 07-21-2025 End: 07-21-2025 Telephone encounter Hue Flowers RN Maternal Medic ine Comment on above: 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) Start: 07-20-2025 End: 07-20-2025 ambulatory HUE TREVINO Facility:[facility] Start: 07-20-2025 End: 07-20-2025 Office outpatient visit 15 minutes Hue Trevino MD Work Phone: OB/Gynecology Comment on above: 36 weeks gestation o f (HCC) (Primary Dx); Obesity in (HCC) Start: 06-21-2025 End: 06-21-2025 Patient encounter procedure Whi [employer] 1 [employer] Maternal Medicine Comment on [...] Start: 06-21-2025 End: 06-21-2025 ambulatory LAKESHA BINGHAM Facility:[facility] Start: 06-04-2025 End: 06-04-2025 Patient encounter procedure Lakesha Bingham PERSONAL SECRETARY.CNM Work Phone: OB/Gynecology Comment on above: Supervision of other high risk pregnancies, unspecified trimester (HCC) (Primary Dx); 30 weeks gestation of (HCC); Obesity in (HCC); Tobacco use during , antepartum (HCC); Marijuana use during (HCC); Uterine size-date discrepancy, third trimester (HCC) Start: 06-04-2025 End: 06-04-2025 ambulatory LAKESHA BINGHAM Facility:[facility] Start: 06-03-2025 End: 06-03-2025 ambulatory HUE TREVINO Facility:[facility] Start: 05-25-2025 End: 07-25-2025 Follow-up encounter Hue Trevino MD Work Phone: OB/Gynecology Start: 05-24-2025 End: 05-24-2025 Telephone encounter Hue Flowers RN Maternal Medic ine Comment on above: 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) Start: 05-21-2025 End: 05-21-2025 ambulatory HUE TREVINO Facility:[facility] Start: 05-21-2025 End: 05-21-2025 Office outpatient visit [...] RN Maternal Medic ine Comment on above: Corporate Librarian - O ther (error) Start: 03-29-2025 End: [...] 03-29-2025 Patient encounter procedure Whi Tech 1 Local [employer] [facility] [facility] Maternal Medicine Comment on above: Encounter for anatomic survey (HCC) (Primary Dx); Obesity affecting in second trimester, unspecified obesity type (HCC); 20 weeks gestation of (HCC) Start: 03-29-2025 End: 03-29-2025 ambulatory HUE TREVINO Facility:[facility] Start: 03-25-2025 End: 04-09-2025 Telephone encounter Lakesha Bingham APRN.CNM Work Phone: OB/Gynecology Comment on above: Breast pump Start: 03-02-2025 End: 03-02-2025 ambulatory LAKESHA BINGHAM Facility:[facility] Start: 03-02-2025 End: 03-02-2025 Patient encounter procedure [...] Start: 02-11-2025 End: 04-13-2025 Follow-up encounter Jessica Vilelgas MD Work Phone: OB/Gynecology Start: 02-09-2025 End: [...] APRN.CNM Work Phone: OB/Gynecology Comment on above: [id number] test Start: 01-26-2025 End: 01-26-2025 ambulatory LAKESHA ZACHERY Facility:[facility] Start: 01-26-2025 End: 01-26-2025 Patient encounter procedure Whi Tech 2 [employer] Maternal Medicine Comment on [...] antepartum; Obesity in Start: 01-26-2025 End: 01-26-2025 [facility] LAKESHA BINGHAM Facility:[facility] Start: 01-26-2025 End: 01-27-2025 Follow-up encounter Lakesha [...] Obesity in Start: 01-25-2025 End: 01-25-2025 ambulatory LAKEHSA ZACHERY Facility:[facility] Start: 01-20-2025 End: 01-21-2025 Telephone encounter Lakesha Bingham WILLIAM Work Phone: OB/Gynecology Comment on above: Care Start: 01-19-2025 End: 01-19-2025 Emergency department patient visit Shannan Durbin Facility:[facility] Start: 01-19-2025 End: 01-19-2025 Emergency department patient visit [facility] Start: 04-04-2024 End: 04-05-2024 ambulatory [facility] Start: 04-04-2024 End: 04-04-2024 Subsequent hospital visit by physician Gurmeet X-Ray 1 [facility] Comment on above: Neck pain Chronic low back pau n without sciatica, unspecified back pain laterality Hand pain, left Start: 03-31-2024 End: 03-31-[address] [facility] Amb[facility] Start: 03-31-2024 End: 03-31-2024 Office outpatient new 60 minutes Shannan Rodriguezman PERSONAL SECRETARY-AUTOMOTIVE DESIGN DRAFTER Work Phone: [facility] Comment on above: Chronic low back pau n without sciatica, unspecified back pain laterality (Primary Dx); Neck pain; Hyperhidrosis; Folliculitis due to Pseudomonas aeruginosa; Gastroesophageal reflux disease without esophagitis; Hand pain, left Start: 09-19-2021 ambulatory [facility] Ambulatory Procedures Date Procedure Procedure Detail Performing [...] Comment: Speci men Type: BLOOD SPECIMENOrdering Facility: [facility] Address: [address] [place] [address] Performed By: #### T SPN ####CC MAIN BLOOD BANKCLIA [id number] [address] OF [facility] Start: 01-26-2025 Us preg uterus after 1st [...] RSV Vaccine (1 - 1-dose 75+ series) [facility] Start: 2041 Zoster Vaccines (1 of 2) Zoster Vaccines (1 of 2) [facility] Start: 05-21-2035 DTaP/Tdap/Td Vaccines (9 - Td or Tdap) DTaP/Tdap/Td Vaccines (9 - Td or Tdap) [facility] Start: 05-21-2035 Urine microalbumin profile DTaP,Tdap,Td Vaccine (9 - Td or Tdap) [facility] Start: 04-04-2029 Lipid panel Lipid Panel [facility] Start: 01-26-2028 Screening for malignant neoplasm of cervix [facility] Start: 01-25-2026 Screening for malignant neoplasm of cervix Cervical Cancer Screening [facility] Start: 08-11-2025 End: 08-11-2025 Patient encounter procedure 08/11/2025 2:20 PM EDT Routine Office Visit OB/Gynecology [address] [place] [address] Carolyn Olivera MD [address] [place] [address] Ob OB/Gynecology Comment on above: Ob Start: 08-10-2025 End: 08-10-2025 Patient encounter procedure 08/10/2025 9:30 AM EDT Office Visit [facility] [address] [place] [address] Concepcion Yanes, OD [address] [place] [address] Diagnostics, [facility] [address] [address] [facility] Comment on above: [facility] Start: 08-03-2025 End: 08-03-2025 Patient encounter procedure 08/03/2025 1:40 PM EDT Routine Office Visit OB/Gynecology [address] [place] [address] Hue Trevino MD [address] [place] [address] OB OB/Gynecology Comment on above: OB Start: 07-29-2025 End: 07-29-2025 Patient encounter procedure 07/29/2025 11:30 AM EDT Routine Office Visit OB/Gynecology [address] [place] [address] Debbie Gomez MD [address] [place] [address] OB OB/Gynecology Comment on above: OB Start: 07-26-2025 COVID-19 Vaccine ( season) COVID-19 Vaccine () [facility] Start: 07-26-2025 Influenza vaccination [facility] Start: 07-05-2025 End: 07-05-2025 Patient encounter procedure 07/05/2025 1:30 PM EDT Routine Office Visit OB/Gynecology [address] [place] [address] Hue Trevino MD [address] [place] [address] OB OB/Gynecology Comment on above: OB Start: 06-21-2025 End: 06-21-2025 Patient encounter procedure OB/Gynecology Comment on above: Growth/OB Growth Start: 06-04-2025 End: 06-04-2025 Patient encounter procedure 06/04/2025 11:00 AM EDT Routine Office Visit OB/Gynecology [address] [place] [address] Lakesha Bingham APRN.CN [address] [place] [address] OB OB/Gynecology Comment on above: OB Start: 05-25-2025 End: 05-25-2025 ambulatory 05/25/2025 11:30 AM EDT Results Only [facility] [address] [place] [address] [facility] Start: 05-21-2025 End: 08-20-2025 ANEMIA REFLEX PANEL ANEMIA REFLEX PANEL Lab Routine 28 weeks gestation of (HCC) Supervision of high risk in second trimester (HCC) Obesity in (HCC) Expected: 05/21/2025, Expires: 08/20/2025 [facility] Comment on above: Expected: 05/21/2025, Expires: Start: 05-21-2025 End: 05-21-2026 GESTATIONAL GLUCOSE SCREEN, 1-HOUR, 50 GRAM, NON-FASTING GESTATIONAL GLUCOSE SCREEN, 1-HOUR, 50 GRAM, NON-FASTING Lab Routine 28 weeks gestation of (HCC) Supervision of high risk in second trimester (HCC) Obesity in ([facility]) Screening for diabetes mellitus Expected: 05/21/2025, Expires: 05/21/2026 [facility] Work Phone: Comment on above: Expected: 05/21/2025, Expires: Start: 05-21-2025 End: 05-21-2026 SYPHILIS TREPONEMAL W/REFLEX SYPHILIS TREPONEMAL W/REFLEX Lab Routine 28 weeks gestation of ([facility]) Supervision of high risk in second trimester (HCC) Obesity in ([facility]) Expected: 05/21/2025, Expires: 05/21/2026 [facility] Comment on above: Expected: 05/21/2025, Expires: Start: 04-26-2025 End: 04-26-2025 Patient encounter procedure 04/26/2025 9:00 AM EDT Routine Office Visit OB/Gynecology [address] [place] [address] Debbie Gomez MD [address] [place] [address] OB OB/Gynecology Comment on above: OB Start: 03-29-2025 End: 03-29-2025 Patient encounter procedure Maternal Medicine Comment on above: Anatomy Anatomy/OB Start: 03-02-2025 End: 03-02-2025 Patient encounter procedure 03/02/2025 10:30 AM EDT Routine Office Visit OB/Gynecology [address] [place] [address] Lakesha Bingham APRN.CN [address] [place] [address] 1st OB - LMP Unknown (around October) OB/Gynecology Comment on above: 1st OB - LMP Unknown (around October) Start: 01-26-2025 End: 01-26-2025 Patient encounter procedure 01/26/2025 2:30 PM EST Routine Office Visit [facility]aternal [facility] [address] [place] [address] [facility] Comment on above: Nuchal Start: 01-26-2025 End: 04-27-2025 Chromosome 21 trisomy [Presence] in Blood or Tissue by Cytogenetics [facility] Work Phone: Comment on above: Expected: 01/26/2025, Expires: Start: 01-26-2025 End: 01-26-2025 Patient encounter procedure 01/26/2025 11:15 AM EST Routine Office Visit OB/Gynecology [address], [place] [address] Lakesha Bingham APRN.CN [address] [place] [address] Nuchal @ 2:30, urvashi Bingham, coming in at 2:30 OB/Gynecology Comment on above: Nuchal @ 2:30, urvashi Bingham, coming in a t 2:30 Start: 01-25-2025 End: 04-26-2025 ANEMIA REFLEX PANEL ANEMIA REFLEX PANEL Lab Routine with uncertain dates, antepartum Expected: 01/25/2025, Expires: 04/26/2025 [facility] Comment on above: Expected: 01/25/2025, Expires: Start: 01-25-2025 End: 04-26-2025 Hemoglobin A1c in Blood HEMOGLOBIN A1C Lab Routine with uncertain dates, antepartum Expected: 01/25/2025, Expires: 04/26/2025 [facility] Comment on above: Expected: 01/25/2025, Expires: Start: 01-25-2025 End: 04-26-2025 Hepatitis B virus surface Ag [Presence] in Serum HEPATITIS B SURFACE ANTIGEN Lab Routine with uncertain dates, antepartum Expected: 01/25/2025, Expires: 04/26/2025 [facility] Comment on above: Expected: 01/25/2025, Expires: Start: 01-25-2025 End: 04-26-2025 Hepatitis C virus Ab [Presence] in Serum HEPATITIS C ANTIBODY IA WITH CONFIRMATION Lab Routine with uncertain dates, antepartum Expected: 01/25/2025, Expires: 04/26/2025 [facility] Comment on above: Expected: 01/25/2025, Expires: Start: 01-25-2025 End: 04-26-2025 HIV 1+2 Ab [Presence] in Serum or Plasma by Immunoassay HIV 1/2 COMBO WITH REFLEX TO DIFFERENTIATION Lab Routine with uncertain dates, antepartum Expected: 01/25/2025, Expires: 04/26/2025 [facility] Comment on above: Expected: 01/25/2025, Expires: Start: 01-25-2025 End: 01-25-2026 OBSTETRIC ULTRASOUND WHI OBSTETRIC ULTRASOUND WHI Anc Imaging Routine with uncertain dates, antepartum Expected: 01/25/2025, Expires: 01/25/2026 [facility] Comment on above: Expected: 01/25/2025, Expires: Start: 01-25-2025 End: 04-26-2025 RUBELLA IGG ANTIBODY RUBELLA IGG ANTIBODY Lab Routine with uncertain dates, antepartum Expected: 01/25/2025, Expires: 04/26/2025 [facility] Comment on above: Expected: 01/25/2025, Expires: Start: 01-25-2025 End: 04-26-2025 SYPHILIS TREPONEMAL W/REFLEX SYPHILIS TREPONEMAL W/REFLEX Lab Routine with uncertain dates, antepartum Expected: 01/25/2025, Expires: 04/26/2025 [facility] Comment on above: Expected: 01/25/2025, Expires: Start: 01-25-2025 End: 04-26-2025 TYPE + SCREEN TYPE + SCREEN Blood Bank Routine with uncertain dates, antepartum Expected: 01/25/2025, Expires: 04/26/2025 [facility] Comment on above: Expected: 01/25/2025, Expires: Start: 01-25-2025 End: 01-25-2025 Patient encounter procedure 01/25/2025 1:15 PM EST Initial Office Visit OB/Gynecology [address] [place] [address] Lakesha Bingham APRN.CNM [address] [place] [address] 1st OB - LMP Unknown (around October) OB/Gynecology Comment on above: 1st OB - LMP Unknown (around October) Start: 08-20-2024 Urine microalbumin profile DTaP,Tdap,Td Vaccine (8 - Td or Tdap) [facility] Start: 07-26-2024 Covid-19 Vaccine ( season) Covid-19 Vaccine ( season) [facility] Start: 07-26-2024 Influenza vaccination [facility] Start: 07-01-2024 End: 07-01-2024 Patient encounter procedure 07/01/2024 10:30 AM EDT Office Visit [facility] [address] [place] [id number] Shannan Durbin, PERSONAL SECRETARY-AUTOMOTIVE DESIGN DRAFTER [address] [facility] [place] [address] [facility] Start: 04-15-2024 End: 04-15-2024 ambulatory 04/15/2024 11:15 AM EDT Evaluation [facility] [address] [place] [address] Antoine Calvo, PT [address] [facility] [place] [address] [facility] Start: 03-31-2024 End: 03-31-2025 CBC W Auto Differential panel - Blood CBC and Auto Differential Lab Routine Hyperhidrosis Gastroesophageal reflux disease without esophagitis Expected: 03/31/2024 (Approximate), Expires: 03/31/2025 [facility] Work Phone: Comment on above: Expected: 03/31/2024 (Approximate), Expi res: 03/31/2025 Start: 03-31-2024 End: 03-31-2025 Comprehensive metabolic 2000 panel - Serum or Plasma Comprehensive Metabolic Panel Lab Routine Gastroesophageal reflux disease without esophagitis Expected: 03/31/2024 (Approximate), Expires: 03/31/2025 [facility] Work Phone: Comment on above: Expected: 03/31/2024 (Approximate), Expi res: 03/31/2025 Start: 03-31-2024 End: 03-31-2025 Lipid 1996 panel - Serum or Plasma Lipid Panel Lab Routine Hyperhidrosis Expected: 03/31/2024 (Approximate), Expires: 03/31/2025 [facility] Work Phone: Comment on above: Expected: 03/31/2024 (Approximate), Expi res: 03/31/2025 Start: 03-31-2024 End: 03-31-2025 TSH with reflex to Free T4 if abnormal TSH with reflex to Free T4 if abnormal Lab Routine Hyperhidrosis Gastroesophageal reflux disease without esophagitis Expected: 03/31/2024 (Approximate), Expires: 03/31/2025 [facility] Work Phone: Comment on above: Expected: 03/31/2024 (Approximate), Expi res: 03/31/2025 Start: 03-31-2024 End: 03-31-2025 XR Cervical spine 2 or 3 Views XR cervical spine 2-3 views Imaging Routine Neck pain Expected: 03/31/2024, Expires: 03/31/2025 [facility] Work Phone: Comment on above: Expected: 03/31/2024, Expires: Start: 03-31-2024 End: 03-31-2025 XR Hand Views XR hand left 1-2 views Imaging Routine Hand pain, left Expected: 03/31/2024, Expires: 03/31/2025 [facility] Work Phone: Comment on above: Expected: 03/31/2024, Expires: 5 Start: 03-31-2024 End: 03-31-2025 XR Lumbar spine 2 or 3 Views XR lumbar spine 2-3 views Imaging Routine Chronic low back pain without sciatica, unspecified back pain laterality Expected: 03/31/2024, Expires: 03/31/2025 [facility] Service Area Work Phone: Comment on above: Expected: 03/31/2024, Expires: 5 Start: 07-26-2023 COVID-19 Vaccine () COVID-19 Vaccine ( season) [facility] Start: 02-23-2020 Screening for malignant neoplasm of cervix Cervical Cancer Screening [facility] Start: 02-22-2018 Screening for malignant neoplasm of cervix Cervical Cancer Screening [facility] Start: 2013 DTaP/Tdap/Td Vaccines (1 - Tdap) DTaP/Tdap/Td Vaccines (1 - Tdap) [facility] Start: 2012 Screening for malignant neoplasm of cervix [facility] Start: 2010 Hepatitis B Vaccine (1 of 3 - 19+ 3-dose series) Hepatitis B Vaccine (1 of 3 - 19+ 3-dose series) [facility] Start: 2010 Hepatitis B Vaccines (1 of 3 - 19+ 3-dose series) Hepatitis B Vaccines (1 of 3 - 19+ 3-dose series) [facility] Start: 2010 Pneumococcal vaccination Pneumococcal Vaccine (1 of 2 - PCV) [facility] Start: 2010 Pneumococcal Vaccine: Pediatrics and At-Risk Adult Patients (1 of 2 - PCV) Pneumococcal Vaccine: Pediatrics and At-Risk Adult Patients (1 of 2 - PCV) [facility] Start: 2009 Anxiety Screening Anxiety Screening [facility] Start: 2009 Depression Screening Depression Screening [facility] Start: 2009 Hepatitis C screening Hepatitis C Screening [facility] Start: 09-09-2009 HPV Vaccine (2 - Risk 3-dose series) HPV Vaccine (2 - Risk 3-dose series) [facility] Start: 09-09-2009 HPV Vaccines (2 - 3-dose series) HPV Vaccines (2 - 3-dose series) [facility] Start: 2004 Varicella vaccination Varicella Vaccines (1 of 2 - 13+ 2-dose series) [facility] Start: 1997 Pneumococcal Vaccine: Pediatrics (0 to 5 Years) and At-Risk Patients (6 to 64 Years) (1 of 2 - PCV) Pneumococcal Vaccine: Pediatrics (0 to 5 Years) and At-Risk Patients (6 to 64 Years) (1 of 2 - PCV) [facility] Start: 1992 MMR Vaccines (1 of 1 - Standard series) MMR Vaccines (1 of 1 - Standard series) [facility] Start: 1991 HIV screening HIV Screening [facility] Start: 1991 Lipid panel Lipid Panel [facility] Start: 1991 Yearly Adult Physical Yearly Adult Physical [facility] Bacteria identified in Urine by Culture BACTERIAL CULTURE, URINE Microbiology Routine with uncertain dates, antepartum 01/25/2025 11:42 AM EST [facility] BACTERIAL VAGINOSIS NAAT BACTERIAL VAGINOSIS NAAT Lab Routine with uncertain dates, antepartum 01/25/2025 11:42 AM EST [facility] BACTERIAL VAGINOSIS NAAT BACTERIAL VAGINOSIS NAAT Lab Routine Vaginal discharge Vaginal odor 05/21/2025 11:14 AM EDT [facility] ASHLEY/TRICHOMONAS NAAT ASHLEY/TRICHOMONAS NAAT Lab Routine with uncertain dates, antepartum 01/25/2025 11:42 AM EST [facility] ASHLEY/TRICHOMONAS NAAT ASHLEY/TRICHOMONAS NAAT Lab Routine Vaginal discharge Vaginal odor 05/21/2025 11:14 AM EDT [facility] Chlamydia trachomatis+Neisseria gonorrhoeae DNA [Presence] in Unspecified specimen by MITUL with probe detection GONORRHEA/CHLAMYDIA NAAT Lab Routine with uncertain dates, antepartum 01/25/2025 11:42 AM EST [facility] COLPOSCOPY COLPOSCOPY Proce dures Routine Cervical high risk human papillomavirus (HPV) DNA test positive Ordered: 02/09/2025 [facility] Work Phone: Comment on above: Ordered: 02/09/2025 End: 05-19-2026 OBSTETRIC ULTRASOUND WHI OBSTETRIC ULTRASOUND WHI Anc Imaging Routine Supervision of other high risk pregnancies, unspecified trimester (HCC) 30 weeks gestation of (HCC) Uterine size-date discrepancy, third trimester (HCC) Once per month for 3 Occurrences starting 06/04/2025 until 05/19/2026 [facility] Work Phone: Comment on above: Once per month for 3 Occurrences startin g 06/04/2025 until 05/19/2026 PAP TEST PAP TEST Lab Rou eleuterio with uncertain dates, antepartum Screening for cervical cancer Screening for human papillomavirus (HPV) 01/25/2025 11:42 AM EST [facility] POC BOARD CERTIFIED FAMILY PHYSICIAN ULTRASOUND POC BOARD CERTIFIED FAMILY PHYSICIAN ULTRASO UND Anc Imaging Routine with uncertain dates, antepartum Ordered: 01/25/2025 [facility] Work Phone: Comment on above: Ordered: 01/25/2025 ROUTINE, GROUP B STREPTOCOCCUS BY PCR ROUTINE, GROUP B STREPTOCOCCUS BY PCR Microbiology Routine 36 weeks gestation of (HCC) 07/20/2025 3:22 PM EDT [facility] Work Phone: Tissue Pathology biopsy report SURGICAL PATHOLOGY Lab Routine Cervical high risk human papillomavirus (HPV) DNA test positive 02/09/2025 3:01 PM EDT [facility] URINE OB DIP B/O URINE OB DIP B/ O Lab Routine 32 weeks gestation of ([facility]) Supervision of other high risk pregnancies, unspecified trimester (HCC) Obesity in (HCC) Tobacco use during , antepartum ([facility]) Ordered: 06/21/2025 [facility] Work Phone: Comment on above: Ordered: 06/21/2025 End: 04-04-2024 XR Cervical spine 2 or 3 Views [facility] Service Area Work Phone: Comment on above: Once for 1 Occurrences starting 04/04/20 until 04/04/2024 End: 04-04-2024 XR Hand Views [facility] Service Area Work Phone: Comment on above: Once for 1 Occurrences starting 04/04/20 until 04/04/2024 End: 04-04-2024 XR Lumbar spine 2 or 3 Views [facility] Service Area Work Phone: Comment on above: Once for 1 Occurrences starting 04/04/20 24 until 04/04/2024 Immunizations Immunization Date Immunization Notes Care Provider Arielle conte 05-21-2025 tetanus toxoid, redu gabriela diphtheria toxoid, and acellular pertussis vaccine, adsorbed Hue Trevino MD Work Phone: [facility] 11-23-2014 influenza, seasonal, injectable, preservative free [facility] 11-23-2014 influenza virus vacc ine, unspecified formulation Lakesha Bingham PERSONAL SECRETARY.CNM Work Phone: [facility] 08-20-2014 tetanus toxoid, redu gabriela diphtheria toxoid, and acellular pertussis vaccine, adsorbed Lakesha Bingham PERSONAL SECRETARY.CNM Work Phone: [facility] 09-12-2011 influenza virus vacc ine, unspecified formulation Lakesha Bingham PERSONAL SECRETARY.CNM Work Phone: [facility] 08-12-2009 human papilloma viru s vaccine, quadrivalent [facility] 08-12-2009 meningococcal polysaccharide (groups A, C, Y and W-135) diphtheria toxoid conjugate vaccine (MCV4P) [facility] 08-12-2009 tetanus toxoid, redu gabriela diphtheria toxoid, and acellular pertussis vaccine, adsorbed [facility] 08-12-2009 HPV, unspecified formulation Treva Russo MD Work Phone: [facility] Work Phone: 08-03-1997 measles, mumps and rubella virus vaccine [facility] 07-28-1997 diphtheria, tetanus toxoids and acellular pertussis vaccine Lakesha Zachery HANNA.CNM Work Phone: [facility] 07-28-1997 trivalent poliovirus vaccine, live, oral Lakesha Bingham APRN.CNM Work Phone: [facility] 07-29-1995 diphtheria, tetanus toxoids and acellular pertussis vaccine Lakeshaheather Bingham APRN.CNM Work Phone: [facility] 10-08-1993 trivalent poliovirus vaccine, live, oral Lakesha Bingham PERSONAL SECRETARY.CNM Work Phone: [facility] 09-28-1993 haemophilus influenz ae type b vaccine, HbOC conjugate Lakesha Bingham PERSONAL SECRETARY.CNM Work Phone: [facility] 09-28-1993 measles, mumps and rubella virus vaccine Lakesha Bingham PERSONAL SECRETARY.CNM Work Phone: [facility] 09-28-1993 tuberculin skin test ; purified protein derivative solution, intradermal Lakesha Zachery PINTON.CNM Work Phone: [facility] 05-04-1993 diphtheria and tetan us toxoids, adsorbed for pediatric use Lakesha Zachery PERSONAL SECRETARY.CNM Work Phone: [facility] 06-24-1992 diphtheria, tetanus toxoids and pertussis vaccine Lakesha Bingham PERSONAL SECRETARY.CNM Work Phone: [facility] 06-24-1992 haemophilus influenz ae type b vaccine, HbOC conjugate Lakesha Bingham PERSONAL SECRETARY.CNM Work Phone: [facility] 06-24-1992 trivalent poliovirus vaccine, live, oral Lakesha Bingham PERSONAL SECRETARY.CNM Work Phone: [facility] 03-29-1992 diphtheria, tetanus toxoids and pertussis vaccine Lakesha Bingham PERSONAL SECRETARY.CNM Work Phone: [facility] Work Phone: 03-29-1992 haemophilus influenz ae type b vaccine, HbOC conjugate Lakesha Bingham PERSONAL SECRETARY.CNM Work Phone: [facility] 03-29-1992 trivalent poliovirus vaccine, live, oral Lakesha Bingham PERSONAL SECRETARY.CNM Work Phone: [facility] Payers Date Payer Category Payer Self-pay 2022 Medicaid [employer] [id number] 2020 Medicaid [id number] 2020 Medicaid (Managed Care) [employer] [id number] 2020 Unknown [facility] [id number] 2020-Present [address] [place] [address] [id number] 2020 Unknown [id number] 1991 Unknown [id number] 1991 Unknown [id number] 1991 Unknown [id number] 1991 Unknown [id number] 1990 Unknown [id number] Unknown [id number] Unknown [id number] Social History Date Type Detail Facility Start: 03-31-2024 End: 01-25-2025 Tobacco smoking status NHIS Smokes tobacco daily [facility] Work Phone: Start: 11-25-2007 History of tobacco use Cigarette Smo ker [facility] Work Phone: Start: 03-31-2024 End: 01-25-2025 Cigarettes smoked current (pack per day) - Reported 1 [facility] Work Phone: Start: 03-31-2024 End: 01-25-2025 Tobacco use and exposure Smokeless tobacco non-user [facility] Work Phone: Start: 03-31-2024 Alcoholic beverage intake Current drinker of alcohol (finding) [facility] Work Phone: Start: 1990 Sex assigned at Not on file [facility] Work Phone: Start: 03-31-2024 End: 01-25-2025 Gender identity Not on file [facility] Start: 03-21-2024 End: 04-04-2024 Exposure to SARS-CoV-2 (event) Not sure [facility] Start: 01-20-2025 Alcoholic beverage intake Current non-drinker of alcohol (finding) [facility] Start: 01-25-2025 End: 08-03-2025 Alcoholic beverage intake Ex-drinker (finding) [facility] The thought of jimena dorsey myself has occurred to me Never [facility] Start: 10-26-2012 End: 03-25-2024 National Score (1-100), lower number is lower risk 95 [facility] Start: 01-25-2025 Alcohol Comment rarely [facility] Start: 11-18-2024 [facility] Medical Equipment Procedure Code Equipment Code Equipment Origin al Text Equipment Identifier Dates Start: 08-03-2025 End: 08-03-2025 Goals Date Patient Goal Desired Activity /State Personal health goal Functional Status Date Assessment Result Facility 08-03-2025 [place] - suicide severity rating scale screener - recent [C-SSRS] [facility] Work Phone: 07-01-2015 Are you deaf, or do you have serious difficulty hearing No 07/01/2015 2:31 PM EDT [place], [place] No [facility] 07-01-2015 Are you blind, or do you have serious difficulty seeing, even when wearing glasses No 07/01/2015 2:31 PM EDT [facility] 07-01-2015 Do you have serious difficulty walking or climbing stairs No 07/01/2015 2:31 PM EDT [facility] 07-01-2015 Do you have difficul ty dressing or bathing No 07/01/2015 2:31 PM EDT [facility] 07-01-2015 Because of a physica l, mental, or emotional condition, do you have difficulty doing errands alone such as visiting a physician's office or shopping No 07/01/2015 2:31 PM EDT [facility] Mental Status Date Assessment Result Facility 07-01-2015 Because of a physica l, mental, or emotional condition, do you have serious difficulty concentrating, remembering, or making decisions No 07/01/2015 2:31 PM EDT [facility] Clinical Notes 03-31-2024 to 08-03-2025 Quick [...] URINE OB DIP B/O Hue Trevino MD [facility] 08-03-2025 Miscellaneous Notes S: Elaine Ac is [...] URINE OB DIP B/O 3. Obesity in ([facility]) - ICD9: 649.10, ICD10: O99.210 - URINE OB DIP B/O Hue Trevino MD documented in this encounter [facility] 08-03-2025 Instructions Nazario Dong LPN - 08/03/2025 1:33 PM EDT SEQUENTIAL SCREENINGS The [facility] offers sequential screenings for women who are [...] It will require an appointment with our installer technician. This is not an ultrasound performed by [...] the above symptoms, contact our office at [phone] and ask to speak with a nurse. After hours, you can call doctors registry at [phone] OR call [facility] at [phone] and ask to have the doctor front office agent paged. If you consider this an emergency, dial 1-1-6 or go to your nearest emergency department. NEED HELP? Are you dealing with a violent or abusive relationship? Are you a victim of rape or sexual assult? Call [facility] ([place]) 24 hour Crisis Hotline: 668.688.2499 or 627-678-7243. MANUAL Your Guide to a Healthy manual is now on-line. Visit [email or web address] Margarito to download your free copy documented in this encounter [facility] 08-03-2025 Note HNO ID: [id number] Author: CONCEPCION YANES OD Service: ? Author Type: School Bus Driver/Teacher Assistant Type: Progress Notes Filed: 08/03/2025 10:09 Note [...] Yanes, LIS August 03, 2025 10:07 AM [facility] 08-03-2025 History of Presen t illness Narrative [...] 2025 10:07 AM documented in this encounter [facility] 08-03-2025 Instructions Concepcion Yanes, OD - 08/03/2025 [...] days for comfort. documented in this encounter [facility] 08-03-2025 Hospital Discharg e instructions Treva Russo MD - 08/03/2025 1:51 AM EDT Recommend following up with ophthalmology at 8:30 in the morning. You have been given contact information for Dr. Mchugh. 1/2 cm erythromycin ointment application to the left eye 4 times per day. Tylenol as needed for pain. The following attachments cannot be sent through Care Everywhere.Corneal Abrasion ED (Turkish)documented in this encounter [facility] Work Phone: 08-03-2025 Physician Emergency department Note [...] abrasion, initial encounter Treva Russo MD 08/03/25150 [facility] Work Phone: 08-03-2025 Emergency department Note Images [...] Russo MD 08/03/25150 documented in this encounter [facility] Work Phone: 07-29-2025 Progress note Formatting of [...] of other high risk pregnancies, unspecified trimester ([facility]) - ICD9: V23.89, ICD10: O09.899 (primary diagnosis) - URINE OB DIP B/O 2. 38 weeks gestation of ([facility]) - ICD9: V22.2, ICD10: Z3A.38 - URINE OB DIP B/O 3. Obesity in ([facility]) - ICD9: 649.10, ICD10: O99.210 - URINE OB DIP B/O d/w her labor precautions f/u in 1 week or prn kick counts Jessica Villegas MD T [facility] 07-29-2025 Miscellaneous Notes EH - S: Elaine [...] of other high risk pregnancies, unspecified trimester ([facility]) - ICD9: V23.89, ICD10: O09.899 (primary diagnosis) - URINE OB DIP B/O 2. 38 weeks gestation of ([facility]) - ICD9: V22.2, ICD10: Z3A.38 - URINE OB DIP B/O 3. Obesity in ([facility]) - ICD9: 649.10, ICD10: O99.210 - URINE OB DIP B/O d/w her labor precautions f/u in 1 week or prn kick counts Jessica Villegas MD documented in this encounter [facility] 07-29-2025 Instructions Arabella Benedict MA - 07/29/2025 11:02 AM EDT SEQUENTIAL SCREENINGS The [facility] offers sequential screenings for women who are [...] It will require an appointment with our installer technician. This is not an ultrasound performed by [...] the above symptoms, contact our office at [phone] and ask to speak with a nurse. After hours, you can call doctors registry at [phone] OR call [facility] at [phone] and ask to have the doctor front office agent paged. If you consider this an emergency, dial 9--1 or go to your nearest emergency department. NEED HELP? Are you dealing with a violent or abusive relationship? Are you a victim of rape or sexual assult? Call [facility] ([place]) 24 hour Crisis Hotline: 976.430.4478 or 082-844-7113. MANUAL Your Guide to a Healthy manual is now on-line. Visit [email or web address] nancyGuide to download your free copy documented in this encounter [facility] 07-21-2025 Telephone encounter Note 3rd risk assessment form submitted 07/21/2025. Hue Flowers RN [facility] 07-21-2025 Miscellaneous Notes 3rd risk assessment form submitted 07/21/2025. Heu Flowers RN documented in this encounter [facility] 07-20-2025 Progress note Formatting of t his [...] reviewed ASSESSMENT/PLAN: 1. 36 weeks gestation of ([facility]) - ICD9: V22.2, ICD10: Z3A.36 (primary diagnosis) - URINE OB DIP B/O - ROUTINE, GROUP B STREPTOCOCCUS BY PCR 2. Obesity in ([facility]) - ICD9: 649.10, ICD10: O99.210 Prepregnancy BMI 31 - URINE OB DIP B/O Hue Trevino MD [facility] 07-20-2025 Miscellaneous Notes S: Elaine Ac is [...] reviewed ASSESSMENT/PLAN: 1. 36 weeks gestation of ([facility]) - ICD9: V22.2, ICD10: Z3A.36 (primary diagnosis) - URINE OB DIP B/O - ROUTINE, GROUP B STREPTOCOCCUS BY PCR 2. Obesity in ([facility]) - ICD9: 649.10, ICD10: O99.210 Prepregnancy BMI 31 - URINE OB DIP B/O Hue Trevino MD documented in this encounter [facility] 07-20-2025 Instructions Aminata Zamarripa LPN - 07/20/2025 2:53 PM EDT SEQUENTIAL SCREENINGS The [facility] offers sequential screenings for women who are [...] It will require an appointment with our installer technician. This is not an ultrasound performed by [...] the above symptoms, contact our office at [phone] and ask to speak with a nurse. After hours, you can call doctors registry at [phone] OR call [facility] at [phone] and ask to have the doctor front office agent paged. If you consider this an emergency, dial 07-26- or go to your nearest emergency department. NEED HELP? Are you dealing with a violent or abusive relationship? Are you a victim of rape or sexual assult? Call [facility] ([place]) 24 hour Crisis Hotline: 967.287.3508 or 918-347-1783. MANUAL Your Guide to a Healthy manual is now on-line. Visit [email or web address] to download your free copy documented in this encounter [facility] 06-21-2025 Note Indication Evaluation of growth Maternal [...] prior assessment 32 w + 4 d LCUIA by prior assessment: 08/12/2025 Ultrasound examination on: [...] 15 oz EFW by: [employer] (HC-AC-FL) [employer] 7.4 mm Extremities / Bony Struc [place] [...] URINE OB DIP B/O Hue Trevino MD [facility] 06-21-2025 Miscellaneous Notes S: Elaine Ac is [...] of other high risk pregnancies, unspecified trimester ([facility]) - ICD9: V23.89, ICD10: O09.899 - URINE OB DIP B/O 3. Obesity in ([facility]) - ICD9: 649.10, ICD10: O99.210 Prepregnancy BMI 31 - URINE OB DIP B/O 4. Tobacco use during , antepartum ([facility]) - ICD9: 649.03, ICD10: O99.330 Cessation recommended - URINE OB DIP B/O Hue Trevino MD documented in this encounter [facility] 06-21-2025 Instructions Arabella Benedict MA - 06/21/2025 11:16 AM EDT SEQUENTIAL SCREENINGS The [facility] offers sequential screenings for women who are [...] It will require an appointment with our installer technician. This is not an ultrasound performed by [...] the above symptoms, contact our office at [phone] and ask to speak with a nurse. After hours, you can call doctors registry at [phone] OR call [facility] at [phone] and ask to have the doctor front office agent paged. If you consider this an emergency, dial 2-6-5 or go to your nearest emergency department. NEED HELP? Are you dealing with a violent or abusive relationship? Are you a victim of rape or sexual assult? Call [facility] ([place]) 24 hour Crisis Hotline: 365.911.8689 or 332-155-2508. MANUAL Your Guide to a Healthy manual is now on-line. Visit [email or web address] Margarito to download your free copy documented in this encounter [facility] 06-04-2025 Progress note Formatting of t his [...] RTO in 2 weeks Lakesha Bingham APRN.CNM [facility] 06-04-2025 Miscellaneous Notes ALFONSO-S: Elaine Ac is [...] Lakesha Bingham APRN.CNM documented in this encounter [facility] 06-04-2025 Instructions Aminata Zamarripa LPN - 06/04/2025 10:51 AM EDT SEQUENTIAL SCREENINGS The [facility] offers sequential screenings for women who are [...] It will require an appointment with our installer technician. This is not an ultrasound performed by [...] the above symptoms, contact our office at [phone] and ask to speak with a nurse. After hours, you can call doctors [facility] at [phone] OR call [facility] at [phone] and ask to have the doctor front office agent paged. If you consider this an emergency, dial 0-6-7 or go to your nearest emergency department. NEED HELP? Are you dealing with a violent or abusive relationship? Are you a victim of rape or sexual assult? Call [facility] ([place]) 24 hour Crisis Hotline: 851.843.3355 or 703-794-8704. MANUAL Your Guide to a Healthy manual is now on-line. Visit [email or web address] Margarito to download your free copy documented in this encounter [facility] 05-24-2025 Telephone encounter Note 2nd risk assessment form submitted 05/24/2025. Hue Flowers RN [facility] 05-24-2025 Miscellaneous Notes 2nd risk assessment form submitted 05/24/2025. Hue Flowers RN documented in this encounter [facility] 05-21-2025 Progress note Formatting of t his [...] discuss ASSESSMENT/PLAN: 1. 28 weeks gestation of ([facility]) - ICD9: V22.2, ICD10: Z3A.28 (primary diagnosis) - GESTATIONAL GLUCOSE SCREEN, 1-HOUR, 50 GRAM, NON-FASTING - SYPHILIS TREPONEMAL W/REFLEX - ANEMIA REFLEX PANEL 2. Supervision of high risk in second trimester ([facility]) - ICD9: V23.9, ICD10: O09.92 - GESTATIONAL GLUCOSE SCREEN, 1-HOUR, 50 GRAM, NON-FASTING - SYPHILIS TREPONEMAL W/REFLEX - ANEMIA REFLEX PANEL 3. Obesity in ([facility]) - ICD9: 649.10, ICD10: O99.210 Pre 31 - GESTATIONAL GLUCOSE SCREEN, 1-HOUR, 50 GRAM, NON-FASTING - SYPHILIS TREPONEMAL W/REFLEX - ANEMIA REFLEX PANEL 4. Tobacco use during , antepartum ([facility]) - ICD9: 649.03, ICD10: O99.330 5. Marijuana use during ([facility]) - ICD9: 648.40, 305.20, ICD10: O99.320, F12.90 [...] NAAT - ASHLEY/TRICHOMONAS NAAT Hue Trevino MD [facility] 05-21-2025 Miscellaneous Notes S: Elaine Ac is [...] discuss ASSESSMENT/PLAN: 1. 28 weeks gestation of ([facility]) - ICD9: V22.2, ICD10: Z3A.28 (primary diagnosis) - GESTATIONAL GLUCOSE SCREEN, 1-HOUR, 50 GRAM, NON-FASTING - SYPHILIS TREPONEMAL W/REFLEX - ANEMIA REFLEX PANEL 2. Supervision of high risk in second trimester ([facility]) - ICD9: V23.9, ICD10: O09.92 - GESTATIONAL GLUCOSE SCREEN, 1-HOUR, 50 GRAM, NON-FASTING - SYPHILIS TREPONEMAL W/REFLEX - ANEMIA REFLEX PANEL 3. Obesity in ([facility]) - ICD9: 649.10, ICD10: O99.210 Pre 31 - GESTATIONAL GLUCOSE SCREEN, 1-HOUR, 50 GRAM, NON-FASTING - SYPHILIS TREPONEMAL W/REFLEX - ANEMIA REFLEX PANEL 4. Tobacco use during , antepartum ([facility]) - ICD9: 649.03, ICD10: O99.330 5. Marijuana use during ([facility]) - ICD9: 648.40, 305.20, ICD10: O99.320, F12.90 [...] Hue Trevino MD documented in this encounter [facility] 05-21-2025 Note HNO ID: [id number] Author: ARABELLA BENEDICT MA Service: ? Author Type: Deputy K 9 Type: Progress Notes Filed: 05/21/2025 11:40 Note [...] severely ill: Yes Patient denies history of Guillain-Center Syndrome (a severe paralytic illness): Yes Tdap Adacel injection was given without incident. See immunizations for details of immunizations administered today. VIS sheet provided: Yes Provider Hue Trevino MD was present in office at time of injection. Arabella Benedict MA [facility] 05-21-2025 History of Presen t illness Narrative [...] severely ill: Yes Patient denies history of Guillain-Center Syndrome (a severe paralytic illness): Yes Tdap Adacel injection was given without incident. See immunizations for details of immunizations administered today. VIS sheet provided: Yes Provider Hue Trevino MD was present in office at time of injection. Arabella Benedict MA documented in this encounter [facility] 05-21-2025 Instructions Arabella Benedict MA - 05/21/2025 10:37 AM EDT SEQUENTIAL SCREENINGS The [facility] offers sequential screenings for women who are [...] It will require an appointment with our installer technician. This is not an ultrasound performed by [...] the above symptoms, contact our office at [phone] and ask to speak with a nurse. After hours, you can call doctors registry at [phone] OR call [facility] at [phone] and ask to have the doctor front office agent paged. If you consider this an emergency, dial 9--1 or go to your nearest emergency department. NEED HELP? Are you dealing with a violent or abusive relationship? Are you a victim of rape or sexual assult? Call [facility] ([place]) 24 hour Crisis Hotline: 307.318.9344 or 965-718-1572. MANUAL Your Guide to a Healthy manual is now on-line. Visit [email or web address] nancyGuide to download your free copy documented in this encounter [facility] 04-20-2025 Telephone encounter Note 23w5d Patient sent refill request via [employer]. Requested Prescriptions Pending Prescriptions Disp Refills ondansetron orally disintegrating (ZOFRAN ODT) 4 mg disintegrating tablet 30 tablet 2 Sig: Take 1 tablet by mouth every 8 hours as needed for nausea/vomiting. Recent Office Visits - This Specialty 02/09/2025 Cervical high risk human papillomavirus (HPV) DNA test positive OB/Gynecology Hue Trevino MD Next visit in this department: 04/26/2025 Hue Yousif RN [facility] 04-20-2025 Miscellaneous Notes 23w5d Patient sent refill request via DNAdigestt. Requested Prescriptions Pending Prescriptions Disp Refills ondansetron [...] Hue Yousif RN documented in this encounter [facility] 04-09-2025 Telephone encounter Note Order signed and faxed. Luz Chun RN [facility] 04-09-2025 Miscellaneous Notes Order signed and faxed. Luz Chun RN Written order received from [employer] for breast pump. Placed in ALFONSO inbox for signature. Digna Villalobos RN documented in this encounter [facility] 03-30-2025 Telephone encounter Note Opened in error [facility] 03-30-2025 Miscellaneous Notes Opened in error documented in this encounter [facility] 03-29-2025 Progress note Formatting of t his [...] Supervision of high risk in second trimester ([facility]) - ICD9: V23.9, ICD10: O09.92 (primary diagnosis) 2. Obesity in ([facility]) - ICD9: 649.10, ICD10: O99.210 No testing needed. Pre BMI 31 3. Tobacco use during , antepartum ([facility]) - ICD9: 649.03, ICD10: O99.330 4. Marijuana use during ([facility]) - ICD9: 648.40, 305.20, ICD10: O99.320, F12.90 Encouraged cessation 5. 20 weeks gestation of ([facility]) - ICD9: V22.2, ICD10: Z3A.20 6. ADRIANA I (cervical intraepithelial neoplasia I) - ICD9: 622.11, ICD10: N87.0 7. Yeast dermatitis - ICD9: 112.3, ICD10: B37.2 Nystatin cream Hue Trevino MD [facility] 03-29-2025 Miscellaneous Notes S: Elaine Ac is [...] Supervision of high risk in second trimester ([facility]) - ICD9: V23.9, ICD10: O09.92 (primary diagnosis) 2. Obesity in ([facility]) - ICD9: 649.10, ICD10: O99.210 No testing needed. Pre BMI 31 3. Tobacco use during , antepartum ([facility]) - ICD9: 649.03, ICD10: O99.330 4. Marijuana use during ([facility]) - ICD9: 648.40, 305.20, ICD10: O99.320, F12.90 Encouraged cessation 5. 20 weeks gestation of ([facility]) - ICD9: V22.2, ICD10: Z3A.20 6. ADRIANA I (cervical intraepithelial neoplasia I) - ICD9: 622.11, ICD10: N87.0 7. Yeast dermatitis - ICD9: 112.3, ICD10: B37.2 Nystatin cream Hue Trevino MD documented in this encounter [facility] 03-29-2025 Instructions Matilde Arguello MA - 03/29/2025 11:20 AM EDT SEQUENTIAL SCREENINGS The [facility] offers sequential screenings for women who are [...] It will require an appointment with our installer technician. This is not an ultrasound performed by [...] the above symptoms, contact our office at [phone] and ask to speak with a nurse. After hours, you can call doctors registry at [phone] OR call [facility] at [phone] and ask to have the doctor front office agent paged. If you consider this an emergency, dial 4-9-2 or go to your nearest emergency department. NEED HELP? Are you dealing with a violent or abusive relationship? Are you a victim of rape or sexual assult? Call [facility] ([place]) 24 hour Crisis Hotline: 714.115.6707 or 019-739-3277. MANUAL Your Guide to a Healthy manual is now on-line. Visit [email or web address] Margarito to download your free copy documented in this encounter [facility] 03-25-2025 Telephone encounter Note Written order received from [employer] for breast pump. Placed in ALFONSO inbox for signature. Digna Villalobos RN [facility] 03-02-2025 Note HNO ID: [id number] Author: LAKESHA BINGHAM APRN.CNM Service: ? Author Type: Can Sorter Type: Progress Notes Filed: 03/02/2025 11:01 Note [...] call RTO in 4 weeks Lakesha Bingham APRN.[facility] 03-02-2025 History of Presen t illness Narrative [...] Lakesha Bingham APRN.CNM documented in this encounter [facility] 02-09-2025 Instructions Coby Lima MA - 02/09/2025 [...] your doctor's office. documented in this encounter [facility] 02-09-2025 Note HNO ID: [id number] Author: HUE TREVINO MD Service: ? Author Type: Physician Type: Progress Notes Filed: 02/09/2025 14:46 Note Text: Promotions Executive offered: Patient declines. Elaine is a 34 [...] given to the patient. Hue Trevino MD [facility] 02-09-2025 History of Presen t illness Narrative Promotions Executive offered: Patient declines. Elaine is a 34 [...] Hue Trevino MD documented in this encounter [facility] 02-09-2025 Telephone encounter Note 13w5d Pt calling stating when we called her to scheduled colposcopy she was half asleep and she does not quite understand what this appt is for. Explained HRHPV+ and Colposcopy. DNAdigestt message sent to Pt. Digna Villalobos RN [facility] 02-09-2025 Miscellaneous Notes 13w5d Pt calling stating when we called her to scheduled colposcopy she was half asleep and she does not quite understand what this appt is for. Explained HRHPV+ and Colposcopy. Mychart message sent to Pt. Digna Villalobos RN documented in this encounter [facility] 01-26-2025 Progress note Formatting of t his note might be different from the original. ALFONSO-Today seen for first trimester anatomy. LUCIA: 08/12/25, dating updated. Labs today, desires NIPT. Lakesha Bingham APRN.CNM [facility] 01-26-2025 Miscellaneous Notes ALFONSO-Today seen for first trimester anatomy. LUCIA: 08/12/25, dating updated. Labs today, desires NIPT. Lakesha Bingham APRN.CNM documented in this encounter [facility] 01-26-2025 Instructions Jerardo Nettles MA - 01/26/2025 3:23 PM EST SEQUENTIAL SCREENINGS The [facility] offers sequential screenings for women who are [...] It will require an appointment with our installer technician. This is not an ultrasound performed by [...] the above symptoms, contact our office at [phone] and ask to speak with a nurse. After hours, you can call doctors registry at [phone] OR call [facility] at [phone] and ask to have the doctor front office agent paged. If you consider this an emergency, dial [phone] or go to your nearest emergency department. NEED HELP? Are you dealing with a violent or abusive relationship? Are you a victim of rape or sexual assult? Call [facility] ([place]) 24 hour Crisis Hotline: 408.510.4877 or 096-357-2168. MANUAL Your Guide to a Healthy manual is now on-line. Visit [email or web address] nancyGuide to download your free copy documented in this encounter [facility] 01-26-2025 Miscellaneous Notes 1st risk assessment form submitted 01/26/25 Adama Hearn RN documented in this encounter [facility] 01-26-2025 Telephone encounter Note 1st risk assessment form submitted 01/26/25 Adama Hearn RN [facility] 01-25-2025 Progress note Formatting of t his note might be different from the original. ALFONSO-ANUPAMB, see progress note. PN labs ordered. Desires NIPT and carrier screening, will get drawn at next visit, handouts given. To start ASA at 12 wk. 1st trimester US ordered. Lakesha Bingham APRN.CNM [facility] 01-25-2025 Miscellaneous Notes ALFONSO-ANUPAMB, see progress note. PN labs ordered. Desires NIPT and carrier screening, will get drawn at next visit, handouts given. To start ASA at 12 wk. 1st trimester US ordered. Lakesha Bingham APRN.CNM documented in this encounter [facility] 01-25-2025 Instructions Lakesha Bingham APRN.CNM - 01/25/2025 10:29 AM EST Please select the following link to access the [facility] Your Guide to a Healthy . [email or web address] [...] to help control my nausea and vomiting? [employer] has a helpful fact sheet on nausea in with recommendations. You can review it here: https://[employer].org/fact-s heets/fqfyax-irgtoguz-wqbagkdta -nvp/pdf/. Also, eating small meals often, drinking [...] [employer] fact sheet Paternal Exposures at https://mothertobaby.org/fact-s heets/wxgwfxpr-pqvdwdvgb-qvlvzi ncy/pdf/. documented in this encounter [facility] 01-25-2025 Note HNO ID: [id number] Author: JERARDO NETTLES MA Service: ? Author Type: Mutual Funds Agent Type: Progress Notes Filed: 01/25/2025 13:29 Note Text: OB point of care ultrasound was performed. See imaging tab for details. Jerardo Nettles MA [facility] 01-25-2025 History of Presen t illness Narrative OB point of care ultrasound was performed. See imaging tab for details. Jerardo Nettles MA Images from the original note were not included. *Patient was seen at care center in [place] about 2 to 3 weeks ago and [...] the following (please check all that apply)? Can Sorter care Social History: Do you have any [...] harming myself has occurred to me. Never Remer Depression Scale Total 2 Feeling nervous, anxious [...] Partner: Name: Shaheen Zhu Age: 40 Occupation: [employer] Gender: Male PAST MEDICAL HISTORY Diagnosis Date [...] discussed with the Patient or Patient's Authorized Tank Setter Helper. As applicable, any other physician, advance practice provider, medical student, or other health professional student that will be observing or involved in the sensitive examination for educational or training purposes was discussed with the Patient or Authorized Tank Setter Helper. The Patient or Authorized Tank Setter Helper has agreed to proceed with the sensitive [...] Your guide to a health and the Sustain Engineer. Discussed hemoglobin electrophoresis. Patient: Accepts 2) Screening: [...] prstevan Bingham APRN.CNM documented in this encounter [facility] 01-25-2025 Note HNO ID: [id number] Author: LAKESHA BINGHAM APRN.CNM Service: ? Author Type: Can Sorter Type: Progress Notes Filed: 01/25/2025 13:29 Note Text: *Patient was seen at care center in [place] about 2 to 3 weeks ago and [...] the following (please check all that apply)? Can Sorter care Social History: Do you have any [...] sad or miserabl (more content not included)... [facility] 01-21-2025 Telephone encounter Note Appt rescheduled to 01/25/25 per ALFONSO and Pt advised to arrive at 11am and to wear a mask. States she tested positive on 01/20/25. Digna Villalobos, RN [facility] 01-21-2025 Miscellaneous Notes Appt rescheduled to 01/25/25 [...] done. Please advise documented in this encounter [facility] 01-20-2025 Telephone encounter Note I am happy to see her for an appointment in office for viability and can see her next week. Lakesha Bingham APRN.CNM [facility] Work Phone: 01-20-2025 Telephone encounter Note I [...] wanted any thing else done. Please advise [facility] 03-31-2024 History of Presen t illness Narrative [...] left 1-2 views documented in this encounter [facility] Work Phone: 03-31-[address] - [...] close to genitals documented in this encounter [facility] Work Phone: Evaluation note Diagnosis Chronic low back pain without sciatica, unspecified back pain laterality- Primary Neck pain Cervicalgia Hyperhidrosis Generalized hyperhidrosis Folliculitis due to Pseudomonas aeruginosa Gastroesophageal reflux disease without esophagitis Esophageal reflux Hand pain, left Pain in soft tissues of limb documented in this encounter [facility] Work Phone: Evaluation note* Diagnosis Neck pain Cervicalgia documented in this encounter [facility] Work Phone: Evaluation note* Diagnosis Chronic low back pain without sciatica, unspecified back pain laterality documented in this encounter [facility] Work Phone: Evmziation note* Diagnosis Hand pain, left Pain in soft tissues of limb documented in this encounter [facility] Work Phone: Evzmkation note* Diagnosis with uncertain dates, antepartum- Primary [...] or not applicable documented in this encounter [facility] note* Diagnosis Encounter for screening for malformation using ultrasound- Primary 11 weeks gestation of state, incidental Encounter for (NT) nuchal translucency scan Other specified screening [facility] Diagnosis with uncertain dates, antepartum- Primary state, incidental Supervision of other high risk pregnancies, unspecified trimester 11 weeks gestation of state, incidental Marijuana use during Tobacco use during , antepartum Obesity in Obesity complicating , childbirth, or the puerperium, unspecified as to episode of care or not applicable documented in this encounter [facility] note* Diagnosis Cervical high risk human papillomavirus (HPV) DNA test positive- Primary Supervision of other high risk pregnancies, unspecified trimester 13 weeks gestation of state, incidental [facility] Diagnosis Supervision of high risk [...] dysplasia of cervix documented in this encounter [facility] note* Diagnosis Encounter for anatomic survey (HCC)- Primary Encounter for anatomic survey Obesity affecting in second trimester, unspecified obesity type ([facility]) 20 weeks gestation of ([facility]) state, incidental [facility] Diagnosis Supervision of high risk in second trimester ([facility])- Primary Unspecified high-risk Obesity in ([facility]) Obesity complicating , childbirth, or the puerperium, unspecified as to episode of care or not applicable Tobacco use during , antepartum ([facility]) Marijuana use during ([facility]) 20 weeks gestation of ([facility]) state, incidental ADRIANA I (cervical intraepithelial neoplasia I) Mild dysplasia of cervix Yeast dermatitis Candidiasis of skin and nails [facility] Diagnosis ADRIANA II (cervical intraepithelial neoplasia II)- Primary Moderate dysplasia of cervix [facility] Diagnosis 28 weeks gestation of ([facility])- Primary state, incidental Supervision of high risk in second trimester ([facility]) Unspecified high-risk Obesity in ([facility]) Obesity complicating , childbirth, or the puerperium, unspecified as to episode of care or not applicable Tobacco use during , antepartum ([facility]) Marijuana use during ([facility]) Screening for diabetes mellitus Need for vaccination Need for prophylactic vaccination and inoculation against unspecified single disease Vaginal discharge Leukorrhea, not specified as infective Vaginal odor Unspecified symptom associated with female genital organs documented in this encounter [facility] note* Diagnosis Supervision of other high risk pregnancies, unspecified trimester ([facility])- Primary 30 weeks gestation of ([facility]) state, incidental Obesity in ([facility]) Obesity complicating , childbirth, or the puerperium, unspecified as to episode of care or not applicable Tobacco use during , antepartum ([facility]) Marijuana use during ([facility]) Uterine size-date discrepancy, third trimester ([facility]) [facility] Diagnosis 32 weeks gestation of ([facility])- Primary state, incidental Supervision of other high risk pregnancies, unspecified trimester ([facility]) Obesity in ([facility]) Obesity complicating , childbirth, or the puerperium, unspecified as to episode of care or not applicable Tobacco use during , antepartum ([facility]) documented in this encounter [facility] note* Diagnosis Encounter for ultrasound to check growth ([facility])- Primary Encounter for routine screening for malformation using ultrasonics Uterine size-date discrepancy, third trimester (HCC) 32 weeks gestation of (HCC) state, incidental [facility] Diagnosis 36 weeks gestation of (HCC)- Primary state, incidental Obesity in (HCC) Obesity complicating , childbirth, or the puerperium, unspecified as to episode of care or not applicable documented in this encounter [facility] note* Diagnosis BV (bacterial vaginosis)- Primary Vaginitis and vulvovaginitis, unspecified documented in this encounter [facility] note* Diagnosis Supervision of other high risk pregnancies, unspecified trimester (HCC)- Primary 38 weeks gestation of (HCC) state, incidental Obesity in ([facility]) Obesity complicating , childbirth, or the puerperium, unspecified as to episode of care or not applicable documented in this encounter [facility] note* Diagnosis Left corneal abrasion, initial encounter- Primary documented in this encounter [facility] Work Phone: Evaluation note* Diagnosis Abrasion of left cornea, initial encounter- Primary Pain in left eye Pain in or around eye Photophobia, left eye Visual discomfort documented in this encounter [facility] note* Diagnosis Supervision of other high risk pregnancies, unspecified trimester (HCC)- Primary 38 weeks gestation of ([facility]) state, incidental Obesity in (HCC) Obesity complicating , childbirth, or the puerperium, unspecified as to episode of care or not applicable documented in this encounter [facility] for referral (narrative)* Consultation (Routine) - Authorized Specialty Diagnoses / Procedures Referred By Elisabet blair Referred To Contact Primary Care Procedures Follow Up In Primary Care - Established Shannan Durbin, TIKA [address] [facility] [place] [address] Referral ID Status Reason Start Date Expiration Date V isits Requested Visits Authorized [id number] Authorized 03/31/2024 03/31/2025 1 1 * Consultation (Routine) - Pending Review Specialty Diagnoses / Procedures Referred By Contac t Referred To Contact Physical Therapy Diagnoses Chronic low back pain without sciatica, unspecified back pain laterality Neck pain Shannan Durbin APRN-AUTOMOTIVE DESIGN DRAFTER [address] [facility] [place] [address] Referral ID Status Reason Start Date Expiration Date Visits Requested Visits Authorized [id number] Pending Review Specialty Services Required 03/31/2024 03/31/2025 1 1 * Imaging (Routine) - Authorized Specialty Diagnoses / Procedures Referred By Contac t Referred To Contact Radiology Diagnoses Hand pain, left Procedures XR hand left 1-2 views Shannan Durbin APRN-AUTOMOTIVE DESIGN DRAFTER [address] [facility] [place] [address] Referral ID Status Reason Start Date Expiration Date Visits Requested Visits Authorized [id number] Authorized Perform Procedure 03/31/2024 03/31/2025 1 1 * Imaging (Routine) - Authorized Specialty Diagnoses / Procedures Referred By Contac t Referred To Contact Radiology Diagnoses Neck pain Procedures XR cervical spine 2-3 views Shannan Durbin APRN-JARRELL [address] [place] [address] Referral ID Status Reason Start Date Expiration Date Visits Requested Visits Authorized [id number] Authorized Perform Procedure 03/31/2024 03/31/2025 1 1 * Imaging (Routine) - Authorized Specialty Diagnoses / Procedures Referred By Contac t Referred To Contact Radiology Diagnoses Chronic low back pain without sciatica, unspecified back pain laterality Procedures XR lumbar spine 2-3 views Shannan Durbin PERSONAL SECRETARY-AUTOMOTIVE DESIGN DRAFTER [address] [place] [address] Referral ID Status Reason Start Date Expiration Date Visits Requested Visits Authorized [id number] Authorized Perform Procedure 03/31/2024 03/31/2025 1 1 [facility] Work Phone: Summary Purpose Family History No [...] XR cervical spine 2-3 views Shannan Durbin APRN-AUTOMOTIVE DESIGN DRAFTER [address] [facility] Physician [place] [id number] Referral ID Status Reason Start Date Expiration Date Visits Requested Visits Authorized [id number] Authorized Perform Procedure 03/31/2024 03/31/2025 1 1 Specialty Diagnoses / Procedures Referred By Contac t Referred To Contact Radiology Diagnoses Chronic low back pain without sciatica, unspecified back pain laterality Procedures XR lumbar spine 2-3 views Shannan Durbin APRNAUTOMOTIVE DESIGN DRAFTER [address] [facility] [place] [address] Referral ID Status Reason Start Date Expiration Date Visits Requested Visits Authorized [id number] Authorized Perform Procedure 03/31/2024 03/31/2025 1 1 Specialty Diagnoses / Procedures Referred By Contac t Referred To Contact Radiology Diagnoses Hand pain, left Procedures XR hand left 1-2 views Shannan [facility]urb[facility] [address] [facility] [place] [address] Referral ID Status Reason Start Date Expiration Date Visits Requested Visits Authorized [id number] Authorized Perform Procedure 03/31/2024 03/31/2025 1 1 Additional Source Comments INFORMATION SOURCE (unrecogn ized section and content) DATE CREATED AUTHOR 12/17/2019 [facility] DATE CREATED AUTHOR AUTHOR'S ORGANIZ ATION 09/20/2021 [facility] DATE CREATED AUTHOR AUTHOR'S ORGANIZ ATION 04/01/2024 [facility] DATE CREATED AUTHOR AUTHOR'S ORGANIZ ATION 04/10/2024 [facility] DATE CREATED AUTHOR AUTHOR'S ORGANIZ ATION 07/11/2025 [facility] DATE CREATED AUTHOR AUTHOR'S ORGANIZ ATION 08/05/2025 [facility] DATE CREATED AUTHOR AUTHOR'S ORGANIZ ATION 08/09/2025 [facility] Reason for Visit (unrecogniz ed section and content) Reason Comments Establish Care Hand Pain Back Pain boils Located in the vagin al area Neck Pain Causes migraines Specialty Diagnoses / Procedures Referred By Contac t Referred To Contact Radiology Diagnoses Neck pain Procedures XR cervical spine 2-3 views Shannan Durbin PERSONAL SECRETARY-AUTOMOTIVE DESIGN DRAFTER [address] [facility] [place] [address] Referral ID Status Reason Start Date Expiration Date Visits Requested Visits Authorized [id number] Authorized Perform Procedure 03/31/2024 03/31/2025 1 1 Specialty Diagnoses / Procedures Referred By Contac t Referred To Contact Radiology Diagnoses Chronic low back pain without sciatica, unspecified back pain laterality Procedures XR lumbar spine 2-3 views Shannan Durbin PERSONAL SECRETARY-AUTOMOTIVE DESIGN DRAFTER [address] [facility] [place] [address] Referral ID Status Reason Start Date Expiration Date Visits Requested Visits Authorized [id number] Authorized Perform Procedure 03/31/2024 03/31/2025 1 1 Specialty Diagnoses / Procedures Referred By Contac t Referred To Contact Radiology Diagnoses Hand pain, left Procedures XR hand left 1-2 views Shannan Durbin PERSONAL SECRETARY-AUTOMOTIVE DESIGN DRAFTER [address] [facility] [place] [address] Referral ID Status Reason Start Date Expiration Date Visits Requested Visits Authorized [id number] Authorized Perform Procedure 03/31/2024 03/31/2025 1 1 Reason Comments Care Reason Comments Initial OB Visit Reason Comments PRAF Reason Comments US Specialty Diagnoses / Procedures Referred By Contac t Referred To Contact [facility][NOTE 3] Diagnoses with uncertain dates, antepartum Procedures OBSTETRIC ULTRASOUND WHI US PREG UTERUS AFTER 1ST TRIMEST 1/ GESTATION Lakesha Bingham APRN.CNMariella [address] [place] [address] Phone: tel: fax:[phone] [address] Referral ID Status Reason Start Date Expiration Date V isits Requested Visits Authorized [id number] Closed Auto-Generate d Referral 01/25/2025 01/25/2026 1 1 Reason Onset Date Comments Care 01/26/2025 Reason Comments Colposcopy Specialty Diagnoses / Procedures Referred By Contac t Referred To Contact [facility][NOTE 3] Diagnoses Cervical high risk HPV (human papillomavirus) test positive Procedures COLPOSCOPY COLPOSCOPY CERVIX BX CERVIX & ENDOCRV CURRLOBITOGE Jessica Villegas MD [address] [place] [address] Phone: tel: fax:[phone] [address] Referral ID Status Reason Start Date Expiration Date V isits Requested Visits Authorized [id number] Closed Auto-Generate d Referral 02/01/2025 02/01/2026 1 1 Reason Onset Date Comments Refill Request 02/16/2025 Specialty Diagnoses / Procedures Referred By Contac t Referred To Contact [facility][NOTE 3] Diagnoses with uncertain dates, antepartum (HCC) Procedures OBSTETRIC ULTRASOUND WHI US PREG UTERUS AFTER 1ST TRIMEST / GESTATION Lakesha Bingham APRN.MACK [address] [place] [address] Phone: tel: fax:[phone] [address] Referral ID Status Reason Start Date Expiration Date V isits Requested Visits Authorized [id number] Closed Auto-Generate d Referral 01/25/2025 01/25/2026 1 1 Reason Onset Date Comments Care 03/29/2025 Reason Comments Corporate Librarian - Other error Reason Comments Breast pump Reason Onset Date Comments Refill Request 04/18/2025 Reason Onset Date Comments Care 05/21/2025 Reason Comments Corporate Librarian - Other PRAF Reason Onset Date Comments Care 06/04/2025 Reason Onset Date Comments Care 06/21/2025 Specialty Diagnoses / Procedures Referred By Contac t Referred To Contact [facility][NOTE 3] Diagnoses Supervision of other high risk pregnancies, unspecified trimester (HCC) 30 weeks gestation of (HCC) Uterine size-date discrepancy, third trimester (HCC) Procedures OBSTETRIC ULTRASOUND WHI US PREG UTERUS AFTER 1ST TRIMEST GESTATION Lakesha Bingham APRN.MACK [address] [place] [address] Phone: tel: fax: [facility] [address] [place] [address] Referral ID Status Reason Start Date Expiration Date V isits Requested Visits Authorized [id number] Closed Auto-Generate d Referral 06/04/2025 06/04/2026 3 [...] Care Teams (unrecognized sec tion and content) Weighter Relationship Specialty Start Date End Date Shannan Durbin APRN-AUTOMOTIVE DESIGN DRAFTER [address] [facility] [place] [address] PCP - General Family Medicine 03/31/24 Weighter Relationship Specialty Start Date End Date Shannan Durbin PERSONAL SECRETARY-AUTOMOTIVE DESIGN DRAFTER [address] [facility] [place] [address] PCP - General Family Medicine 03/31/24 Weighter Relationship Specialty Start Date End Date Shannan Durbin APRN-CNP [address] [facility], [address] [place] [address] PCP - Brigitte ACO PCP 12/26/24 Shannan Durbin APRN-CNP [address] [facility], [address] [place] [address] PCP - [facility] Medicaid PCP 05/25/25 Generic Provider, No [place] [address] PCP - General Dental Laboratory Technician 08/03/25 Source Comments (unrecognize d section and content) In the event this informatio n is protected by the Federal Confidentiality of Alcohol and Drug Abuse Patient Records regulations: The Federal rules restrict any use of the information to criminally investigate or prosecute any alcohol or drug abuse patient.[facility] the event this information is protected by the Federal Confidentiality of Alcohol and Drug Abuse Patient Records regulations: The Federal rules restrict any use of the information to criminally investigate or prosecute any alcohol or drug abuse patient.[facility] Center[facility] the event this information is protected by the Federal Confidentiality of Alcohol and Drug Abuse Patient Records regulations: The Federal rules restrict any use of the information to criminally investigate or prosecute any alcohol or drug abuse patient.[facility] Center[facility] the event this information is protected by the Federal Confidentiality of Alcohol and Drug Abuse Patient Records regulations: The Federal rules restrict any use of the information to criminally investigate or prosecute any alcohol or drug abuse patient.[facility] CenterIn the event this information is protected by the Federal Confidentiality of Alcohol and Drug Abuse Patient Records regulations: The Federal rules restrict any use of the information to criminally investigate or prosecute any alcohol or drug abuse patient.[facility] CenterIn the event this information is protected by the Federal Confidentiality of Alcohol and Drug Abuse Patient Records regulations: The Federal rules restrict any use of the information to criminally investigate or prosecute any alcohol or drug abuse patient.[facility] CenterIn the event this information is protected by the Federal Confidentiality of Alcohol and Drug Abuse Patient Records regulations: The Federal rules restrict any use of the information to criminally investigate or prosecute any alcohol or drug abuse patient.[facility] CenterIn the event this information is protected by the Federal Confidentiality of Alcohol and Drug Abuse Patient Records regulations: The Federal rules restrict any use of the information to criminally investigate or prosecute any alcohol or drug abuse patient.[facility] CenterIn the event this information is protected by the Federal Confidentiality of Alcohol and Drug Abuse Patient Records regulations: The Federal rules restrict any use of the information to criminally investigate or prosecute any alcohol or drug abuse patient.[facility] CenterIn the event this information is protected by the Federal Confidentiality of Alcohol and Drug Abuse Patient Records regulations: The Federal rules restrict any use of the information to criminally investigate or prosecute any alcohol or drug abuse patient.[facility] CenterIn the event this information is protected by the Federal Confidentiality of Alcohol and Drug Abuse Patient Records regulations: The Federal rules restrict any use of the information to criminally investigate or prosecute any alcohol or drug abuse patient.[facility] CenterIn the event this information is protected by the Federal Confidentiality of Alcohol and Drug Abuse Patient Records regulations: The Federal rules restrict any use of the information to criminally investigate or prosecute any alcohol or drug abuse patient.[facility] CenterIn the event this information is protected by the Federal Confidentiality of Alcohol and Drug Abuse Patient Records regulations: The Federal rules restrict any use of the information to criminally investigate or prosecute any alcohol or drug abuse patient.[facility] CenterIn the event this information is protected by the Federal Confidentiality of Alcohol and Drug Abuse Patient Records regulations: The Federal rules restrict any use of the information to criminally investigate or prosecute any alcohol or drug abuse patient.[facility] CenterIn the event this information is protected by the Federal Confidentiality of Alcohol and Drug Abuse Patient Records regulations: The Federal rules restrict any use of the information to criminally investigate or prosecute any alcohol or drug abuse patient.[facility] CenterIn the event this information is protected by the Federal Confidentiality of Alcohol and Drug Abuse Patient Records regulations: The Federal rules restrict any use of the information to criminally investigate or prosecute any alcohol or drug abuse patient.[facility] CenterIn the event this information is protected by the Federal Confidentiality of Alcohol and Drug Abuse Patient Records regulations: The Federal rules restrict any use of the information to criminally investigate or prosecute any alcohol or drug abuse patient.[facility] CenterIn the event this information is protected by the Federal Confidentiality of Alcohol and Drug Abuse Patient Records regulations: The Federal rules restrict any use of the information to criminally investigate or prosecute any alcohol or drug abuse patient.[facility] CenterIn the event this information is protected by the Federal Confidentiality of Alcohol and Drug Abuse Patient Records regulations: The Federal rules restrict any use of the information to criminally investigate or prosecute any alcohol or drug abuse patient.[facility] CenterIn the event this information is protected by the Federal Confidentiality of Alcohol and Drug Abuse Patient Records regulations: The Federal rules restrict any use of the information to criminally investigate or prosecute any alcohol or drug abuse patient.[facility] CenterIn the event this information is protected by the Federal Confidentiality of Alcohol and Drug Abuse Patient Records regulations: The Federal rules restrict any use of the information to criminally investigate or prosecute any alcohol or drug abuse patient.[facility] CenterIn the event this information is protected by the Federal Confidentiality of Alcohol and Drug Abuse Patient Records regulations: The Federal rules restrict any use of the information to criminally investigate or prosecute any alcohol or drug abuse patient.[facility] CenterIn the event this information is protected by the Federal Confidentiality of Alcohol and Drug Abuse Patient Records regulations: The Federal rules restrict any use of the information to criminally investigate or prosecute any alcohol or drug abuse patient.[facility] CenterIn the event this information is protected by the Federal Confidentiality of Alcohol and Drug Abuse Patient Records regulations: The Federal rules restrict any use of the information to criminally investigate or prosecute any alcohol or drug abuse patient.[facility] CenterIn the event this information is protected by the Federal Confidentiality of Alcohol and Drug Abuse Patient Records regulations: The Federal rules restrict any use of the information to criminally investigate or prosecute any alcohol or drug abuse patient.[facility] CenterIn the event this information is protected by the Federal Confidentiality of Alcohol and Drug Abuse Patient Records regulations: The Federal rules restrict any use of the information to criminally investigate or prosecute any alcohol or drug abuse patient.[facility] CenterIn the event this information is protected by the Federal Confidentiality of Alcohol and Drug Abuse Patient Records regulations: The Federal rules restrict any use of the information to criminally investigate or prosecute any alcohol or drug abuse patient.[facility] Scheduled Active and Recently Administ ered Medications [...] BE BASED ON THE PRIMARY CLINICAL RECORDS. [employer] provides no warranty or guarantee of the accuracy or completeness of information in this document.
[2025-08-10] MEDS: Lactated Ringers 1,000 ML 50 ML IV (08:24)
[2025-08-10] MEDS: Penicillin G Pot 5,000,000 UNITS in 0.9% Normal Saline (100mL MB+) 100 ML 150 UNITS IV (08:32)
[2025-08-10 08:35] LABS: Hematocrit 35.7 % (37-47); Hemoglobin 12.8 g/dL (12.0-15.0); Immature Granulocytes Count 0.100 X10^3/uL (0.0-0.0); Mean Corp Hgb Conc 35.9 g/dL (32-36); Mean Corpuscular Volume 89.5 fL (81-99); Mean Platelet Vol. 8.9 fl (6.2-12.0); NRBC Flagged by Analyzer 0 % (0-5); Platelet Count 325 K/mm3 (150-450); RBC Distribution Width CV 13.1 % (11.6-14.6); RBC Distribution Width SD 42.9 fl (35.1-43.9); Red Blood Count 3.99 M/mm3 (4.2-5.4); White Blood Count 16.2 K/mm3 (4.4-11.0)
[2025-08-10] MEDS: Oxytocin 15 Units/NS 250ml 15 UNITS/250 ML IV.SOLN 2 UNITS IV (08:49)
--- NOTE | 2025-08-10 09:11 | PCM.HP.OB ---
HPI - General General Date of Admission: 08/10/25 HPI Narrative TIMI AC, is a 34 F who presents at at 39w5d with PROM. Irregular contractions and mild. Maternal Data Information LUCIA Calculator Estimated Delivery Date Method Current WG Current Estimate 08/12/25 Manual 39w 6d PFSH PFSH Medical History no medical history Home Medications ?Medication ?Instructions ?Recorded ?Last Taken ?Type aspirin 81 mg chewable tablet 1 tab PO DAILY 08/10/25 08/09/25 History (Aspirin Childrens) vits,calcium 91-iron 28 1 pkg PO DAILY 08/10/25 08/09/25 History mg-folic 975 mcg-dha 200 mg oral pack ( + DHA) Allergy/AdvReac Type Severity Reaction Status Date / Time No Known Allergies Allergy Verified 08/10/25 06:18 Social History Smoking Status: Current every day smoker tobacco type: cigarettes History Elective abortions Hx Para 2 Spontaneous abortions Hx # Term Pregnancies Ectopic pregnancies Hx # Pregnancies Multiple births # of living children NST FHR Rate Baby A Baseline: 115 Variability:: Moderate Accelerations:: 15 x 15 Decelerations:: None FHR Category:: Category I Uterine Activity:: irregular ROS Constitutional Constitutional: Reports systems reviewed and no addt'l complaints, except as documented; Denies headache(s) Eyes Eyes: Denies acute decrease in peripheral vision, blurry vision or change in vision ENT HEENT: Reports systems reviewed and no addt'l complaints, except as documented Cardiovascular Cardiovascular: Denies chest pain or dizziness Respiratory/Chest Respiratory/Chest: Denies cough, dyspnea, dyspnea on exertion, shortness of breath at rest or shortness of breath with exertion Gastrointestinal Gastrointestinal: Denies abdominal pain, diarrhea, nausea or vomiting Genitourinary Genitourinary: Denies abdominal discomfort Musculoskeletal Musculoskeletal: Denies limited range of motion Integumentary Integumentary: Reports systems reviewed and no addt'l complaints, except as documented Neurologic Neurologic: Reports systems reviewed and no addt'l complaints, except as documented Psychiatric Psychiatric: Reports systems reviewed and no addt'l complaints, except as documented Endocrine Endocrinology: Reports systems reviewed and no addt'l complaints, except as documented Hematologic/Lymphatic Hematologic/Lymphatic: Reports systems reviewed and no addt'l complaints, except as documented Allergic/Immunologic Allergic/Immunologic: Reports systems reviewed and no addt'l complaints, except as documented Vital Signs Vital Signs Vital Signs: 08/10/25 06:22 08/10/25 06:22 08/10/25 06:24 Temperature Temperature Source Pulse Rate 71 69 Respiratory Rate Blood Pressure 130/79 H BP Systolic 130 BP Diastolic 79 Pulse Ox 08/10/25 06:24 08/10/25 06:26 08/10/25 06:26 Temperature Temperature Source Temporal Pulse Rate Respiratory Rate Blood Pressure 130/79 H BP Systolic 130 BP Diastolic 79 Pulse Ox 97 08/10/25 06:26 08/10/25 06:26 08/10/25 06:26 Temperature Temperature Source Pulse Rate 78 Respiratory Rate 18 Blood Pressure BP Systolic BP Diastolic Pulse Ox 97 08/10/25 06:26 08/10/25 06:29 08/10/25 06:29 Temperature 97.9 F Temperature Source Pulse Rate 68 Respiratory Rate Blood Pressure BP Systolic BP Diastolic Pulse Ox 96 08/10/25 06:35 08/10/25 06:35 08/10/25 06:53 Temperature Temperature Source Pulse Rate 68 Respiratory Rate Blood Pressure 128/73 H BP Systolic 128 BP Diastolic 73 Pulse Ox 96 08/10/25 06:53 08/10/25 07:23 08/10/25 07:23 Temperature Temperature Source Pulse Rate 72 65 Respiratory Rate Blood Pressure 127/80 H BP Systolic 127 BP Diastolic 80 Pulse Ox 08/10/25 08:36 08/10/25 08:36 Temperature Temperature Source Pulse Rate 67 Respiratory Rate Blood Pressure 128/72 H BP Systolic 128 BP Diastolic 72 Pulse Ox Weight Weight: 218 lb Body Mass Index (BMI) 37.4 Physical Exam Const alert and oriented x3 General Appearance: cooperative Orientation / Consciousness: awake, oriented to person, oriented to place and oriented to time Exam Limitations: no limitations HEENT normocephalic Head and Scalp: normal to inspection, normocephalic and atraumatic Face and Sinus: normal facial exam Eyes General Eye: normal appearance of both eyes Neck full ROM Chest Chest: symmetrical chest wall rise Resp normal respiratory effort and normal air movement Auscultation: clear to auscultation bilaterally Cardio regular rate, regular rhythm, S1 normal heart sound, S2 normal heart sound, no murmurs, no rub, no gallops and no clicks GI normal to inspection, nondistended, normoactive bowel sounds and non-tender appearance of the vagina normal Bladder / Kidney Exam: no CVA tenderness Manual OB Exam: presentation cephalic Back/Spine normal ROM Extremity normal to inspection and full ROM Skin no rashes or lesions noted Neuro oriented x3, CN's II-XII intact bilaterally and moves all extremities Sensorium / Orientation: awake, alert and oriented to person Motor Exam: clonus absent Deep Tendon Reflexes: Rt Patellar (L4): 2+ and Lt Patellar (L4): 2+ Labs Labs Labs: Blood Type O POSITIVE Antibody Screen NEGATIVE Hct, (37-47) 35.7 % L Hgb, (12.0-15.0) 12.8 g/dL Obstetrics Ultrasound Syphilis Total Ab, (Nonreactive) Nonreactive Rhogam given: No Miscellaneous Test Pending RPR negative Rubella Immune HBsAG negative HepC negative HIV nonreactive O Positive GC/CT negative Assessment & Plan (1) 39 weeks gestation of : (2) PROM (premature rupture of membranes): (3) Tobacco use during : (4) Marijuana use during : (5) HPV (human papilloma virus) infection: (6) Genital warts: PLAN: Plan 1) Admit to labor and delivery 2) Routine labs 3) Continuous EFM 4) Pain management upon request 5) Discussed expectant vs active management with PROM. Reviewed r/b/a of pitocin and would like to proceed with pitocin augmentation 6) Dr. Gonzalez collaborative physician and notified of patient status, above assessment, and plan.
[2025-08-10 09:41] LABS: Syphilis Antibodies Nonreactive (Nonreactive)
[2025-08-10 11:27] LABS: Barbiturate Urine NEGATIVE (< 200 ng/mL); Benzodiazepine Urine NEGATIVE (< 200 ng/mL); PCP Urine NEGATIVE (< 25 ng/mL); THC Urine PRESUMPTIVE POSITIVE (< 50 ng/mL)
--- NOTE | 2025-08-10 12:52 | PCM.PN.OB ---
Subjective Subjective Resting in bed, comfortable. Objective Data Objective Data Vital Signs: Vital Signs Temp Pulse Resp BP Pulse Ox 97.1 F L 82 16 128/75 H 81 08/10/25 12:19 08/10/25 12:23 08/10/25 12:19 08/10/25 12:19 08/10/25 12:23 Weight: 218 lb Body Mass Index (BMI) 37.4 Intake & Output: Intake and Output for Last 24 Hours 08/08/25 08/09/25 08/10/25 23:59 23:59 23:59 Intake Total 96.88 / 96.88 Output Total 200 / 200 Balance -103.12 / -103.12 Lab / Micro Data 08/10/25 08:15 Labs: Laboratory Results - last 24 hr 08/10/25 06:20: Vag Amniotic Fld Detect POSITIVE H 08/10/25 08:15: WBC 16.2 H, RBC 3.99 L, Hgb 12.8, Hct 35.7 L, MCV 89.5, MCH 32.1 H, MCHC 35.9, RDW Std Deviation 42.9, RDW Coeff of Dagmar 13.1, Plt Count 325, MPV 8.9, Immature Gran % (Auto) 0.600, Neut % (Auto) 74.3 H, Lymph % (Auto) 17.8 L, Armstrong % (Auto) 4.7, Eos % (Auto) 2.2, Baso % (Auto) 0.4, Absolute Neuts (auto) 12.0 H, Absolute Lymphs (auto) 2.89, Nucleated RBC % 0, Syphilis Total Ab Nonreactive, Blood Type O POSITIVE, Antibody Screen NEGATIVE 08/10/25 10:36: Urine Opiates Screen NEGATIVE, U Buprenorphine Qual NEGATIVE, Ur Oxycodone Screen NEGATIVE, Urine Methadone Screen NEGATIVE, Urine Fentanyl Screen NEGATIVE, Ur Barbiturates Screen NEGATIVE, Ur Phencyclidine Scrn NEGATIVE, Ur Amphetamines Screen NEGATIVE, U Benzodiazepines Scrn NEGATIVE, Urine Cocaine Screen NEGATIVE, U Cannabinoids Screen PRESUMPTIVE POSITIVE, Ur Drug Screen Comment Physical Exam Manual OB Exam: presentation cephalic, dilated 1.5, effaced 50, station -2 and other attempted rupture of possible fore bag, small amount of clear fluid NST FHR Rate Baby A Baseline: 115 Variability:: Moderate Accelerations:: 15 x 15 Decelerations:: Variable FHR Category:: Category II Uterine Activity:: Irregular Assessment & Plan (1) 39 weeks gestation of : (2) PROM (premature rupture of membranes): PLAN: Plan 1) Category 2 FHT, continuous EFM 2) Positional changes 3) Epidural upon request 4) Forebag rupture 5) notified and updated on above assessment, status, and plan of care.
[2025-08-10] MEDS: Penicillin G 3,000,000 Units 50 ML 100 UNITS IV ×2 (13:55→18:23)
[2025-08-10] MEDS: Lactated Ringers 1,000 ML 999 ML IV ×2 (14:15→19:44)
[2025-08-10] MEDS: fentaNYL-bupivacaine (epidural) 100 ML BAG EPIDURAL ×2 (15:02→19:40)
[2025-08-10] MEDS: Lactated Ringers 1,000 ML 200 ML IV ×2 (16:27→21:35)
[2025-08-10] MEDS: Amnioinfusion- 0.9% NS 1,000 ML IV.SOLN. 1000 ML INTRA-UTER (20:25)
[2025-08-11] VITALS (15 sets, daily range): BP systolic 102–131; BP diastolic 52–80; PULSE 61–95; RESP 15–17; TEMP 36.1–36.9; O2SAT 94–100
[2025-08-11] MEDS: fentaNYL-bupivacaine (epidural) 100 ML BAG EPIDURAL ×2 (00:12→04:55)
[2025-08-11] MEDS: Penicillin G 3,000,000 Units 50 ML 100 UNITS IV ×2 (01:42→06:18)
[2025-08-11] MEDS: Lactated Ringers 1,000 ML 999 ML IV (04:10)
[2025-08-11] MEDS: Lactated Ringers 1,000 ML 200 ML IV (04:55)
--- NOTE | 2025-08-11 07:19 | EX.PCM.OBVAG ---
Assessment & Plan (1) Vaginal delivery: Maternal Data Information LUCIA Calculator Estimated Delivery Date Method Current WG Current Estimate 08/12/25 Manual 39w 6d Vaginal Delivery Maternal Presentation Maternal Presentation: Spontaneous Rupture of Membranes Vaginal Delivery Information Procedure Performed: Spontaneous Vaginal Delivery Surgeon/Practitioner: Lakesha Bingham Date of Procedure: 08/11/25 Pre-Procedure Diagnosis: SROM, pitocin augmentation Post-Procedure Diagnosis: Type of anesthesia: Epidural Estimated Blood Loss: 200 ml Time of Delivery: 07:07 Findings Description of procedure: Progressed to complete with urge to push. Epidural for pain management. of viable female infant over intact perineum. APGARS 8,9 respectively. Infant head delivered with body immediately forthcoming. Placed on maternal abdomen, strong cry. Mouth and nares suctioned for secretions. Pitocin started for active 3rd stage management. Cord doubly clamped and cut by FOB after pulsations ceased, delayed cord clamping. Placenta delivered intact via miller, 3 vessel cord intact. Perineum inspected and revealed intact. Fundus firm and hemostasis achieved. EBL 200ml. Vaginal sweep completed by me, sponge and instrument correct. Mom and baby stable, planning to breastfeed. Family bonding well. notified of delivery. Presentation: Vertex and ZAC Amniotic Membrane Rupture Type: Spontaneous Amniotic Fluid Description: Clear Placental Delivery Description: Spontaneous Placenta Disposition: [facility] Specimen collected: No Cord Vessel Description: 3 Vessels Cord Entanglement: None Infant A Gender: Female (1 minute): 8 (5 minute): 9 Delayed Cord Clamping: Yes Health Information Manager motor vehicle parts interpreter: No Post Vaginal Deli Medications given after delivery: IV Pitocin Episiotomy Description: None Laceration: None Complication Complications: No
[2025-08-11] MEDS: Oxytocin 15 Units/NS 250ml 15 UNITS/250 ML IV.SOLN 83 UNITS IV (07:50)
[2025-08-12 01:12] VITALS: BP 143/79; PULSE 85; RESP 16; TEMP 36.6; O2SAT 98
[2025-08-12 04:48] VITALS: BP 125/86; PULSE 84; RESP 16; TEMP 36.4; O2SAT 99
--- NOTE | 2025-08-12 07:26 | PCM.PN.OB ---
Subjective Subjective Doing well. Ambulating and voiding without difficulty. Mild lochia. Breast feeding. Objective Data Objective Data Vital Signs: Vital Signs Temp Pulse Resp BP Pulse Ox O2 Del Method 97.5 F L 84 16 125/86 H 99 Room Air 08/12/25 04:48 08/12/25 04:48 08/12/25 04:48 08/12/25 04:48 08/12/25 04:48 08/12/25 04:48 Oxygen Delivery Method Room Air Weight: 98.883 kg Body Mass Index (BMI) 37.4 Intake & Output: Intake and Output for Last 24 Hours 08/10/25 08/11/25 08/12/25 23:59 23:59 23:59 Intake Total 4276.71 / 4276.71 3472.29 / 3472.29 Output Total 450 / 450 950 / 950 Balance 3826.71 / 3826.71 2522.29 / 2522.29 Lab / Micro Data 08/10/25 08:15 ROS Constitutional Constitutional: Denies headache(s) Cardiovascular Cardiovascular: Denies chest pain or dyspnea Gastrointestinal Gastrointestinal: Denies nausea or vomiting Genitourinary Genitourinary: Denies dysuria Physical Exam Const alert, oriented x3 and no apparent distress General Appearance: cooperative and comfortable Eyes PERRL and EOMs intact bilaterally Resp normal respiratory effort GI soft to palpation and non-tender Uterus Palpation: uterus fundus firm ( below umbilicus) Extremity normal to inspection and full ROM Neuro oriented x3 and CN's II-XII intact bilaterally Psych mental status grossly normal Assessment & Plan (1) Vaginal delivery:
--- NOTE | 2025-08-12 07:27 | PCM.DC.SUM ---
Providers Date of Admission: 08/10/25 Date of Discharge: 08/12/25 Primary Care Physician: Ana M Primary Care Phys Reason For Visit: LABOR/DEL VAG DEL Diagnosis Discharge Diagnosis (1) Vaginal delivery: Status: Acute Code(s): O80 - Encounter for full-term uncomplicated delivery Medications at Discharge Home Medications vits,calcium 91-iron 28 mg-folic 975 mcg-dha 200 mg oral pack ( + DHA) 1 pkg PO DAILY 08/10/25 ibuprofen 600 mg tablet 600 mg PO Q6H PRN PRN Pain Score 1-10 #60 tabs 08/12/25 pantoprazole 40 mg tablet,delayed release 40 mg PO DAILY #30 tabs 08/12/25 Hospital Course Operations None Procedures None Summary of Care Provided Minutes Spent on Discharge: 20 Hospital Course: Normal . No problems . Breast feeding Physical Exam Const alert, oriented x3 and no apparent distress General Appearance: cooperative and comfortable Eyes PERRL and EOMs intact bilaterally Resp normal respiratory effort GI soft to palpation and non-tender Uterus Palpation: uterus fundus firm ( below umbilicus) Extremity normal to inspection and full ROM Neuro oriented x3 and CN's II-XII intact bilaterally Psych mental status grossly normal Weight / BMI Weight Weight: 98.883 kg Body Mass Index (BMI) 37.4 ABG / Lab / Microbiology Data 08/10/25 08:15 D/C Instructions May resume sexual activity in: 6 weeks DC O2, CPAP, BIPAP Needs Home O2 Discharge instructions: No Please Follow Up With: Marily Crowe MD When: Follow up with our office in 1-2 and 6 weeks or as needed. [phone] Meaningful Use Info Meaningful Use Meaningful Use Diagnoses (Choose all that apply): None applicable Discharge Plan Admission Admit Date/Time: 08/10/25 07:03 Primary Reason for Your Visit: labor Attending Provider: Lakesha Bingham Primary Care Provider: Care Physician,Ana M Primary Discharge Orders/Prescriptions Prescriptions: New pantoprazole 40 mg Tablet,Delayed Release (Dr/Ec) 40 mg PO DAILY Qty: 30 2RF ibuprofen 600 mg Tablet 600 mg PO Q6H PRN PRN (Reason: Pain Score 1-10) Qty: 60 0RF Continued + DHA 28 mg iron- 975 mcg-200 mg combo pack 1 pkg PO DAILY Discontinued aspirin [Aspirin Childrens] 81 mg tablet,chewable 1 tab PO DAILY Referrals / Follow Up: Care Physician,No Primary [Primary Care Provider, Medical] Disposition Disposition (needs filled in before D/C Order can be placed): Home, Self Care
[2025-08-12 08:00] VITALS: BP 115/64; PULSE 86; RESP 16; TEMP 36.6; O2SAT 97
[2025-08-12 14:00] VITALS: BP 120/70; PULSE 80; RESP 18; TEMP 36.6; O2SAT 97
--- NOTE | 2025-08-12 14:32 | CASEMGMT ---
Social Work Assessment Labor and Delivery Unit Patient Address: [address] [place], [place] [id number] Phone number: [phone] (Currently parents report that their phone is not working because ASAD dropped it yesterday at the hospital and it broke- he gets paid today and is hoping to be able to go to the store within the next couple of days to get a new phone). Date of Referral: 08/10/25 Time of Referral:? [phone] Referred By: Debbie Gomez Date of Intervention: ?08/12/25? Time of intervention:? 1144 Reason for Referral:? substance abuse Sw completed chart review and acknowledges social work consult due to maternal substance abuse. Sw presented to bedside and introduced self to mother of baby (MOB- Elaine) and father of baby (FOB- Shaheen Zhu). Sw explained reason for sw involvement and completed psychosocial assessment. Sw asked if it was okay to discuss maternal substance use during with FOB present and MOB stated that it was okay. History obtained from: medical records, MOB and FOB Household composition: Currently residing in the family home is CAIN, ASAD, MOB's 2 older children: Jose Carlos (10) and Sybil (13). [place] baby to be included in residence when ready for discharge. Parents deny any problems or concerns with housing, stating that it is safe and secure. Patient's parent/guardian status:? CAIN states that she and ASAD have been together for 2 years, no concerns reported of domestic violence or intimate partner violence. baby is first baby for parents together. ASAD has three older children whom he states are between the ages of 20-23. ? Medical History: ?CAIN is 34 year old female who is 3, para 2- now 3 following labor and delivery of . CAIN received routine care during with [facility]. CAIN presented to hospital following spontaneous rupture of membranes and delivered baby via vaginal delivery on 08/11/25 at 39 weeks gestation. Baby girl, named Joaquin, was born weighing 6lb 6oz and had apgars of 8 and 9 at one and five minutes of life, respectfully. CAIN is breast feeding baby and states that baby will be followed by Dr. Ramirez for pediatrics. - While meeting with parents, deli department manager Dr. Mortensen came in to meet with parents discussing transfer to [facility] NICU. Dr. Mortensen states that baby has a suspicious looking umbilical cord and they want to do some more testing to rule out an omphalocele or hernia. Baby will be transferred to [facility] special care nursery where they will start an IV in preparation for transfer to [facility] NICU. Educational Status:? Both parents obtained their GED's Financial Status: ASAD is employed outside of the home working for [employer] in [place]. 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 CAIN is currently unemployed. Parents state that they are hoping to make this work financially so that CAIN is able to be home with the . Infant Supplies:?? All necessary baby supplies obtained, including: car seat, safe sleep space, clothes, diapers and wipes. Childcare/Caregiver(s):? CAIN will be the primary caregiver to baby, along with ASAD when he is not working. Transportation:??Both parents report to having their drivers license and reliable means of transportation, no barriers at this time. ASAD states that he is low on ramirez right now until he is able to get his paycheck- which he was paid today, but now due to baby being transferred he is not sure if he will be able to pick it up. Suraj stated that she would reach out to [facility] and see if they have any gas cards they are able to provide to parents to help with transportation needs. Programs/Agencies Involved: CAIN is connected to insurance through [employer] along with SNAP. CAIN has WIC and was also connected to [facility] [place] and [facility]. ??? Children Services/Legal Issues:??? CAIN states that they were involved with [facility] earlier this year as a result of her brother overdosing in her driveway. CAIN states that because the overdose happened on her property and she has children that live in the home, when the police got called, they made a referral to children services. CAIN states that the case was opened up and ASAD was asked to move out of the home temporarily until he was cleared by them due to his substance use history. - FOB states that he completed drug screens weekly for children services and was then able to move back into the home. MOB states that after about 7 weeks their case was closed. - Suraj explained to parents that due to maternal THC use during sw is mandated to make a referral to Children services due to intrauterine drug exposure during . MOB and FOB express understanding. Behavioral Health Issues: ??Mental Health History:?FOB states that he has been diagnosed with ADD, he denies taking medications to help him manage his mental health. MOB states that she has not had any mental health diagnoses. MOB denies experiencing any baby blues or depression or anxiety following the delivery of her other two children. ?? 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 FOB states that he has been sober for several years now and rivera not have any desire or intention of using, other than THC. MOB states that she has also used THC for the past 16 years as well as daily throughout . MOB states that she is going to try not to use now that baby is here as she is aware that it can still transfer through her breast milk. ?? Family History:??MOB states that her parents have history of substance use. Sw and parents discussed healthy and safe coping mechanisms opposed to seeking comfort from drugs or alcohol. ??? Drug Screens: ?MOB and baby urine drug screen came back presumptive positive for THC. Meconium is still pending. ? Family/Social Stressors:? MOB and FOB understandably stressed due to baby needing to be transferred to [facility] NICU. MOB stating that she is now worried about baby's medical needs aqnd hopes that baby is okay. Parents do not express any other issues, needs or concerns at this time. Support Systems: MBO states that ASAD and her grandma and her kids are her biggest supports. Depression/Shaken Baby/Safe Sleeping:? Sw educated parents on signs and symptoms of baby blues and depression and anxiety to be mindful of during this period. MOB states that she is mindful of what red flags to lookout for. FOB states that he has heard those terms, but does not know specifically what to look out for. Sw encouraged parents to have a conversation about how ASAD and other family members and friends can be supportive to MOB if she were to struggle during this period. MOB states that she has felt good since baby has been born, stating that she feels a cornejo and a connection with her. Sw educated parents on shaken baby prevention and ABCs of safe sleep, parents express understanding. ASSESSMENT:? MOB and baby admitted following labor and delivery of . MOB with substance use history of THC throughout . MOB states that she has used for many years, and does not want to continue use now that baby is born and she is providing breast milk for baby. FOB has a more extensive substance use history that includes 15 years of methamphetamine use, but has been sober for several years now, with the exception of THC use. MOB was laying comfortably in bed and was observed to hold baby lovingly and attentively. FOB was standing at bedside and was attentive to MOB and to baby. Both parents were engaging in conversation throughout completion of assessment. Parents made eye contact and asked appropriate questions. When discussing need for sw to make referral to Children services due to maternal THC use during both parents expressed understanding and were willing to cooperate if a case was opened. Parents have all necessary baby items, however may have some unmet financial needs. Parents also have natural supports in place. Safe Plan of Care for related to substance use:? MOB states that she does not intent on continuing to smoke THC now that baby is here and she is providing breast milk. Education on importance of abstaining and risks associated with using THC and providing breast milk to your provided and discussed. PLAN:? No other services requested or indicated. MOB and baby to be discharged when medically ready. Parents were provided literature regarding: signs and symptoms of baby blues and mood and anxiety disorders, Help Me Grow, shaken baby prevention, ABCs of safe sleep and a list of county resources that are available for them should any needs present themselves. Angel Tanner, YARN TEXTURING MACHINE OPERATOR, DEDICATED DRIVER
--- NOTE | 2025-08-12 15:16 | CASEMGMT ---
Labor and Delivery Brief Social Work Note Date: 08/12/25 Time: 1500 Sw called [facility] and made referral due to maternal substance use of THC during . Sw spoke to hotline screener, Joie. Joie reported that she would write up referral and would call sw for any other questions she may have. Sw informed Joie that baby is being transferred to [facility] N[facility], and if they are going to be opening up the referral to [facility] base with [facility]. Joie expressed understanding. No other needs or concerns at this time. Angel Tanner, WAREHOUSE INSULATION WORKER, LABOR SERVICE REPRESENTATIVE
== END 2025-08-12 15:30 | disposition home or self-care (01) | DRG 560 ==
PROVIDERS: Obstetrics & Gynecology; Admitting Provider Advanced Practice Midwife; Referring Provider Advanced Practice Midwife; Visit Provider Advanced Practice Midwife
DX: O42.92 Full-term premature rupture of membranes, unspecified as to length of time between rupture and onset of labor (principal); Z37.0 Single live birth; A63.0 Anogenital (venereal) warts; O99.324 Drug use complicating childbirth; F17.210 Nicotine dependence, cigarettes, uncomplicated; F12.99 Cannabis use, unspecified with unspecified cannabis-induced disorder; Z3A.39 39 weeks gestation of pregnancy; O99.334 Smoking (tobacco) complicating childbirth; O98.32 Other infections with a predominantly sexual mode of transmission complicating childbirth
CPT/HCPCS: 59025; 59050; 80307; 84112; 85025; 86780; 86850; 86900; 86901; 99221; G0378; J2405